=== PATIENT | female | born 1925 | race Asian ===

== ENCOUNTER 2016-10-11 08:49 | Inpatient (IN) | END 2016-10-16 17:50 | DRG 682 | DX: N17.9 Acute kidney failure, unspecified (principal); G93.41 Metabolic encephalopathy; I80.11 Phlebitis and thrombophlebitis of right femoral vein; N39.0 Urinary tract infection, site not specified; E11.65 Type 2 diabetes mellitus with hyperglycemia; I48.91 Unspecified atrial fibrillation; F03.90 Unspecified dementia, unspecified severity, without behavioral disturbance, psychotic disturbance, mood disturbance, and anxiety; E86.0 Dehydration; B95.62 Methicillin resistant Staphylococcus aureus infection as the cause of diseases classified elsewhere; I12.9 Hypertensive chronic kidney disease with stage 1 through stage 4 chronic kidney disease, or unspecified chronic kidney disease; Z86.73 Personal history of transient ischemic attack (TIA), and cerebral infarction without residual deficits; I25.2 Old myocardial infarction; N18.9 Chronic kidney disease, unspecified; M51.36 Other intervertebral disc degeneration, lumbar region; D64.9 Anemia, unspecified; E78.5 Hyperlipidemia, unspecified; B96.20 Unspecified Escherichia coli [E. coli] as the cause of diseases classified elsewhere ==

== ENCOUNTER 2016-11-14 04:09 | Inpatient (IN) | payer MEDICARE, OTHER ==
[~2016-11-14] VITALS: Ht 152.4 cm; Wt 63.0 kg
[2016-11-14] VITALS (8 sets, daily range): BP systolic 146–174; BP diastolic 72–77; PULSE 104–121; RESP 16–20; TEMP 98.9; Ht 152.4 cm; Wt 63.0 kg
[~2016-11-14 04:09] MED LIST: ACET-2047 PO; AMLO5TAB4 PO; ASCO500C7 PO; BISA10SU58 PR; CEPH250S33 PO; CRAN3875 PO; CRAN425C PO; DOCU-144 PO; EPOE10002 IJ; ESCI5TAB PO; FERR325C PO; HYDR-762 PO; IMO2 PO; LANT3I SC; LISI-524 PO; MULT-552 PO; NA P118E PR
[2016-11-14] MEDS ORDERED: ACETAMINOPHEN 650 MG SUPP PR STA (04:26)
[2016-11-14] MEDS ORDERED: IPRATROPIUM (NEB) 0.5 MG/2.5 ML AMP HHN ONE ×2 (04:30→05:30)
[2016-11-14] MEDS ORDERED: LEVALBUTEROL (NEB) 1.25 MG/0.5 ML AMP HHN ONE ×2 (04:30→05:30)
--- NOTE | 2016-11-14 04:32 | ERA ---
ER Documentation Chief Complaint Date/Time DATE: 11/14/16 TIME: 04:32 Chief Complaint sent from [facility] for wheezes and fever 100.2 since 0230, tx'd w/ tylenol. HPI The patient is a 89-year-old female, presenting to the ER because of fever of 102 tonight. She was treated with acetaminophen prior to arrival. History is fairly petite because of language barrier and because of patient condition. 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 Past medical history: Atrial fibrillation, CHF, hypertension, encephalopathy, anemia, chronic kidney disease, dementia Past surgical history: Unable to obtain due to her condition ROS All systems reviewed and are negative except as per history of present illness. Medications Home Meds Active Scripts Epoetin Jean (Procrit) 10,000 Unit/1 Ml Vial, [address] UNIT IJ q monthly for 30 Days, #1 VIAL Prov:HARMONY OLEA MD 10/16/16 Amlodipine Besylate* (Norvasc*) 5 Mg Tablet, 5 MG PO DAILY for 30 Days, #60 TAB Prov:HARMONY OLEA MD 10/16/16 Insulin Glargine* (Lantus*) 100 Unit/Ml Soln, 35 UNIT SC HS for 30 Days, #1 BOTTLE Prov:HARMONY OLEA MD 10/16/16 Cephalexin* (Cephalexin* Susp) 250 Mg/5 Ml Susp.recon, 500 MG PO Q8 for 7 Days, #1 BOTTLE Prov:HARMONY OLEA MD 10/16/16 Loperamide Hcl* (Loperamide Hcl*) 2 Mg Cap, 2 MG PO QID Y for DIARRHEA for 30 Days, CAP Prov:HARMONY OLEA MD 08/09/15 Reported Medications Ascorbic Acid* (Vitamin C*) 500 Mg Capsule.sa, 500 MG PO DAILY, CAP 09/24/15 Cran/Vitc/Mannose/Inulin/Brom (Uti-Stat Liquid) 3,875 Mg/30 Ml Liquid, 3875 MG PO BID 09/24/15 Acetaminophen* (Acetaminophen*) 650 Mg Tablet, 650 MG PO Q4 Y for PAIN AND OR ELEVATED TEMP, #30 TAB 09/24/15 Hydrocodone Bit-Acetaminophen* (Wellington*) 10-325 Mg Tablet, 1 TAB PO Q6 Y for PAIN , TAB 09/24/15 Multivitamins* (Once Daily*) 1 Tab Tablet, 1 TAB PO DAILY, TAB 09/24/15 Na Phos,M-B/Na Phos,Di-Ba* (Fleet* Enema) 118 Ml Enema, 118 ML DC Q48H Y for CONSTIPATION, ENEMA 09/24/15 Ferrous Sulfate (Iron) 325 Mg Capsr, 325 MG PO DAILY 09/24/15 Bisacodyl* (Dulcolax*) 10 Mg/Supp.rect Supp.rect, 10 MG DC Q24H Y for CONSTIPATION, SUPP.RECT 09/24/15 Cranberry Extract (Cranberry) 425 Mg Capsule, 425 MG PO TID, CAP 09/24/15 Docusate Sodium* (Colace*) 100 Mg Capsule, 200 MG PO Q24H Y for CONSTIPATION, # 30 CAP 09/24/15 Lisinopril* (Zestril*) 10 Mg Tablet, 10 MG PO BID, TAB 03/22/15 Escitalopram Oxalate* (Lexapro*) 5 Mg Tablet, 5 MG PO DAILY, TAB 02/18/15 Allergies Allergies: Coded Allergies: No Known Allergy (Unverified , 09/24/15) PMhx/Soc Hx Neurological Disorder: No Hx Respiratory Disorders: No (UNABLE TO OBTAIN PT INFO) Hx Cardiac Disorders: Yes (ATRIAL AFIB, HEART FAILURE) Hx Psychiatric Problems: No Hx Miscellaneous Medical Probl: No Physical Exam Vitals Vital Signs Date Time Temp Pulse Resp B/P Pulse Ox O2 Delivery O2 Flow Rate FiO2 11/14/16 05:23 80 20 98 Nasal Cannula 3.0 11/14/16 05:20 98.6 110 24 145/67 98 4.0 11/14/16 05:12 Nasal Cannula 4 11/14/16 04:35 98 3.0 11/14/16 04:34 89 25 98 Nasal Cannula 3.0 11/14/16 04:17 98.6 86 22 144/87 94 Physical Exam Const: Mild acute distress. Head: Atraumatic. Eyes: Normal Conjunctiva. ENT: Normal External Ears, Nose and Mouth. Neck: Full range of motion. No meningismus. Resp: Mild bilateral expiratory wheezes, tachypnea Cardio: Irregularly irregular Abd: Soft, non distended, normal bowel sounds, non tender. Skin: No petechiae or rashes. Back: No midline or flank tenderness. Ext: No cyanosis, or edema. Neur: Unable to perform due to her condition Psych: Unable to perform due to her condition Result Diagram: 11/14/16 0431 11/14/16 0431 Results 24 hrs Laboratory Tests Test 11/14/16 04:31 11/14/16 05:08 11/14/16 05:14 White Blood Count 8.610^3/ul Red Blood Count 3.0110^6/ul Hemoglobin 9.8g/dl Hematocrit 32.4% Mean Corpuscular Volume 107.6fl Mean Corpuscular Hemoglobin 32.6pg Mean Corpuscular Hemoglobin Concent 30.2g/dl Red Cell Distribution Width 13.3% Platelet Count 19396^3/UL Mean Platelet Volume 9.5fl Neutrophils % 79.2% Lymphocytes % 9.3% Monocytes % 6.0% Eosinophils % 4.7% Basophils % 0.5% Nucleated Red Blood Cells % 0.0/100WBC Neutrophils # 6.810^3/ul Lymphocytes # 0.810^3/ul Monocytes # 0.510^3/ul Eosinophils # 0.410^3/ul Basophils # 0.010^3/ul Nucleated Red Blood Cells # 0.010^3/ul Prothrombin Time 13.9Sec Prothrombin Time Ratio 1.1 INR International Normalized Ratio 1.07 Activated Partial Thromboplast Time 28.3Sec Sodium Level 143mmol/L Potassium Level 4.9mmol/L Chloride Level 114mmol/L Carbon Dioxide Level 22mmol/L Anion Gap 12 Blood Urea Nitrogen 49mg/dl Creatinine 1.79mg/dl Glucose Level 241mg/dl Lactic Acid Level 1.3mmol/L Calcium Level 8.5mg/dl Total Bilirubin 0.0mg/dl Direct Bilirubin 0.00mg/dl Indirect Bilirubin 0.0mg/dl Aspartate Amino Transf (AST/SGOT) 29IU/L Alanine Aminotransferase (ALT/SGPT) 34IU/L Alkaline Phosphatase 122IU/L Troponin I 0.017ng/ml B-Type Natriuretic Peptide 4810PG/ML Total Protein 7.9g/dl Albumin 3.7g/dl Globulin 4.20g/dl Albumin/Globulin Ratio 0.88 Urine Color LT. YELLOW Urine Clarity SLIGHTLY CLOUDY Urine pH 5.5 Urine Specific Fletcher 1.020 Urine Ketones NEGATIVE Urine Nitrite NEGATIVE Urine Bilirubin NEGATIVE Urine Urobilinogen 0.2 E.U./dL Urine Leukocyte Esterase 2+ Urine Microscopic RBC Pending Urine Microscopic WBC Pending Urine Hemoglobin 2+ Urine Glucose 0.1%% Urine Total Protein 1+ Bedside Urine pH (LAB) 5.5 Bedside Urine Protein (LAB) 2+ Bedside Urine Glucose (UA) 0.25% Bedside Urine Ketones (LAB) Negative Bedside Urine Blood 2+ Bedside Urine Nitrite (LAB) Negative Bedside Urine Leukocyte Esterase (L 1+ Current Medications Medications (Trade) Dose Ordered Sig/Gilbert Route PRN Reason Start Time Stop Time Status Last Admin Dose Admin Acetaminophen (Tylenol Supp) 650 mg ONCE STAT DC 11/14/16 04:26 11/14/16 04:28 DC Levalbuterol (Xopenex Neb) 1.25 mg ONCE ONCE N 11/14/16 04:30 11/14/16 04:31 DC 11/14/16 04:33 Ipratropium Viking (Atrovent 0.02% (Neb)) 0.5 mg ONCE ONCE N 11/14/16 04:30 11/14/16 04:31 DC 11/14/16 04:33 Levalbuterol (Xopenex Neb) 1.25 mg ONCE ONCE N 11/14/16 05:30 11/14/16 05:31 DC Ipratropium Viking (Atrovent 0.02% (Neb)) 0.5 mg ONCE ONCE N 11/14/16 05:30 11/14/16 05:31 DC Furosemide 40 mg 40 mg ONCE ONCE IV 11/14/16 05:30 11/14/16 05:31 DC Piperacillin Sod/ Tazobactam Sod 50 ml @ 100 mls/hr ONCE ONCE IVPB 11/14/16 06:00 11/14/16 06:29 Vancomycin HCl (Vancocin) 250 ml @ 125 mls/hr ONCE IVPB 11/14/16 06:00 11/14/16 07:59 Methylprednisolone Sodium Succinate (Solu-Medrol) 125 mg ONCE ONCE IV 11/14/16 06:00 11/14/16 06:01 Furosemide (Lasix) 40 mg ONCE ONCE IV 11/14/16 06:00 11/14/16 06:01 Procedures/[facility] EKG: Read by emergency physician Rate/Rhythm: Atrial fibrillation 109 beats/min, RVR QRS, ST, T-waves: No ST elevation, no T inversion, LAD, low voltage QRS Impression: Abnormal EKG [place] [id number] Radiology Main Line: [phone] DIAGNOSTIC IMAGING REPORT Patient: BLANQUITA LINDER : 1925 Age: 89 Sex: F MR #: [id number] DOS: 11/14/16 0426 Ordering MD: DWAYNE HERNANDEZ MD Location: E/R Room/Bed: PROCEDURE: XR Chest. CLINICAL INDICATION: Sepsis TECHNIQUE: Portable single view of the chest COMPARISON: 10/11/2016 FINDINGS: Again seen is cardiomegaly and aortic calcification. Pulmonary vascular congestion has increased. Increased interstitial markings again seen which may be due to underlying interstitial lung disease or interstitial edema. There is new opacification of the right mid to lower lung zone which is likely in part due to pleural effusion but underlying infiltrate of the right middle and/or lower lobes is suspected. Degenerative change of the spine. There is also increased left retrocardiac opacity with obscuration of the left hemidiaphragm suggesting atelectasis or infiltrate. There could be a small underlying left effusion. IMPRESSION: New right greater than left basilar infiltrates with probable underlying effusions. Cardiomegaly. Lateral view may be helpful. Aortic atherosclerosis. RPTAT: HLBE Physician Shari Date Time Electronically viewed and signed by Anay Blackwell Physician on 11/14/2016 05 :42 LE/ CC: DWAYNE HERNANDEZ MD MEDICAL MAKING DECISION: The patient is a 89-year-old female, presenting with acute respiratory failure, acute CHF, acute UTI. She improved with Xopenex 1.25 mg and Atrovent 0.5 mg 2 for wheezing, however she is still tachypneic and tachycardic, she was therefore treated with Solu-Medrol 125 mg IV and put on BiPAP. She was treated with Zosyn IV and vancomycin IV for acute pneumonia and acute cystitis, Lasix 80 mg IV and Ray catheter for acute CHF Critical Care: Time: 35 minutes excluding all billable procedures. Treatments/Evaluations: Close monitoring and treatment of unstable vital signs, cardiorespiratory, and neurologic status, while maintaining tight balance of fluid, respiratory, and cardiac interventions. Departure Diagnosis: Primary Impression: Acute respiratory failure Additional Impressions: CHF (congestive heart failure) UTI (urinary tract infection) Anemia Condition: Critical Comments I discussed the findings with the patient. I discussed the patient with her physician Dr. Fadi Olea who was made aware of the lab, the treatment, the patient condition. The patient is admitted to ICU at 5:50 am DWAYNE HERNANDEZ MD Nov 14, 2016 04:32
[2016-11-14 04:40] LABS: ADD SCAN DIFF NO
[2016-11-14 04:46] LABS: BASOPHILS % 0.5 % (0.0-2.0); EOSINOPHILS # 0.4 10^3/ul (0.0-0.5); EOSINOPHILS % 4.7 % (0.0-7.0); HEMATOCRIT 32.4 % (37.0-47.0); HEMOGLOBIN 9.8 g/dl (12.0-16.0); LYMPHOCYTES # 0.8 10^3/ul (0.8-2.9); LYMPHOCYTES % 9.3 % (15.0-51.0); MEAN CORPUSCULAR HEMOGLOBIN 32.6 pg (29.0-33.0); MEAN CORPUSCULAR HGB CONC 30.2 g/dl (32.0-37.0); MEAN CORPUSCULAR VOLUME 107.6 fl (82.0-101.0); MEAN PLATELET VOLUME 9.5 fl (7.4-10.4); MONOCYTE # 0.5 10^3/ul (0.3-0.9); NEUTROPHIL # 6.8 10^3/ul (1.6-7.5); NEUTROPHILS % 79.2 % (39.0-77.0); PLATELET COUNT 194 10^3/UL (140-415); RED BLOOD COUNT 3.01 10^6/ul (4.20-5.40); RED CELL DISTRIBUTION WIDTH 13.3 % (11.5-14.5); WHITE BLOOD COUNT 8.6 10^3/ul (4.8-10.8)
[2016-11-14 04:54] LABS: INR 1.07; PROTIME 13.9 Sec (12.2-14.2); PT RATIO 1.1
[2016-11-14 04:55] LABS: PARTIAL THROMBOPLASTIN TIME 28.3 Sec (25.0-35.0)
[2016-11-14 05:09] LABS: ALBUMIN 3.7 g/dl (3.3-4.9); ALBUMIN/GLOBULIN RATIO 0.88; CALCIUM 8.5 mg/dl (8.4-10.2); CREATININE 1.79 mg/dl (0.44-1.00); POTASSIUM 4.9 mmol/L (3.5-5.1); TOTAL PROTEIN 7.9 g/dl (6.1-8.1)
[2016-11-14 05:15] LABS: URINE BLOOD (Dip) POC 2+ (NEGATIVE)
[2016-11-14 05:20] LABS: TROPONIN-I 0.017 ng/ml (0.00-0.12)
[2016-11-14] MEDS ORDERED: FUROSEMIDE 40 MG INJ IV ONE ×2 (05:30→06:00)
[2016-11-14 05:34] LABS: ADD UMIC YES; URINE BILIRUBIN (Dip) NEGATIVE (NEGATIVE); URINE BLOOD (Dip) 2+ (NEGATIVE); URINE COLOR LT. YELLOW (YELLOW); URINE KETONES (Dip) NEGATIVE (NEGATIVE); URINE LEUKOCYTE ESTERASE (Dip) 2+ (NEGATIVE); URINE NITRITE (Dip) NEGATIVE (NEGATIVE); URINE TOTAL PROTEIN (Dip) 1+ (NEGATIVE); URINE UROBILINOGEN (Dip) 0.2 E.U./dL (0.1-1.0)
--- NOTE | 2016-11-14 05:42 | RADRPT ---
PROCEDURE: XR Chest. CLINICAL INDICATION: Sepsis TECHNIQUE: Portable single view of the chest COMPARISON: 10/11/2016 FINDINGS: Again seen is cardiomegaly and aortic calcification. Pulmonary vascular congestion has increased. Increased interstitial markings again seen which may be due to underlying interstitial lung disease or interstitial edema. There is new opacification of the right mid to lower lung zone which is like ly in part due to pleural effusion but underlying infiltrate of the right middle and/or lower lobes is suspected. Degenerative change of the spine. There is also increased left retrocardiac opacity with obscuration of the left hemidiaphragm suggesting atelectasis or infiltrate. There could be a s mall underlying left effusion. IMPRESSION: New right greater than left basilar infiltrates with probable underlying effusions. Cardiomegaly. Lateral view may be helpful. Aortic atherosclerosis. RPTAT: HLBE Physician Shari Date Time Electronically viewed and signed by Anay Blackwell Physician on 11/14/2016 05:42 DOMENICA/
[2016-11-14 05:54] LABS: SQUAMOUS EPITHELIAL CELL,UR OCCASIONAL
[2016-11-14] MEDS ORDERED: PIPER-TAZO 2.25 GM (PMX) 50 ML IVPB ONE (06:00)
[2016-11-14] MEDS ORDERED: METHYLPREDNISOLONE 125 MG INJ IV ONE (06:00)
[2016-11-14] MEDS ORDERED: VANCOMYCIN 1 GM (PMX) 250 ML IVPB SCH (06:00)
[2016-11-14 08:14] LABS: AADO2 Arterial 102.8 mmHg (7.0-24.0); Arterial Base Excess -8.8 mmol/L (-3.0-3); Arterial COHb 0.1 % (0.0-3.0); Arterial Fraction of Oxyhgb 89.9 % (93.0-99.0); Arterial HCO3 17.5 mmol/L (22.0-26.0); Arterial MetHb 0.2 % (0.0-1.5); MODE NASAL CANNULA
[2016-11-14] MEDS ORDERED: DILT120C79 PO (12:20)
[2016-11-14] MEDS ORDERED: MAGN400T27 PO (12:25)
[2016-11-14] MEDS ORDERED: LINA5TAB PO (12:25)
[2016-11-14] MEDS ORDERED: FER325 PO (12:25)
[2016-11-14] MEDS ORDERED: ESCI5TAB PO (12:25)
[2016-11-14] MEDS ORDERED: ZINC220C11 GTB (12:25)
[2016-11-14] MEDS ORDERED: CYAN100080 PO (12:40)
[2016-11-14] MEDS ORDERED: vit B12 IM (12:40)
[2016-11-14] MEDS ORDERED: GABA300C16 PO (12:40)
[2016-11-14] MEDS ORDERED: NA PHOSPHATE/BIPHOS 133 ML ENEMA PR PRN (13:30)
[2016-11-14] MEDS ORDERED: BISACODYL 10 MG SUPP PR PRN (13:30)
[2016-11-14] MEDS ORDERED: GLUCAGON 1 MG INJ IM PRN (14:00)
[2016-11-14] MEDS ORDERED: GLUCOSE GEL 15 GRAM TUBE BUCCAL PRN (14:00)
[2016-11-14] MEDS ORDERED: GLUCOSE GEL 15 GRAM TUBE PO PRN ×2 (14:00)
[2016-11-14] MEDS ORDERED: DEXTROSE 50% 50 ML SYRINGE IV PRN (14:00)
[2016-11-14] MEDS: PIPER-TAZO 2.25 GM (PMX) 50 ML IVPB SCH ×2 (14:27→21:47)
[2016-11-14] MEDS: AMLODIPINE 5 MG TAB PO SCH (15:16)
[2016-11-14] MEDS: ESCITALOPRAM 10 MG TAB PO SCH (15:16)
[2016-11-14] MEDS: FERROUS SULFATE (EC) 325 MG TAB PO SCH (15:17)
[2016-11-14] MEDS: GABAPENTIN 300 MG CAP PO SCH ×2 (15:17→21:42)
[2016-11-14] MEDS: LEVALBUTEROL (NEB) 0.63 MG/3 ML AMP HHN SCH ×2 (16:00→23:14)
[2016-11-14] MEDS ORDERED: LEVOFLOXACIN 500MG/D5W (PMX) 100 ML IVPB SCH (16:00)
[2016-11-14] MEDS ORDERED: PENDING SANTYL ORDER FOR WOUND CARE XX PRN (16:30)
--- NOTE | 2016-11-14 16:41 | HP ---
DATE OF ADMISSION: 11/14/2016 HISTORY OF PRESENT ILLNESS: This 89-year-old [place] patient who is a resident at [facility] was noted to have a fever and shortness of breath last night and was transferred to the emergency room for workup. In the emergency room, the patient was noted to have mild shortness of breath and chest x-ray shows new right greater than left basilar infiltrates, with possible underlying effusions as well as cardiomegaly. There is also aortic atherosclerosis. The patient is admitted for pneumonia and possible CHF exacerbation. PAST MEDICAL HISTORY: 1. Diabetes mellitus, now insulin-dependent. 2. Congestive heart failure with atrial fibrillation. 3. Peripheral vascular disease with multiple thromboses of iliac and lower extremity vessels even on blood thinners. 4. Hypertension. 5. Chronic renal failure. 6. Lower GI bleed 7. Anemia from renal failure and iron deficiency.. 8. Dementia. 9. Depression. 10. Hypercholesterolemia. 11. GERD. 12. Overactive bladder. 13. 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 ALLERGIES: NKDA. CURRENT MEDICATIONS: Include: 1. Amlodipine 5 mg p.o. daily. 2. Diltiazem 120 mg XT p.o. daily. 3. Lisinopril 10 mg p.o. b.i.d. 4. Lexapro 5 mg p.o. daily. 5. Neurontin 300 mg p.o. t.i.d. 6. Hydrocodone q.6h. p.r.n. 7. Epogen or Procrit 10,000 units q. monthly. 8. Insulin glargine or Lantus 35 units subcutaneous at bedtime. 9. Tradjenta 5 mg p.o. daily. 10. Multiple vitamins including ferrous sulfate 325 mg p.o. daily. SOCIAL HISTORY: The patient does not smoke, does not drink alcohol. She currently resides at a half-way facility. She has a son who is her emergency contact and next of kin. PHYSICAL EXAMINATION: GENERAL: The patient is awake, alert. Complains of mild distress from the shortness of breath. VITAL SIGNS: Temperature 98.5, blood pressure 174/74, pulse 110, respiratory rate 20, O2 saturation 97% on 3 liters. HEENT: Pupils equally round, reactive to light. Oropharynx clear. LUNGS: Show bibasilar crackles. CARDIAC: Tachycardic irregular, irregular. ABDOMEN: Active bowel sounds, soft, nondistended, nontender. EXTREMITIES: No clubbing, cyanosis, or edema but very poor peripheral pulses on the dorsalis pedis and posterior tibialis. LABORATORY DATA: WBC 8.6, hemoglobin 9.8, hematocrit 32.4, platelet count 194, 000. Sodium 143, potassium 4.9, chloride 114, carbon dioxide 22, BUN 49, creatinine 1.79, glucose 241. Liver enzymes are within normal limits except for mildly elevated alkaline phosphatase of 122 and elevated globulin of 4.2. The patient's beta natriuretic peptide level is at 4810. Her lactic acid ranges from 1.3 to 2.0. Her PT, PTT are within normal limits. Urinalysis shows pH of 5.5, specific gravity 1.020 with 2+ protein, 2+ glucose, 2+ blood and 2+ leukocyte esterase. Urine culture as well as blood cultures are pending at this time. The patient's blood gas on 3 liters nasal cannula showed a pH of 7.27, pCO2 of 38.9, pO2 of 65, oxygen saturation of 90 earlier this morning, Her chest x-ray as noted above shows bilateral basilar infiltrates, right greater than left. Her EKG shows atrial fibrillation with rapid ventricular response at 109 beats per minute, with left axis deviation and possible old septal infarct. ASSESSMENT AND PLAN: 1. Shortness of breath may be due to pneumonitis versus congestive heart failure. Since patient was reported to have a fever at the residential, although she did not have one here, we will start her on IV antibiotic and consult infectious disease for antibiotic management. In the meantime, we will also need to treat patient's cardiac problems. 2. Atrial fibrillation with possible heart failure. We will start patient on Lasix and consult cardiology . Obtain 2D-echo. Tachycardia partially due to nebulizer treatments. I will use short acting p.o. diltiazem for now to better control rate. We will continue to monitor the patient's kidney panel on Lasix. She used to be on Coumadin before as well as Pradaxa and Eliquis but developed clots on the last two and most recently Coumadin was stopped due to GI bleed. Will use Heparin for now for anticoagulation. 3. Possible urinary tract infection. Await urine culture, but for now Zosyn should treat both the pulmonary as well as urine problems. 4. Diabetes . Continue Lantus and diabetic diet. Add accucheck with insulin sliding scale. 4. Multiple other problems. Continue current medications for diabetes, lumbar spine disk disease, acid reflux, hypertension, depression, neuropathy, and dementia. Dictated By: HARMONY OLEA MD DP/PUJA Conf#: [id number] DID#: [id number] MTDD
[2016-11-14] MEDS: INSULIN ASPART [NOVOLOG] 3 ML PEN SC SCH ×2 (17:29→22:03)
[2016-11-14] MEDS ORDERED: INSULIN GLARGINE [LANtus] 3 ML PEN SC SCH (21:00)
[2016-11-14] MEDS: DILTIAZEM 60 MG TAB PO SCH (21:43)
[2016-11-14] MEDS: LISINOPRIL 10 MG TAB PO SCH (21:43)
[2016-11-15] VITALS (13 sets, daily range): BP systolic 115–147; BP diastolic 53–66; PULSE 50–119; RESP 17–20
[2016-11-15] MEDS: ACCU-CHEK XX SCH (02:16)
[2016-11-15] MEDS: PIPER-TAZO 2.25 GM (PMX) 50 ML IVPB SCH ×3 (06:34→23:31)
[2016-11-15 06:35] LABS: ADD SCAN DIFF NO
[2016-11-15 06:45] LABS: ABNORMAL IP MESSAGE 1; BASOPHILS % 0.4 % (0.0-2.0); EOSINOPHILS # 0.5 10^3/ul (0.0-0.5); EOSINOPHILS % 5.6 % (0.0-7.0); HEMATOCRIT 29.3 % (37.0-47.0); HEMOGLOBIN 8.8 g/dl (12.0-16.0); LYMPHOCYTES # 0.6 10^3/ul (0.8-2.9); MEAN CORPUSCULAR HEMOGLOBIN 32.2 pg (29.0-33.0); MEAN CORPUSCULAR VOLUME 107.3 fl (82.0-101.0); MEAN PLATELET VOLUME 9.9 fl (7.4-10.4); MONOCYTE # 0.6 10^3/ul (0.3-0.9); MONOCYTES % 7.6 % (0.0-11.0); NEUTROPHIL # 6.6 10^3/ul (1.6-7.5); PLATELET COUNT 170 10^3/UL (140-415); RED BLOOD COUNT 2.73 10^6/ul (4.20-5.40); RED CELL DISTRIBUTION WIDTH 13.6 % (11.5-14.5); WHITE BLOOD COUNT 8.4 10^3/ul (4.8-10.8)
[2016-11-15 06:58] LABS: CREATININE 1.88 mg/dl (0.44-1.00); POTASSIUM 4.5 mmol/L (3.5-5.1)
[2016-11-15] MEDS: INSULIN ASPART [NOVOLOG] 3 ML PEN SC SCH ×4 (07:55→23:34)
[2016-11-15] MEDS: LEVALBUTEROL (NEB) 0.63 MG/3 ML AMP HHN SCH ×3 (08:00→23:08)
[2016-11-15] MEDS: DEXTROSE 50% 50 ML SYRINGE IV PRN (08:05)
[2016-11-15] MEDS: FUROSEMIDE 20 MG INJ IV SCH (08:16)
[2016-11-15] MEDS ORDERED: NON-FORMULARY/PATIENT OWN MED (Ferrous Sulfate (Iron) 325 MG) PO SCH (09:00)
[2016-11-15] MEDS ORDERED: APIXABAN 5 MG TABLET PO SCH (09:00)
[2016-11-15] MEDS ORDERED: LINAGLIPTIN 5 MG TABLET PO SCH (09:00)
[2016-11-15] MEDS: ESCITALOPRAM 10 MG TAB PO SCH (09:35)
[2016-11-15] MEDS: AMLODIPINE 5 MG TAB PO SCH (09:36)
[2016-11-15] MEDS: LISINOPRIL 10 MG TAB PO SCH ×2 (09:36→23:33)
[2016-11-15] MEDS: DILTIAZEM 60 MG TAB PO SCH ×2 (09:37→12:52)
[2016-11-15] MEDS: FERROUS SULFATE (EC) 325 MG TAB PO SCH (09:39)
[2016-11-15] MEDS: MULTIVITAMINS THERAPEUTIC TAB PO SCH (09:39)
[2016-11-15] MEDS: ZINC SULFATE 220 MG CAP GTB SCH (09:39)
[2016-11-15] MEDS: GABAPENTIN 300 MG CAP PO SCH ×3 (09:42→23:32)
[2016-11-15] MEDS ORDERED: EPOETIN ALFA (NESRD) 3,000 UNITS/ML VIAL SC ONE (12:30)
[2016-11-15] MEDS: GUAIFENESIN/CODEINE 5ML CUP PO PRN ×2 (18:02→23:43)
--- NOTE | 2016-11-15 18:35 | PN ---
DATE: 11/15/2016 SUBJECTIVE: The patient is awake and alert, sitting up in bed, coughing. Having difficulty chewing her food on 1800cal ADA diet. OBJECTIVE: VITAL SIGNS: Temperature 98.6, blood pressure 147/60, pulse of 68, respiration rate 18, O2 saturation is 92% to 97% on 2 liters nasal cannula. HEENT: Pupils equally round, reactive to light. Oropharynx clear. CHEST: Bibasilar crackles, diffuse rhonchi. CARDIAC: Irregularly irregular. ABDOMEN: Active bowel sounds, soft, nondistended, nontender. EXTREMITIES: Decreased pulses at dorsalis pedis and posterior tibialis. LABORATORY DATA: WBC is 8.4, hemoglobin 8.8, hematocrit 29.3, platelet count is 170,000. Sodium is 143, potassium is 4.5, chloride 114, carbon dioxide 24, BUN 48, creatinine 1.88, glucose 95. Of note, is that just sugar went down to 45 at 8:00 in the morning just prior to her breakfast and again down to 64 just prior to her lunch. Blood cultures are negative after 2 days. Urine culture preliminary growing some gram-negative rods. ASSESSMENT AND PLAN: 1. Pneumonia. The patient is on Zosyn. May consider adding vancomycin for penicillin resistance, but clinically she is doing well, so we will continue this antibiotic for now unless infectious disease has other recommendations. 2. Congestive heart failure and atrial fibrillation. The patient's atrial fibrillation is rate controlled at this time. I will change Cardizem to long acting formula. Her echocardiogram has been ordered and cardiology consult is pending. We will continue gentle diuresis and monitor the patient's kidney function on Lasix. 3. Chronic kidney failure. Continue to monitor on low dose lisinopril and Lasix. Give patient 1 dose of Epogen for anemia due to chronic kidney failure. 4. Diabetes mellitus. Decrease Lantus dosage from 35 units to 30 units a day and continue accuchecks. Blood sugar may be affected by the change of diet to mechanical soft today. Dictated By: HARMONY OLEA MD DP/NTS Conf#: [id number] DID#: [id number] MTDD
--- NOTE | 2016-11-15 20:26 | PN ---
DATE: 11/15/2016 SUBJECTIVE: No events overnight. No fevers. The patient is lying comfortably in bed. She is nonc ommunicative. LABORATORY DATA: WBC 8.4, platelets 170, neutrophils 79, no bands. BUN 48, creatinine 1.88. MICROBIOLOGY: Urine culture growing gram-negative rods. ANTIMICROBIALS: Zosyn. PHYSICAL EXAMINATION: GENERAL: Fragile, elderly woman who is nonverbal, noncommunicative. The patient is in no distress. HEENT: Head atraumatic, normocephalic. Sclerae anicteric. Buccal mucosa dry. NECK: Supple. Trachea midline. CHEST: Rise symmetrical. Breath sounds diminished to bases. HEART: S1, S2. ABDOMEN: Soft. Bowel tones present. EXTREMITIES: Without cyanosis. ASSESSMENT: 1. Acute respiratory failure, improved. 2. Healthcare-associated pneumonia, possibly aspiration type. 3. Congestive heart failure. 4. Gram-negative rods urinary tract infection. 5. Hypertension. 6. Dementia. 7. Diabetes. 8. History of atrial fibrillation. PLAN: The patient remains stable. Pending final cultures. Continue present care, antibiotics, ant i-aspiration measures. Dictated By: [employer] COMPUTER CONSULTANT for JOSE ANTONIO LY MD NI/NTS Conf#: [id number] DID#: [id number] CC: HARMONY OLEA MD;*EndCC*
[2016-11-15] MEDS: INSULIN GLARGINE [LANtus] 3 ML PEN SC SCH (23:48)
[2016-11-15] MEDS: HEPARIN 5,000 UNIT/0.5 ML VIAL SC SCH (23:49)
[2016-11-16] VITALS (13 sets, daily range): BP systolic 104–136; BP diastolic 58–68; PULSE 71–91; RESP 18–25
[2016-11-16] MEDS: ACCU-CHEK XX SCH (02:00)
[2016-11-16] MEDS: PIPER-TAZO 2.25 GM (PMX) 50 ML IVPB SCH ×3 (06:21→21:37)
[2016-11-16 06:46] LABS: ADD SCAN DIFF NO
[2016-11-16 06:49] LABS: BASOPHILS % 0.2 % (0.0-2.0); EOSINOPHILS # 0.8 10^3/ul (0.0-0.5); EOSINOPHILS % 8.3 % (0.0-7.0); HEMATOCRIT 27.9 % (37.0-47.0); HEMOGLOBIN 8.8 g/dl (12.0-16.0); LYMPHOCYTES # 0.7 10^3/ul (0.8-2.9); LYMPHOCYTES % 7.2 % (15.0-51.0); MEAN CORPUSCULAR HEMOGLOBIN 33.7 pg (29.0-33.0); MEAN CORPUSCULAR HGB CONC 31.5 g/dl (32.0-37.0); MEAN CORPUSCULAR VOLUME 106.9 fl (82.0-101.0); MEAN PLATELET VOLUME 9.1 fl (7.4-10.4); MONOCYTE # 0.6 10^3/ul (0.3-0.9); MONOCYTES % 6.2 % (0.0-11.0); NEUTROPHILS % 77.7 % (39.0-77.0); PLATELET COUNT 160 10^3/UL (140-415); RED BLOOD COUNT 2.61 10^6/ul (4.20-5.40); RED CELL DISTRIBUTION WIDTH 13.6 % (11.5-14.5)
[2016-11-16] MEDS: LEVALBUTEROL (NEB) 0.63 MG/3 ML AMP HHN SCH ×2 (07:18→16:32)
[2016-11-16] MEDS: DEXTROSE 50% 50 ML SYRINGE IV PRN (07:26)
[2016-11-16] MEDS: INSULIN ASPART [NOVOLOG] 3 ML PEN SC SCH ×4 (07:55→21:41)
--- NOTE | 2016-11-16 08:21 | RADRPT ---
PROCEDURE: XR Chest. CLINICAL INDICATION: Shortness of breath. TECHNIQUE: Single frontal view. COMPARISON: 11/14/2016. FINDINGS: There is air space disease in the right mid and lower lung zones consistent with pneumonia. There i s left basilar atelectasis or pneumonia. Bilateral interstitial disease consistent with pulmonary ed mariano is unchanged. The heart is enlarged. There is calcification in the aorta consistent with atherosclerosis. There is a moderate right pleural effusion and small left pleural effusion. There is no pneumothorax. IMPRESSION: 1. No change from 11/14/2016. RPTAT: QQ .Luis Vidal MD, MD Date Time Electronically viewed and signed by .Luis Vidal MD, MD on 11/16/2016 08:21 .R/
--- NOTE | 2016-11-16 08:28 | CONS ---
DATE OF ADMISSION: 11/14/2016 DATE OF CONSULTATION: 11/14/2016 TYPE OF CONSULTATION: Infectious Disease. REASON FOR CONSULTATION: Antibiotic management. HISTORY OF PRESENT ILLNESS: Brando Santana is an 89-year-old female who presented to the emergency room with fever to 100.2 and wheezes. Past medical history includes: 1. Coronary artery disease with CHF. 2. Atrial fibrillation. 3. Hypertension. 4. Encephalopathy. 5. Anemia. 6. Chronic kidney disease. 7. Dementia. The patient is on insulin. On admission, her white count was 8.6, H and H of 9.8 and 32.4, platelet count 294,000. BUN and creatinine 49/1.79, glucose of 241,000. PHYSICAL EXAMINATION: VITAL SIGNS: Stable. SKIN: Without generalized rash. HEENT: Within normal limits. NECK: Supple. LYMPH NODES: None palpable. CHEST: Decreased breath sounds at the bases. HEART: Without murmur or gallop. She has an irregularly irregular rhythm. ABDOMEN: Soft, nontender, without organosplenomegaly or masses. EXTREMITIES: Without cyanosis, clubbing, or edema. RECTAL AND GENITAL: Deferred. NEUROLOGIC: No focal neurological abnormalities. DIAGNOSTIC DATA: Chest x-ray showed new right greater than left basilar infiltrates with probable u nderlying effusion, cardiomegaly, aortic atherosclerosis. The EKG showed atrial fibrillation. IMPRESSION AND PLAN: The patient was started on vancomycin and Zosyn. Cultures are pending. Blood cultures have been done. She was also placed on methylprednisolone. Urinalysis and cultures are a lso pending. I will dictate my findings to Dr. Moody. Dictated By: JOSE ANTONIO LY MD, JD/PUJA Conf#: [id number] DID#: [id number]
[2016-11-16] MEDS: LISINOPRIL 10 MG TAB PO SCH ×2 (08:52→21:37)
[2016-11-16] MEDS: DILTIAZEM (CD) 120 MG CAP PO SCH (08:52)
[2016-11-16] MEDS: MULTIVITAMINS THERAPEUTIC TAB PO SCH (08:52)
[2016-11-16] MEDS: AMLODIPINE 5 MG TAB PO SCH (08:52)
[2016-11-16] MEDS: ESCITALOPRAM 10 MG TAB PO SCH (08:52)
[2016-11-16] MEDS: FUROSEMIDE 20 MG INJ IV SCH (08:53)
[2016-11-16] MEDS: FERROUS SULFATE (EC) 325 MG TAB PO SCH (08:53)
[2016-11-16] MEDS: GABAPENTIN 300 MG CAP PO SCH ×3 (08:53→21:37)
[2016-11-16] MEDS: ZINC SULFATE 220 MG CAP GTB SCH (08:53)
[2016-11-16] MEDS: HEPARIN 5,000 UNIT/0.5 ML VIAL SC SCH ×2 (08:57→21:40)
[2016-11-16 09:37] LABS: CALCIUM 8.3 mg/dl (8.4-10.2); CREATININE 2.19 mg/dl (0.44-1.00); MAGNESIUM 2.5 mg/dl (1.7-2.5); POTASSIUM 4.3 mmol/L (3.5-5.1)
--- NOTE | 2016-11-16 14:37 | CONS ---
Date/Time of Note Date/Time of Note DATE: 11/16/16 TIME: 14:35 Assessment/Plan Assessment/Plan Chief Complaint/Hosp Course SUBJECTIVE: No events overnight. No fevers. The patient is lying comfortably in bed. MICROBIOLOGY: Urine culture growing Enterobacter. ANTIMICROBIALS: Zosyn. PHYSICAL EXAMINATION: GENERAL: Fragile, elderly woman who is nonverbal, noncommunicative. The patient is in no distress. HEENT: Head atraumatic, normocephalic. Sclerae anicteric. Buccal mucosa dry. NECK: Supple. Trachea midline. CHEST: Rise symmetrical. Breath sounds diminished to bases. HEART: S1, S2. ABDOMEN: Soft. Bowel tones present. EXTREMITIES: Without cyanosis. ASSESSMENT: 1. Acute respiratory failure, improved. 2. Healthcare-associated pneumonia, possibly aspiration type. 3. Congestive heart failure. 4. Gram-negative rods urinary tract infection. 5. Hypertension. 6. Dementia. 7. Diabetes. 8. History of atrial fibrillation. 9. ARF PLAN: The patient remains stable. Continue present care, antibiotics, anti- aspiration measures. Monitor renal f-n DW staff Problems: Consultation Date/Type/Reason Admit Date/Time Nov 14, 2016 at 08:00 Initial Consult Date Type of Consultation: id Exam/Review of Systems Vital Signs Vitals Vital Signs Date Time Temp Pulse Resp B/P Pulse Ox O2 Delivery O2 Flow Rate FiO2 11/16/16 12:09 91 11/16/16 11:48 98.1 18 125/58 99 11/16/16 07:18 Nasal Cannula 2.0 11/15/16 16:24 28 Intake and Output 11/15/16 11/15/16 11/16/16 15:00 23:00 07:00 Intake Total 350 ml 220 ml Output Total 700 ml 650 ml Balance -350 ml -430 ml Results Result Diagram: 11/16/16 0520 11/16/16 0852 Results 24 hrs Laboratory Tests Test 11/15/16 17:27 11/15/16 22:37 11/16/16 02:53 11/16/16 05:20 Bedside Glucose 108 183 133 White Blood Count 9.0 Red Blood Count 2.61 L Hemoglobin 8.8 L Hematocrit 27.9 L Mean Corpuscular Volume 106.9 H Mean Corpuscular Hemoglobin 33.7 H Mean Corpuscular Hemoglobin Concent 31.5 L Red Cell Distribution Width 13.6 Platelet Count 160 Mean Platelet Volume 9.1 Neutrophils % 77.7 H Lymphocytes % 7.2 L Monocytes % 6.2 Eosinophils % 8.3 H Basophils % 0.2 Nucleated Red Blood Cells % 0.0 Neutrophils # 7.0 Lymphocytes # 0.7 L Monocytes # 0.6 Eosinophils # 0.8 H Basophils # 0.0 Nucleated Red Blood Cells # 0.0 Test 11/16/16 07:21 11/16/16 08:12 11/16/16 08:52 11/16/16 12:07 Bedside Glucose 46 *L 116 73 Sodium Level 146 H Potassium Level 4.3 Chloride Level 116 H Carbon Dioxide Level 26 Anion Gap 8 Blood Urea Nitrogen 46 H Creatinine 2.19 H Glucose Level 91 Calcium Level 8.3 L Magnesium Level 2.5 Medications Medications Current Medications Piperacillin Sod/ Tazobactam Sod (Zosyn 2.25gm/ 50ml (Pmx)) 50 ml @ 100 mls/hr Q8 IVPB Last administered on 11/16/16 14:06; Admin Dose 100 MLS/HR; Start at 14:30 Acetaminophen (Tylenol Tab) 650 mg Q4 PRN PO PAIN AND OR ELEVATED TEMP; Start 11/14/16 at 13:30 Amlodipine Besylate (Norvasc) 5 mg DAILY PO Last administered on 11/16/16 08: 52; Admin Dose 5 MG; Start 11/14/16 at 14:30 Bisacodyl (Dulcolax Supp) 10 mg Q24H PRN [place] CONSTIPATION; Start 11/14/16 at 13: 30 Docusate Sodium (Colace) 200 mg Q24H PRN [place] CONSTIPATION; Start 11/14/16 at 13: 30 Escitalopram Oxalate (Lexapro) 5 mg DAILY PO Last administered on 11/16/16 08: 52; Admin Dose 5 MG; Start 11/14/16 at 14:30 Ferrous Sulfate (Ferrous Sulfate (Ec)) 325 mg DAILY PO Last administered on 08:53; Admin Dose 325 MG; Start 11/14/16 at 14:30 Gabapentin (Neurontin) 300 mg TID PO Last administered on 11/16/16 14:06; Admin Dose 300 MG; Start 11/14/16 at 14:30 Acetaminophen/ Hydrocodone Bitart ([place] (10/325)) 1 tab Q6H PRN PO PAIN; Start 11/14/16 at 13:30 Lisinopril (Zestril) 10 mg BID PO Last administered on 11/16/16 08:52; Admin Dose 10 MG; Start 11/14/16 at 21:00 Multivitamins Therapeutic (Theragran) 1 tab DAILY PO Last administered on 08:52; Admin Dose 1 TAB; Start 11/15/16 at 09:00 Sodium Biphosphate/ Sodium Phosphate (Fleet Enema) 118 ml Q48H PRN [place] CONSTIPATION; Start 11/14/16 at 13:30 Zinc Sulfate (Zinc Sulfate) 220 mg DAILY GTB Last administered on 11/16/16 08: 53; Admin Dose 220 MG; Start 11/15/16 at 09:00 Miscellaneous Information 1 ea NOTE XX ; Start 11/14/16 at 14:00 Glucose (Glutose) 15 gm Q15M PRN PO DECREASED GLUCOSE; Start 11/14/16 at 14:00 Glucose (Glutose) 22.5 gm Q15M PRN PO DECREASED GLUCOSE; Start 11/14/16 at 14: 00 Dextrose (D50w Syringe) 25 ml Q15M PRN IV DECREASED GLUCOSE; Start 11/14/16 at 14:00 Dextrose (D50w Syringe) 50 ml Q15M PRN IV DECREASED GLUCOSE Last administered on 11/16/16 07:26; Admin Dose 50 ML; Start 11/14/16 at 14:00 Glucagon (Glucagen) 1 mg Q15M PRN IM DECREASED GLUCOSE; Start 11/14/16 at 14:00 Glucose (Glutose) 15 gm Q15M PRN BUCCAL DECREASED GLUCOSE; Start 11/14/16 at 14 :00 Furosemide (Lasix) 20 mg DAILY IV Last administered on 11/16/16 08:53; Admin Dose 20 MG; Start 11/15/16 at 09:00 Diagnostic Test (Pha) (Accu-Chek) 1 ea 02 XX Last administered on 11/16/16 02: 00; Admin Dose 1 EA; Start 11/15/16 at 02:00 Miscellaneous Information [facility] This patient woodard... PRN PRN XX WOUND CARE; Start 11/14/16 at 16:30 Guaifenesin/ Codeine Phosphate (Robitussin Ac Liquid Cup) 5 ml Q6 PRN PO COUGH Last administered on 11/15/16 23:43; Admin Dose 5 ML; Start 11/15/16 at 00:00 Insulin Glargine (Lantus) 30 unit HS SC Last administered on 11/15/16 23:48; Admin Dose 30 UNIT; Start 11/15/16 at 21:00 Heparin Sodium (Porcine) (Heparin (5000 Units/0.5 ml)) 5,000 unit BID SC Last administered on 11/16/16 08:57; Admin Dose 5,000 UNIT; Start 11/15/16 at 21:00 Diltiazem HCl (Cardizem Cd) 120 mg DAILY PO Last administered on 11/16/16 08: 52; Admin Dose 120 MG; Start 11/16/16 at 09:00 AMBER FLORES NP Nov 16, 2016 14:37
--- NOTE | 2016-11-16 15:28 | RADRPT ---
Echocardiogram Report Patient Name: BLANQUITA LINDER Gender: Female Date: 1925 Study Date: 15-Nov-2016 Varnish Maker: NOY Location: I Ref. Physician: HARMONY OLEA Quality: Adequate Procedures: Transthoracic echocardiogram with 2D, M-Mode, and Doppler examination. Indications: Congestive Heart Failure. 2D/M Mode Doppler Measurement Value Normal Ranges Measurement Value Normal Ranges AoR Diam MM 3.3 cm AV Peak Abad 1.3 m/sec ACS MM 1.8 cm AV Peak PG 6.3 mmHg LVIDd 2D 3.9 3.5 - 5.6 cm LVOT Peak Abad 0.6 m/sec LVIDs 2D 2.5 2.1 - 4.1 cm LVOT Peak PG 1.5 mmHg LVPWd 2D 1.2 0.6 - 1.1 cm MV E Peak Abad 1.2 m/sec IVSd 2D 1.2 0.6 - 1.1 cm MV A Peak Abad 0.4 m/sec EDV 2D 66.9 cm3 MV E/A 2.9 ESV 2D 15.9 cm3 MV Decel Time 239 msec LA Dimen 2D 4.3 2.3 - 4.0 cm MV Decel [place] 5 MV E/A 2.9 TR Peak Abad 3.5 m/sec TR Peak PG 48.2 mmHg PV Peak Abad 0.9 m/sec PV Peak PG 3.0 mmHg RVSP 63.2 mmHg Findings Left Ventricle: Overall, normal left ventricular systolic function. Not all segments visualized. Normal left ventricular cavity size. Mild concentric left ventricular hypertrophy. Ejection fraction is visually estimated at 0 %. Tissue Doppler/Mitral Doppler indices are consistent with restrictive physiology with markedly elevated left atrial pressure (Stage IIIIV diastolic dysfunction). Right Ventricle: Normal right ventricular size. Normal right ventricular systolic function. Left Atrium: The left atrium is normal in size. Right Atrium: The right atrium is normal in size. Atrial Septum: Not well visualized. Mitral Valve: Normal appearance of the mitral valve. Mild mitral annular calcification. Trace mitral regurgitation. Aortic Valve: No significant aortic stenosis or insufficiency. Normal trileaflet aortic valve structure. Left coronary cusp appears mildly calcified. Tricuspid Valve: Normal appearance of the tricuspid valve. Estimated peak PA systolic pressure 63 mmHg. There is moderate tricuspid regurgitation. Pulmonic Valve: Normal pulmonic valve appearance. There is trace pulmonic regurgitation. Pericardium: Normal pericardium with no significant pericardial effusion. Aorta: Normal aortic root. There is mild aortic root calcification. IVC: Dilated IVC with respiratory collapse consistent with elevated right atrial pressure. Pulmonary Artery: Normal pulmonary artery size. Conclusions 1.Overall, normal left ventricular systolic function. Not all segments visualized. Normal left ventricular cavity size. Mild concentric left ventricular hypertrophy. Ejection fraction is visually estimated at 0 %. Tissue Doppler/Mitral Doppler indices are consistent with restrictive physiology with markedly elevated left atrial pressure (Stage III-IV diastolic dysfunction). 2.Normal appearance of the mitral valve. Mild mitral annular calcification. Trace mitral regurgitation. 3.No significant aortic stenosis or insufficiency. Normal trileaflet aortic valve structure. Left coronary cusp appears mildly calcified. 4.Normal appearance of the tricuspid valve. Estimated peak PA systolic pressure 63 mmHg. There is moderate tricuspid regurgitation. 5.Normal pulmonic valve appearance. There is trace pulmonic regurgitation. 6.Normal pericardium with no significant pericardial effusion. Electronically Signed By: Russ Rae 16-Nov-2016 15:27:35 -0700 Patient Name: BLANQUITA LINDER Study Date: 15-Nov-2016 [id number]
--- NOTE | 2016-11-16 16:29 | CONS ---
Date/Time of Note Date/Time of Note DATE: 11/16/16 TIME: 16:25 Assessment/Plan Assessment/Plan Additional Assessment/Plan Bilateral PNA Diastolic CHF exacerbation wiht a Normal EF AFib OBS CKD -continue gentle diuretics with lasix -rate controlled -given patient at snf, reconsider anticoagulation if no risk of fall or if she hasn't had recurrent GIB -on antibiotics -echo reviewed Consultation Date/Type/Reason Admit Date/Time Nov 14, 2016 at 08:00 Hx of Present Illness The patient with hx of OBS and resides at a SNF who presents to the hosptial with increased SOB, tachypnea dn upon arrival was found to have bilateral pneumonia with CHF exacerbation. In addition, she has rate controelld afib and as such, was initatied on gentle diruesis , antibiotics and will control the rate of her afib. Social History Smoking Status: Never smoker Exam/Review of Systems Vital Signs Vitals Vital Signs Date Time Temp Pulse Resp B/P Pulse Ox O2 Delivery O2 Flow Rate FiO2 11/16/16 15:08 98.3 80 18 125/60 100 11/16/16 07:18 Nasal Cannula 2.0 11/15/16 16:24 28 Intake and Output 11/15/16 11/15/16 11/16/16 15:00 23:00 07:00 Intake Total 350 ml 220 ml Output Total 700 ml 650 ml Balance -350 ml -430 ml Results Result Diagram: 11/16/16 0520 11/16/16 0852 Results 24 hrs Laboratory Tests Test 11/15/16 17:27 11/15/16 22:37 11/16/16 02:53 11/16/16 05:20 Bedside Glucose 108 183 133 White Blood Count 9.0 Red Blood Count 2.61 L Hemoglobin 8.8 L Hematocrit 27.9 L Mean Corpuscular Volume 106.9 H Mean Corpuscular Hemoglobin 33.7 H Mean Corpuscular Hemoglobin Concent 31.5 L Red Cell Distribution Width 13.6 Platelet Count 160 Mean Platelet Volume 9.1 Neutrophils % 77.7 H Lymphocytes % 7.2 L Monocytes % 6.2 Eosinophils % 8.3 H Basophils % 0.2 Nucleated Red Blood Cells % 0.0 Neutrophils # 7.0 Lymphocytes # 0.7 L Monocytes # 0.6 Eosinophils # 0.8 H Basophils # 0.0 Nucleated Red Blood Cells # 0.0 Test 11/16/16 07:21 11/16/16 08:12 11/16/16 08:52 11/16/16 12:07 Bedside Glucose 46 *L 116 73 Sodium Level 146 H Potassium Level 4.3 Chloride Level 116 H Carbon Dioxide Level 26 Anion Gap 8 Blood Urea Nitrogen 46 H Creatinine 2.19 H Glucose Level 91 Calcium Level 8.3 L Magnesium Level 2.5 Medications Medications Current Medications Piperacillin Sod/ Tazobactam Sod (Zosyn 2.25gm/ 50ml (Pmx)) 50 ml @ 100 mls/hr Q8 IVPB Last administered on 11/16/16 14:06; Admin Dose 100 MLS/HR; Start at 14:30 Acetaminophen (Tylenol Tab) 650 mg Q4 PRN PO PAIN AND OR ELEVATED TEMP; Start 11/14/16 at 13:30 Amlodipine Besylate (Norvasc) 5 mg DAILY PO Last administered on 11/16/16 08: 52; Admin Dose 5 MG; Start 11/14/16 at 14:30 Bisacodyl (Dulcolax Supp) 10 mg Q24H PRN [place] CONSTIPATION; Start 11/14/16 at 13: 30 Docusate Sodium (Colace) 200 mg Q24H PRN PO CONSTIPATION; Start 11/14/16 at 13: 30 Escitalopram Oxalate (Lexapro) 5 mg DAILY PO Last administered on 11/16/16 08: 52; Admin Dose 5 MG; Start 11/14/16 at 14:30 Ferrous Sulfate (Ferrous Sulfate (Ec)) 325 mg DAILY PO Last administered on 08:53; Admin Dose 325 MG; Start 11/14/16 at 14:30 Gabapentin (Neurontin) 300 mg TID PO Last administered on 11/16/16 14:06; Admin Dose 300 MG; Start 11/14/16 at 14:30 Acetaminophen/ Hydrocodone Bitart ([place] (10/325)) 1 tab Q6H PRN PO PAIN; Start 11/14/16 at 13:30 Lisinopril (Zestril) 10 mg BID PO Last administered on 11/16/16 08:52; Admin Dose 10 MG; Start 11/14/16 at 21:00 Multivitamins Therapeutic (Theragran) 1 tab DAILY PO Last administered on 08:52; Admin Dose 1 TAB; Start 11/15/16 at 09:00 Sodium Biphosphate/ Sodium Phosphate (Fleet Enema) 118 ml Q48H PRN [place] CONSTIPATION; Start 11/14/16 at 13:30 Zinc Sulfate (Zinc Sulfate) 220 mg DAILY GTB Last administered on 11/16/16 08: 53; Admin Dose 220 MG; Start 11/15/16 at 09:00 Miscellaneous Information 1 ea NOTE XX ; Start 11/14/16 at 14:00 Glucose (Glutose) 15 gm Q15M PRN PO DECREASED GLUCOSE; Start 11/14/16 at 14:00 Glucose (Glutose) 22.5 gm Q15M PRN PO DECREASED GLUCOSE; Start 11/14/16 at 14: 00 Dextrose (D50w Syringe) 25 ml Q15M PRN IV DECREASED GLUCOSE; Start 11/14/16 at 14:00 Dextrose (D50w Syringe) 50 ml Q15M PRN IV DECREASED GLUCOSE Last administered on 11/16/16 07:26; Admin Dose 50 ML; Start 11/14/16 at 14:00 Glucagon (Glucagen) 1 mg Q15M PRN IM DECREASED GLUCOSE; Start 11/14/16 at 14:00 Glucose (Glutose) 15 gm Q15M PRN BUCCAL DECREASED GLUCOSE; Start 11/14/16 at 14 :00 Furosemide (Lasix) 20 mg DAILY IV Last administered on 11/16/16 08:53; Admin Dose 20 MG; Start 11/15/16 at 09:00 Diagnostic Test (Pha) (Accu-Chek) 1 ea 02 XX Last administered on 11/16/16 02: 00; Admin Dose 1 EA; Start 11/15/16 at 02:00 Miscellaneous Information (Pending [facility] Order For Wound Care) This patient woodard... PRN PRN XX WOUND CARE; Start 11/14/16 at 16:30 Guaifenesin/ Codeine Phosphate (Robitussin Ac Liquid Cup) 5 ml Q6 PRN PO COUGH Last administered on 11/15/16 23:43; Admin Dose 5 ML; Start 11/15/16 at 00:00 Insulin Glargine (Lantus) 30 unit HS SC Last administered on 11/15/16 23:48; Admin Dose 30 UNIT; Start 11/15/16 at 21:00 Heparin Sodium (Porcine) (Heparin (5000 Units/0.5 ml)) 5,000 unit BID SC Last administered on 11/16/16 08:57; Admin Dose 5,000 UNIT; Start 11/15/16 at 21:00 Diltiazem HCl (Cardizem Cd) 120 mg DAILY PO Last administered on 11/16/16 08: 52; Admin Dose 120 MG; Start 11/16/16 at 09:00 CHRISTINE FULTON MD Nov 16, 2016 16:29
[2016-11-16] MEDS: LEVALBUTEROL (NEB) 0.31 MG/3 ML AMP HHN PRN (16:31)
[2016-11-16] MEDS: INSULIN GLARGINE [LANtus] 3 ML PEN SC SCH (21:39)
[2016-11-17] VITALS (12 sets, daily range): BP systolic 113–126; BP diastolic 57–63; PULSE 72–93; RESP 18–22
[2016-11-17] MEDS: LEVALBUTEROL (NEB) 0.63 MG/3 ML AMP HHN SCH ×3 (00:19→17:26)
[2016-11-17] MEDS: ACCU-CHEK XX SCH (02:00)
[2016-11-17] MEDS: PIPER-TAZO 2.25 GM (PMX) 50 ML IVPB SCH ×3 (06:17→21:30)
[2016-11-17] MEDS: INSULIN ASPART [NOVOLOG] 3 ML PEN SC SCH ×4 (07:55→21:00)
[2016-11-17] MEDS: DEXTROSE 50% 50 ML SYRINGE IV PRN (08:40)
[2016-11-17] MEDS: ZINC SULFATE 220 MG CAP GTB SCH (09:03)
[2016-11-17] MEDS: FUROSEMIDE 20 MG INJ IV SCH (09:03)
[2016-11-17] MEDS: MULTIVITAMINS THERAPEUTIC TAB PO SCH (09:03)
[2016-11-17] MEDS: FERROUS SULFATE (EC) 325 MG TAB PO SCH ×2 (09:03→21:04)
[2016-11-17] MEDS: DILTIAZEM (CD) 120 MG CAP PO SCH (09:04)
[2016-11-17] MEDS: AMLODIPINE 5 MG TAB PO SCH (09:04)
[2016-11-17] MEDS: GABAPENTIN 300 MG CAP PO SCH ×3 (09:04→21:05)
[2016-11-17] MEDS: LISINOPRIL 10 MG TAB PO SCH ×2 (09:04→21:05)
[2016-11-17] MEDS: ESCITALOPRAM 10 MG TAB PO SCH (09:04)
[2016-11-17] MEDS: HEPARIN 5,000 UNIT/0.5 ML VIAL SC SCH (09:31)
[2016-11-17] MEDS ORDERED: CALCIUM GLUCONATE 10% 2 GM in SOD CHLORIDE 0.9% 100 ML IVPB ONE (13:30)
--- NOTE | 2016-11-17 13:30 | PN ---
Date/Time of Note Date/Time of Note DATE: 11/17/16 TIME: 13:26 Assessment/Plan VTE Prophylaxis VTE Prophylaxis Intervention: LMWH Lines/Catheters IV Catheter Type (from Nrsg): Saline Lock Central line still needed: No Urinary Cath still in place: Yes Reason Cath still needed: terminal illness/intractable pain Assessment/Plan Assessment/Plan 1. acute pneumonia 2. a fib/ chf/ htn/ edema/ pad 3. uti 4. dm/ anemia 5/ low calc ---per cards ---per pulm ---per ID ---cont gentle diuretic ---cont atbx ---cont all supportive cares ---keep up with supps Subjective 24 Hr Interval Summary Free Text/Dictation lying in bed, c/o sob but better than yesterday Exam/Review of Systems Vital Signs Vitals Vital Signs Date Time Temp Pulse Resp B/P Pulse Ox O2 Delivery O2 Flow Rate FiO2 11/17/16 12:12 89 11/17/16 11:30 98.2 19 123/58 93 11/17/16 08:00 Nasal Cannula 2.0 11/15/16 16:24 28 Intake and Output 11/16/16 11/16/16 11/17/16 15:00 23:00 07:00 Intake Total 400 ml 450 ml Output Total 700 ml 800 ml Balance -300 ml -350 ml Exam forgetful, depressed irreg irreg dec bs bibasilar slight cool ft, +1 pit edema Results Result Diagram: 11/16/16 0520 11/16/16 0852 Results 24 hrs Laboratory Tests Test 11/16/16 17:32 11/16/16 20:49 11/17/16 01:14 11/17/16 07:48 Bedside Glucose 100 183 106 48 *L Test 11/17/16 09:02 11/17/16 09:14 11/17/16 12:05 Bedside Glucose 201 198 171 Medications Medications Current Medications Piperacillin Sod/ Tazobactam Sod (Zosyn 2.25gm/ 50ml (Pmx)) 50 ml @ 100 mls/hr Q8 IVPB Last administered on 11/17/16t 06:17; Admin Dose 100 MLS/HR; Start at 14:30 Acetaminophen (Tylenol Tab) 650 mg Q4 PRN PO PAIN AND OR ELEVATED TEMP; Start 11/14/16 at 13:30 Amlodipine Besylate (Norvasc) 5 mg DAILY PO Last administered on 11/17/16 09: 04; Admin Dose 5 MG; Start 11/14/16 at 14:30 Bisacodyl (Dulcolax Supp) 10 mg Q24H PRN [place] CONSTIPATION; Start 11/14/16 at 13: 30 Docusate Sodium (Colace) 200 mg Q24H PRN PO CONSTIPATION; Start 11/14/16 at 13: 30 Escitalopram Oxalate (Lexapro) 5 mg DAILY PO Last administered on 11/17/16 09: 04; Admin Dose 5 MG; Start 11/14/16 at 14:30 Ferrous Sulfate (Ferrous Sulfate (Ec)) 325 mg DAILY PO Last administered on 09:03; Admin Dose 325 MG; Start 11/14/16 at 14:30 Gabapentin (Neurontin) 300 mg TID PO Last administered on 11/17/16 09:04; Admin Dose 300 MG; Start 11/14/16 at 14:30 Acetaminophen/ Hydrocodone Bitart ([place] (10/325)) 1 tab Q6H PRN PO PAIN; Start 11/14/16 at 13:30 Lisinopril (Zestril) 10 mg BID PO Last administered on 11/17/16 09:04; Admin Dose 10 MG; Start 11/14/16 at 21:00 Multivitamins Therapeutic (Theragran) 1 tab DAILY PO Last administered on 09:03; Admin Dose 1 TAB; Start 11/15/16 at 09:00 Sodium Biphosphate/ Sodium Phosphate (Fleet Enema) 118 ml Q48H PRN [place] CONSTIPATION; Start 11/14/16 at 13:30 Zinc Sulfate (Zinc Sulfate) 220 mg DAILY GTB Last administered on 11/17/16 09: 03; Admin Dose 220 MG; Start 11/15/16 at 09:00 Miscellaneous Information 1 ea NOTE XX ; Start 11/14/16 at 14:00 Glucose (Glutose) 15 gm Q15M PRN PO DECREASED GLUCOSE; Start 11/14/16 at 14:00 Glucose (Glutose) 22.5 gm Q15M PRN PO DECREASED GLUCOSE; Start 11/14/16 at 14: 00 Dextrose (D50w Syringe) 25 ml Q15M PRN IV DECREASED GLUCOSE; Start 11/14/16 at 14:00 Dextrose (D50w Syringe) 50 ml Q15M PRN IV DECREASED GLUCOSE Last administered on 11/17/16 08:40; Admin Dose 50 ML; Start 11/14/16 at 14:00 Glucagon (Glucagen) 1 mg Q15M PRN IM DECREASED GLUCOSE; Start 11/14/16 at 14:00 Glucose (Glutose) 15 gm Q15M PRN BUCCAL DECREASED GLUCOSE Last administered on 11/17/16 07:55; Admin Dose 15 GM; Start 11/14/16 at 14:00 Furosemide (Lasix) 20 mg DAILY IV Last administered on 11/17/16 09:03; Admin Dose 20 MG; Start 11/15/16 at 09:00 Diagnostic Test (Pha) (Accu-Chek) 1 ea 02 XX Last administered on 11/16/16 02: 00; Admin Dose 1 EA; Start 11/15/16 at 02:00 Miscellaneous Information (Pending [facility] Order For Wound Care) This patient woodard... PRN PRN XX WOUND CARE; Start 11/14/16 at 16:30 Guaifenesin/ Codeine Phosphate (Robitussin Ac Liquid Cup) 5 ml Q6 PRN PO COUGH Last administered on 11/15/16 23:43; Admin Dose 5 ML; Start 11/15/16 at 00:00 Insulin Glargine (Lantus) 30 unit HS SC Last administered on 11/16/16 21:39; Admin Dose 30 UNIT; Start 11/15/16 at 21:00 Heparin Sodium (Porcine) (Heparin (5000 Units/0.5 ml)) 5,000 unit BID SC Last administered on 11/17/16 09:31; Admin Dose 5,000 UNIT; Start 11/15/16 at 21:00 Diltiazem HCl (Cardizem Cd) 120 mg DAILY PO Last administered on 11/17/16 09: 04; Admin Dose 120 MG; Start 11/16/16 at 09:00 AJAY HAWKINS MD Nov 17, 2016 13:30
--- NOTE | 2016-11-17 13:42 | PN ---
Date/Time of Note Date/Time of Note DATE: 11/16/16 TIME: 14:38 Assessment/Plan VTE Prophylaxis VTE Prophylaxis Intervention: heparin Lines/Catheters IV Catheter Type (from Nrsg): Saline Lock Central line still needed: No Urinary Cath still in place: Yes Reason Cath still needed: terminal illness/intractable pain Assessment/Plan Assessment/Plan 1/ pneumonia 2/ uti 3/ a fib/ chf/ htn/ edema/ pad 4/ mono 5/ dm/ anemia 6/ depression/ dementia ---per cards ---per pulm ---per ID ---cont atbx ---cont all supportive cares ---replace supps Subjective 24 Hr Interval Summary Free Text/Dictation c/o chest pain/ sob, not happy Exam/Review of Systems Vital Signs Vitals Vital Signs Date Time Temp Pulse Resp B/P Pulse Ox O2 Delivery O2 Flow Rate FiO2 11/17/16 12:12 89 11/17/16 11:30 98.2 19 123/58 93 11/17/16 08:00 Nasal Cannula 2.0 11/15/16 16:24 28 Intake and Output 11/16/16 11/16/16 11/17/16 15:00 23:00 07:00 Intake Total 400 ml 450 ml Output Total 700 ml 800 ml Balance -300 ml -350 ml Exam awake, crying, using access musc to breathe irreg irreg+ dec bs bibasilar+ +1 pit edema, cool to touch Results Result Diagram: 11/16/16 0520 11/16/16 0852 Results 24 hrs Laboratory Tests Test 11/16/16 17:32 11/16/16 20:49 11/17/16 01:14 11/17/16 07:48 Bedside Glucose 100 183 106 48 *L Test 11/17/16 09:02 11/17/16 09:14 11/17/16 12:05 Bedside Glucose 201 198 171 Medications Medications Current Medications Piperacillin Sod/ Tazobactam Sod (Zosyn 2.25gm/ 50ml (Pmx)) 50 ml @ 100 mls/hr Q8 IVPB Last administered on 11/17/16t 06:17; Admin Dose 100 MLS/HR; Start at 14:30 Acetaminophen (Tylenol Tab) 650 mg Q4 PRN PO PAIN AND OR ELEVATED TEMP; Start 11/14/16 at 13:30 Amlodipine Besylate (Norvasc) 5 mg DAILY PO Last administered on 11/17/16 09: 04; Admin Dose 5 MG; Start 11/14/16 at 14:30 Bisacodyl (Dulcolax Supp) 10 mg Q24H PRN [place] CONSTIPATION; Start 11/14/16 at 13: 30 Docusate Sodium (Colace) 200 mg Q24H PRN PO CONSTIPATION; Start 11/14/16 at 13: 30 Escitalopram Oxalate (Lexapro) 5 mg DAILY PO Last administered on 11/17/16 09: 04; Admin Dose 5 MG; Start 11/14/16 at 14:30 Ferrous Sulfate (Ferrous Sulfate (Ec)) 325 mg DAILY PO Last administered on 09:03; Admin Dose 325 MG; Start 11/14/16 at 14:30 Gabapentin (Neurontin) 300 mg TID PO Last administered on 11/17/16 09:04; Admin Dose 300 MG; Start 11/14/16 at 14:30 Acetaminophen/ Hydrocodone Bitart ([place] (10/325)) 1 tab Q6H PRN PO PAIN; Start 11/14/16 at 13:30 Lisinopril (Zestril) 10 mg BID PO Last administered on 11/17/16 09:04; Admin Dose 10 MG; Start 11/14/16 at 21:00 Multivitamins Therapeutic (Theragran) 1 tab DAILY PO Last administered on 09:03; Admin Dose 1 TAB; Start 11/15/16 at 09:00 Sodium Biphosphate/ Sodium Phosphate (Fleet Enema) 118 ml Q48H PRN [place] CONSTIPATION; Start 11/14/16 at 13:30 Zinc Sulfate (Zinc Sulfate) 220 mg DAILY GTB Last administered on 11/17/16 09: 03; Admin Dose 220 MG; Start 11/15/16 at 09:00 Miscellaneous Information 1 ea NOTE XX ; Start 11/14/16 at 14:00 Glucose (Glutose) 15 gm Q15M PRN PO DECREASED GLUCOSE; Start 11/14/16 at 14:00 Glucose (Glutose) 22.5 gm Q15M PRN PO DECREASED GLUCOSE; Start 11/14/16 at 14: 00 Dextrose (D50w Syringe) 25 ml Q15M PRN IV DECREASED GLUCOSE; Start 11/14/16 at 14:00 Dextrose (D50w Syringe) 50 ml Q15M PRN IV DECREASED GLUCOSE Last administered on 11/17/16 08:40; Admin Dose 50 ML; Start 11/14/16 at 14:00 Glucagon (Glucagen) 1 mg Q15M PRN IM DECREASED GLUCOSE; Start 11/14/16 at 14:00 Glucose (Glutose) 15 gm Q15M PRN BUCCAL DECREASED GLUCOSE Last administered on 11/17/16 07:55; Admin Dose 15 GM; Start 11/14/16 at 14:00 Furosemide (Lasix) 20 mg DAILY IV Last administered on 11/17/16 09:03; Admin Dose 20 MG; Start 11/15/16 at 09:00 Diagnostic Test (Pha) (Accu-Chek) 1 ea 02 XX Last administered on 11/16/16 02: 00; Admin Dose 1 EA; Start 11/15/16 at 02:00 Miscellaneous Information (Pending [facility] Order For Wound Care) This patient woodard... PRN PRN XX WOUND CARE; Start 11/14/16 at 16:30 Guaifenesin/ Codeine Phosphate (Robitussin Ac Liquid Cup) 5 ml Q6 PRN PO COUGH Last administered on 11/15/16 23:43; Admin Dose 5 ML; Start 11/15/16 at 00:00 Insulin Glargine (Lantus) 30 unit HS SC Last administered on 11/16/16 21:39; Admin Dose 30 UNIT; Start 11/15/16 at 21:00 Heparin Sodium (Porcine) (Heparin (5000 Units/0.5 ml)) 5,000 unit BID SC Last administered on 11/17/16 09:31; Admin Dose 5,000 UNIT; Start 11/15/16 at 21:00 Diltiazem HCl (Cardizem Cd) 120 mg DAILY PO Last administered on 11/17/16 09: 04; Admin Dose 120 MG; Start 11/16/16 at 09:00 AJAY HAWKINS MD Nov 17, 2016 13:42
[2016-11-17] MEDS ORDERED: WARFARIN 5 MG TAB PO ONE (17:00)
[2016-11-17] MEDS ORDERED: RIVAROXABAN 20 MG TABLET PO SCH (17:55)
--- NOTE | 2016-11-17 18:12 | PN ---
DATE: 11/17/2016 SUBJECTIVE: The patient is awake, noncommunicative, lying comfortably in bed. No fevers. MICROBIOLOGY: Nares swab came back positive for MRSA. INDWELLINGS: Ray catheter. ANTIMICROBIALS: The patient is on Zosyn. PHYSICAL EXAMINATION: GENERAL: This is a fragile, elderly woman who is awake, noncommunicative, and in no distress. HEENT: Head atraumatic, normocephalic. Sclerae anicteric. Buccal mucosa dry. NECK: Supple, trachea midline. CHEST: Rise symmetrical. Breath sounds diminished to bases. HEART: S1, S2. ABDOMEN: Soft, bowel sounds present. EXTREMITIES: Without cyanosis. ASSESSMENT: 1. Acute hypoxemic respiratory failure. 2. Bilateral pneumonia and pleural effusions. 3. Urinary tract infection. 4. Methicillin-resistant Staphylococcus aureus nares colonization. 5. Dysphagia. 6. Diabetes. PLAN: The patient remains stable. We are going to start Bactroban to nares. Continue Zosyn. Cont inue anti-aspiration measures. Dictated By: AMBER FLORES LEGAL PARAPROFESSIONAL for JOSE ANTONIO CABRAL/PUJA Conf#: [id number] DID#: [id number]
[2016-11-17] MEDS: LEVALBUTEROL (NEB) 0.31 MG/3 ML AMP HHN PRN (20:24)
[2016-11-17] MEDS: MUPIROCIN 2% 22 GM OINT TOP SCH (21:04)
[2016-11-17] MEDS: INSULIN GLARGINE [LANtus] 3 ML PEN SC SCH (21:08)
--- NOTE | 2016-11-17 23:01 | PN ---
Date/Time of Note Date/Time of Note DATE: 11/17/16 TIME: 23:00 Assessment/Plan VTE Prophylaxis VTE Prophylaxis Intervention: SCD's Lines/Catheters IV Catheter Type (from Nrs): Saline Lock Urinary Cath still in place: Yes Reason Cath still needed: urinary retention Assessment/Plan Chief Complaint/Hosp Course The patient with hx of OBS and resides at a SNF who presents to the hosptial with increased SOB, tachypnea dn upon arrival was found to have bilateral pneumonia with CHF exacerbation. In addition, she has rate controelld afib and as such, was initatied on gentle diruesis , antibiotics and will control the rate of her afib. Problems: Assessment/Plan Bilateral PNA Diastolic CHF exacerbation wiht a Normal EF AFib OBS CKD -continue gentle diuretics with lasix -rate controlled -given patient at snf, reconsider anticoagulation if no risk of fall or if she hasn't had recurrent GIB -on antibiotics -echo reviewed Subjective 24 Hr Interval Summary Free Text/Dictation the patient is stable Exam/Review of Systems Vital Signs Vitals Vital Signs Date Time Temp Pulse Resp B/P Pulse Ox O2 Delivery O2 Flow Rate FiO2 11/17/16 20:27 93 11/17/16 20:26 95 2.0 11/17/16 20:24 28 Nasal Cannula 11/17/16 20:00 98.4 113/57 11/15/16 16:24 28 Intake and Output 11/16/16 11/16/16 11/17/16 15:00 23:00 07:00 Intake Total 400 ml 450 ml Output Total 700 ml 800 ml Balance -300 ml -350 ml Results Result Diagram: 11/16/16 0520 11/16/16 0852 Results 24 hrs Laboratory Tests Test 11/17/16 01:14 11/17/16 07:48 11/17/16 09:02 11/17/16 09:14 Bedside Glucose 106 48 *L 201 198 Test 11/17/16 12:05 11/17/16 17:21 11/17/16 21:03 Bedside Glucose 171 117 180 Medications Medications Current Medications Piperacillin Sod/ Tazobactam Sod (Zosyn 2.25gm/ 50ml (Pmx)) 50 ml @ 100 mls/hr Q8 IVPB Last administered on 11/17/16t 21:30; Admin Dose 100 MLS/HR; Start at 14:30 Acetaminophen (Tylenol Tab) 650 mg Q4 PRN PO PAIN AND OR ELEVATED TEMP; Start 11/14/16 at 13:30 Amlodipine Besylate (Norvasc) 5 mg DAILY PO Last administered on 11/17/16 09: 04; Admin Dose 5 MG; Start 11/14/16 at 14:30 Bisacodyl (Dulcolax Supp) 10 mg Q24H PRN [place] CONSTIPATION; Start 11/14/16 at 13: 30 Docusate Sodium (Colace) 200 mg Q24H PRN PO CONSTIPATION; Start 11/14/16 at 13: 30 Escitalopram Oxalate (Lexapro) 5 mg DAILY PO Last administered on 11/17/16 09: 04; Admin Dose 5 MG; Start 11/14/16 at 14:30 Gabapentin (Neurontin) 300 mg TID PO Last administered on 11/17/16 21:05; Admin Dose 300 MG; Start 11/14/16 at 14:30 Acetaminophen/ Hydrocodone Bitart ([place] (10/325)) 1 tab Q6H PRN PO PAIN; Start 11/14/16 at 13:30 Lisinopril (Zestril) 10 mg BID PO Last administered on 11/17/16 21:05; Admin Dose 10 MG; Start 11/14/16 at 21:00 Multivitamins Therapeutic (Theragran) 1 tab DAILY PO Last administered on 09:03; Admin Dose 1 TAB; Start 11/15/16 at 09:00 Sodium Biphosphate/ Sodium Phosphate (Fleet Enema) 118 ml Q48H PRN [place] CONSTIPATION; Start 11/14/16 at 13:30 Zinc Sulfate (Zinc Sulfate) 220 mg DAILY GTB Last administered on 11/17/16 09: 03; Admin Dose 220 MG; Start 11/15/16 at 09:00 Miscellaneous Information 1 ea NOTE XX ; Start 11/14/16 at 14:00 Glucose (Glutose) 15 gm Q15M PRN PO DECREASED GLUCOSE; Start 11/14/16 at 14:00 Glucose (Glutose) 22.5 gm Q15M PRN PO DECREASED GLUCOSE; Start 11/14/16 at 14: 00 Dextrose (D50w Syringe) 25 ml Q15M PRN IV DECREASED GLUCOSE; Start 11/14/16 at 14:00 Dextrose (D50w Syringe) 50 ml Q15M PRN IV DECREASED GLUCOSE Last administered on 11/17/16 08:40; Admin Dose 50 ML; Start 11/14/16 at 14:00 Glucagon (Glucagen) 1 mg Q15M PRN IM DECREASED GLUCOSE; Start 11/14/16 at 14:00 Glucose (Glutose) 15 gm Q15M PRN BUCCAL DECREASED GLUCOSE Last administered on 11/17/16 07:55; Admin Dose 15 GM; Start 11/14/16 at 14:00 Furosemide (Lasix) 20 mg DAILY IV Last administered on 11/17/16 09:03; Admin Dose 20 MG; Start 11/15/16 at 09:00 Diagnostic Test (Pha) (Accu-Chek) 1 ea 02 XX Last administered on 11/16/16 02: 00; Admin Dose 1 EA; Start 11/15/16 at 02:00 Miscellaneous Information (Pending [facility] Order For Wound Care) This patient woodard... PRN PRN XX WOUND CARE; Start 11/14/16 at 16:30 Guaifenesin/ Codeine Phosphate (Robitussin Ac Liquid Cup) 5 ml Q6 PRN PO COUGH Last administered on 11/15/16 23:43; Admin Dose 5 ML; Start 11/15/16 at 00:00 Insulin Glargine (Lantus) 30 unit HS SC Last administered on 11/17/16 21:08; Admin Dose 30 UNIT; Start 11/15/16 at 21:00 Diltiazem HCl (Cardizem Cd) 120 mg DAILY PO Last administered on 11/17/16 09: 04; Admin Dose 120 MG; Start 11/16/16 at 09:00 Ferrous Sulfate (Ferrous Sulfate (Ec)) 325 mg TID PO Last administered on 21:04; Admin Dose 325 MG; Start 11/17/16 at 21:00 Mupirocin (Bactroban) 1 applic BID TOP Last administered on 11/17/16 21:04; Admin Dose 1 APPLIC; Start 11/17/16 at 21:00 CHRISTINE FULTON MD Nov 17, 2016 23:01
[2016-11-18] VITALS (12 sets, daily range): BP systolic 92–151; BP diastolic 44–74; PULSE 65–84; RESP 17–25
[2016-11-18] MEDS: LEVALBUTEROL (NEB) 0.63 MG/3 ML AMP HHN SCH ×4 (00:08→23:15)
[2016-11-18] MEDS: GUAIFENESIN/CODEINE 5ML CUP PO PRN ×3 (00:28→23:35)
[2016-11-18] MEDS: ACCU-CHEK XX SCH (02:00)
[2016-11-18] MEDS: PIPER-TAZO 2.25 GM (PMX) 50 ML IVPB SCH ×2 (05:27→13:42)
[2016-11-18] MEDS: INSULIN ASPART [NOVOLOG] 3 ML PEN SC SCH ×4 (07:55→21:00)
[2016-11-18 08:09] LABS: ADD SCAN DIFF NO
[2016-11-18 08:16] LABS: BASOPHILS % 0.1 % (0.0-2.0); EOSINOPHILS # 0.7 10^3/ul (0.0-0.5); EOSINOPHILS % 10.1 % (0.0-7.0); HEMATOCRIT 28.4 % (37.0-47.0); HEMOGLOBIN 8.8 g/dl (12.0-16.0); LYMPHOCYTES # 0.7 10^3/ul (0.8-2.9); LYMPHOCYTES % 10.1 % (15.0-51.0); MEAN CORPUSCULAR HEMOGLOBIN 32.8 pg (29.0-33.0); MEAN PLATELET VOLUME 9.5 fl (7.4-10.4); MONOCYTE # 0.6 10^3/ul (0.3-0.9); MONOCYTES % 7.9 % (0.0-11.0); NEUTROPHIL # 5.1 10^3/ul (1.6-7.5); NEUTROPHILS % 71.5 % (39.0-77.0); PLATELET COUNT 177 10^3/UL (140-415); RED BLOOD COUNT 2.68 10^6/ul (4.20-5.40); RED CELL DISTRIBUTION WIDTH 13.4 % (11.5-14.5); WHITE BLOOD COUNT 7.1 10^3/ul (4.8-10.8)
[2016-11-18 08:36] LABS: INR 1.17; PT RATIO 1.2
[2016-11-18 08:38] LABS: POTASSIUM 3.8 mmol/L (3.5-5.1)
[2016-11-18 08:40] LABS: CREATININE 2.3 mg/dl (0.44-1.00)
[2016-11-18 08:41] LABS: CALCIUM 8.6 mg/dl (8.4-10.2)
[2016-11-18] MEDS: ZINC SULFATE 220 MG CAP GTB SCH (09:11)
[2016-11-18] MEDS: FUROSEMIDE 20 MG INJ IV SCH (09:11)
[2016-11-18] MEDS: LISINOPRIL 10 MG TAB PO SCH (09:11)
[2016-11-18] MEDS: GABAPENTIN 300 MG CAP PO SCH ×3 (09:11→21:46)
[2016-11-18] MEDS: FERROUS SULFATE (EC) 325 MG TAB PO SCH ×3 (09:12→21:46)
[2016-11-18] MEDS: AMLODIPINE 5 MG TAB PO SCH (09:12)
[2016-11-18] MEDS: MULTIVITAMINS THERAPEUTIC TAB PO SCH (09:12)
[2016-11-18] MEDS: ESCITALOPRAM 10 MG TAB PO SCH (09:12)
[2016-11-18] MEDS: DILTIAZEM (CD) 120 MG CAP PO SCH (09:12)
[2016-11-18] MEDS: MUPIROCIN 2% 22 GM OINT TOP SCH ×2 (09:12→21:46)
[2016-11-18 13:07] LABS: AADO2 Arterial 109.3 mmHg (7.0-24.0); Allen Test ACCEPTAB; Arterial Base Excess -2.7 mmol/L (-3.0-3); Arterial COHb 0.3 % (0.0-3.0); Arterial HCO3 23.2 mmol/L (22.0-26.0); Arterial MetHb 0.4 % (0.0-1.5); Arterial Total Hemglobin 10.1 g/dl (12.0-18.0); MODE NASAL CANNULA
[2016-11-18] MEDS ORDERED: FUROSEMIDE 20 MG INJ IV ONE (14:00)
--- NOTE | 2016-11-18 15:58 | CONS ---
Date/Time of Note Date/Time of Note DATE: 11/18/16 TIME: 15:53 Assessment/Plan Assessment/Plan Additional Assessment/Plan Pneumonia Acute decompensated diastolic congestive heart failure Paroxysmal atrial fibrillation Peripheral arterial disease -Creatinine is slowly rising, which change IV diuretics to p.o. and follow renal function closely, check chest x-ray, blood pressure trend overall stable. Consultation Date/Type/Reason Admit Date/Time Nov 14, 2016 at 08:00 Initial Consult Date Type of Consultation: cv 24 HR Interval Summary Free Text/Dictation Patient seen and examined Exam/Review of Systems Vital Signs Vitals Vital Signs Date Time Temp Pulse Resp B/P Pulse Ox O2 Delivery O2 Flow Rate FiO2 11/18/16 15:30 98.3 65 18 151/74 94 11/18/16 08:45 Nasal Cannula 3.0 11/18/16 00:10 21 Intake and Output 11/17/16 11/17/16 11/18/16 15:00 23:00 07:00 Intake Total 930 ml 400 ml Output Total 650 ml 1100 ml Balance 280 ml -700 ml Exam Sleeping but arousable, no apparent distress Head: normocephalic Respiratory: other (Coarse breath sounds bilaterally, no wheezing) Cardiovascular: irregular rhythm, other (S1-S2 heard) Gastrointestinal: bowel sounds, non-tender, other (No guarding), soft Extremities: edema Results Result Diagram: 11/18/16 0725 11/18/16 0725 Results 24 hrs Laboratory Tests Test 11/17/16 17:21 11/17/16 21:03 11/18/16 01:42 11/18/16 07:25 Bedside Glucose 117 180 291 H White Blood Count 7.1 # Red Blood Count 2.68 L Hemoglobin 8.8 L Hematocrit 28.4 L Mean Corpuscular Volume 106.0 H Mean Corpuscular Hemoglobin 32.8 Mean Corpuscular Hemoglobin Concent 31.0 L Red Cell Distribution Width 13.4 Platelet Count 177 Mean Platelet Volume 9.5 Neutrophils % 71.5 Lymphocytes % 10.1 L Monocytes % 7.9 Eosinophils % 10.1 H Basophils % 0.1 Nucleated Red Blood Cells % 0.0 Neutrophils # 5.1 Lymphocytes # 0.7 L Monocytes # 0.6 Eosinophils # 0.7 H Basophils # 0.0 Nucleated Red Blood Cells # 0.0 Prothrombin Time 15.0 H Prothrombin Time Ratio 1.2 INR International Normalized Ratio 1.17 Sodium Level 143 Potassium Level 3.8 Chloride Level 108 Carbon Dioxide Level 24 Anion Gap 15 # Blood Urea Nitrogen 46 H Creatinine 2.30 H Glucose Level 90 Calcium Level 8.6 Test 11/18/16 07:55 11/18/16 09:16 11/18/16 09:40 11/18/16 12:01 Bedside Glucose 84 66 L 130 70 Test 11/18/16 12:17 Blood Gas Specimen Source Blood arterial Arterial Blood Date Drawn 11/18/2016 12:50:42 PM Arterial Blood pH (Temp corrected) 7.332 L Arterial Blood pCO2 (Temp correct) 44.8 Arterial Blood pO2 (Temp corrected) 52.0 *L Arterial Blood HCO3 23.2 Arterial Blood Base Excess -2.7 Arterial Blood Oxygen Saturation 84.6 L Josh Test ACCEPTAB Arterial Blood Gas Puncture Site Right Radial Arterial Blood Carboxyhemoglobin 0.3 Arterial Blood Methemoglobin 0.4 Blood Gas A-a O2 Differential 109.3 H Oxyhemoglobin Percent 84.0 L Total Hemoglobin 10.1 L Blood Gas Temperature 37.0 Blood Gas Modality NASAL CANNULA FiO2 30.0 Blood Gas Critical Value Read Back H LASHON RN Blood Gas Notified Whom JLD Blood Gas Notified Time 11/18/2016 1:06:20 PM Medications Medications Current Medications Piperacillin Sod/ Tazobactam Sod (Zosyn 2.25gm/ 50ml (Pmx)) 50 ml @ 100 mls/hr Q8 IVPB Last administered on 11/18/16 13:42; Admin Dose 100 MLS/HR; Start at 14:30 Acetaminophen (Tylenol Tab) 650 mg Q4 PRN PO PAIN AND OR ELEVATED TEMP; Start 11/14/16 at 13:30 Amlodipine Besylate (Norvasc) 5 mg DAILY PO Last administered on 11/18/16 09: 12; Admin Dose 5 MG; Start 11/14/16 at 14:30 Bisacodyl (Dulcolax Supp) 10 mg Q24H PRN [place] CONSTIPATION; Start 11/14/16 at 13: 30 Docusate Sodium (Colace) 200 mg Q24H PRN PO CONSTIPATION; Start 11/14/16 at 13: 30 Escitalopram Oxalate (Lexapro) 5 mg DAILY PO Last administered on 11/18/16 09: 12; Admin Dose 5 MG; Start 11/14/16 at 14:30 Gabapentin (Neurontin) 300 mg TID PO Last administered on 11/18/16 09:11; Admin Dose 300 MG; Start 11/14/16 at 14:30 Acetaminophen/ Hydrocodone Bitart ([place] (10/325)) 1 tab Q6H PRN PO PAIN; Start 11/14/16 at 13:30 Lisinopril (Zestril) 10 mg BID PO Last administered on 11/18/16 09:11; Admin Dose 10 MG; Start 11/14/16 at 21:00 Multivitamins Therapeutic (Theragran) 1 tab DAILY PO Last administered on 09:12; Admin Dose 1 TAB; Start 11/15/16 at 09:00 Sodium Biphosphate/ Sodium Phosphate (Fleet Enema) 118 ml Q48H PRN [place] CONSTIPATION; Start 11/14/16 at 13:30 Zinc Sulfate (Zinc Sulfate) 220 mg DAILY GTB Last administered on 11/18/16 09: 11; Admin Dose 220 MG; Start 11/15/16 at 09:00 Miscellaneous Information 1 ea NOTE XX ; Start 11/14/16 at 14:00 Glucose (Glutose) 15 gm Q15M PRN PO DECREASED GLUCOSE; Start 11/14/16 at 14:00 Glucose (Glutose) 22.5 gm Q15M PRN PO DECREASED GLUCOSE; Start 11/14/16 at 14: 00 Dextrose (D50w Syringe) 25 ml Q15M PRN IV DECREASED GLUCOSE Last administered on 11/18/16 09:18; Admin Dose 25 ML; Start 11/14/16 at 14:00 Dextrose (D50w Syringe) 50 ml Q15M PRN IV DECREASED GLUCOSE Last administered on 11/17/16 08:40; Admin Dose 50 ML; Start 11/14/16 at 14:00 Glucagon (Glucagen) 1 mg Q15M PRN IM DECREASED GLUCOSE; Start 11/14/16 at 14:00 Glucose (Glutose) 15 gm Q15M PRN BUCCAL DECREASED GLUCOSE Last administered on 11/17/16 07:55; Admin Dose 15 GM; Start 11/14/16 at 14:00 Furosemide (Lasix) 20 mg DAILY IV Last administered on 11/18/16 09:11; Admin Dose 20 MG; Start 11/15/16 at 09:00 Diagnostic Test (Pha) (Accu-Chek) 1 ea 02 XX Last administered on 11/16/16 02: 00; Admin Dose 1 EA; Start 11/15/16 at 02:00 Miscellaneous Information (Pending Santyl Order For Wound Care) This patient woodard... PRN PRN XX WOUND CARE; Start 11/14/16 at 16:30 Guaifenesin/ Codeine Phosphate (Robitussin Ac Liquid Cup) 5 ml Q6 PRN PO COUGH Last administered on 11/18/16 13:51; Admin Dose 5 ML; Start 11/15/16 at 00:00 Insulin Glargine (Lantus) 30 unit HS SC Last administered on 11/17/16 21:08; Admin Dose 30 UNIT; Start 11/15/16 at 21:00; Status Future Hold Diltiazem HCl (Cardizem Cd) 120 mg DAILY PO Last administered on 11/18/16 09: 12; Admin Dose 120 MG; Start 11/16/16 at 09:00 Ferrous Sulfate (Ferrous Sulfate (Ec)) 325 mg TID PO Last administered on 09:12; Admin Dose 325 MG; Start 11/17/16 at 21:00 Mupirocin (Bactroban) 1 applic BID TOP Last administered on 11/18/16 09:12; Admin Dose 1 APPLIC; Start 11/17/16 at 21:00 Hieu Wolf DO Nov 18, 2016 15:58
[2016-11-18] MEDS ORDERED: WARFARIN 5 MG TAB PO ONE (17:00)
--- NOTE | 2016-11-18 17:07 | PN ---
Date/Time of Note Date/Time of Note DATE: 11/18/16 TIME: 17:01 Assessment/Plan VTE Prophylaxis VTE Prophylaxis Intervention: other (coum) Lines/Catheters IV Catheter Type (from Nrsg): Saline Lock Central line still needed: No Urinary Cath still in place: Yes Reason Cath still needed: terminal illness/intractable pain Assessment/Plan Assessment/Plan 1. pneumonia/ effusion/ dyspnea/ hypoxia 2. a fib/ chf/ flutuant bp 3. dm-- more low bp 4. mono worse 5. depression ---per cards ---pulm ref ---renal ref ---cont iv atbx ---face shield for inc o2 ---coum 5mg tonight ---PT Subjective 24 Hr Interval Summary Free Text/Dictation congested, sob Exam/Review of Systems Vital Signs Vitals Vital Signs Date Time Temp Pulse Resp B/P Pulse Ox O2 Delivery O2 Flow Rate FiO2 11/18/16 16:11 77 11/18/16 15:50 26 99 Nasal Cannula 4.0 11/18/16 15:30 98.3 151/74 11/18/16 00:10 21 Intake and Output 11/17/16 11/17/16 11/18/16 15:00 23:00 07:00 Intake Total 930 ml 400 ml Output Total 650 ml 1100 ml Balance 280 ml -700 ml Exam awakable but more sleepy diffuse bronch wheez+ irreg irreg+ more in bed+ low ext dis colored campuzano/ cool+ Results Result Diagram: 11/18/16 0725 11/18/16 0725 Results 24 hrs Laboratory Tests Test 11/17/16 17:21 11/17/16 21:03 11/18/16 01:42 11/18/16 07:25 Bedside Glucose 117 180 291 H White Blood Count 7.1 # Red Blood Count 2.68 L Hemoglobin 8.8 L Hematocrit 28.4 L Mean Corpuscular Volume 106.0 H Mean Corpuscular Hemoglobin 32.8 Mean Corpuscular Hemoglobin Concent 31.0 L Red Cell Distribution Width 13.4 Platelet Count 177 Mean Platelet Volume 9.5 Neutrophils % 71.5 Lymphocytes % 10.1 L Monocytes % 7.9 Eosinophils % 10.1 H Basophils % 0.1 Nucleated Red Blood Cells % 0.0 Neutrophils # 5.1 Lymphocytes # 0.7 L Monocytes # 0.6 Eosinophils # 0.7 H Basophils # 0.0 Nucleated Red Blood Cells # 0.0 Prothrombin Time 15.0 H Prothrombin Time Ratio 1.2 INR International Normalized Ratio 1.17 Sodium Level 143 Potassium Level 3.8 Chloride Level 108 Carbon Dioxide Level 24 Anion Gap 15 # Blood Urea Nitrogen 46 H Creatinine 2.30 H Glucose Level 90 Calcium Level 8.6 Test 11/18/16 07:55 11/18/16 09:16 11/18/16 09:40 11/18/16 12:01 Bedside Glucose 84 66 L 130 70 Test 11/18/16 12:17 Blood Gas Specimen Source Blood arterial Arterial Blood Date Drawn 11/18/2016 12:50:42 PM Arterial Blood pH (Temp corrected) 7.332 L Arterial Blood pCO2 (Temp correct) 44.8 Arterial Blood pO2 (Temp corrected) 52.0 *L Arterial Blood HCO3 23.2 Arterial Blood Base Excess -2.7 Arterial Blood Oxygen Saturation 84.6 L Josh Test ACCEPTAB Arterial Blood Gas Puncture Site Right Radial Arterial Blood Carboxyhemoglobin 0.3 Arterial Blood Methemoglobin 0.4 Blood Gas A-a O2 Differential 109.3 H Oxyhemoglobin Percent 84.0 L Total Hemoglobin 10.1 L Blood Gas Temperature 37.0 Blood Gas Modality NASAL CANNULA FiO2 30.0 Blood Gas Critical Value Read Back H LASHON BARNARD Blood Gas Notified Whom CIRA Blood Gas Notified Time 11/18/2016 1:06:20 PM Medications Medications Current Medications Piperacillin Sod/ Tazobactam Sod (Zosyn 2.25gm/ 50ml (Pmx)) 50 ml @ 100 mls/hr Q8 IVPB Last administered on 11/18/16 13:42; Admin Dose 100 MLS/HR; Start at 14:30 Acetaminophen (Tylenol Tab) 650 mg Q4 PRN PO PAIN AND OR ELEVATED TEMP; Start 11/14/16 at 13:30 Amlodipine Besylate (Norvasc) 5 mg DAILY PO Last administered on 11/18/16 09: 12; Admin Dose 5 MG; Start 11/14/16 at 14:30 Bisacodyl (Dulcolax Supp) 10 mg Q24H PRN [place] CONSTIPATION; Start 11/14/16 at 13: 30 Docusate Sodium (Colace) 200 mg Q24H PRN PO CONSTIPATION; Start 11/14/16 at 13: 30 Escitalopram Oxalate (Lexapro) 5 mg DAILY PO Last administered on 11/18/16 09: 12; Admin Dose 5 MG; Start 11/14/16 at 14:30 Gabapentin (Neurontin) 300 mg TID PO Last administered on 11/18/16 09:11; Admin Dose 300 MG; Start 11/14/16 at 14:30 Acetaminophen/ Hydrocodone Bitart ([place] (10/325)) 1 tab Q6H PRN PO PAIN; Start 11/14/16 at 13:30 Lisinopril (Zestril) 10 mg BID PO Last administered on 11/18/16 09:11; Admin Dose 10 MG; Start 11/14/16 at 21:00 Multivitamins Therapeutic (Theragran) 1 tab DAILY PO Last administered on 09:12; Admin Dose 1 TAB; Start 11/15/16 at 09:00 Sodium Biphosphate/ Sodium Phosphate (Fleet Enema) 118 ml Q48H PRN [place] CONSTIPATION; Start 11/14/16 at 13:30 Zinc Sulfate (Zinc Sulfate) 220 mg DAILY GTB Last administered on 11/18/16 09: 11; Admin Dose 220 MG; Start 11/15/16 at 09:00 Miscellaneous Information 1 ea NOTE XX ; Start 11/14/16 at 14:00 Glucose (Glutose) 15 gm Q15M PRN PO DECREASED GLUCOSE; Start 11/14/16 at 14:00 Glucose (Glutose) 22.5 gm Q15M PRN PO DECREASED GLUCOSE; Start 11/14/16 at 14: 00 Dextrose (D50w Syringe) 25 ml Q15M PRN IV DECREASED GLUCOSE Last administered on 11/18/16 09:18; Admin Dose 25 ML; Start 11/14/16 at 14:00 Dextrose (D50w Syringe) 50 ml Q15M PRN IV DECREASED GLUCOSE Last administered on 11/17/16 08:40; Admin Dose 50 ML; Start 11/14/16 at 14:00 Glucagon (Glucagen) 1 mg Q15M PRN IM DECREASED GLUCOSE; Start 11/14/16 at 14:00 Glucose (Glutose) 15 gm Q15M PRN BUCCAL DECREASED GLUCOSE Last administered on 11/17/16 07:55; Admin Dose 15 GM; Start 11/14/16 at 14:00 Diagnostic Test (Pha) (Accu-Chek) 1 ea 02 XX Last administered on 11/16/16 02: 00; Admin Dose 1 EA; Start 11/15/16 at 02:00 Miscellaneous Information (Pending Santyl Order For Wound Care) This patient woodard... PRN PRN XX WOUND CARE; Start 11/14/16 at 16:30 Guaifenesin/ Codeine Phosphate (Robitussin Ac Liquid Cup) 5 ml Q6 PRN PO COUGH Last administered on 11/18/16 13:51; Admin Dose 5 ML; Start 11/15/16 at 00:00 Insulin Glargine (Lantus) 30 unit HS SC Last administered on 11/17/16 21:08; Admin Dose 30 UNIT; Start 11/15/16 at 21:00; Status Future Hold Diltiazem HCl (Cardizem Cd) 120 mg DAILY PO Last administered on 11/18/16 09: 12; Admin Dose 120 MG; Start 11/16/16 at 09:00 Ferrous Sulfate (Ferrous Sulfate (Ec)) 325 mg TID PO Last administered on 09:12; Admin Dose 325 MG; Start 11/17/16 at 21:00 Mupirocin (Bactroban) 1 applic BID TOP Last administered on 11/18/16 09:12; Admin Dose 1 APPLIC; Start 11/17/16 at 21:00 AJAY HAWKINS MD Nov 18, 2016 17:07
--- NOTE | 2016-11-18 17:13 | CONS ---
Date/Time of Note Date/Time of Note DATE: 11/18/16 TIME: 17:12 Assessment/Plan Assessment/Plan Chief Complaint/Hosp Course SUBJECTIVE: No events overnight. No fevers. The patient is awake, responsive , no fevers, family at bedside. MICROBIOLOGY: Urine culture growing Enterobacter. ANTIMICROBIALS: Zosyn. PHYSICAL EXAMINATION: GENERAL: Fragile, elderly woman who is nonverbal, noncommunicative. The patient is in no distress. HEENT: Head atraumatic, normocephalic. Sclerae anicteric. Buccal mucosa dry. NECK: Supple. Trachea midline. CHEST: Rise symmetrical. Breath sounds with expiratory wheezes. HEART: S1, S2. ABDOMEN: Soft. Bowel tones present. EXTREMITIES: Without cyanosis. ASSESSMENT: 1. Acute respiratory failure, improved. 2. Healthcare-associated pneumonia 3. Congestive heart failure exacerbation. 4. Gram-negative rods urinary tract infection. 5. Hypertension. 6. Dementia. 7. Diabetes. 8. History of atrial fibrillation. 9. ARF PLAN: The patient remains unchanged, change abx to Rocephin, continue anti- aspiration measures, diuresis. Monitor renal f-n DW staff Problems: Consultation Date/Type/Reason Admit Date/Time Nov 14, 2016 at 08:00 Type of Consultation: ID Exam/Review of Systems Vital Signs Vitals Vital Signs Date Time Temp Pulse Resp B/P Pulse Ox O2 Delivery O2 Flow Rate FiO2 11/18/16 16:11 77 11/18/16 15:50 26 99 Nasal Cannula 4.0 11/18/16 15:30 98.3 151/74 11/18/16 00:10 21 Intake and Output 11/17/16 11/17/16 11/18/16 15:00 23:00 07:00 Intake Total 930 ml 400 ml Output Total 650 ml 1100 ml Balance 280 ml -700 ml Results Result Diagram: 11/18/16 0725 11/18/16 0725 Results 24 hrs Laboratory Tests Test 11/17/16 17:21 11/17/16 21:03 11/18/16 01:42 11/18/16 07:25 Bedside Glucose 117 180 291 H White Blood Count 7.1 # Red Blood Count 2.68 L Hemoglobin 8.8 L Hematocrit 28.4 L Mean Corpuscular Volume 106.0 H Mean Corpuscular Hemoglobin 32.8 Mean Corpuscular Hemoglobin Concent 31.0 L Red Cell Distribution Width 13.4 Platelet Count 177 Mean Platelet Volume 9.5 Neutrophils % 71.5 Lymphocytes % 10.1 L Monocytes % 7.9 Eosinophils % 10.1 H Basophils % 0.1 Nucleated Red Blood Cells % 0.0 Neutrophils # 5.1 Lymphocytes # 0.7 L Monocytes # 0.6 Eosinophils # 0.7 H Basophils # 0.0 Nucleated Red Blood Cells # 0.0 Prothrombin Time 15.0 H Prothrombin Time Ratio 1.2 INR International Normalized Ratio 1.17 Sodium Level 143 Potassium Level 3.8 Chloride Level 108 Carbon Dioxide Level 24 Anion Gap 15 # Blood Urea Nitrogen 46 H Creatinine 2.30 H Glucose Level 90 Calcium Level 8.6 Test 11/18/16 07:55 11/18/16 09:16 11/18/16 09:40 11/18/16 12:01 Bedside Glucose 84 66 L 130 70 Test 11/18/16 12:17 Blood Gas Specimen Source Blood arterial Arterial Blood Date Drawn 11/18/2016 12:50:42 PM Arterial Blood pH (Temp corrected) 7.332 L Arterial Blood pCO2 (Temp correct) 44.8 Arterial Blood pO2 (Temp corrected) 52.0 *L Arterial Blood HCO3 23.2 Arterial Blood Base Excess -2.7 Arterial Blood Oxygen Saturation 84.6 L Josh Test ACCEPTAB Arterial Blood Gas Puncture Site Right Radial Arterial Blood Carboxyhemoglobin 0.3 Arterial Blood Methemoglobin 0.4 Blood Gas A-a O2 Differential 109.3 H Oxyhemoglobin Percent 84.0 L Total Hemoglobin 10.1 L Blood Gas Temperature 37.0 Blood Gas Modality NASAL CANNULA FiO2 30.0 Blood Gas Critical Value Read Back H LASHON BARNARD Blood Gas Notified Whom BILLYD Blood Gas Notified Time 11/18/2016 1:06:20 PM Medications Medications Current Medications Piperacillin Sod/ Tazobactam Sod (Zosyn 2.25gm/ 50ml (Pmx)) 50 ml @ 100 mls/hr Q8 IVPB Last administered on 11/18/16 13:42; Admin Dose 100 MLS/HR; Start at 14:30 Acetaminophen (Tylenol Tab) 650 mg Q4 PRN PO PAIN AND OR ELEVATED TEMP; Start 11/14/16 at 13:30 Amlodipine Besylate (Norvasc) 5 mg DAILY PO Last administered on 11/18/16 09: 12; Admin Dose 5 MG; Start 11/14/16 at 14:30 Bisacodyl (Dulcolax Supp) 10 mg Q24H PRN [place] CONSTIPATION; Start 11/14/16 at 13: 30 Docusate Sodium (Colace) 200 mg Q24H PRN PO CONSTIPATION; Start 11/14/16 at 13: 30 Escitalopram Oxalate (Lexapro) 5 mg DAILY PO Last administered on 11/18/16 09: 12; Admin Dose 5 MG; Start 11/14/16 at 14:30 Gabapentin (Neurontin) 300 mg TID PO Last administered on 11/18/16 09:11; Admin Dose 300 MG; Start 11/14/16 at 14:30 Acetaminophen/ Hydrocodone Bitart ([place] (10/325)) 1 tab Q6H PRN PO PAIN; Start 11/14/16 at 13:30 Lisinopril (Zestril) 10 mg BID PO Last administered on 11/18/16 09:11; Admin Dose 10 MG; Start 11/14/16 at 21:00 Multivitamins Therapeutic (Theragran) 1 tab DAILY PO Last administered on 09:12; Admin Dose 1 TAB; Start 11/15/16 at 09:00 Sodium Biphosphate/ Sodium Phosphate (Fleet Enema) 118 ml Q48H PRN [place] CONSTIPATION; Start 11/14/16 at 13:30 Zinc Sulfate (Zinc Sulfate) 220 mg DAILY GTB Last administered on 11/18/16 09: 11; Admin Dose 220 MG; Start 11/15/16 at 09:00 Miscellaneous Information 1 ea NOTE XX ; Start 11/14/16 at 14:00 Dextrose (D50w Syringe) 25 ml Q15M PRN IV DECREASED GLUCOSE Last administered on 11/18/16 09:18; Admin Dose 25 ML; Start 11/14/16 at 14:00 Glucagon (Glucagen) 1 mg Q15M PRN IM DECREASED GLUCOSE; Start 11/14/16 at 14:00 Glucose (Glutose) 15 gm Q15M PRN BUCCAL DECREASED GLUCOSE Last administered on 11/17/16 07:55; Admin Dose 15 GM; Start 11/14/16 at 14:00 Diagnostic Test (Pha) (Accu-Chek) 1 ea 02 XX Last administered on 11/16/16 02: 00; Admin Dose 1 EA; Start 11/15/16 at 02:00 Miscellaneous Information (Pending [facility] Order For Wound Care) This patient woodard... PRN PRN XX WOUND CARE; Start 11/14/16 at 16:30 Guaifenesin/ Codeine Phosphate (Robitussin Ac Liquid Cup) 5 ml Q6 PRN PO COUGH Last administered on 11/18/16 13:51; Admin Dose 5 ML; Start 11/15/16 at 00:00 Insulin Glargine (Lantus) 30 unit HS SC Last administered on 11/17/16 21:08; Admin Dose 30 UNIT; Start 11/15/16 at 21:00; Status Future Hold Diltiazem HCl (Cardizem Cd) 120 mg DAILY PO Last administered on 11/18/16 09: 12; Admin Dose 120 MG; Start 11/16/16 at 09:00 Ferrous Sulfate (Ferrous Sulfate (Ec)) 325 mg TID PO Last administered on 09:12; Admin Dose 325 MG; Start 11/17/16 at 21:00 Mupirocin (Bactroban) 1 applic BID TOP Last administered on 11/18/16 09:12; Admin Dose 1 APPLIC; Start 11/17/16 at 21:00 AMBER FLORES NP Nov 18, 2016 17:13
[2016-11-18] MEDS: CEFTRIAXONE 1 GM/50 ML (PMX) 50 ML IVPB SCH (17:24)
--- NOTE | 2016-11-18 20:04 | CONS ---
DATE OF ADMISSION: 11/14/2016 DATE OF CONSULTATION: TYPE OF CONSULTATION: Renal. Thank you, Dr. Blandon, for asking me to participate in medical management of this patient. REASON FOR CONSULTATION: Renal failure. HISTORY OF PRESENT ILLNESS: This 89-year-old female who is demented, hard of hearing and speaks [place] only is unable to give much of a history. The nurse was able to give me some history that was t aken from the patient's family. The patient is awake and alert and does follow simple commands. Th e patient was apparently admitted with shortness of breath and transferred from [facility]. She does have a history of chronic kidney disease. The patient has been on lisinopril which I discontinued. CURRENT MEDICATIONS: Include the followin. Furosemide 20 mg twice a day. 2. Ceftriaxone every 24 hours. 3. Iron supplements. 4. 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 5. Diltiazem 120 mg a day. 6. Multivitamin. 7. Zinc sulfate. 8. Xopenex. 9. Guaifenesin. 10. Codeine. 11. Lisinopril 10 mg twice a day. 12. Amlodipine. 13. Lexapro. 14. Gabapentin. 15. Tylenol. 16. Docusate sodium 200 mg a day. PAST MEDICAL HISTORY: Remarkable for chronic kidney disease, dementia, peripheral artery disease, hypertension, diabetes mellitus, anemia of chronic disease, depression. She also has a urinary trac t infection growing Enterobacter. PHYSICAL EXAMINATION: GENERAL: At this time reveals a well-developed female in no apparent distress. VITAL SIGNS: Temperature 98.3, pulse is 76, respirations 26, blood pressure 151/74, O2 saturation 9 9% on 4 liter nasal cannula. HEENT: Head normocephalic. Eyes: Extraocular muscles intact. Nose and mouth: Normal. NECK: Supple. No neck vein distention. LUNGS: Decreased breath sounds at the right base. She does have some expiratory wheezes bilaterall y. HEART: Regular rhythm. No murmurs, gallops or rubs. ABDOMEN: Soft. EXTREMITIES: She does have bilateral peripheral edema and stasis changes of both lower extremities. LABORATORY DATA: Done today: Sodium 143, potassium 3.8, chloride 108, CO2 of 24, BUN 46, creatinin e 2.3, glucose 90, calcium 8.6. White blood count 7100, hemoglobin 8.8, hematocrit 28.4. Blood gas : pH 7.332, pCO2 of 44.8, O2 sat 52, O2 saturation 84.6, FIO2 of 30. Chest x-ray shows a large rig ht pleural effusion infiltrate. The left lung is not as congested as the right. IMPRESSION: This patient has renal failure. She had labs done on 09/24/2015 here, and her BUN at t he time was 20 and her serum creatinine was 0.7. The family members told the nurse today that she h as chronic kidney disease; however, I do not see evidence of that. It may well be that the patient' s decrease in right renal function now is in acute renal failure. The patient has been on lisinopri l which can cause a rise in serum creatinine and a decrease in renal function. I discontinued the l isinopril and Fleets enema. The patient is getting Lasix now for congestive heart failure. She dangelo s have a right lung infiltrate and large pleural effusion. I am concerned that she may have had an aspiration pneumonia. Her serum creatinine has been rising since admission. Her serum creatinine o n admission was 1.79 with a BUN of 49, and today her creatinine is up to 2.3. Her urinalysis on adm ission did show evidence of leukocyte esterase positive, 5 to 10 RBCs per high powered field, and +1 protein. This could be an indicator of chronic kidney disease, especially with a history of diabet es mellitus. PLAN: 1. Renal ultrasound. 2. Urine protein creatinine ratio. 3. We will continue current diuretics, discontinue Lisinopril. 4. Check labs in the morning. 5. I will follow the patient along with you medically. Dictated By: JESSIE AMATO MD, ND/PUJA Conf#: [id number] DID#: [id number] CC: AJAY BLANDON MD;*[facility]*
[2016-11-18 20:38] LABS: IRON 59 ug/dl (35-150)
[2016-11-18 20:47] LABS: TOTAL IRON BINDING CAPACITY 237 ug/dl (241-421)
[2016-11-18 21:14] LABS: FERRITIN 94.5 ng/ml (11.1-264.0)
[2016-11-18] MEDS: HYDROCODONE/APAP (10/325) TAB PO PRN (23:35)
[2016-11-19] VITALS (12 sets, daily range): BP systolic 88–126; BP diastolic 50–79; PULSE 65–86; RESP 17–18
[2016-11-19] MEDS: ACCU-CHEK XX SCH (01:30)
[2016-11-19 02:18] LABS: PROTEIN/CREAT RATIO 1.43 RATIO
[2016-11-19] MEDS: HYDROCODONE/APAP (10/325) TAB PO PRN ×2 (06:00→20:21)
[2016-11-19] MEDS: GUAIFENESIN/CODEINE 5ML CUP PO PRN ×2 (06:00→20:21)
[2016-11-19] MEDS: FUROSEMIDE 20 MG TAB PO SCH ×2 (06:02→16:59)
[2016-11-19 08:18] LABS: ADD SCAN DIFF NO
--- NOTE | 2016-11-19 08:23 | RADRPT ---
PROCEDURE: XR Chest. CLINICAL INDICATION: chf,pna TECHNIQUE: Single frontal view of the chest was obtained. COMPARISON: Chest x-ray from 11/16/2016 FINDINGS: There is stable at least moderate cardiomegaly. The aortic arch is calcified. Infiltrate seen previously in the right mid to lower lung zone has decreased in conspicuity. There is a stable retrocardiac opacity due to atelectasis, infiltrate, and / or effusion. There are low lung volumes with prominence of interstitial markings, likely due to a combination of congestive changes and vascular crowding. IMPRESSION: Decreased conspicuity of opacities in the right mid to lower lung zone, possibly due to improving pn eumonia. Stable retrocardiac opacity due to atelectasis, infiltrate, and / or effusion. Stable low lung volumes and at least moderate cardiomegaly with prominence of interstitial markings, likely due to a combination of congestive changes and vascular crowding. Aortic atherosclerosis.. RPTAT: EE Physician Claudette Date Time Electronically viewed and signed by Keshawn Hurtado Physician on 11/19/2016 08:23 /
[2016-11-19 08:24] LABS: BASOPHILS % 0.4 % (0.0-2.0); EOSINOPHILS % 14.1 % (0.0-7.0); HEMATOCRIT 28.8 % (37.0-47.0); HEMOGLOBIN 8.9 g/dl (12.0-16.0); LYMPHOCYTES # 0.7 10^3/ul (0.8-2.9); LYMPHOCYTES % 10.4 % (15.0-51.0); MEAN CORPUSCULAR HGB CONC 30.9 g/dl (32.0-37.0); MEAN CORPUSCULAR VOLUME 106.7 fl (82.0-101.0); MEAN PLATELET VOLUME 9.5 fl (7.4-10.4); MONOCYTE # 0.5 10^3/ul (0.3-0.9); MONOCYTES % 6.8 % (0.0-11.0); NEUTROPHIL # 4.8 10^3/ul (1.6-7.5); PLATELET COUNT 193 10^3/UL (140-415); RED CELL DISTRIBUTION WIDTH 13.3 % (11.5-14.5); WHITE BLOOD COUNT 7.1 10^3/ul (4.8-10.8)
[2016-11-19 08:34] LABS: INR 1.58; PT RATIO 1.5
[2016-11-19 08:37] LABS: POTASSIUM 4.2 mmol/L (3.5-5.1)
[2016-11-19 08:39] LABS: CREATININE 2.46 mg/dl (0.44-1.00)
[2016-11-19 08:40] LABS: CALCIUM 8.2 mg/dl (8.4-10.2); MAGNESIUM 2.1 mg/dl (1.7-2.5)
[2016-11-19] MEDS: LEVALBUTEROL (NEB) 0.63 MG/3 ML AMP HHN SCH ×2 (08:40→16:09)
[2016-11-19] MEDS: DILTIAZEM (CD) 120 MG CAP PO SCH (09:06)
[2016-11-19] MEDS: ZINC SULFATE 220 MG CAP GTB SCH (09:06)
[2016-11-19] MEDS: ESCITALOPRAM 10 MG TAB PO SCH (09:06)
[2016-11-19] MEDS: GABAPENTIN 300 MG CAP PO SCH ×3 (09:06→20:20)
[2016-11-19] MEDS: FERROUS SULFATE (EC) 325 MG TAB PO SCH ×3 (09:06→20:20)
[2016-11-19] MEDS: DOCUSATE SODIUM 100 MG CAP PO PRN (09:06)
[2016-11-19] MEDS: ACETAMINOPHEN 325 MG TAB PO PRN (09:06)
[2016-11-19] MEDS: MULTIVITAMINS THERAPEUTIC TAB PO SCH (09:06)
[2016-11-19] MEDS: AMLODIPINE 5 MG TAB PO SCH (09:07)
[2016-11-19] MEDS: MUPIROCIN 2% 22 GM OINT TOP SCH ×2 (09:07→20:21)
[2016-11-19] MEDS: INSULIN ASPART [NOVOLOG] 3 ML PEN SC SCH ×4 (09:15→20:32)
--- NOTE | 2016-11-19 09:19 | RADRPT ---
PROCEDURE: Retroperitoneal US. CLINICAL INDICATION: renal failure TECHNIQUE: Multiple sonographic images of the retroperitoneum were obtained. The images were revi ewed on a PACS workstation. COMPARISON: No prior studies are available for comparison. FINDINGS: The right kidney measures 9.6 cm. The left kidney measures 10.0 cm. There is thinning of the renal cortex bilaterally to approximately 1 cm. The renal parenchymal echotexture is mildly increased bilaterally. There is no hydronephrosis. There is no focal renal mass or calcification seen. The bladder is empty which limits evaluation. IMPRESSION: Mildly echogenic and atrophic kidneys suggest mild medical renal disease. Correlation with BUN and creatinine levels is recommended. The bladder is empty which limits evaluation. RPTAT: EE Physician Claudette Date Time Electronically viewed and signed by Physician Claudette on 11/19/2016 09:19 /
--- NOTE | 2016-11-19 10:25 | CONS ---
Date/Time of Note Date/Time of Note DATE: 11/19/16 TIME: 10:21 Assessment/Plan Assessment/Plan Chief Complaint/Hosp Course 1. Acute renal failure superimposed on chronic kidney disease. Her renal function is slightly worse today. 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 2. Her expiratory function seems better today. Her chest x-ray does show a large right pleural effusion but less infiltrate on the right. 3. She does have dementia. 4. She is having a good urine output with the Lasix that she is getting. I will recheck her renal function tomorrow. Problems: Consultation Date/Type/Reason Admit Date/Time Nov 14, 2016 at 08:00 Initial Consult Date Type of Consultation: ID [id number] HR Interval Summary Free Text/Dictation She is awake but she is not talking. She has a history of dementia. Constitutional: disoriented Exam/Review of Systems Vital Signs Vitals Vital Signs Date Time Temp Pulse Resp B/P Pulse Ox O2 Delivery O2 Flow Rate FiO2 11/19/16 08:40 77 24 95 Nasal Cannula 4.0 11/19/16 07:20 97.9 97/59 11/18/16 00:10 21 Intake and Output 11/18/16 11/18/16 11/19/16 15:00 23:00 07:00 Intake Total 450 ml 300 ml Output Total 750 ml 500 ml Balance -300 ml -200 ml Exam Constitutional: non-verbal Psych: confusion Respiratory: clear to auscultation, diminished breath sounds Cardiovascular: regular rate and rhythm Gastrointestinal: soft Results Result Diagram: 11/19/16 0740 11/19/16 0740 Results 24 hrs Laboratory Tests Test 11/18/16 12:01 11/18/16 12:17 11/18/16 17:19 11/18/16 21:44 Bedside Glucose 70 182 178 Blood Gas Specimen Source Blood arterial Arterial Blood Date Drawn 11/18/2016 12:50:42 PM Arterial Blood pH (Temp corrected) 7.332 L Arterial Blood pCO2 (Temp correct) 44.8 Arterial Blood pO2 (Temp corrected) 52.0 *L Arterial Blood HCO3 23.2 Arterial Blood Base Excess -2.7 Arterial Blood Oxygen Saturation 84.6 L Josh Test ACCEPTAB Arterial Blood Gas Puncture Site Right Radial Arterial Blood Carboxyhemoglobin 0.3 Arterial Blood Methemoglobin 0.4 Blood Gas A-a O2 Differential 109.3 H Oxyhemoglobin Percent 84.0 L Total Hemoglobin 10.1 L Blood Gas Temperature 37.0 Blood Gas Modality NASAL CANNULA FiO2 30.0 Blood Gas Critical Value Read Back H LASHON BARNARD Blood Gas Notified Whom BILLYD Blood Gas Notified Time 11/18/2016 1:06:20 PM Test 11/19/16 01:49 11/19/16 07:40 11/19/16 09:05 Urine Random Creatinine 116.27 Urine Protein/Creatinine Ratio 1.43 Urine Total Protein 167.0 H White Blood Count 7.1 Red Blood Count 2.70 L Hemoglobin 8.9 L Hematocrit 28.8 L Mean Corpuscular Volume 106.7 H Mean Corpuscular Hemoglobin 33.0 Mean Corpuscular Hemoglobin Concent 30.9 L Red Cell Distribution Width 13.3 Platelet Count 193 Mean Platelet Volume 9.5 Neutrophils % 68.0 Lymphocytes % 10.4 L Monocytes % 6.8 Eosinophils % 14.1 H Basophils % 0.4 Nucleated Red Blood Cells % 0.0 Neutrophils # 4.8 Lymphocytes # 0.7 L Monocytes # 0.5 Eosinophils # 1.0 H Basophils # 0.0 Nucleated Red Blood Cells # 0.0 Prothrombin Time 19.0 #H Prothrombin Time Ratio 1.5 INR International Normalized Ratio 1.58 Sodium Level 142 Potassium Level 4.2 Chloride Level 107 Carbon Dioxide Level 24 Anion Gap 15 Blood Urea Nitrogen 46 H Creatinine 2.46 H Glucose Level 172 Calcium Level 8.2 L Magnesium Level 2.1 Bedside Glucose 168 Medications Medications Current Medications Acetaminophen (Tylenol Tab) 650 mg Q4 PRN PO PAIN AND OR ELEVATED TEMP Last administered on 11/19/16 09:06; Admin Dose 650 MG; Start 11/14/16 at 13:30 Amlodipine Besylate (Norvasc) 5 mg DAILY PO Last administered on 11/19/16 09: 07; Admin Dose 5 MG; Start 11/14/16 at 14:30 Bisacodyl (Dulcolax Supp) 10 mg Q24H PRN [place] CONSTIPATION; Start 11/14/16 at 13: 30 Docusate Sodium (Colace) 200 mg Q24H PRN PO CONSTIPATION Last administered on 09:06; Admin Dose 200 MG; Start 11/14/16 at 13:30 Escitalopram Oxalate (Lexapro) 5 mg DAILY PO Last administered on 11/19/16 09: 06; Admin Dose 5 MG; Start 11/14/16 at 14:30 Gabapentin (Neurontin) 300 mg TID PO Last administered on 11/19/16 09:06; Admin Dose 300 MG; Start 11/14/16 at 14:30 Acetaminophen/ Hydrocodone Bitart ([place] (10/325)) 1 tab Q6H PRN PO PAIN Last administered on 11/19/16 06:00; Admin Dose 1 TAB; Start 11/14/16 at 13:30 Multivitamins Therapeutic (Theragran) 1 tab DAILY PO Last administered on 09:06; Admin Dose 1 TAB; Start 11/15/16 at 09:00 Zinc Sulfate (Zinc Sulfate) 220 mg DAILY GTB Last administered on 11/19/16 09: 06; Admin Dose 220 MG; Start 11/15/16 at 09:00 Miscellaneous Information 1 ea NOTE XX ; Start 11/14/16 at 14:00 Dextrose (D50w Syringe) 25 ml Q15M PRN IV DECREASED GLUCOSE Last administered on 11/18/16 09:18; Admin Dose 25 ML; Start 11/14/16 at 14:00 Glucagon (Glucagen) 1 mg Q15M PRN IM DECREASED GLUCOSE; Start 11/14/16 at 14:00 Glucose (Glutose) 15 gm Q15M PRN BUCCAL DECREASED GLUCOSE Last administered on 11/17/16 07:55; Admin Dose 15 GM; Start 11/14/16 at 14:00 Diagnostic Test (Pha) (Accu-Chek) 1 ea 02 XX Last administered on 11/16/16 02: 00; Admin Dose 1 EA; Start 11/15/16 at 02:00 Miscellaneous Information (Pending Santyl Order For Wound Care) This patient woodard... PRN PRN XX WOUND CARE; Start 11/14/16 at 16:30 Guaifenesin/ Codeine Phosphate (Robitussin Ac Liquid Cup) 5 ml Q6 PRN PO COUGH Last administered on 11/19/16 06:00; Admin Dose 5 ML; Start 11/15/16 at 00:00 Insulin Glargine (Lantus) 30 unit HS SC Last administered on 11/17/16 21:08; Admin Dose 30 UNIT; Start 11/15/16 at 21:00; Status Future Hold Diltiazem HCl (Cardizem Cd) 120 mg DAILY PO Last administered on 11/19/16 09: 06; Admin Dose 120 MG; Start 11/16/16 at 09:00 Ferrous Sulfate (Ferrous Sulfate (Ec)) 325 mg TID PO Last administered on 09:06; Admin Dose 325 MG; Start 11/17/16 at 21:00 Mupirocin 1 applic 1 applic BID TOP Last administered on 11/19/16 09:07; Admin Dose 1 APPLIC; Start 11/17/16 at 21:00 Ceftriaxone Sodium (Rocephin) 50 ml @ 100 mls/hr Q24H IVPB Last administered on 11/18/16 17:24; Admin Dose 100 MLS/HR; Start 11/18/16 at 17:30 Epoetin Jean (Epogen (Esrd)) 10,000 units MoWeFr@17 SC ; Start 11/20/16 at 17:00 JESSIE AMATO MD Nov 19, 2016 10:25
--- NOTE | 2016-11-19 14:27 | PN ---
Date/Time of Note Date/Time of Note DATE: 11/19/16 TIME: 14:22 Assessment/Plan VTE Prophylaxis VTE Prophylaxis Intervention: other (coum) Lines/Catheters IV Catheter Type (from Nrsg): Peripheral IV Central line still needed: No Urinary Cath still in place: Yes Reason Cath still needed: terminal illness/intractable pain Assessment/Plan Assessment/Plan 1/ pneumonia/ effusion/ dyspnea 2/ a fib/ chf/ htn/ pad 3/ arf/ anemia 4/ dm 5/ weak musc/ no ambulation 6/ depression ---per ID, changed atbx ---per pulm ---per cards ---per renal ---OT/PT strengthening exercises ---coum 5mg tonight, to keep pt inr ~2.0 Subjective 24 Hr Interval Summary Free Text/Dictation a little easier to breath Exam/Review of Systems Vital Signs Vitals Vital Signs Date Time Temp Pulse Resp B/P Pulse Ox O2 Delivery O2 Flow Rate FiO2 11/19/16 12:19 66 11/19/16 11:27 98.5 18 126/60 99 11/19/16 08:40 Nasal Cannula 4.0 11/18/16 00:10 21 Intake and Output 11/18/16 11/18/16 11/19/16 15:00 23:00 07:00 Intake Total 450 ml 300 ml Output Total 750 ml 500 ml Balance -300 ml -200 ml Exam more awake still congested voice, dec bs bibasilar irreg irreg no edema Results Result Diagram: 11/19/16 0740 11/19/16 0740 Results 24 hrs Laboratory Tests Test 11/18/16 17:19 11/18/16 21:44 11/19/16 01:49 11/19/16 07:40 Bedside Glucose 182 178 Urine Random Creatinine 116.27 Urine Protein/Creatinine Ratio 1.43 Urine Total Protein 167.0 H White Blood Count 7.1 Red Blood Count 2.70 L Hemoglobin 8.9 L Hematocrit 28.8 L Mean Corpuscular Volume 106.7 H Mean Corpuscular Hemoglobin 33.0 Mean Corpuscular Hemoglobin Concent 30.9 L Red Cell Distribution Width 13.3 Platelet Count 193 Mean Platelet Volume 9.5 Neutrophils % 68.0 Lymphocytes % 10.4 L Monocytes % 6.8 Eosinophils % 14.1 H Basophils % 0.4 Nucleated Red Blood Cells % 0.0 Neutrophils # 4.8 Lymphocytes # 0.7 L Monocytes # 0.5 Eosinophils # 1.0 H Basophils # 0.0 Nucleated Red Blood Cells # 0.0 Prothrombin Time 19.0 #H Prothrombin Time Ratio 1.5 INR International Normalized Ratio 1.58 Sodium Level 142 Potassium Level 4.2 Chloride Level 107 Carbon Dioxide Level 24 Anion Gap 15 Blood Urea Nitrogen 46 H Creatinine 2.46 H Glucose Level 172 Calcium Level 8.2 L Magnesium Level 2.1 Test 11/19/16 09:05 11/19/16 11:48 Bedside Glucose 168 154 Medications Medications Current Medications Acetaminophen (Tylenol Tab) 650 mg Q4 PRN PO PAIN AND OR ELEVATED TEMP Last administered on 11/19/16 09:06; Admin Dose 650 MG; Start 11/14/16 at 13:30 Amlodipine Besylate (Norvasc) 5 mg DAILY PO Last administered on 11/19/16 09: 07; Admin Dose 5 MG; Start 11/14/16 at 14:30 Bisacodyl (Dulcolax Supp) 10 mg Q24H PRN [place] CONSTIPATION; Start 11/14/16 at 13: 30 Docusate Sodium (Colace) 200 mg Q24H PRN PO CONSTIPATION Last administered on 09:06; Admin Dose 200 MG; Start 11/14/16 at 13:30 Escitalopram Oxalate (Lexapro) 5 mg DAILY PO Last administered on 11/19/16 09: 06; Admin Dose 5 MG; Start 11/14/16 at 14:30 Gabapentin (Neurontin) 300 mg TID PO Last administered on 11/19/16 12:39; Admin Dose 300 MG; Start 11/14/16 at 14:30 Acetaminophen/ Hydrocodone Bitart ([place] (10/325)) 1 tab Q6H PRN PO PAIN Last administered on 11/19/16 06:00; Admin Dose 1 TAB; Start 11/14/16 at 13:30 Multivitamins Therapeutic (Theragran) 1 tab DAILY PO Last administered on 09:06; Admin Dose 1 TAB; Start 11/15/16 at 09:00 Zinc Sulfate (Zinc Sulfate) 220 mg DAILY GTB Last administered on 11/19/16 09: 06; Admin Dose 220 MG; Start 11/15/16 at 09:00 Miscellaneous Information 1 ea NOTE XX ; Start 11/14/16 at 14:00 Dextrose (D50w Syringe) 25 ml Q15M PRN IV DECREASED GLUCOSE Last administered on 11/18/16 09:18; Admin Dose 25 ML; Start 11/14/16 at 14:00 Glucagon (Glucagen) 1 mg Q15M PRN IM DECREASED GLUCOSE; Start 11/14/16 at 14:00 Glucose (Glutose) 15 gm Q15M PRN BUCCAL DECREASED GLUCOSE Last administered on 11/17/16 07:55; Admin Dose 15 GM; Start 11/14/16 at 14:00 Diagnostic Test (Pha) (Accu-Chek) 1 ea 02 XX Last administered on 11/16/16 02: 00; Admin Dose 1 EA; Start 11/15/16 at 02:00 Miscellaneous Information (Pending Santyl Order For Wound Care) This patient woodard... PRN PRN XX WOUND CARE; Start 11/14/16 at 16:30 Guaifenesin/ Codeine Phosphate (Robitussin Ac Liquid Cup) 5 ml Q6 PRN PO COUGH Last administered on 11/19/16 06:00; Admin Dose 5 ML; Start 11/15/16 at 00:00 Insulin Glargine (Lantus) 30 unit HS SC Last administered on 11/17/16 21:08; Admin Dose 30 UNIT; Start 11/15/16 at 21:00; Status Future Hold Diltiazem HCl (Cardizem Cd) 120 mg DAILY PO Last administered on 11/19/16 09: 06; Admin Dose 120 MG; Start 11/16/16 at 09:00 Ferrous Sulfate (Ferrous Sulfate (Ec)) 325 mg TID PO Last administered on 12:39; Admin Dose 325 MG; Start 11/17/16 at 21:00 Mupirocin 1 applic 1 applic BID TOP Last administered on 11/19/16 09:07; Admin Dose 1 APPLIC; Start 11/17/16 at 21:00 Ceftriaxone Sodium (Rocephin) 50 ml @ 100 mls/hr Q24H IVPB Last administered on 11/18/16 17:24; Admin Dose 100 MLS/HR; Start 11/18/16 at 17:30 Epoetin Jean [id number] units 10,000 units MoWeFr@17 SC ; Start 11/20/16 at 17:00 Calcium Gluconate/ Sodium Chloride (Ca Gluc/NS) 110 ml @ 110 mls/hr ONCE ONCE IVPB ; Start 11/19/16 at 14:30; Stop 11/19/16 at 15:29 AJAY HAWKINS MD Nov 19, 2016 14:27
[2016-11-19] MEDS ORDERED: CALCIUM GLUCONATE 10% 1 GM in SOD CHLORIDE 0.9% 100 ML IVPB ONE (14:30)
--- NOTE | 2016-11-19 15:36 | CONS ---
Date/Time of Note Date/Time of Note DATE: 11/19/16 TIME: 15:34 Assessment/Plan Assessment/Plan Chief Complaint/Hosp Course SUBJECTIVE: No events overnight. No fevers. The patient is awake, looks comfortable. MICROBIOLOGY: Urine culture growing Enterobacter. ANTIMICROBIALS: Rocephin. PHYSICAL EXAMINATION: GENERAL: Fragile, elderly woman who is nonverbal, noncommunicative. The patient is in no distress. HEENT: Head atraumatic, normocephalic. Sclerae anicteric. Buccal mucosa dry. NECK: Supple. Trachea midline. CHEST: Rise symmetrical. Breath sounds clear, diminished to bases, no wheezing. HEART: S1, S2. ABDOMEN: Soft. Bowel tones present. EXTREMITIES: Without cyanosis. ASSESSMENT: 1. Acute respiratory failure, improved. 2. Healthcare-associated pneumonia 3. Congestive heart failure exacerbation. 4. Gram-negative rods urinary tract infection. 5. Hypertension. 6. Dementia. 7. Diabetes. 8. History of atrial fibrillation. 9. ARF PLAN: Stable, no SOB, no fevers, continue abx, anti-aspiration measures, f/u card rec-s DW staff Problems: Consultation Date/Type/Reason Admit Date/Time Nov 14, 2016 at 08:00 Type of Consultation: ID Exam/Review of Systems Vital Signs Vitals Vital Signs Date Time Temp Pulse Resp B/P Pulse Ox O2 Delivery O2 Flow Rate FiO2 11/19/16 12:19 66 11/19/16 11:27 98.5 18 126/60 99 11/19/16 08:40 Nasal Cannula 4.0 11/18/16 00:10 21 Intake and Output 11/18/16 11/18/16 11/19/16 15:00 23:00 07:00 Intake Total 450 ml 300 ml Output Total 750 ml 500 ml Balance -300 ml -200 ml Results Result Diagram: 11/19/16 0740 11/19/16 0740 Results 24 hrs Laboratory Tests Test 11/18/16 17:19 11/18/16 21:44 11/19/16 01:49 11/19/16 07:40 Bedside Glucose 182 178 Urine Random Creatinine 116.27 Urine Protein/Creatinine Ratio 1.43 Urine Total Protein 167.0 H White Blood Count 7.1 Red Blood Count 2.70 L Hemoglobin 8.9 L Hematocrit 28.8 L Mean Corpuscular Volume 106.7 H Mean Corpuscular Hemoglobin 33.0 Mean Corpuscular Hemoglobin Concent 30.9 L Red Cell Distribution Width 13.3 Platelet Count 193 Mean Platelet Volume 9.5 Neutrophils % 68.0 Lymphocytes % 10.4 L Monocytes % 6.8 Eosinophils % 14.1 H Basophils % 0.4 Nucleated Red Blood Cells % 0.0 Neutrophils # 4.8 Lymphocytes # 0.7 L Monocytes # 0.5 Eosinophils # 1.0 H Basophils # 0.0 Nucleated Red Blood Cells # 0.0 Prothrombin Time 19.0 #H Prothrombin Time Ratio 1.5 INR International Normalized Ratio 1.58 Sodium Level 142 Potassium Level 4.2 Chloride Level 107 Carbon Dioxide Level 24 Anion Gap 15 Blood Urea Nitrogen 46 H Creatinine 2.46 H Glucose Level 172 Calcium Level 8.2 L Magnesium Level 2.1 Test 11/19/16 09:05 11/19/16 11:48 Bedside Glucose 168 154 Medications Medications Current Medications Acetaminophen (Tylenol Tab) 650 mg Q4 PRN PO PAIN AND OR ELEVATED TEMP Last administered on 11/19/16 09:06; Admin Dose 650 MG; Start 11/14/16 at 13:30 Amlodipine Besylate (Norvasc) 5 mg DAILY PO Last administered on 11/19/16 09: 07; Admin Dose 5 MG; Start 11/14/16 at 14:30 Bisacodyl (Dulcolax Supp) 10 mg Q24H PRN [place] CONSTIPATION; Start 11/14/16 at 13: 30 Docusate Sodium (Colace) 200 mg Q24H PRN PO CONSTIPATION Last administered on 09:06; Admin Dose 200 MG; Start 11/14/16 at 13:30 Escitalopram Oxalate (Lexapro) 5 mg DAILY PO Last administered on 11/19/16 09: 06; Admin Dose 5 MG; Start 11/14/16 at 14:30 Gabapentin (Neurontin) 300 mg TID PO Last administered on 11/19/16 12:39; Admin Dose 300 MG; Start 11/14/16 at 14:30 Acetaminophen/ Hydrocodone Bitart ([place] (10/325)) 1 tab Q6H PRN PO PAIN Last administered on 11/19/16 06:00; Admin Dose 1 TAB; Start 11/14/16 at 13:30 Multivitamins Therapeutic (Theragran) 1 tab DAILY PO Last administered on 09:06; Admin Dose 1 TAB; Start 11/15/16 at 09:00 Zinc Sulfate (Zinc Sulfate) 220 mg DAILY GTB Last administered on 11/19/16 09: 06; Admin Dose 220 MG; Start 11/15/16 at 09:00 Miscellaneous Information 1 ea NOTE XX ; Start 11/14/16 at 14:00 Dextrose (D50w Syringe) 25 ml Q15M PRN IV DECREASED GLUCOSE Last administered on 11/18/16 09:18; Admin Dose 25 ML; Start 11/14/16 at 14:00 Glucagon (Glucagen) 1 mg Q15M PRN IM DECREASED GLUCOSE; Start 11/14/16 at 14:00 Glucose (Glutose) 15 gm Q15M PRN BUCCAL DECREASED GLUCOSE Last administered on 11/17/16 07:55; Admin Dose 15 GM; Start 11/14/16 at 14:00 Diagnostic Test (Pha) (Accu-Chek) 1 ea 02 XX Last administered on 11/16/16 02: 00; Admin Dose 1 EA; Start 11/15/16 at 02:00 Miscellaneous Information [facility] This patient woodard... PRN PRN XX WOUND CARE; Start 11/14/16 at 16:30 Guaifenesin/ Codeine Phosphate (Robitussin Ac Liquid Cup) 5 ml Q6 PRN PO COUGH Last administered on 11/19/16 06:00; Admin Dose 5 ML; Start 11/15/16 at 00:00 Insulin Glargine (Lantus) 30 unit HS SC Last administered on 11/17/16 21:08; Admin Dose 30 UNIT; Start 11/15/16 at 21:00; Status Future Hold Diltiazem HCl (Cardizem Cd) 120 mg DAILY PO Last administered on 11/19/16 09: 06; Admin Dose 120 MG; Start 11/16/16 at 09:00 Ferrous Sulfate (Ferrous Sulfate (Ec)) 325 mg TID PO Last administered on 12:39; Admin Dose 325 MG; Start 11/17/16 at 21:00 Mupirocin 1 applic 1 applic BID TOP Last administered on 11/19/16 09:07; Admin Dose 1 APPLIC; Start 11/17/16 at 21:00 Ceftriaxone Sodium (Rocephin) 50 ml @ 100 mls/hr Q24H IVPB Last administered on 11/18/16t 17:24; Admin Dose 100 MLS/HR; Start 11/18/16 at 17:30 Epoetin Jean (Epogen (Esrd)) 10,000 units MoWeFr@17 SC ; Start 11/20/16 at 17:00 Warfarin Sodium (Coumadin) 5 mg ONCE@17 ONCE PO ; Start 11/19/16 at 17:00; Stop 11/19/16 at 17:01 AMBER FLORES NP Nov 19, 2016 15:36
[2016-11-19] MEDS: CEFTRIAXONE 1 GM/50 ML (PMX) 50 ML IVPB SCH (16:59)
--- NOTE | 2016-11-19 16:59 | CONS ---
Date/Time of Note Date/Time of Note DATE: 11/19/16 TIME: 16:55 Assessment/Plan Assessment/Plan Additional Assessment/Plan Pneumonia Acute decompensated diastolic congestive heart failure Paroxysmal atrial fibrillation Peripheral arterial disease Acute kidney injury -Chest x-ray improved, creatinine increasing, being followed by our nephrology colleague. Blood pressure trend improved. Consultation Date/Type/Reason Admit Date/Time Nov 14, 2016 at 08:00 Type of Consultation: cv 24 HR Interval Summary Free Text/Dictation Patient seen and examined. Doing better as per family at bedside Exam/Review of Systems Vital Signs Vitals Vital Signs Date Time Temp Pulse Resp B/P Pulse Ox O2 Delivery O2 Flow Rate FiO2 11/19/16 16:40 67 11/19/16 16:11 4.0 11/19/16 16:10 26 96 Nasal Cannula 11/19/16 15:40 98.5 106/54 11/18/16 00:10 21 Intake and Output 11/18/16 11/18/16 11/19/16 14:59 22:59 06:59 Intake Total 450 ml 300 ml Output Total 750 ml 500 ml Balance -300 ml -200 ml Exam Following commands, no apparent distress Constitutional: alert Head: normocephalic Respiratory: other (Coarse breath sounds bilaterally, no wheezing) Cardiovascular: irregular rhythm, other (S1-S2 heard) Gastrointestinal: bowel sounds, non-tender, soft Extremities: edema (Trace) Results Result Diagram: 11/19/16 0740 11/19/16 0740 Results 24 hrs Laboratory Tests Test 11/18/16 17:19 11/18/16 21:44 11/19/16 01:49 11/19/16 07:40 Bedside Glucose 182 178 Urine Random Creatinine 116.27 Urine Protein/Creatinine Ratio 1.43 Urine Total Protein 167.0 H White Blood Count 7.1 Red Blood Count 2.70 L Hemoglobin 8.9 L Hematocrit 28.8 L Mean Corpuscular Volume 106.7 H Mean Corpuscular Hemoglobin 33.0 Mean Corpuscular Hemoglobin Concent 30.9 L Red Cell Distribution Width 13.3 Platelet Count 193 Mean Platelet Volume 9.5 Neutrophils % 68.0 Lymphocytes % 10.4 L Monocytes % 6.8 Eosinophils % 14.1 H Basophils % 0.4 Nucleated Red Blood Cells % 0.0 Neutrophils # 4.8 Lymphocytes # 0.7 L Monocytes # 0.5 Eosinophils # 1.0 H Basophils # 0.0 Nucleated Red Blood Cells # 0.0 Prothrombin Time 19.0 #H Prothrombin Time Ratio 1.5 INR International Normalized Ratio 1.58 Sodium Level 142 Potassium Level 4.2 Chloride Level 107 Carbon Dioxide Level 24 Anion Gap 15 Blood Urea Nitrogen 46 H Creatinine 2.46 H Glucose Level 172 Calcium Level 8.2 L Magnesium Level 2.1 Test 11/19/16 09:05 11/19/16 11:48 Bedside Glucose 168 154 Medications Medications Current Medications Acetaminophen (Tylenol Tab) 650 mg Q4 PRN PO PAIN AND OR ELEVATED TEMP Last administered on 11/19/16 09:06; Admin Dose 650 MG; Start 11/14/16 at 13:30 Amlodipine Besylate (Norvasc) 5 mg DAILY PO Last administered on 11/19/16 09: 07; Admin Dose 5 MG; Start 11/14/16 at 14:30 Bisacodyl (Dulcolax Supp) 10 mg Q24H PRN [place] CONSTIPATION; Start 11/14/16 at 13: 30 Docusate Sodium (Colace) 200 mg Q24H PRN PO CONSTIPATION Last administered on 09:06; Admin Dose 200 MG; Start 11/14/16 at 13:30 Escitalopram Oxalate (Lexapro) 5 mg DAILY PO Last administered on 11/19/16 09: 06; Admin Dose 5 MG; Start 11/14/16 at 14:30 Gabapentin (Neurontin) 300 mg TID PO Last administered on 11/19/16 12:39; Admin Dose 300 MG; Start 11/14/16 at 14:30 Acetaminophen/ Hydrocodone Bitart ([place] (10/325)) 1 tab Q6H PRN PO PAIN Last administered on 11/19/16 06:00; Admin Dose 1 TAB; Start 11/14/16 at 13:30 Multivitamins Therapeutic (Theragran) 1 tab DAILY PO Last administered on 09:06; Admin Dose 1 TAB; Start 11/15/16 at 09:00 Zinc Sulfate (Zinc Sulfate) 220 mg DAILY GTB Last administered on 11/19/16 09: 06; Admin Dose 220 MG; Start 11/15/16 at 09:00 Miscellaneous Information 1 ea NOTE XX ; Start 11/14/16 at 14:00 Dextrose (D50w Syringe) 25 ml Q15M PRN IV DECREASED GLUCOSE Last administered on 11/18/16 09:18; Admin Dose 25 ML; Start 11/14/16 at 14:00 Glucagon (Glucagen) 1 mg Q15M PRN IM DECREASED GLUCOSE; Start 11/14/16 at 14:00 Glucose (Glutose) 15 gm Q15M PRN BUCCAL DECREASED GLUCOSE Last administered on 11/17/16 07:55; Admin Dose 15 GM; Start 11/14/16 at 14:00 Diagnostic Test (Pha) (Accu-Chek) 1 ea 02 XX Last administered on 11/16/16 02: 00; Admin Dose 1 EA; Start 11/15/16 at 02:00 Miscellaneous Information [facility] This patient woodard... PRN PRN XX WOUND CARE; Start 11/14/16 at 16:30 Guaifenesin/ Codeine Phosphate (Robitussin Ac Liquid Cup) 5 ml Q6 PRN PO COUGH Last administered on 11/19/16 06:00; Admin Dose 5 ML; Start 11/15/16 at 00:00 Insulin Glargine (Lantus) 30 unit HS SC Last administered on 11/17/16 21:08; Admin Dose 30 UNIT; Start 11/15/16 at 21:00; Status Future Hold Diltiazem HCl (Cardizem Cd) 120 mg DAILY PO Last administered on 11/19/16 09: 06; Admin Dose 120 MG; Start 11/16/16 at 09:00 Ferrous Sulfate (Ferrous Sulfate (Ec)) 325 mg TID PO Last administered on 12:39; Admin Dose 325 MG; Start 11/17/16 at 21:00 Mupirocin 1 applic 1 applic BID TOP Last administered on 11/19/16 09:07; Admin Dose 1 APPLIC; Start 11/17/16 at 21:00 Ceftriaxone Sodium (Rocephin) 50 ml @ 100 mls/hr Q24H IVPB Last administered on 11/18/16 17:24; Admin Dose 100 MLS/HR; Start 11/18/16 at 17:30 Epoetin Jean (Epogen (Esrd)) 10,000 units MoWeFr@17 SC ; Start 11/20/16 at 17:00 Warfarin Sodium (Coumadin) 5 mg ONCE@17 ONCE PO ; Start 11/19/16 at 17:00; Stop 11/19/16 at 17:01 Hieu Wolf DO Nov 19, 2016 16:59
[2016-11-19] MEDS ORDERED: WARFARIN 5 MG TAB PO ONE (17:00)
[2016-11-20] VITALS (13 sets, daily range): BP systolic 108–142; BP diastolic 52–63; PULSE 62–80; RESP 18–20
[2016-11-20] MEDS: LEVALBUTEROL (NEB) 0.63 MG/3 ML AMP HHN SCH ×4 (00:15→23:58)
[2016-11-20] MEDS: ACCU-CHEK XX SCH (02:24)
[2016-11-20] MEDS: FUROSEMIDE 20 MG TAB PO SCH ×2 (06:17→17:33)
[2016-11-20 07:02] LABS: ADD SCAN DIFF NO
[2016-11-20 07:07] LABS: BASOPHILS % 0.6 % (0.0-2.0); EOSINOPHILS # 0.9 10^3/ul (0.0-0.5); EOSINOPHILS % 13.3 % (0.0-7.0); HEMOGLOBIN 9.1 g/dl (12.0-16.0); LYMPHOCYTES # 0.7 10^3/ul (0.8-2.9); LYMPHOCYTES % 10.5 % (15.0-51.0); MEAN CORPUSCULAR HEMOGLOBIN 32.9 pg (29.0-33.0); MEAN CORPUSCULAR HGB CONC 31.4 g/dl (32.0-37.0); MEAN CORPUSCULAR VOLUME 104.7 fl (82.0-101.0); MEAN PLATELET VOLUME 9.6 fl (7.4-10.4); MONOCYTE # 0.5 10^3/ul (0.3-0.9); MONOCYTES % 7.7 % (0.0-11.0); NEUTROPHIL # 4.4 10^3/ul (1.6-7.5); NEUTROPHILS % 67.6 % (39.0-77.0); PLATELET COUNT 182 10^3/UL (140-415); RED BLOOD COUNT 2.77 10^6/ul (4.20-5.40); RED CELL DISTRIBUTION WIDTH 13.2 % (11.5-14.5); WHITE BLOOD COUNT 6.5 10^3/ul (4.8-10.8)
[2016-11-20 07:37] LABS: INR 3.11; PROTIME 32.5 Sec (12.2-14.2); PT RATIO 2.5
[2016-11-20 07:46] LABS: ALBUMIN 3.1 g/dl (3.3-4.9)
[2016-11-20 07:47] LABS: POTASSIUM 4.4 mmol/L (3.5-5.1)
[2016-11-20 07:49] LABS: ALBUMIN/GLOBULIN RATIO 0.77; CREATININE 2.5 mg/dl (0.44-1.00); TOTAL PROTEIN 7.1 g/dl (6.1-8.1)
[2016-11-20 07:50] LABS: CALCIUM 8.5 mg/dl (8.4-10.2)
[2016-11-20] MEDS: ESCITALOPRAM 10 MG TAB PO SCH (08:43)
[2016-11-20] MEDS: AMLODIPINE 5 MG TAB PO SCH (08:43)
[2016-11-20] MEDS: ZINC SULFATE 220 MG CAP GTB SCH (08:44)
[2016-11-20] MEDS: GABAPENTIN 300 MG CAP PO SCH ×3 (08:44→20:52)
[2016-11-20] MEDS: DILTIAZEM (CD) 120 MG CAP PO SCH (08:44)
[2016-11-20] MEDS: ACETAMINOPHEN 325 MG TAB PO PRN (08:44)
[2016-11-20] MEDS: MULTIVITAMINS THERAPEUTIC TAB PO SCH (08:44)
[2016-11-20] MEDS: DOCUSATE SODIUM 100 MG CAP PO PRN (08:44)
[2016-11-20] MEDS: FERROUS SULFATE (EC) 325 MG TAB PO SCH ×3 (08:44→20:52)
[2016-11-20] MEDS: MUPIROCIN 2% 22 GM OINT TOP SCH ×2 (08:48→20:53)
[2016-11-20] MEDS: INSULIN ASPART [NOVOLOG] 3 ML PEN SC SCH ×4 (08:55→21:45)
--- NOTE | 2016-11-20 10:58 | CONS ---
Date/Time of Note Date/Time of Note DATE: 11/20/16 TIME: 10:56 Assessment/Plan Assessment/Plan Chief Complaint/Hosp Course 1. Acute renal failure superimposed on chronic kidney disease. Her renal function is about the same today. 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 2. Her expiratory function seems better today. Her chest x-ray does show a large right pleural effusion but less infiltrate on the right. 3. She does have dementia. 4. She is having a good urine output with the Lasix that she is getting. I will recheck her renal function tomorrow. Problems: Consultation Date/Type/Reason Admit Date/Time Nov 14, 2016 at 08:00 Type of Consultation: renal 24 HR Interval Summary Subjective hx not possible: pt non-verbal Exam/Review of Systems Vital Signs Vitals Vital Signs Date Time Temp Pulse Resp B/P Pulse Ox O2 Delivery O2 Flow Rate FiO2 11/20/16 09:14 80 11/20/16 08:23 22 95 Nasal Cannula 4.0 11/20/16 07:54 97.9 119/58 11/18/16 00:10 21 Intake and Output 11/19/16 11/19/16 11/20/16 15:00 23:00 07:00 Intake Total 700 ml 300 ml Output Total 500 ml 400 ml Balance 200 ml -100 ml Exam Constitutional: non-verbal Respiratory: clear to auscultation Cardiovascular: regular rate and rhythm Gastrointestinal: soft Musculoskeletal: nl extremities to inspection Results Result Diagram: 11/20/16 0530 11/20/16 0554 Results 24 hrs Laboratory Tests Test 11/19/16 11:48 11/19/16 17:01 11/19/16 20:19 11/20/16 01:39 Bedside Glucose 154 178 289 H 111 Test 11/20/16 05:30 11/20/16 05:54 11/20/16 06:09 11/20/16 08:46 White Blood Count 6.5 Red Blood Count 2.77 L Hemoglobin 9.1 L Hematocrit 29.0 L Mean Corpuscular Volume 104.7 H Mean Corpuscular Hemoglobin 32.9 Mean Corpuscular Hemoglobin Concent 31.4 L Red Cell Distribution Width 13.2 Platelet Count 182 Mean Platelet Volume 9.6 Neutrophils % 67.6 Lymphocytes % 10.5 L Monocytes % 7.7 Eosinophils % 13.3 H Basophils % 0.6 Nucleated Red Blood Cells % 0.0 Neutrophils # 4.4 Lymphocytes # 0.7 L Monocytes # 0.5 Eosinophils # 0.9 H Basophils # 0.0 Nucleated Red Blood Cells # 0.0 Sodium Level 141 Potassium Level 4.4 Chloride Level 106 Carbon Dioxide Level 23 Anion Gap 16 Blood Urea Nitrogen 49 H Creatinine 2.50 H Glucose Level 138 Calcium Level 8.5 Total Bilirubin 0.0 L Direct Bilirubin 0.00 Indirect Bilirubin 0.0 Aspartate Amino Transf (AST/SGOT) 22 Alanine Aminotransferase (ALT/SGPT) 27 Alkaline Phosphatase 80 Total Protein 7.1 Albumin 3.1 L Globulin 4.00 H Albumin/Globulin Ratio 0.77 Prothrombin Time 32.5 #H Prothrombin Time Ratio 2.5 INR International Normalized Ratio 3.11 Bedside Glucose 186 Medications Medications Current Medications Acetaminophen (Tylenol Tab) 650 mg Q4 PRN PO PAIN AND OR ELEVATED TEMP Last administered on 11/20/16 08:44; Admin Dose 650 MG; Start 11/14/16 at 13:30 Amlodipine Besylate (Norvasc) 5 mg DAILY PO Last administered on 11/20/16 08: 43; Admin Dose 5 MG; Start 11/14/16 at 14:30 Bisacodyl (Dulcolax Supp) 10 mg Q24H PRN [place] CONSTIPATION; Start 11/14/16 at 13: 30 Docusate Sodium (Colace) 200 mg Q24H PRN PO CONSTIPATION Last administered on 08:44; Admin Dose 200 MG; Start 11/14/16 at 13:30 Escitalopram Oxalate (Lexapro) 5 mg DAILY PO Last administered on 11/20/16 08: 43; Admin Dose 5 MG; Start 11/14/16 at 14:30 Gabapentin (Neurontin) 300 mg TID PO Last administered on 11/20/16 08:44; Admin Dose 300 MG; Start 11/14/16 at 14:30 Acetaminophen/ Hydrocodone Bitart ([place] (10/325)) 1 tab Q6H PRN PO PAIN Last administered on 11/19/16 20:21; Admin Dose 1 TAB; Start 11/14/16 at 13:30 Multivitamins Therapeutic (Theragran) 1 tab DAILY PO Last administered on 08:44; Admin Dose 1 TAB; Start 11/15/16 at 09:00 Zinc Sulfate (Zinc Sulfate) 220 mg DAILY GTB Last administered on 11/20/16 08: 44; Admin Dose 220 MG; Start 11/15/16 at 09:00 Miscellaneous Information 1 ea NOTE XX ; Start 11/14/16 at 14:00 Dextrose (D50w Syringe) 25 ml Q15M PRN IV DECREASED GLUCOSE Last administered on 11/18/16 09:18; Admin Dose 25 ML; Start 11/14/16 at 14:00 Glucagon (Glucagen) 1 mg Q15M PRN IM DECREASED GLUCOSE; Start 11/14/16 at 14:00 Glucose (Glutose) 15 gm Q15M PRN BUCCAL DECREASED GLUCOSE Last administered on 11/17/16 07:55; Admin Dose 15 GM; Start 11/14/16 at 14:00 Diagnostic Test (Pha) (Accu-Chek) 1 ea 02 XX Last administered on 11/20/16 02: 24; Admin Dose 1 EA; Start 11/15/16 at 02:00 Miscellaneous Information (Pending [facility] Order For Wound Care) This patient woodard... PRN PRN XX WOUND CARE; Start 11/14/16 at 16:30 Guaifenesin/ Codeine Phosphate (Robitussin Ac Liquid Cup) 5 ml Q6 PRN PO COUGH Last administered on 11/19/16 20:21; Admin Dose 5 ML; Start 11/15/16 at 00:00 Insulin Glargine (Lantus) 30 unit HS SC Last administered on 11/17/16 21:08; Admin Dose 30 UNIT; Start 11/15/16 at 21:00; Status Future Hold Diltiazem HCl (Cardizem Cd) 120 mg DAILY PO Last administered on 11/20/16 08: 44; Admin Dose 120 MG; Start 11/16/16 at 09:00 Ferrous Sulfate (Ferrous Sulfate (Ec)) 325 mg TID PO Last administered on 08:44; Admin Dose 325 MG; Start 11/17/16 at 21:00 Mupirocin 1 applic 1 applic BID TOP Last administered on 11/20/16 08:48; Admin Dose 1 APPLIC; Start 11/17/16 at 21:00 Ceftriaxone Sodium (Rocephin) 50 ml @ 100 mls/hr Q24H IVPB Last administered on 11/19/16t 16:59; Admin Dose 100 MLS/HR; Start 11/18/16 at 17:30 Epoetin Jean (Epogen (Esrd)) 10,000 units MoWeFr@17 SC ; Start 11/20/16 at 17:00 JESSIE AMATO MD Nov 20, 2016 10:58
--- NOTE | 2016-11-20 12:20 | CONS ---
Date/Time of Note Date/Time of Note DATE: 11/20/16 TIME: 12:19 Assessment/Plan Assessment/Plan Additional Assessment/Plan Pneumonia Acute decompensated diastolic congestive heart failure, improved Paroxysmal atrial fibrillation Peripheral arterial disease Acute kidney injury -Heart rate remained stable, creatinine slightly increased compared to yesterday , being followed by nephrology, if continues to worsen, consider holding diuretics. Coumadin as per INR. Consultation Date/Type/Reason Admit Date/Time Nov 14, 2016 at 08:00 Type of Consultation: cv 24 HR Interval Summary Free Text/Dictation Patient seen and examined Exam/Review of Systems Vital Signs Vitals Vital Signs Date Time Temp Pulse Resp B/P Pulse Ox O2 Delivery O2 Flow Rate FiO2 11/20/16 12:16 74 11/20/16 11:54 96.6 18 131/56 98 11/20/16 08:23 Nasal Cannula 4.0 11/18/16 00:10 21 Intake and Output 11/19/16 11/19/16 11/20/16 15:00 23:00 07:00 Intake Total 700 ml 300 ml Output Total 500 ml 400 ml Balance 200 ml -100 ml Exam Sleeping, arousable, no apparent distress Head: normocephalic Respiratory: other (Coarse breath sounds bilaterally, no wheezing) Cardiovascular: irregular rhythm, other (S1-S2 heard) Gastrointestinal: bowel sounds, non-tender, soft Extremities: edema Results Result Diagram: 11/20/16 0530 11/20/16 0554 Results 24 hrs Laboratory Tests Test 11/19/16 17:01 11/19/16 20:19 11/20/16 01:39 11/20/16 05:30 Bedside Glucose 178 289 H 111 White Blood Count 6.5 Red Blood Count 2.77 L Hemoglobin 9.1 L Hematocrit 29.0 L Mean Corpuscular Volume 104.7 H Mean Corpuscular Hemoglobin 32.9 Mean Corpuscular Hemoglobin Concent 31.4 L Red Cell Distribution Width 13.2 Platelet Count 182 Mean Platelet Volume 9.6 Neutrophils % 67.6 Lymphocytes % 10.5 L Monocytes % 7.7 Eosinophils % 13.3 H Basophils % 0.6 Nucleated Red Blood Cells % 0.0 Neutrophils # 4.4 Lymphocytes # 0.7 L Monocytes # 0.5 Eosinophils # 0.9 H Basophils # 0.0 Nucleated Red Blood Cells # 0.0 Test 11/20/16 05:54 4/21/17 06:09 11/20/16 08:46 11/20/16 12:03 Sodium Level 141 Potassium Level 4.4 Chloride Level 106 Carbon Dioxide Level 23 Anion Gap 16 Blood Urea Nitrogen 49 H Creatinine 2.50 H Glucose Level 138 Calcium Level 8.5 Total Bilirubin 0.0 L Direct Bilirubin 0.00 Indirect Bilirubin 0.0 Aspartate Amino Transf (AST/SGOT) 22 Alanine Aminotransferase (ALT/SGPT) 27 Alkaline Phosphatase 80 Total Protein 7.1 Albumin 3.1 L Globulin 4.00 H Albumin/Globulin Ratio 0.77 Prothrombin Time 32.5 #H Prothrombin Time Ratio 2.5 INR International Normalized Ratio 3.11 Bedside Glucose 186 181 Medications Medications Current Medications Acetaminophen (Tylenol Tab) 650 mg Q4 PRN PO PAIN AND OR ELEVATED TEMP Last administered on 11/20/16 08:44; Admin Dose 650 MG; Start 11/14/16 at 13:30 Amlodipine Besylate (Norvasc) 5 mg DAILY PO Last administered on 11/20/16 08: 43; Admin Dose 5 MG; Start 11/14/16 at 14:30 Bisacodyl (Dulcolax Supp) 10 mg Q24H PRN [place] CONSTIPATION; Start 11/14/16 at 13: 30 Docusate Sodium (Colace) 200 mg Q24H PRN PO CONSTIPATION Last administered on 08:44; Admin Dose 200 MG; Start 11/14/16 at 13:30 Escitalopram Oxalate (Lexapro) 5 mg DAILY PO Last administered on 11/20/16 08: 43; Admin Dose 5 MG; Start 11/14/16 at 14:30 Gabapentin (Neurontin) 300 mg TID PO Last administered on 11/20/16 12:00; Admin Dose 300 MG; Start 11/14/16 at 14:30 Acetaminophen/ Hydrocodone Bitart ([place] (10/325)) 1 tab Q6H PRN PO PAIN Last administered on 11/19/16 20:21; Admin Dose 1 TAB; Start 11/14/16 at 13:30 Multivitamins Therapeutic (Theragran) 1 tab DAILY PO Last administered on 08:44; Admin Dose 1 TAB; Start 11/15/16 at 09:00 Zinc Sulfate (Zinc Sulfate) 220 mg DAILY GTB Last administered on 11/20/16 08: 44; Admin Dose 220 MG; Start 11/15/16 at 09:00 Miscellaneous Information 1 ea NOTE XX ; Start 11/14/16 at 14:00 Dextrose (D50w Syringe) 25 ml Q15M PRN IV DECREASED GLUCOSE Last administered on 11/18/16 09:18; Admin Dose 25 ML; Start 11/14/16 at 14:00 Glucagon (Glucagen) 1 mg Q15M PRN IM DECREASED GLUCOSE; Start 11/14/16 at 14:00 Glucose (Glutose) 15 gm Q15M PRN BUCCAL DECREASED GLUCOSE Last administered on 11/17/16 07:55; Admin Dose 15 GM; Start 11/14/16 at 14:00 Diagnostic Test (Pha) (Accu-Chek) 1 ea 02 XX Last administered on 11/20/16 02: 24; Admin Dose 1 EA; Start 11/15/16 at 02:00 Miscellaneous Information [facility] This patient woodard... PRN PRN XX WOUND CARE; Start 11/14/16 at 16:30 Guaifenesin/ Codeine Phosphate (Robitussin Ac Liquid Cup) 5 ml Q6 PRN PO COUGH Last administered on 11/19/16 20:21; Admin Dose 5 ML; Start 11/15/16 at 00:00 Insulin Glargine (Lantus) 30 unit HS SC Last administered on 11/17/16 21:08; Admin Dose 30 UNIT; Start 11/15/16 at 21:00; Status Future Hold Diltiazem HCl (Cardizem Cd) 120 mg DAILY PO Last administered on 11/20/16 08: 44; Admin Dose 120 MG; Start 11/16/16 at 09:00 Ferrous Sulfate (Ferrous Sulfate (Ec)) 325 mg TID PO Last administered on 12:00; Admin Dose 325 MG; Start 11/17/16 at 21:00 Mupirocin 1 applic 1 applic BID TOP Last administered on 11/20/16 08:48; Admin Dose 1 APPLIC; Start 11/17/16 at 21:00 Ceftriaxone Sodium (Rocephin) 50 ml @ 100 mls/hr Q24H IVPB Last administered on 11/19/16 16:59; Admin Dose 100 MLS/HR; Start 11/18/16 at 17:30 Epoetin Jean (Epogen (Esrd)) 10,000 units MoWeFr@17 SC ; Start 11/20/16 at 17:00 Hieu Wolf DO Nov 20, 2016 12:20
--- NOTE | 2016-11-20 16:13 | CONS ---
Date/Time of Note Date/Time of Note DATE: 11/20/16 TIME: 16:12 Assessment/Plan Assessment/Plan Chief Complaint/Hosp Course SUBJECTIVE: No events overnight. The patient is awake, looks comfortable. MICROBIOLOGY: Urine culture growing Enterobacter. ANTIMICROBIALS: Rocephin. PHYSICAL EXAMINATION: GENERAL: Fragile, elderly woman who is nonverbal, noncommunicative. The patient is in no distress. HEENT: Head atraumatic, normocephalic. Sclerae anicteric. Buccal mucosa dry. NECK: Supple. Trachea midline. CHEST: Rise symmetrical. Breath sounds clear, diminished to bases, no wheezing. HEART: S1, S2. ABDOMEN: Soft. Bowel tones present. EXTREMITIES: Without cyanosis. ASSESSMENT: 1. Acute respiratory failure, improved. 2. Healthcare-associated pneumonia 3. Congestive heart failure exacerbation. 4. Gram-negative rods urinary tract infection. 5. Hypertension. 6. Dementia. 7. Diabetes. 8. History of atrial fibrillation. 9. ARF PLAN: Remains stable, continue abx, anti-aspiration measures, f/u card rec-s [facility] staff Problems: Consultation Date/Type/Reason Admit Date/Time Nov 14, 2016 at 08:00 Type of Consultation: ID Exam/Review of Systems Vital Signs Vitals Vital Signs Date Time Temp Pulse Resp B/P Pulse Ox O2 Delivery O2 Flow Rate FiO2 11/20/16 15:42 98.1 74 18 113/53 96 11/20/16 15:06 21 11/20/16 08:23 Nasal Cannula 4.0 Intake and Output 11/19/16 11/19/16 11/20/16 15:00 23:00 07:00 Intake Total 700 ml 300 ml Output Total 500 ml 400 ml Balance 200 ml -100 ml Results Result Diagram: 11/20/16 0530 11/20/16 0554 Results 24 hrs Laboratory Tests Test 11/19/16 17:01 11/19/16 20:19 11/20/16 01:39 11/20/16 05:30 Bedside Glucose 178 289 H 111 White Blood Count 6.5 Red Blood Count 2.77 L Hemoglobin 9.1 L Hematocrit 29.0 L Mean Corpuscular Volume 104.7 H Mean Corpuscular Hemoglobin 32.9 Mean Corpuscular Hemoglobin Concent 31.4 L Red Cell Distribution Width 13.2 Platelet Count 182 Mean Platelet Volume 9.6 Neutrophils % 67.6 Lymphocytes % 10.5 L Monocytes % 7.7 Eosinophils % 13.3 H Basophils % 0.6 Nucleated Red Blood Cells % 0.0 Neutrophils # 4.4 Lymphocytes # 0.7 L Monocytes # 0.5 Eosinophils # 0.9 H Basophils # 0.0 Nucleated Red Blood Cells # 0.0 Test 11/20/16 05:54 11/20/16 06:09 11/20/16 08:46 11/20/16 12:03 Sodium Level 141 Potassium Level 4.4 Chloride Level 106 Carbon Dioxide Level 23 Anion Gap 16 Blood Urea Nitrogen 49 H Creatinine 2.50 H Glucose Level 138 Calcium Level 8.5 Total Bilirubin 0.0 L Direct Bilirubin 0.00 Indirect Bilirubin 0.0 Aspartate Amino Transf (AST/SGOT) 22 Alanine Aminotransferase (ALT/SGPT) 27 Alkaline Phosphatase 80 Total Protein 7.1 Albumin 3.1 L Globulin 4.00 H Albumin/Globulin Ratio 0.77 Prothrombin Time 32.5 #H Prothrombin Time Ratio 2.5 INR International Normalized Ratio 3.11 Bedside Glucose 186 181 Medications Medications Current Medications Acetaminophen (Tylenol Tab) 650 mg Q4 PRN PO PAIN AND OR ELEVATED TEMP Last administered on 11/20/16 08:44; Admin Dose 650 MG; Start 11/14/16 at 13:30 Amlodipine Besylate (Norvasc) 5 mg DAILY PO Last administered on 11/20/16 08: 43; Admin Dose 5 MG; Start 11/14/16 at 14:30 Bisacodyl (Dulcolax Supp) 10 mg Q24H PRN [place] CONSTIPATION; Start 11/14/16 at 13: 30 Docusate Sodium (Colace) 200 mg Q24H PRN PO CONSTIPATION Last administered on 08:44; Admin Dose 200 MG; Start 11/14/16 at 13:30 Escitalopram Oxalate (Lexapro) 5 mg DAILY PO Last administered on 11/20/16 08: 43; Admin Dose 5 MG; Start 11/14/16 at 14:30 Gabapentin (Neurontin) 300 mg TID PO Last administered on 11/20/16 12:00; Admin Dose 300 MG; Start 11/14/16 at 14:30 Acetaminophen/ Hydrocodone Bitart ([place] (10/325)) 1 tab Q6H PRN PO PAIN Last administered on 11/19/16 20:21; Admin Dose 1 TAB; Start 11/14/16 at 13:30 Multivitamins Therapeutic (Theragran) 1 tab DAILY PO Last administered on 08:44; Admin Dose 1 TAB; Start 11/15/16 at 09:00 Zinc Sulfate (Zinc Sulfate) 220 mg DAILY GTB Last administered on 11/20/16 08: 44; Admin Dose 220 MG; Start 11/15/16 at 09:00 Miscellaneous Information 1 ea NOTE XX ; Start 11/14/16 at 14:00 Dextrose (D50w Syringe) 25 ml Q15M PRN IV DECREASED GLUCOSE Last administered on 11/18/16 09:18; Admin Dose 25 ML; Start 11/14/16 at 14:00 Glucagon (Glucagen) 1 mg Q15M PRN IM DECREASED GLUCOSE; Start 11/14/16 at 14:00 Glucose (Glutose) 15 gm Q15M PRN BUCCAL DECREASED GLUCOSE Last administered on 11/17/16 07:55; Admin Dose 15 GM; Start 11/14/16 at 14:00 Diagnostic Test (Pha) (Accu-Chek) 1 ea 02 XX Last administered on 11/20/16 02: 24; Admin Dose 1 EA; Start 11/15/16 at 02:00 Miscellaneous Information (Pending [facility] Order For Wound Care) This patient woodard... PRN PRN XX WOUND CARE; Start 11/14/16 at 16:30 Guaifenesin/ Codeine Phosphate (Robitussin Ac Liquid Cup) 5 ml Q6 PRN PO COUGH Last administered on 11/19/16 20:21; Admin Dose 5 ML; Start 11/15/16 at 00:00 Insulin Glargine (Lantus) 30 unit HS SC Last administered on 11/17/16 21:08; Admin Dose 30 UNIT; Start 11/15/16 at 21:00; Status Future Hold Diltiazem HCl (Cardizem Cd) 120 mg DAILY PO Last administered on 11/20/16 08: 44; Admin Dose 120 MG; Start 11/16/16 at 09:00 Ferrous Sulfate (Ferrous Sulfate (Ec)) 325 mg TID PO Last administered on 12:00; Admin Dose 325 MG; Start 11/17/16 at 21:00 Mupirocin 1 applic 1 applic BID TOP Last administered on 11/20/16 08:48; Admin Dose 1 APPLIC; Start 11/17/16 at 21:00 Ceftriaxone Sodium (Rocephin) 50 ml @ 100 mls/hr Q24H IVPB Last administered on 11/19/16 16:59; Admin Dose 100 MLS/HR; Start 11/18/16 at 17:30 Epoetin Jean (Epogen (Esrd)) 10,000 units MoWeFr@17 SC ; Start 11/20/16 at 17:00 AMBER FLORES NP Nov 20, 2016 16:13
[2016-11-20] MEDS: CEFTRIAXONE 1 GM/50 ML (PMX) 50 ML IVPB SCH (17:33)
[2016-11-20] MEDS: EPOETIN 10000 UNITS/1 ML INJ (ESRD) SC SCH (17:34)
[2016-11-20] MEDS ORDERED: SPECIAL NON-STANDARD MEDICATION IV SCH (21:30)
[2016-11-20] MEDS: hydrOXYzine HCL 10 MG TAB PO PRN (22:36)
[2016-11-21] VITALS (12 sets, daily range): BP systolic 112–158; BP diastolic 55–65; PULSE 60–81; RESP 16–20
[2016-11-21] MEDS: HYDROCODONE/APAP (10/325) TAB PO PRN (00:24)
[2016-11-21] MEDS: LEVOFLOXACIN 250MG/D5W (PMX) 50 ML IVPB SCH (00:24)
[2016-11-21] MEDS: hydrOXYzine HCL 10 MG TAB PO PRN ×2 (03:11→20:37)
[2016-11-21] MEDS: ACCU-CHEK XX SCH (05:05)
[2016-11-21] MEDS: PERMETHRIN 5% 60 GM CR TOP SCH (05:05)
[2016-11-21] MEDS: FUROSEMIDE 20 MG TAB PO SCH ×2 (05:06→18:31)
[2016-11-21 07:35] LABS: ADD SCAN DIFF NO
[2016-11-21 07:39] LABS: BASOPHILS % 0.4 % (0.0-2.0); EOSINOPHILS # 0.9 10^3/ul (0.0-0.5); EOSINOPHILS % 13.1 % (0.0-7.0); HEMATOCRIT 28.8 % (37.0-47.0); HEMOGLOBIN 8.9 g/dl (12.0-16.0); LYMPHOCYTES # 0.8 10^3/ul (0.8-2.9); LYMPHOCYTES % 11.8 % (15.0-51.0); MEAN CORPUSCULAR HEMOGLOBIN 32.5 pg (29.0-33.0); MEAN CORPUSCULAR HGB CONC 30.9 g/dl (32.0-37.0); MEAN CORPUSCULAR VOLUME 105.1 fl (82.0-101.0); MEAN PLATELET VOLUME 9.7 fl (7.4-10.4); MONOCYTE # 0.5 10^3/ul (0.3-0.9); MONOCYTES % 7.6 % (0.0-11.0); NEUTROPHIL # 4.5 10^3/ul (1.6-7.5); NEUTROPHILS % 66.8 % (39.0-77.0); PLATELET COUNT 188 10^3/UL (140-415); RED BLOOD COUNT 2.74 10^6/ul (4.20-5.40); RED CELL DISTRIBUTION WIDTH 13.4 % (11.5-14.5); WHITE BLOOD COUNT 6.7 10^3/ul (4.8-10.8)
[2016-11-21 08:01] LABS: ALBUMIN 3.1 g/dl (3.3-4.9); ALBUMIN/GLOBULIN RATIO 0.81; CALCIUM 8.5 mg/dl (8.4-10.2); CREATININE 2.27 mg/dl (0.44-1.00); POTASSIUM 4.3 mmol/L (3.5-5.1); TOTAL PROTEIN 6.9 g/dl (6.1-8.1)
[2016-11-21] MEDS: LEVALBUTEROL (NEB) 0.63 MG/3 ML AMP HHN SCH ×3 (08:16→23:26)
[2016-11-21] MEDS: MULTIVITAMINS THERAPEUTIC TAB PO SCH (09:06)
[2016-11-21] MEDS: ZINC SULFATE 220 MG CAP GTB SCH (09:06)
[2016-11-21] MEDS: DOCUSATE SODIUM 100 MG CAP PO PRN (09:06)
[2016-11-21] MEDS: GABAPENTIN 300 MG CAP PO SCH ×3 (09:06→20:37)
[2016-11-21] MEDS: predniSONE 10 MG TAB PO SCH ×4 (09:06→20:37)
[2016-11-21] MEDS: ESCITALOPRAM 10 MG TAB PO SCH (09:06)
[2016-11-21] MEDS: FERROUS SULFATE (EC) 325 MG TAB PO SCH ×3 (09:07→20:37)
[2016-11-21] MEDS: DILTIAZEM (CD) 120 MG CAP PO SCH (09:07)
[2016-11-21] MEDS: MUPIROCIN 2% 22 GM OINT TOP SCH ×2 (09:07→21:19)
[2016-11-21] MEDS: AMLODIPINE 5 MG TAB PO SCH (09:07)
[2016-11-21] MEDS: INSULIN ASPART [NOVOLOG] 3 ML PEN SC SCH ×4 (09:20→21:08)
--- NOTE | 2016-11-21 10:33 | PN ---
Date/Time of Note Date/Time of Note DATE: 11/21/16 TIME: 10:32 Assessment/Plan VTE Prophylaxis VTE Prophylaxis Intervention: SCD's Lines/Catheters IV Catheter Type (from Nrs): Peripheral IV Urinary Cath still in place: Yes Reason Cath still needed: urinary retention Assessment/Plan Chief Complaint/Hosp Course The patient with hx of OBS and resides at a SNF who presents to the hosptial with increased SOB, tachypnea dn upon arrival was found to have bilateral pneumonia with CHF exacerbation. In addition, she has rate controelld afib and as such, was initatied on gentle diruesis , antibiotics and will control the rate of her afib. Problems: Assessment/Plan Pneumonia Acute decompensated diastolic congestive heart failure, improved Paroxysmal atrial fibrillation Peripheral arterial disease Acute kidney injury -Heart rate remained stable, -increased creatinine slightly increased compared to admeission, but stable overnight , being followed by nephrology, if continues to worsen, consider holding diuretics. Coumadin as per INR. Subjective 24 Hr Interval Summary Free Text/Dictation The patient with no cahnge Exam/Review of Systems Vital Signs Vitals Vital Signs Date Time Temp Pulse Resp B/P Pulse Ox O2 Delivery O2 Flow Rate FiO2 11/21/16 08:41 64 11/21/16 08:16 14 100 Nasal Cannula 3.0 11/21/16 07:41 96.3 122/56 11/20/16 23:58 21 Intake and Output 11/20/16 11/20/16 11/21/16 15:00 23:00 07:00 Intake Total 900 ml 450 ml Output Total 800 ml 600 ml Balance 100 ml -150 ml Results Result Diagram: 11/21/16 0630 11/21/16 0630 Results 24 hrs Laboratory Tests Test 11/20/16 12:03 11/20/16 17:35 11/20/16 20:51 11/21/16 05:04 Bedside Glucose 181 198 238 H 161 Test 11/21/16 06:30 11/21/16 09:04 White Blood Count 6.7 Red Blood Count 2.74 L Hemoglobin 8.9 L Hematocrit 28.8 L Mean Corpuscular Volume 105.1 H Mean Corpuscular Hemoglobin 32.5 Mean Corpuscular Hemoglobin Concent 30.9 L Red Cell Distribution Width 13.4 Platelet Count 188 Mean Platelet Volume 9.7 Neutrophils % 66.8 Lymphocytes % 11.8 L Monocytes % 7.6 Eosinophils % 13.1 H Basophils % 0.4 Nucleated Red Blood Cells % 0.0 Neutrophils # 4.5 Lymphocytes # 0.8 Monocytes # 0.5 Eosinophils # 0.9 H Basophils # 0.0 Nucleated Red Blood Cells # 0.0 Sodium Level 140 Potassium Level 4.3 Chloride Level 109 Carbon Dioxide Level 24 Anion Gap 11 Blood Urea Nitrogen 48 H Creatinine 2.27 H Glucose Level 162 Calcium Level 8.5 Total Bilirubin 0.0 L Direct Bilirubin 0.00 Indirect Bilirubin 0.0 Aspartate Amino Transf (AST/SGOT) 25 Alanine Aminotransferase (ALT/SGPT) 27 Alkaline Phosphatase 90 Total Protein 6.9 Albumin 3.1 L Globulin 3.80 H Albumin/Globulin Ratio 0.81 Bedside Glucose 157 Medications Medications Current Medications Acetaminophen (Tylenol Tab) 650 mg Q4 PRN PO PAIN AND OR ELEVATED TEMP Last administered on 11/20/16 08:44; Admin Dose 650 MG; Start 11/14/16 at 13:30 Amlodipine Besylate (Norvasc) 5 mg DAILY PO Last administered on 11/21/16 09: 07; Admin Dose 5 MG; Start 11/14/16 at 14:30 Bisacodyl (Dulcolax Supp) 10 mg Q24H PRN [place] CONSTIPATION; Start 11/14/16 at 13: 30 Docusate Sodium (Colace) 200 mg Q24H PRN PO CONSTIPATION Last administered on 09:06; Admin Dose 200 MG; Start 11/14/16 at 13:30 Escitalopram Oxalate (Lexapro) 5 mg DAILY PO Last administered on 11/21/16 09: 06; Admin Dose 5 MG; Start 11/14/16 at 14:30 Gabapentin (Neurontin) 300 mg TID PO Last administered on 11/21/16 09:06; Admin Dose 300 MG; Start 11/14/16 at 14:30 Acetaminophen/ Hydrocodone Bitart ([place] (10325)) 1 tab Q6H PRN PO PAIN Last administered on 11/21/16 00:24; Admin Dose 1 TAB; Start 11/14/16 at 13:30 Multivitamins Therapeutic (Theragran) 1 tab DAILY PO Last administered on 09:06; Admin Dose 1 TAB; Start 11/15/16 at 09:00 Zinc Sulfate (Zinc Sulfate) 220 mg DAILY GTB Last administered on 11/21/16 09: 06; Admin Dose 220 MG; Start 11/15/16 at 09:00 Miscellaneous Information 1 ea NOTE XX ; Start 11/14/16 at 14:00 Dextrose (D50w Syringe) 25 ml Q15M PRN IV DECREASED GLUCOSE Last administered on 11/18/16 09:18; Admin Dose 25 ML; Start 11/14/16 at 14:00 Glucagon (Glucagen) 1 mg Q15M PRN IM DECREASED GLUCOSE; Start 11/14/16 at 14:00 Glucose (Glutose) 15 gm Q15M PRN BUCCAL DECREASED GLUCOSE Last administered on 11/17/16 07:55; Admin Dose 15 GM; Start 11/14/16 at 14:00 Diagnostic Test (Pha) (Accu-Chek) 1 ea 02 XX Last administered on 11/21/16 05: 05; Admin Dose 1 EA; Start 11/15/16 at 02:00 Miscellaneous Information (Pending [facility] Order For Wound Care) This patient woodard... PRN PRN XX WOUND CARE; Start 11/14/16 at 16:30 Guaifenesin/ Codeine Phosphate (Robitussin Ac Liquid Cup) 5 ml Q6 PRN PO COUGH Last administered on 11/19/16 20:21; Admin Dose 5 ML; Start 11/15/16 at 00:00 Insulin Glargine (Lantus) 30 unit HS SC Last administered on 11/17/16 21:08; Admin Dose 30 UNIT; Start 11/15/16 at 21:00; Status Future Hold Diltiazem HCl (Cardizem Cd) 120 mg DAILY PO Last administered on 11/21/16 09: 07; Admin Dose 120 MG; Start 11/16/16 at 09:00 Ferrous Sulfate (Ferrous Sulfate (Ec)) 325 mg TID PO Last administered on 09:07; Admin Dose 325 MG; Start 11/17/16 at 21:00 Mupirocin (Bactroban) 1 applic BID TOP Last administered on 11/21/16 09:07; Admin Dose 1 APPLIC; Start 11/17/16 at 21:00 Epoetin Jean (Epogen (Esrd)) 10,000 units MoWeFr@17 SC Last administered on 17:34; Admin Dose 10,000 UNITS; Start 11/20/16 at 17:00 Hydroxyzine HCl 20 mg 20 mg Q4H PRN PO ITCHING Last administered on 11/21/16 03:11; Admin Dose 20 MG; Start 11/20/16 at 22:00 Levofloxacin/ Dextrose (Levaquin 250 Mg/ D5W 50 ml (Pmx)) 50 ml @ 50 mls/hr Q48H IVPB Last administered on 11/21/16 00:24; Admin Dose 50 MLS/HR; Start at 23:00; Stop 11/30/16 at 22:59 Permethrin (Elimite 5% Cr) 1 applic Sa@04 TOP Last administered on 11/21/16 05 :05; Admin Dose 1 APPLIC; Start 11/21/16 at 04:00; Stop 11/28/16 at 12:00 CHRISTINE FULTON MD Nov 21, 2016 10:33
--- NOTE | 2016-11-21 13:27 | CONS ---
Date/Time of Note Date/Time of Note DATE: 11/21/16 TIME: 13:26 Assessment/Plan Assessment/Plan Chief Complaint/Hosp Course ID PROGRESS NOTE TOTAL ABX DAY # => Levaquin s/p Ceftriaxone 24H INTERVAL SUMMARY * 89 yo F son present -- patient is uncomfortable due to incessant scratching pruritic rash == looks like scabies with superimposed MRSA cellulitis with crusted scabies on RLEXt -- family says rash present long time at [facility] * Chart reviewed PHYSICAL EXAMINATION: GENERAL: VSS, lethargic, responsive by moaning ?aphasic HEENT: (+)Facial droop, drooling oral secretions copious clear NECK: Supple, trach-> midline CHEST: (+)Laryngeal wet cough -- appears she is retaining secretions and unable to cough them up HEART: Pulse RRR ABDOMEN: Soft, benign EXTREMITIES: Warm, crusted scabies thickened skin plaque RLEXT SKIN: Warm, d, (+)Diffuse pruritic rash w/bumpy scab lesions over entire body, some areas excoriated ID ASSESSMENT: 89 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 Acute respiratory failure, improved. 2. Healthcare-associated pneumonia = suspect aspiration syndrome per hx CVA & facial droop * Retained secretions weak laryngeal wet cough 3. Congestive heart failure exacerbation. 4. Gram-negative rods urinary tract infection. * URINE CULTURE Final Organism 1 ENTEROBACTER CLOACAE COLONY COUNT 20,000 - 30,000 CFU/ml Organism 2 ESCHERICHIA COLI COLONY COUNT 10,000 - 20,000 CFU/ml 5. Hypertension. 6. Acute renal failure 7. Diabetes. 8. History of atrial fibrillation. 9. ARF 10. PRURITIC skin rash w/superimposed cellulitis, multiple skin excoriation scratches = Presumptive SCABIES * Crusted scabies lesions on RLEXT 11. 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 12. Hx of Right iliac and femoral thrombophlebitis. (+)MRSA NARES -> Bactroban INVASIVES: * PIV ABX ALLERGIES: KNDA CURRENT ABX: DAY # => Levaquin + Start IV Doxy s/p Ceftriaxone ID RECOMMENDATIONS: 1. FOR CELLULITIS SUPERIMPOSED ON SCABIES RASH * S/P Elimite - repeat dose in 7 days * Ivermectin 12mg po daily, pharmacy may adjust == crusted scabies on RLEXT * Prednisone * Atarax * Doxy IV 3. Continue Levaquin + add Doxycycline for scabies cellulitis = ABX of choice 4. ASPIRATION precautions -- ?Swallow eval? . Problems: Consultation Date/Type/Reason Admit Date/Time Nov 14, 2016 at 08:00 Initial Consult Date Type of Consultation: ID Exam/Review of Systems Vital Signs Vitals Vital Signs Date Time Temp Pulse Resp B/P Pulse Ox O2 Delivery O2 Flow Rate FiO2 11/21/16 12:16 64 11/21/16 12:04 96.0 16 158/65 99 11/21/16 08:16 Nasal Cannula 3.0 11/20/16 23:58 21 Intake and Output 11/20/16 11/20/16 11/21/16 15:00 23:00 07:00 Intake Total 900 ml 450 ml Output Total 800 ml 600 ml Balance 100 ml -150 ml Results Result Diagram: 11/21/16 0630 11/21/16 0630 Results 24 hrs Laboratory Tests Test 11/20/16 17:35 11/20/16 20:51 11/21/16 05:04 11/21/16 06:30 Bedside Glucose 198 238 H 161 White Blood Count 6.7 Red Blood Count 2.74 L Hemoglobin 8.9 L Hematocrit 28.8 L Mean Corpuscular Volume 105.1 H Mean Corpuscular Hemoglobin 32.5 Mean Corpuscular Hemoglobin Concent 30.9 L Red Cell Distribution Width 13.4 Platelet Count 188 Mean Platelet Volume 9.7 Neutrophils % 66.8 Lymphocytes % 11.8 L Monocytes % 7.6 Eosinophils % 13.1 H Basophils % 0.4 Nucleated Red Blood Cells % 0.0 Neutrophils # 4.5 Lymphocytes # 0.8 Monocytes # 0.5 Eosinophils # 0.9 H Basophils # 0.0 Nucleated Red Blood Cells # 0.0 Sodium Level 140 Potassium Level 4.3 Chloride Level 109 Carbon Dioxide Level 24 Anion Gap 11 Blood Urea Nitrogen 48 H Creatinine 2.27 H Glucose Level 162 Calcium Level 8.5 Total Bilirubin 0.0 L Direct Bilirubin 0.00 Indirect Bilirubin 0.0 Aspartate Amino Transf (AST/SGOT) 25 Alanine Aminotransferase (ALT/SGPT) 27 Alkaline Phosphatase 90 Total Protein 6.9 Albumin 3.1 L Globulin 3.80 H Albumin/Globulin Ratio 0.81 Test 11/21/16 09:04 11/21/16 12:21 Bedside Glucose 157 164 Medications Medications Current Medications Acetaminophen (Tylenol Tab) 650 mg Q4 PRN PO PAIN AND OR ELEVATED TEMP Last administered on 11/20/16 08:44; Admin Dose 650 MG; Start 11/14/16 at 13:30 Amlodipine Besylate (Norvasc) 5 mg DAILY PO Last administered on 11/21/16 09: 07; Admin Dose 5 MG; Start 11/14/16 at 14:30 Bisacodyl (Dulcolax Supp) 10 mg Q24H PRN [place] CONSTIPATION; Start 11/14/16 at 13: 30 Docusate Sodium (Colace) 200 mg Q24H PRN PO CONSTIPATION Last administered on 09:06; Admin Dose 200 MG; Start 11/14/16 at 13:30 Escitalopram Oxalate (Lexapro) 5 mg DAILY PO Last administered on 11/21/16 09: 06; Admin Dose 5 MG; Start 11/14/16 at 14:30 Gabapentin (Neurontin) 300 mg TID PO Last administered on 11/21/16 12:16; Admin Dose 300 MG; Start 11/14/16 at 14:30 Acetaminophen/ Hydrocodone Bitart ([place] (10/325)) 1 tab Q6H PRN PO PAIN Last administered on 11/21/16 00:24; Admin Dose 1 TAB; Start 11/14/16 at 13:30 Multivitamins Therapeutic (Theragran) 1 tab DAILY PO Last administered on 09:06; Admin Dose 1 TAB; Start 11/15/16 at 09:00 Zinc Sulfate (Zinc Sulfate) 220 mg DAILY GTB Last administered on 11/21/16 09: 06; Admin Dose 220 MG; Start 11/15/16 at 09:00 Miscellaneous Information 1 ea NOTE XX ; Start 11/14/16 at 14:00 Dextrose (D50w Syringe) 25 ml Q15M PRN IV DECREASED GLUCOSE Last administered on 11/18/16 09:18; Admin Dose 25 ML; Start 11/14/16 at 14:00 Glucagon (Glucagen) 1 mg Q15M PRN IM DECREASED GLUCOSE; Start 11/14/16 at 14:00 Glucose (Glutose) 15 gm Q15M PRN BUCCAL DECREASED GLUCOSE Last administered on 11/17/16 07:55; Admin Dose 15 GM; Start 11/14/16 at 14:00 Diagnostic Test (Pha) (Accu-Chek) 1 ea 02 XX Last administered on 11/21/16 05: 05; Admin Dose 1 EA; Start 11/15/16 at 02:00 [facility] This patient woodard... PRN PRN XX WOUND CARE; Start 11/14/16 at 16:30 Guaifenesin/ Codeine Phosphate (Robitussin Ac Liquid Cup) 5 ml Q6 PRN PO COUGH Last administered on 11/19/16 20:21; Admin Dose 5 ML; Start 11/15/16 at 00:00 Insulin Glargine (Lantus) 30 unit HS SC Last administered on 11/17/16 21:08; Admin Dose 30 UNIT; Start 11/15/16 at 21:00; Status Future Hold Diltiazem HCl (Cardizem Cd) 120 mg DAILY PO Last administered on 11/21/16 09: 07; Admin Dose 120 MG; Start 11/16/16 at 09:00 Ferrous Sulfate (Ferrous Sulfate (Ec)) 325 mg TID PO Last administered on 12:16; Admin Dose 325 MG; Start 11/17/16 at 21:00 Mupirocin (Bactroban) 1 applic BID TOP Last administered on 11/21/16 09:07; Admin Dose 1 APPLIC; Start 11/17/16 at 21:00 Epoetin Jean (Epogen (Esrd)) 10,000 units MoWeFr@17 SC Last administered on 17:34; Admin Dose 10,000 UNITS; Start 11/20/16 at 17:00 Hydroxyzine HCl 20 mg 20 mg Q4H PRN PO ITCHING Last administered on 11/21/16 03:11; Admin Dose 20 MG; Start 11/20/16 at 22:00 Levofloxacin/ Dextrose (Levaquin 250 Mg/ D5W 50 ml (Pmx)) 50 ml @ 50 mls/hr Q48H IVPB Last administered on 11/21/16 00:24; Admin Dose 50 MLS/HR; Start at 23:00; Stop 11/30/16 at 22:59 Permethrin (Elimite 5% Cr) 1 applic Sa@04 TOP Last administered on 11/21/16t 05 :05; Admin Dose 1 APPLIC; Start 11/21/16 at 04:00; Stop 11/28/16 at 12:00 SAMANTHA CARPENTER NP Nov 21, 2016 13:27
--- NOTE | 2016-11-21 14:29 | CONS ---
Date/Time of Note Date/Time of Note DATE: 11/21/16 TIME: 14:26 Assessment/Plan Assessment/Plan Chief Complaint/Hosp Course 1. Acute renal failure superimposed on chronic kidney disease, SCr is a little lower today. 2. Fluid overload. Continue Bumex 3. Dementia. Problems: Consultation Date/Type/Reason Admit Date/Time Nov 14, 2016 at 08:00 Initial Consult Date Type of Consultation: Nephrology 24 HR Interval Summary Free Text/Dictation The patient is awake, lethargic, not answering questions Exam/Review of Systems Vital Signs Vitals Vital Signs Date Time Temp Pulse Resp B/P Pulse Ox O2 Delivery O2 Flow Rate FiO2 11/21/16 12:16 64 11/21/16 12:04 96.0 16 158/65 99 11/21/16 08:16 Nasal Cannula 3.0 11/20/16 23:58 21 Intake and Output 11/20/16 11/20/16 11/21/16 15:00 23:00 07:00 Intake Total 900 ml 450 ml Output Total 800 ml 600 ml Balance 100 ml -150 ml Exam Head: atraumatic, normocephalic Neck: supple, No jvd Respiratory: congested cough Cardiovascular: regular rate and rhythm Gastrointestinal: non-tender, soft Extremities: edema Results Result Diagram: 11/21/16 0630 11/21/16 0630 Results 24 hrs Laboratory Tests Test 11/20/16 17:35 11/20/16 20:51 11/21/16 05:04 11/21/16 06:30 Bedside Glucose 198 238 H 161 White Blood Count 6.7 Red Blood Count 2.74 L Hemoglobin 8.9 L Hematocrit 28.8 L Mean Corpuscular Volume 105.1 H Mean Corpuscular Hemoglobin 32.5 Mean Corpuscular Hemoglobin Concent 30.9 L Red Cell Distribution Width 13.4 Platelet Count 188 Mean Platelet Volume 9.7 Neutrophils % 66.8 Lymphocytes % 11.8 L Monocytes % 7.6 Eosinophils % 13.1 H Basophils % 0.4 Nucleated Red Blood Cells % 0.0 Neutrophils # 4.5 Lymphocytes # 0.8 Monocytes # 0.5 Eosinophils # 0.9 H Basophils # 0.0 Nucleated Red Blood Cells # 0.0 Sodium Level 140 Potassium Level 4.3 Chloride Level 109 Carbon Dioxide Level 24 Anion Gap 11 Blood Urea Nitrogen 48 H Creatinine 2.27 H Glucose Level 162 Calcium Level 8.5 Total Bilirubin 0.0 L Direct Bilirubin 0.00 Indirect Bilirubin 0.0 Aspartate Amino Transf (AST/SGOT) 25 Alanine Aminotransferase (ALT/SGPT) 27 Alkaline Phosphatase 90 Total Protein 6.9 Albumin 3.1 L Globulin 3.80 H Albumin/Globulin Ratio 0.81 Test 11/21/16 09:04 11/21/16 12:21 Bedside Glucose 157 164 Medications Medications Current Medications Acetaminophen (Tylenol Tab) 650 mg Q4 PRN PO PAIN AND OR ELEVATED TEMP Last administered on 11/20/16 08:44; Admin Dose 650 MG; Start 11/14/16 at 13:30 Amlodipine Besylate (Norvasc) 5 mg DAILY PO Last administered on 11/21/16 09: 07; Admin Dose 5 MG; Start 11/14/16 at 14:30 Bisacodyl (Dulcolax Supp) 10 mg Q24H PRN [place] CONSTIPATION; Start 11/14/16 at 13: 30 Docusate Sodium (Colace) 200 mg Q24H PRN PO CONSTIPATION Last administered on 09:06; Admin Dose 200 MG; Start 11/14/16 at 13:30 Escitalopram Oxalate (Lexapro) 5 mg DAILY PO Last administered on 11/21/16 09: 06; Admin Dose 5 MG; Start 11/14/16 at 14:30 Gabapentin (Neurontin) 300 mg TID PO Last administered on 11/21/16 12:16; Admin Dose 300 MG; Start 11/14/16 at 14:30 Acetaminophen/ Hydrocodone Bitart ([place] (10/325)) 1 tab Q6H PRN PO PAIN Last administered on 11/21/16 00:24; Admin Dose 1 TAB; Start 11/14/16 at 13:30 Multivitamins Therapeutic (Theragran) 1 tab DAILY PO Last administered on 09:06; Admin Dose 1 TAB; Start 11/15/16 at 09:00 Zinc Sulfate (Zinc Sulfate) 220 mg DAILY GTB Last administered on 11/21/16 09: 06; Admin Dose 220 MG; Start 11/15/16 at 09:00 Miscellaneous Information 1 ea NOTE XX ; Start 11/14/16 at 14:00 Dextrose (D50w Syringe) 25 ml Q15M PRN IV DECREASED GLUCOSE Last administered on 11/18/16 09:18; Admin Dose 25 ML; Start 11/14/16 at 14:00 Glucagon (Glucagen) 1 mg Q15M PRN IM DECREASED GLUCOSE; Start 11/14/16 at 14:00 Glucose (Glutose) 15 gm Q15M PRN BUCCAL DECREASED GLUCOSE Last administered on 11/17/16 07:55; Admin Dose 15 GM; Start 11/14/16 at 14:00 Diagnostic Test (Pha) (Accu-Chek) 1 ea 02 XX Last administered on 11/21/16 05: 05; Admin Dose 1 EA; Start 11/15/16 at 02:00 Miscellaneous Information [facility] This patient woodard... PRN PRN XX WOUND CARE; Start 11/14/16 at 16:30 Guaifenesin/ Codeine Phosphate (Robitussin Ac Liquid Cup) 5 ml Q6 PRN PO COUGH Last administered on 11/19/16 20:21; Admin Dose 5 ML; Start 11/15/16 at 00:00 Insulin Glargine (Lantus) 30 unit HS SC Last administered on 11/17/16 21:08; Admin Dose 30 UNIT; Start 11/15/16 at 21:00; Status Future Hold Diltiazem HCl (Cardizem Cd) 120 mg DAILY PO Last administered on 11/21/16 09: 07; Admin Dose 120 MG; Start 11/16/16 at 09:00 Ferrous Sulfate (Ferrous Sulfate (Ec)) 325 mg TID PO Last administered on 12:16; Admin Dose 325 MG; Start 11/17/16 at 21:00 Mupirocin (Bactroban) 1 applic BID TOP Last administered on 11/21/16 09:07; Admin Dose 1 APPLIC; Start 11/17/16 at 21:00 Epoetin Jean (Epogen (Esrd)) 10,000 units MoWeFr@17 SC Last administered on 17:34; Admin Dose 10,000 UNITS; Start 11/20/16 at 17:00 Hydroxyzine HCl 20 mg 20 mg Q4H PRN PO ITCHING Last administered on 11/21/16 03:11; Admin Dose 20 MG; Start 4/21/17 at 22:00 Levofloxacin/ Dextrose (Levaquin 250 Mg/ D5W 50 ml (Pmx)) 50 ml @ 50 mls/hr Q48H IVPB Last administered on 11/21/16 00:24; Admin Dose 50 MLS/HR; Start at 23:00; Stop 11/30/16 at 22:59 Permethrin (Elimite 5% Cr) 1 applic Sa@04 TOP Last administered on 11/21/16 05 :05; Admin Dose 1 APPLIC; Start 11/21/16 at 04:00; Stop 11/28/16 at 12:00 PENNY OLIVA MD Nov 21, 2016 14:29
[2016-11-21] MEDS ORDERED: IVERMECTIN 3 MG TAB PO SCH (16:30)
[2016-11-21] MEDS: DOXYCYCLINE 100 MG in SOD CHLORIDE 0.9% 250 ML IVPB SCH (20:39)
[2016-11-22] VITALS (12 sets, daily range): BP systolic 113–145; BP diastolic 53–89; PULSE 71–110; RESP 15–20
[2016-11-22] MEDS: ACCU-CHEK XX SCH (02:20)
[2016-11-22] MEDS: LEVALBUTEROL (NEB) 0.31 MG/3 ML AMP HHN PRN (02:34)
[2016-11-22] MEDS: FUROSEMIDE 20 MG TAB PO SCH ×2 (05:31→17:52)
[2016-11-22] MEDS: hydrOXYzine HCL 10 MG TAB PO PRN ×2 (05:31→21:56)
[2016-11-22] MEDS: GUAIFENESIN/CODEINE 5ML CUP PO PRN (05:47)
[2016-11-22 06:40] LABS: ADD SCAN DIFF NO
[2016-11-22 06:49] LABS: ALBUMIN 3.7 g/dl (3.3-4.9); ALBUMIN/GLOBULIN RATIO 0.86; CALCIUM 9.2 mg/dl (8.4-10.2); CREATININE 2.01 mg/dl (0.44-1.00); POTASSIUM 4.6 mmol/L (3.5-5.1)
[2016-11-22 06:51] LABS: ABNORMAL IP MESSAGE 1; HEMATOCRIT 32.4 % (37.0-47.0); MEAN CORPUSCULAR HEMOGLOBIN 32.7 pg (29.0-33.0); MEAN CORPUSCULAR HGB CONC 30.9 g/dl (32.0-37.0); MEAN CORPUSCULAR VOLUME 105.9 fl (82.0-101.0); MEAN PLATELET VOLUME 9.8 fl (7.4-10.4); PLATELET COUNT 226 10^3/UL (140-415); RED BLOOD COUNT 3.06 10^6/ul (4.20-5.40); RED CELL DISTRIBUTION WIDTH 13.4 % (11.5-14.5); WHITE BLOOD COUNT 10.7 10^3/ul (4.8-10.8)
--- NOTE | 2016-11-22 07:06 | PN ---
DATE: 11/21/2016 GENERAL: The patient awake, but cannot communicate because of language difficulty. HEART: Irregular irregularity. CHEST: Clear to A and P. ABDOMEN: Liver, kidneys, spleen are not palpable. Bowel sounds are normal. There are no intraabdo raghu masses or bruits. EXTREMITIES: Legs no evidence of edema. VITAL SIGNS: The patient is afebrile, respiratory rate is 20, blood pressure is 129/58, pulse is 64 , pulse oximetry 96. Intake and output 1350/1400. LABORATORY DATA: White blood cells 6700, hemoglobin 8.9, hematocrit 28.8%, platelet count normal. INR is 3.11. Blood glucose is 199. Urine total protein 167. Blood culture no growth after 1 day. Chest x-ray decreased conspicuity opacities in the right mid to lower lung zone, possibly due to im proving pneumonia, stable retrocardiac opacity due to atelectasis, infiltrate or effusion, stable lo w lung volumes and at least moderate cardiomegaly. Renal ultrasound reveals mildly echogenic and at rophic kidneys suggest mild medical renal disease. Dictated By: JAYY OLIVO/PUJA Conf#: [id number] DID#: [id number]
[2016-11-22] MEDS: INSULIN ASPART [NOVOLOG] 3 ML PEN SC SCH ×4 (08:07→22:10)
[2016-11-22] MEDS: INSULIN GLARGINE [LANtus] 3 ML PEN SC SCH (08:23)
[2016-11-22] MEDS: LEVALBUTEROL (NEB) 0.63 MG/3 ML AMP HHN SCH ×2 (08:29→15:32)
[2016-11-22] MEDS: GABAPENTIN 300 MG CAP PO SCH ×4 (09:44→21:56)
[2016-11-22] MEDS: DOXYCYCLINE 100 MG in SOD CHLORIDE 0.9% 250 ML IVPB SCH ×2 (09:44→21:56)
[2016-11-22] MEDS: ESCITALOPRAM 10 MG TAB PO SCH (09:44)
[2016-11-22] MEDS: predniSONE 10 MG TAB PO SCH ×6 (09:45→23:00)
[2016-11-22] MEDS: DILTIAZEM (CD) 120 MG CAP PO SCH (09:45)
[2016-11-22] MEDS: ZINC SULFATE 220 MG CAP GTB SCH (09:45)
[2016-11-22] MEDS: AMLODIPINE 5 MG TAB PO SCH (09:45)
[2016-11-22] MEDS: FERROUS SULFATE (EC) 325 MG TAB PO SCH ×4 (09:46→21:56)
[2016-11-22] MEDS: MULTIVITAMINS THERAPEUTIC TAB PO SCH (09:46)
[2016-11-22] MEDS: MUPIROCIN 2% 22 GM OINT TOP SCH ×2 (09:47→22:54)
[2016-11-22 09:49] LABS: BASOPHIL # 0.1 10^3/ul (0.0-0.1); LYMPHOCYTES # 0.1 10^3/ul (0.8-2.9); NEUTROPHIL # 10.5 10^3/ul (1.6-7.5)
[2016-11-22 09:51] LABS: PLATELET ESTIMATE PLT APPEAR ADEQUATE
[2016-11-22] MEDS: HYDROCODONE/APAP (10/325) TAB PO PRN (12:07)
--- NOTE | 2016-11-22 14:56 | CONS ---
Date/Time of Note Date/Time of Note DATE: 11/22/16 TIME: 14:55 Assessment/Plan Assessment/Plan Chief Complaint/Hosp Course 1. Acute renal failure superimposed on chronic kidney disease, SCr improved. Good UOP 2. Fluid overload. Continue Bumex 3. Dementia. Problems: Consultation Date/Type/Reason Admit Date/Time Nov 14, 2016 at 08:00 Type of Consultation: Nephrology Exam/Review of Systems Vital Signs Vitals Vital Signs Date Time Temp Pulse Resp B/P Pulse Ox O2 Delivery O2 Flow Rate FiO2 11/22/16 12:15 98 11/22/16 11:34 98.1 19 128/89 94 11/22/16 08:31 3.0 11/22/16 08:29 Nasal Cannula 11/20/16 23:58 21 Intake and Output 11/21/16 11/21/16 11/22/16 15:00 23:00 07:00 Intake Total 500 ml 600 ml Output Total 850 ml 500 ml Balance -350 ml 100 ml Exam Head: normocephalic Neck: No jvd Respiratory: clear to auscultation Cardiovascular: regular rate and rhythm Extremities: pitting pedal edema Results Result Diagram: 11/22/16 0550 11/22/16 0550 Results 24 hrs Laboratory Tests Test 11/21/16 17:50 11/21/16 20:36 11/22/16 02:13 11/22/16 05:50 Bedside Glucose 187 199 262 H White Blood Count 10.7 # Red Blood Count 3.06 L Hemoglobin 10.0 L Hematocrit 32.4 L Mean Corpuscular Volume 105.9 H Mean Corpuscular Hemoglobin 32.7 Mean Corpuscular Hemoglobin Concent 30.9 L Red Cell Distribution Width 13.4 Platelet Count 226 # Mean Platelet Volume 9.8 Lymphocytes % 1.0 L Basophils % 1.0 Neutrophils # 10.5 H Lymphocytes # 0.1 L Basophils # 0.1 Platelet Estimate PLT APPEAR ADEQUATE Sodium Level 143 Potassium Level 4.6 Chloride Level 110 Carbon Dioxide Level 18 L Anion Gap 20 #H Blood Urea Nitrogen 45 H Creatinine 2.01 H Glucose Level 261 H Calcium Level 9.2 Total Bilirubin 0.0 L Direct Bilirubin 0.00 Indirect Bilirubin 0.0 Aspartate Amino Transf (AST/SGOT) 24 Alanine Aminotransferase (ALT/SGPT) 22 Alkaline Phosphatase 113 Total Protein 8.0 # Albumin 3.7 Globulin 4.30 H Albumin/Globulin Ratio 0.86 Test 11/22/16 08:03 11/22/16 11:37 Bedside Glucose 262 H 286 H Medications Medications Current Medications Acetaminophen (Tylenol Tab) 650 mg Q4 PRN PO PAIN AND OR ELEVATED TEMP Last administered on 11/20/16 08:44; Admin Dose 650 MG; Start 11/14/16 at 13:30 Amlodipine Besylate (Norvasc) 5 mg DAILY PO Last administered on 11/22/16 09: 45; Admin Dose 5 MG; Start 11/14/16 at 14:30 Bisacodyl (Dulcolax Supp) 10 mg Q24H PRN [place] CONSTIPATION; Start 11/14/16 at 13: 30 Docusate Sodium (Colace) 200 mg Q24H PRN PO CONSTIPATION Last administered on 09:06; Admin Dose 200 MG; Start 11/14/16 at 13:30 Escitalopram Oxalate (Lexapro) 5 mg DAILY PO Last administered on 11/22/16 09: 44; Admin Dose 5 MG; Start 11/14/16 at 14:30 Gabapentin (Neurontin) 300 mg TID PO Last administered on 11/22/16 12:07; Admin Dose 300 MG; Start 11/14/16 at 14:30 Acetaminophen/ Hydrocodone Bitart ([place] (10/325)) 1 tab Q6H PRN PO PAIN Last administered on 11/22/16 12:07; Admin Dose 1 TAB; Start 11/14/16 at 13:30 Multivitamins Therapeutic (Theragran) 1 tab DAILY PO Last administered on 09:46; Admin Dose 1 TAB; Start 11/15/16 at 09:00 Zinc Sulfate (Zinc Sulfate) 220 mg DAILY GTB Last administered on 11/22/16 09: 45; Admin Dose 220 MG; Start 11/15/16 at 09:00 Miscellaneous Information 1 ea NOTE XX ; Start 11/14/16 at 14:00 Dextrose (D50w Syringe) 25 ml Q15M PRN IV DECREASED GLUCOSE Last administered on 11/18/16 09:18; Admin Dose 25 ML; Start 11/14/16 at 14:00 Glucagon (Glucagen) 1 mg Q15M PRN IM DECREASED GLUCOSE; Start 11/14/16 at 14:00 Glucose (Glutose) 15 gm Q15M PRN BUCCAL DECREASED GLUCOSE Last administered on 11/17/16 07:55; Admin Dose 15 GM; Start 11/14/16 at 14:00 Diagnostic Test (Pha) (Accu-Chek) 1 ea 02 XX Last administered on 11/22/16 02: 20; Admin Dose 1 EA; Start 11/15/16 at 02:00 Miscellaneous Information (Pending [facility] Order For Wound Care) This patient woodard... PRN PRN XX WOUND CARE; Start 11/14/16 at 16:30 Guaifenesin/ Codeine Phosphate (Robitussin Ac Liquid Cup) 5 ml Q6 PRN PO COUGH Last administered on 11/22/16 05:47; Admin Dose 5 ML; Start 11/15/16 at 00:00 Insulin Glargine (Lantus) 30 unit HS SC Last administered on 11/17/16 21:08; Admin Dose 30 UNIT; Start 11/15/16 at 21:00; Status Future Hold Diltiazem HCl (Cardizem Cd) 120 mg DAILY PO Last administered on 11/22/16 09: 45; Admin Dose 120 MG; Start 11/16/16 at 09:00 Ferrous Sulfate (Ferrous Sulfate (Ec)) 325 mg TID PO Last administered on 12:07; Admin Dose 325 MG; Start 11/17/16 at 21:00 Mupirocin (Bactroban) 1 applic BID TOP Last administered on 11/22/16 09:47; Admin Dose 1 APPLIC; Start 11/17/16 at 21:00 Epoetin Jean (Epogen (Esrd)) 10,000 units MoWeFr@17 SC Last administered on 17:34; Admin Dose 10,000 UNITS; Start 11/20/16 at 17:00 Hydroxyzine HCl 20 mg 20 mg Q4H PRN PO ITCHING Last administered on 11/22/16 05:31; Admin Dose 20 MG; Start 11/20/16 at 22:00 Levofloxacin/ Dextrose (Levaquin 250 Mg/ D5W 50 ml (Pmx)) 50 ml @ 50 mls/hr Q48H IVPB Last administered on 11/21/16 00:24; Admin Dose 50 MLS/HR; Start at 23:00; Stop 11/30/16 at 22:59 Permethrin 1 applic 1 applic Sa@04 TOP Last administered on 11/21/16 05:05; Admin Dose 1 APPLIC; Start 11/21/16 at 04:00; Stop 11/28/16 at 12:00 Doxycycline Hyclate/Sodium Chloride (Vibramycin/NS) 250 ml @ 250 mls/hr Q12 IVPB Last administered on 11/22/16 09:44; Admin Dose 250 MLS/HR; Start at 21:00 Insulin Glargine (Lantus) 12 unit DAILY@08 SC Last administered on 11/22/16 08 :23; Admin Dose 12 UNIT; Start 11/22/16 at 08:00 PENNY OLIVA MD Nov 22, 2016 14:56
--- NOTE | 2016-11-22 15:24 | CONS ---
Date/Time of Note Date/Time of Note DATE: 11/22/16 TIME: 15:22 Assessment/Plan Assessment/Plan Additional Assessment/Plan Pneumonia Acute decompensated diastolic congestive heart failure, improved Paroxysmal atrial fibrillation Peripheral arterial disease Acute kidney injury -Heart rate remained stable, renal function improving, being followed by our nephrology colleagues. Currently on gentle p.o. diuretics. Coumadin as per INR. Consultation Date/Type/Reason Admit Date/Time Nov 14, 2016 at 08:00 Type of Consultation: cv 24 HR Interval Summary Free Text/Dictation Patient seen and examined Exam/Review of Systems Vital Signs Vitals Vital Signs Date Time Temp Pulse Resp B/P Pulse Ox O2 Delivery O2 Flow Rate FiO2 11/22/16 15:12 98.0 79 19 142/66 98 11/22/16 08:31 3.0 11/22/16 08:29 Nasal Cannula 11/20/16 23:58 21 Intake and Output 11/21/16 11/21/16 11/22/16 15:00 23:00 07:00 Intake Total 500 ml 600 ml Output Total 850 ml 500 ml Balance -350 ml 100 ml Exam Awake, no apparent distress Head: normocephalic Respiratory: other (Coarse breath sounds bilaterally, no wheezing) Cardiovascular: other (S1-S2 heard), regular rate and rhythm Gastrointestinal: bowel sounds, non-tender, soft Extremities: edema (Trace) Results Result Diagram: 11/22/16 0550 11/22/16 0550 Results 24 hrs Laboratory Tests Test 11/21/16 17:50 11/21/16 20:36 11/22/16 02:13 11/22/16 05:50 Bedside Glucose 187 199 262 H White Blood Count 10.7 # Red Blood Count 3.06 L Hemoglobin 10.0 L Hematocrit 32.4 L Mean Corpuscular Volume 105.9 H Mean Corpuscular Hemoglobin 32.7 Mean Corpuscular Hemoglobin Concent 30.9 L Red Cell Distribution Width 13.4 Platelet Count 226 # Mean Platelet Volume 9.8 Lymphocytes % 1.0 L Basophils % 1.0 Neutrophils # 10.5 H Lymphocytes # 0.1 L Basophils # 0.1 Platelet Estimate PLT APPEAR ADEQUATE Sodium Level 143 Potassium Level 4.6 Chloride Level 110 Carbon Dioxide Level 18 L Anion Gap 20 #H Blood Urea Nitrogen 45 H Creatinine 2.01 H Glucose Level 261 H Calcium Level 9.2 Total Bilirubin 0.0 L Direct Bilirubin 0.00 Indirect Bilirubin 0.0 Aspartate Amino Transf (AST/SGOT) 24 Alanine Aminotransferase (ALT/SGPT) 22 Alkaline Phosphatase 113 Total Protein 8.0 # Albumin 3.7 Globulin 4.30 H Albumin/Globulin Ratio 0.86 Test 11/22/16 08:03 11/22/16 11:37 Bedside Glucose 262 H 286 H Medications Medications Current Medications Acetaminophen (Tylenol Tab) 650 mg Q4 PRN PO PAIN AND OR ELEVATED TEMP Last administered on 11/20/16 08:44; Admin Dose 650 MG; Start 11/14/16 at 13:30 Amlodipine Besylate (Norvasc) 5 mg DAILY PO Last administered on 11/22/16 09: 45; Admin Dose 5 MG; Start 11/14/16 at 14:30 Bisacodyl (Dulcolax Supp) 10 mg Q24H PRN [place] CONSTIPATION; Start 11/14/16 at 13: 30 Docusate Sodium (Colace) 200 mg Q24H PRN PO CONSTIPATION Last administered on 09:06; Admin Dose 200 MG; Start 11/14/16 at 13:30 Escitalopram Oxalate (Lexapro) 5 mg DAILY PO Last administered on 11/22/16 09: 44; Admin Dose 5 MG; Start 11/14/16 at 14:30 Gabapentin (Neurontin) 300 mg TID PO Last administered on 11/22/16 12:07; Admin Dose 300 MG; Start 11/14/16 at 14:30 Acetaminophen/ Hydrocodone Bitart ([place] (10/325)) 1 tab Q6H PRN PO PAIN Last administered on 11/22/16 12:07; Admin Dose 1 TAB; Start 11/14/16 at 13:30 Multivitamins Therapeutic (Theragran) 1 tab DAILY PO Last administered on 09:46; Admin Dose 1 TAB; Start 11/15/16 at 09:00 Zinc Sulfate (Zinc Sulfate) 220 mg DAILY GTB Last administered on 11/22/16 09: 45; Admin Dose 220 MG; Start 11/15/16 at 09:00 Miscellaneous Information 1 ea NOTE XX ; Start 11/14/16 at 14:00 Dextrose (D50w Syringe) 25 ml Q15M PRN IV DECREASED GLUCOSE Last administered on 11/18/16 09:18; Admin Dose 25 ML; Start 11/14/16 at 14:00 Glucagon (Glucagen) 1 mg Q15M PRN IM DECREASED GLUCOSE; Start 11/14/16 at 14:00 Glucose (Glutose) 15 gm Q15M PRN BUCCAL DECREASED GLUCOSE Last administered on 11/17/16 07:55; Admin Dose 15 GM; Start 11/14/16 at 14:00 Diagnostic Test (Pha) (Accu-Chek) 1 ea 02 XX Last administered on 11/22/16 02: 20; Admin Dose 1 EA; Start 11/15/16 at 02:00 Miscellaneous Information (Pending [facility] Order For Wound Care) This patient woodard... PRN PRN XX WOUND CARE; Start 11/14/16 at 16:30 Guaifenesin/ Codeine Phosphate (Robitussin Ac Liquid Cup) 5 ml Q6 PRN PO COUGH Last administered on 11/22/16 05:47; Admin Dose 5 ML; Start 11/15/16 at 00:00 Insulin Glargine (Lantus) 30 unit HS SC Last administered on 11/17/16 21:08; Admin Dose 30 UNIT; Start 11/15/16 at 21:00; Status Future Hold Diltiazem HCl (Cardizem Cd) 120 mg DAILY PO Last administered on 11/22/16 09: 45; Admin Dose 120 MG; Start 11/16/16 at 09:00 Ferrous Sulfate (Ferrous Sulfate (Ec)) 325 mg TID PO Last administered on 12:07; Admin Dose 325 MG; Start 11/17/16 at 21:00 Mupirocin (Bactroban) 1 applic BID TOP Last administered on 11/22/16 09:47; Admin Dose 1 APPLIC; Start 11/17/16 at 21:00 Epoetin Jean (Epogen (Esrd)) 10,000 units MoWeFr@17 SC Last administered on 17:34; Admin Dose 10,000 UNITS; Start 11/20/16 at 17:00 Hydroxyzine HCl 20 mg 20 mg Q4H PRN PO ITCHING Last administered on 11/22/16 05:31; Admin Dose 20 MG; Start 11/20/16 at 22:00 Levofloxacin/ Dextrose (Levaquin 250 Mg/ D5W 50 ml (Pmx)) 50 ml @ 50 mls/hr Q48H IVPB Last administered on 11/21/16 00:24; Admin Dose 50 MLS/HR; Start at 23:00; Stop 11/30/16 at 22:59 Permethrin 1 applic 1 applic Sa@04 TOP Last administered on 11/21/16 05:05; Admin Dose 1 APPLIC; Start 11/21/16 at 04:00; Stop 11/28/16 at 12:00 Doxycycline Hyclate/Sodium Chloride (Vibramycin/NS) 250 ml @ 250 mls/hr Q12 IVPB Last administered on 11/22/16 09:44; Admin Dose 250 MLS/HR; Start at 21:00 Insulin Glargine (Lantus) 12 unit DAILY@08 SC Last administered on 11/22/16 08 :23; Admin Dose 12 UNIT; Start 11/22/16 at 08:00 Hieu Wolf DO Nov 22, 2016 15:24
--- NOTE | 2016-11-22 19:23 | PN ---
Date/Time of Note Date/Time of Note DATE: 11/20/16 TIME: 14:17 Assessment/Plan VTE Prophylaxis VTE Prophylaxis Intervention: other (pt inr too high, coum on hold) Lines/Catheters IV Catheter Type (from Nrsg): Saline Lock Central line still needed: No Urinary Cath still in place: Yes Reason Cath still needed: terminal illness/intractable pain Assessment/Plan Assessment/Plan 1. pneumonia 2. a fib/ chf/ htn/ pad 3. arf 4. dm 5. depression/ dementia ---per ID ---per pulm, aggressive chest RT ---per cards ---per renal ---hold coum, keep pt inr 2.0 Subjective 24 Hr Interval Summary Free Text/Dictation no complaints, breathing a little bit better AJAY HAWKINS MD Nov 22, 2016 19:23
--- NOTE | 2016-11-22 20:18 | CONS ---
Date/Time of Note Date/Time of Note DATE: 11/22/16 TIME: 20:12 Assessment/Plan Assessment/Plan Chief Complaint/Hosp Course ID PROGRESS NOTE TOTAL ABX DAY # => Levaquin + Doxycycline s/p Elimite, s/p Ivermectin s/p Ceftriaxone 24H INTERVAL SUMMARY * 89 yo F sleeping -- no new events, no fevers * s/p Rx for scabies with superimposed MRSA cellulitis with crusted scabies on RLEXt -- family says rash present long time at SNF * Respiratory cx (-) 24H PHYSICAL EXAMINATION: GENERAL: VSS, lethargic, responsive by moaning ?aphasic HEENT: (+)Facial droop, drooling oral secretions copious clear NECK: Supple, trach-> midline CHEST: (+)Laryngeal wet cough -- appears she is retaining secretions and unable to cough them up HEART: Pulse RRR ABDOMEN: Soft, benign EXTREMITIES: Warm, crusted scabies thickened skin plaque RLEXT SKIN: Warm, d, (+)Diffuse pruritic rash w/bumpy scab lesions over entire body, some areas excoriated ID ASSESSMENT: 89 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 Acute respiratory failure, improved. 2. Healthcare-associated pneumonia = suspect aspiration syndrome per hx CVA & facial droop * Retained secretions weak laryngeal wet cough 3. Congestive heart failure exacerbation. 4. Gram-negative rods urinary tract infection. * URINE CULTURE Final Organism 1 ENTEROBACTER CLOACAE COLONY COUNT 20,000 - 30,000 CFU/ml Organism 2 ESCHERICHIA COLI COLONY COUNT 10,000 - 20,000 CFU/ml 5. Hypertension. 6. Acute renal failure 7. Diabetes. 8. History of atrial fibrillation. 9. ARF 10. PRURITIC skin rash w/superimposed cellulitis, multiple skin excoriation scratches = Presumptive SCABIES * Crusted scabies lesions on RLEXT 11. 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 12. Hx of Right iliac and femoral thrombophlebitis. (+)MRSA NARES -> Bactroban INVASIVES: * PIV ABX ALLERGIES: KNDA CURRENT ABX: DAY # => # => Levaquin + Doxycycline s/p Elimite, s/p Ivermectin s/p Ceftriaxone ID RECOMMENDATIONS: 1. FOR CELLULITIS SUPERIMPOSED ON SCABIES RASH * S/P Elimite - repeat dose in 7 days * s/p Ivermectin x1 11/21 -> crusted scabies on RLEXT * Prednisone * Atarax * Doxy IV 2. Continue Levaquin + Doxycycline IV for scabies cellulitis = ABX of choice 3. ASPIRATION precautions -- ?Swallow eval? 4. F/u on sputum cx pending 5. Anticipate DC back to SNF on current ABX . Problems: Consultation Date/Type/Reason Admit Date/Time Nov 14, 2016 at 08:00 Type of Consultation: ID Exam/Review of Systems Vital Signs Vitals Vital Signs Date Time Temp Pulse Resp B/P Pulse Ox O2 Delivery O2 Flow Rate FiO2 11/22/16 18:53 97.6 79 20 145/66 97 11/22/16 18:51 3.0 11/22/16 15:42 Nasal Cannula 11/20/16 23:58 21 Intake and Output 11/21/16 11/21/16 11/22/16 15:00 23:00 07:00 Intake Total 500 ml 600 ml Output Total 850 ml 500 ml Balance -350 ml 100 ml Results Result Diagram: 11/22/16 0550 11/22/16 0550 Results 24 hrs Laboratory Tests Test 11/21/16 20:36 11/22/16 02:13 11/22/16 05:50 11/22/16 08:03 Bedside Glucose 199 262 H 262 H White Blood Count 10.7 # Red Blood Count 3.06 L Hemoglobin 10.0 L Hematocrit 32.4 L Mean Corpuscular Volume 105.9 H Mean Corpuscular Hemoglobin 32.7 Mean Corpuscular Hemoglobin Concent 30.9 L Red Cell Distribution Width 13.4 Platelet Count 226 # Mean Platelet Volume 9.8 Lymphocytes % 1.0 L Basophils % 1.0 Neutrophils # 10.5 H Lymphocytes # 0.1 L Basophils # 0.1 Platelet Estimate PLT APPEAR ADEQUATE Sodium Level 143 Potassium Level 4.6 Chloride Level 110 Carbon Dioxide Level 18 L Anion Gap 20 #H Blood Urea Nitrogen 45 H Creatinine 2.01 H Glucose Level 261 H Calcium Level 9.2 Total Bilirubin 0.0 L Direct Bilirubin 0.00 Indirect Bilirubin 0.0 Aspartate Amino Transf (AST/SGOT) 24 Alanine Aminotransferase (ALT/SGPT) 22 Alkaline Phosphatase 113 Total Protein 8.0 # Albumin 3.7 Globulin 4.30 H Albumin/Globulin Ratio 0.86 Test 11/22/16 11:37 11/22/16 17:26 Bedside Glucose 286 H 271 H Medications Medications Current Medications Acetaminophen (Tylenol Tab) 650 mg Q4 PRN PO PAIN AND OR ELEVATED TEMP Last administered on 11/20/16 08:44; Admin Dose 650 MG; Start 11/14/16 at 13:30 Amlodipine Besylate (Norvasc) 5 mg DAILY PO Last administered on 11/22/16 09: 45; Admin Dose 5 MG; Start 11/14/16 at 14:30 Bisacodyl (Dulcolax Supp) 10 mg Q24H PRN [place] CONSTIPATION; Start 11/14/16 at 13: 30 Docusate Sodium (Colace) 200 mg Q24H PRN PO CONSTIPATION Last administered on 09:06; Admin Dose 200 MG; Start 11/14/16 at 13:30 Escitalopram Oxalate (Lexapro) 5 mg DAILY PO Last administered on 11/22/16 09: 44; Admin Dose 5 MG; Start 11/14/16 at 14:30 Gabapentin (Neurontin) 300 mg TID PO Last administered on 11/22/16 12:07; Admin Dose 300 MG; Start 11/14/16 at 14:30 Acetaminophen/ Hydrocodone Bitart ([place] (10/325)) 1 tab Q6H PRN PO PAIN Last administered on 11/22/16 12:07; Admin Dose 1 TAB; Start 11/14/16 at 13:30 Multivitamins Therapeutic (Theragran) 1 tab DAILY PO Last administered on 09:46; Admin Dose 1 TAB; Start 11/15/16 at 09:00 Zinc Sulfate (Zinc Sulfate) 220 mg DAILY GTB Last administered on 11/22/16 09: 45; Admin Dose 220 MG; Start 11/15/16 at 09:00 Miscellaneous Information 1 ea NOTE XX ; Start 11/14/16 at 14:00 Dextrose (D50w Syringe) 25 ml Q15M PRN IV DECREASED GLUCOSE Last administered on 11/18/16 09:18; Admin Dose 25 ML; Start 11/14/16 at 14:00 Glucagon (Glucagen) 1 mg Q15M PRN IM DECREASED GLUCOSE; Start 11/14/16 at 14:00 Glucose (Glutose) 15 gm Q15M PRN BUCCAL DECREASED GLUCOSE Last administered on 11/17/16 07:55; Admin Dose 15 GM; Start 11/14/16 at 14:00 Diagnostic Test (Pha) (Accu-Chek) 1 ea 02 XX Last administered on 11/22/16 02: 20; Admin Dose 1 EA; Start 11/15/16 at 02:00 Miscellaneous [facility] This patient woodard... PRN PRN XX WOUND CARE; Start 11/14/16 at 16:30 Guaifenesin/ Codeine Phosphate (Robitussin Ac Liquid Cup) 5 ml Q6 PRN PO COUGH Last administered on 11/22/16 05:47; Admin Dose 5 ML; Start 11/15/16 at 00:00 Insulin Glargine (Lantus) 30 unit HS SC Last administered on 11/17/16 21:08; Admin Dose 30 UNIT; Start 11/15/16 at 21:00; Status Future Hold Diltiazem HCl (Cardizem Cd) 120 mg DAILY PO Last administered on 11/22/16 09: 45; Admin Dose 120 MG; Start 11/16/16 at 09:00 Ferrous Sulfate (Ferrous Sulfate (Ec)) 325 mg TID PO Last administered on 12:07; Admin Dose 325 MG; Start 11/17/16 at 21:00 Mupirocin (Bactroban) 1 applic BID TOP Last administered on 11/22/16 09:47; Admin Dose 1 APPLIC; Start 11/17/16 at 21:00 Epoetin Jean (Epogen (Esrd)) 10,000 units MoWeFr@17 SC Last administered on 17:34; Admin Dose 10,000 UNITS; Start 11/20/16 at 17:00 Hydroxyzine HCl 20 mg 20 mg Q4H PRN PO ITCHING Last administered on 11/22/16 05:31; Admin Dose 20 MG; Start 11/20/16 at 22:00 Levofloxacin/ Dextrose (Levaquin 250 Mg/ D5W 50 ml (Pmx)) 50 ml @ 50 mls/hr Q48H IVPB Last administered on 11/21/16 00:24; Admin Dose 50 MLS/HR; Start at 23:00; Stop 11/30/16 at 22:59 Permethrin 1 applic 1 applic Sa@04 TOP Last administered on 11/21/16 05:05; Admin Dose 1 APPLIC; Start 11/21/16 at 04:00; Stop 11/28/16 at 12:00 Doxycycline Hyclate/Sodium Chloride (Vibramycin/NS) 250 ml @ 250 mls/hr Q12 IVPB Last administered on 11/22/16 09:44; Admin Dose 250 MLS/HR; Start at 21:00 Insulin Glargine (Lantus) 12 unit DAILY@08 SC Last administered on 11/22/16 08 :23; Admin Dose 12 UNIT; Start 11/22/16 at 08:00 SAMANTHA CARPENTER NP Nov 22, 2016 20:18
--- NOTE | 2016-11-22 23:53 | PN ---
DATE: 11/22/2016 SUBJECTIVE: The patient is sleeping. The patient also does not communicate because of language dif ficulty. OBJECTIVE: HEART: Atrial fibrillation with an irregular irregularity. CHEST: Clear to A and P. ABDOMEN: Liver, kidneys, spleen are not palpable. Bowel sounds are normal. EXTREMITIES: No ankle edema. No pretibial edema. ASSESSMENT AND PLAN: The patient being treated for pneumonia and also congestive heart failure. Sh e has: 1. Acute respiratory failure. 2. Pneumonia. 3. Congestive heart failure. 4. Urinary tract infection. 5. Hypertension. 6. Acute renal failure. 7. Diabetes mellitus. 8. Atrial fibrillation. 9. Pruritic ____ rash, probably due to scabies. She has been treated with permethrin. 10. She also had degenerative disk disease of the lumbar spine. 11. History of right iliac and femoral thrombophlebitis. LABORATORY DATA: White blood cell count is 10,700; hemoglobin is 10, hematocrit is 32.4%, platelet count is normal. Blood sugar 271. Electrolytes: Sodium 143, potassium 4.6, chloride 110, carbon d ioxide 18, BUN 45, creatinine 2.01, glucose 261, calcium 9.2. Albumin 3.7, globulin 4.3, total prot ein 8. Respiratory culture preliminary: No growth after 1 day. Dictated By: JAYY JIMENEZ MD WR/NTS Conf#: [id number] DID#: [id number] CC: HARMONY OLEA MD;*[facility]*
[2016-11-23] VITALS (12 sets, daily range): BP systolic 102–148; BP diastolic 48–74; PULSE 70–101; RESP 15–71
[2016-11-23] MEDS: LEVALBUTEROL (NEB) 0.63 MG/3 ML AMP HHN SCH ×4 (00:36→23:36)
[2016-11-23] MEDS: hydrOXYzine HCL 10 MG TAB PO PRN ×2 (01:47→14:00)
[2016-11-23] MEDS: LEVOFLOXACIN 250MG/D5W (PMX) 50 ML IVPB SCH (01:47)
[2016-11-23] MEDS: GUAIFENESIN/CODEINE 5ML CUP PO PRN (01:48)
[2016-11-23] MEDS: ACCU-CHEK XX SCH (02:00)
[2016-11-23] MEDS: FUROSEMIDE 20 MG TAB PO SCH ×2 (05:57→17:33)
[2016-11-23 06:53] LABS: ADD SCAN DIFF NO
[2016-11-23 07:10] LABS: ABNORMAL IP MESSAGE 1; HEMATOCRIT 30.1 % (37.0-47.0); HEMOGLOBIN 9.6 g/dl (12.0-16.0); MEAN CORPUSCULAR HEMOGLOBIN 32.9 pg (29.0-33.0); MEAN CORPUSCULAR HGB CONC 31.9 g/dl (32.0-37.0); MEAN CORPUSCULAR VOLUME 103.1 fl (82.0-101.0); MEAN PLATELET VOLUME 9.8 fl (7.4-10.4); PLATELET COUNT 213 10^3/UL (140-415); RED BLOOD COUNT 2.92 10^6/ul (4.20-5.40); RED CELL DISTRIBUTION WIDTH 13.4 % (11.5-14.5); WHITE BLOOD COUNT 8.9 10^3/ul (4.8-10.8)
[2016-11-23 07:11] LABS: INR 4.93; PROTIME 46.8 Sec (12.2-14.2); PT RATIO 3.7
[2016-11-23 07:15] LABS: ALBUMIN 3.5 g/dl (3.3-4.9)
[2016-11-23 07:16] LABS: POTASSIUM 4.3 mmol/L (3.5-5.1)
[2016-11-23 07:18] LABS: ALBUMIN/GLOBULIN RATIO 0.79; CREATININE 2.27 mg/dl (0.44-1.00); TOTAL PROTEIN 7.9 g/dl (6.1-8.1)
[2016-11-23 07:19] LABS: CALCIUM 9.1 mg/dl (8.4-10.2); MAGNESIUM 2.3 mg/dl (1.7-2.5)
[2016-11-23] MEDS: DOXYCYCLINE 100 MG in SOD CHLORIDE 0.9% 250 ML IVPB SCH ×3 (09:00→21:11)
--- NOTE | 2016-11-23 09:28 | RADRPT ---
PROCEDURE: XR Chest. CLINICAL INDICATION: 89 yo F w/Aspiration syndrome TECHNIQUE: Single frontal view of the chest was obtained. COMPARISON: Chest x-ray from 11/19/2016 FINDINGS: There is stable at least moderate cardiomegaly. The aortic arch is calcified. There is a mildly increased layering right pleural effusion. There is a stable retrocardiac opacity due to atelectasis, infiltrate, and / or effusion. There are low lung volumes with prominence of interstitial markings, likely due to a combination of congestive changes and vascular crowding. IMPRESSION: Mildly increased layering right pleural effusion. Stable retrocardiac opacity due to atelectasis, infiltrate, and / or effusion. Stable low lung volumes and at least moderate cardiomegaly with prominence of interstitial markings, likely due to a combination of congestive changes and vascular crowding. Aortic atherosclerosis. RPTAT: EE Physician Claudette Date Time Electronically viewed and signed by Keshawn Hurtado Physician on 11/23/2016 09:28 /
[2016-11-23] MEDS: ZINC SULFATE 220 MG CAP GTB SCH (10:09)
[2016-11-23] MEDS: GABAPENTIN 300 MG CAP PO SCH ×3 (10:09→21:12)
[2016-11-23] MEDS: MULTIVITAMINS THERAPEUTIC TAB PO SCH (10:09)
[2016-11-23] MEDS: ESCITALOPRAM 10 MG TAB PO SCH (10:10)
[2016-11-23] MEDS: DILTIAZEM (CD) 120 MG CAP PO SCH (10:10)
[2016-11-23] MEDS: AMLODIPINE 5 MG TAB PO SCH (10:10)
[2016-11-23] MEDS: MUPIROCIN 2% 22 GM OINT TOP SCH ×2 (10:11→21:12)
[2016-11-23] MEDS: FERROUS SULFATE (EC) 325 MG TAB PO SCH ×3 (10:11→21:12)
[2016-11-23] MEDS: INSULIN ASPART [NOVOLOG] 3 ML PEN SC SCH ×4 (10:23→21:35)
[2016-11-23] MEDS: INSULIN GLARGINE [LANtus] 3 ML PEN SC SCH (10:26)
[2016-11-23 13:43] LABS: LYMPHOCYTES # 0.9 10^3/ul (0.8-2.9); MONOCYTE # 0.2 10^3/ul (0.3-0.9); NEUTROPHIL # 7.8 10^3/ul (1.6-7.5)
--- NOTE | 2016-11-23 16:10 | CONS ---
Date/Time of Note Date/Time of Note DATE: 11/23/16 TIME: 16:09 Assessment/Plan Assessment/Plan Additional Assessment/Plan Pneumonia Acute decompensated diastolic congestive heart failure, improved Paroxysmal atrial fibrillation Peripheral arterial disease Acute kidney injury -Heart rate trend remained stable. Renal function still labile, being followed by our nephrology colleagues, diuretics as per nephrology.. Patient's INR level supratherapeutic, Coumadin on hold. Consultation Date/Type/Reason Admit Date/Time Nov 14, 2016 at 08:00 Type of Consultation: cv 24 HR Interval Summary Free Text/Dictation Shortness of breath is better, denies chest pain or palpitations, family at bedside Exam/Review of Systems Vital Signs Vitals Vital Signs Date Time Temp Pulse Resp B/P Pulse Ox O2 Delivery O2 Flow Rate FiO2 11/23/16 15:17 98.0 83 20 141/67 98 11/23/16 08:20 Nasal Cannula 3.0 11/20/16 23:58 21 Intake and Output 11/22/16 11/22/16 11/23/16 15:00 23:00 07:00 Intake Total 400 ml 150 ml Output Total 400 ml 500 ml Balance 0 ml -350 ml Exam No apparent distress, daughter at bedside Constitutional: alert, oriented Head: normocephalic Respiratory: other (Coarse breath sounds bilaterally, no wheezing) Cardiovascular: irregular rhythm, other (S1-S2 heard) Gastrointestinal: bowel sounds, non-tender, soft Extremities: edema (Trace) Results Result Diagram: 11/23/16 0555 11/23/16 0555 Results 24 hrs Laboratory Tests Test 11/22/16 17:26 11/22/16 21:54 11/23/16 05:29 11/23/16 05:55 Bedside Glucose 271 H 188 257 H White Blood Count 8.9 Red Blood Count 2.92 L Hemoglobin 9.6 L Hematocrit 30.1 L Mean Corpuscular Volume 103.1 H Mean Corpuscular Hemoglobin 32.9 Mean Corpuscular Hemoglobin Concent 31.9 L Red Cell Distribution Width 13.4 Platelet Count 213 Mean Platelet Volume 9.8 Neutrophils % 88.0 H Lymphocytes % 10.0 L Monocytes % 2.0 Neutrophils # 7.8 H Lymphocytes # 0.9 Monocytes # 0.2 L Prothrombin Time 46.8 #H Prothrombin Time Ratio 3.7 INR International Normalized Ratio 4.93 Sodium Level 144 Potassium Level 4.3 Chloride Level 107 Carbon Dioxide Level 22 Anion Gap 19 H Blood Urea Nitrogen 54 H Creatinine 2.27 H Glucose Level 250 H Calcium Level 9.1 Magnesium Level 2.3 Total Bilirubin 0.0 L Direct Bilirubin 0.00 Indirect Bilirubin 0.0 Aspartate Amino Transf (AST/SGOT) 22 Alanine Aminotransferase (ALT/SGPT) 28 Alkaline Phosphatase 90 Total Protein 7.9 Albumin 3.5 Globulin 4.40 H Albumin/Globulin Ratio 0.79 Test 11/23/16 08:19 11/23/16 09:59 Bedside Glucose 260 H 271 H Medications Medications Current Medications Acetaminophen (Tylenol Tab) 650 mg Q4 PRN PO PAIN AND OR ELEVATED TEMP Last administered on 11/20/16 08:44; Admin Dose 650 MG; Start 11/14/16 at 13:30 Amlodipine Besylate (Norvasc) 5 mg DAILY PO Last administered on 11/23/16 10: 10; Admin Dose 5 MG; Start 11/14/16 at 14:30 Bisacodyl (Dulcolax Supp) 10 mg Q24H PRN [place] CONSTIPATION; Start 11/14/16 at 13: 30 Docusate Sodium (Colace) 200 mg Q24H PRN PO CONSTIPATION Last administered on 09:06; Admin Dose 200 MG; Start 11/14/16 at 13:30 Escitalopram Oxalate (Lexapro) 5 mg DAILY PO Last administered on 11/23/16 10: 10; Admin Dose 5 MG; Start 11/14/16 at 14:30 Gabapentin (Neurontin) 300 mg TID PO Last administered on 11/23/16 13:18; Admin Dose 300 MG; Start 11/14/16 at 14:30 Acetaminophen/ Hydrocodone Bitart ([place] (10/325)) 1 tab Q6H PRN PO PAIN Last administered on 11/22/16 12:07; Admin Dose 1 TAB; Start 11/14/16 at 13:30 Multivitamins Therapeutic (Theragran) 1 tab DAILY PO Last administered on 10:09; Admin Dose 1 TAB; Start 11/15/16 at 09:00 Zinc Sulfate (Zinc Sulfate) 220 mg DAILY GTB Last administered on 11/23/16 10: 09; Admin Dose 220 MG; Start 11/15/16 at 09:00 Miscellaneous Information 1 ea NOTE XX ; Start 11/14/16 at 14:00 Dextrose (D50w Syringe) 25 ml Q15M PRN IV DECREASED GLUCOSE Last administered on 11/18/16 09:18; Admin Dose 25 ML; Start 11/14/16 at 14:00 Glucagon (Glucagen) 1 mg Q15M PRN IM DECREASED GLUCOSE; Start 11/14/16 at 14:00 Glucose (Glutose) 15 gm Q15M PRN BUCCAL DECREASED GLUCOSE Last administered on 11/17/16 07:55; Admin Dose 15 GM; Start 11/14/16 at 14:00 Diagnostic Test (Pha) (Accu-Chek) 1 ea 02 XX Last administered on 11/23/16 02: 00; Admin Dose 1 EA; Start 11/15/16 at 02:00 Miscellaneous Information [facility] This patient woodard... PRN PRN XX WOUND CARE; Start 11/14/16 at 16:30 Guaifenesin/ Codeine Phosphate (Robitussin Ac Liquid Cup) 5 ml Q6 PRN PO COUGH Last administered on 11/23/16 01:48; Admin Dose 5 ML; Start 11/15/16 at 00:00 Diltiazem HCl (Cardizem Cd) 120 mg DAILY PO Last administered on 11/23/16 10: 10; Admin Dose 120 MG; Start 11/16/16 at 09:00 Ferrous Sulfate (Ferrous Sulfate (Ec)) 325 mg TID PO Last administered on 13:17; Admin Dose 325 MG; Start 11/17/16 at 21:00 Mupirocin (Bactroban) 1 applic BID TOP Last administered on 11/23/16 10:11; Admin Dose 1 APPLIC; Start 11/17/16 at 21:00 Epoetin Jean (Epogen (Esrd)) 10,000 units MoWeFr@17 SC Last administered on 17:34; Admin Dose 10,000 UNITS; Start 11/20/16 at 17:00 Hydroxyzine HCl 20 mg 20 mg Q4H PRN PO ITCHING Last administered on 11/23/16 14:00; Admin Dose 20 MG; Start 11/20/16 at 22:00 Levofloxacin/ Dextrose (Levaquin 250 Mg/ D5W 50 ml (Pmx)) 50 ml @ 50 mls/hr Q48H IVPB Last administered on 11/23/16 01:47; Admin Dose 50 MLS/HR; Start at 23:00; Stop 11/30/16 at 22:59 Permethrin 1 applic 1 applic Sa@04 TOP Last administered on 11/21/16 05:05; Admin Dose 1 APPLIC; Start 11/21/16 at 04:00; Stop 11/28/16 at 12:00 Doxycycline Hyclate/Sodium Chloride (Vibramycin/NS) 250 ml @ 250 mls/hr Q12 IVPB Last administered on 11/22/16 21:56; Admin Dose 250 MLS/HR; Start at 21:00 Insulin Glargine (Lantus) 20 unit DAILY@08 SC ; Start 11/24/16 at 08:00; Status Hieu Ty DO Nov 23, 2016 16:10
--- NOTE | 2016-11-23 16:15 | PN ---
Date/Time of Note Date/Time of Note DATE: 11/23/16 TIME: 16:10 Assessment/Plan VTE Prophylaxis VTE Prophylaxis Intervention: other (held coum for pt inr too high) Lines/Catheters IV Catheter Type (from Nrsg): [place]ine Lock Central line still needed: No Urinary Cath still in place: Yes Reason Cath still needed: terminal illness/intractable pain Assessment/Plan Assessment/Plan 1. pneumonia/ dyspnea 2. a fib/ chf/ htn/ pad/ needs anticoagulation 3. mono/ anemia 4. dm 5. depression/ dementia 6. debility w/ musc weak ---per ID, cont atbxs ---per pulm ---per cards ---per renal ---inc lantus to 20u ---hold coum ---vit k 10mg po today Subjective 24 Hr Interval Summary Free Text/Dictation less sob tired no pain Exam/Review of Systems Vital Signs Vitals Vital Signs Date Time Temp Pulse Resp B/P Pulse Ox O2 Delivery O2 Flow Rate FiO2 11/23/16 15:17 98.0 83 20 141/67 98 11/23/16 08:20 Nasal Cannula 3.0 11/20/16 23:58 21 Intake and Output 11/22/16 11/22/16 11/23/16 14:59 22:59 06:59 Intake Total 400 ml 150 ml Output Total 400 ml 500 ml Balance 0 ml -350 ml Exam awake less congested, less access musc used to breathe, coarse wheez bronch+ irreg irreg+ no edema Results Result Diagram: 11/23/16 0555 11/23/16 0555 Results 24 hrs Laboratory Tests Test 11/22/16 17:26 11/22/16 21:54 11/23/16 05:29 11/23/16 05:55 Bedside Glucose 271 H 188 257 H White Blood Count 8.9 Red Blood Count 2.92 L Hemoglobin 9.6 L Hematocrit 30.1 L Mean Corpuscular Volume 103.1 H Mean Corpuscular Hemoglobin 32.9 Mean Corpuscular Hemoglobin Concent 31.9 L Red Cell Distribution Width 13.4 Platelet Count 213 Mean Platelet Volume 9.8 Neutrophils % 88.0 H Lymphocytes % 10.0 L Monocytes % 2.0 Neutrophils # 7.8 H Lymphocytes # 0.9 Monocytes # 0.2 L Prothrombin Time 46.8 #H Prothrombin Time Ratio 3.7 INR International Normalized Ratio 4.93 Sodium Level 144 Potassium Level 4.3 Chloride Level 107 Carbon Dioxide Level 22 Anion Gap 19 H Blood Urea Nitrogen 54 H Creatinine 2.27 H Glucose Level 250 H Calcium Level 9.1 Magnesium Level 2.3 Total Bilirubin 0.0 L Direct Bilirubin 0.00 Indirect Bilirubin 0.0 Aspartate Amino Transf (AST/SGOT) 22 Alanine Aminotransferase (ALT/SGPT) 28 Alkaline Phosphatase 90 Total Protein 7.9 Albumin 3.5 Globulin 4.40 H Albumin/Globulin Ratio 0.79 Test 11/23/16 08:19 11/23/16 09:59 Bedside Glucose 260 H 271 H Medications Medications Current Medications Acetaminophen (Tylenol Tab) 650 mg Q4 PRN PO PAIN AND OR ELEVATED TEMP Last administered on 11/20/16 08:44; Admin Dose 650 MG; Start 11/14/16 at 13:30 Amlodipine Besylate (Norvasc) 5 mg DAILY PO Last administered on 11/23/16 10: 10; Admin Dose 5 MG; Start 11/14/16 at 14:30 Bisacodyl (Dulcolax Supp) 10 mg Q24H PRN [place] CONSTIPATION; Start 11/14/16 at 13: 30 Docusate Sodium (Colace) 200 mg Q24H PRN PO CONSTIPATION Last administered on 09:06; Admin Dose 200 MG; Start 11/14/16 at 13:30 Escitalopram Oxalate (Lexapro) 5 mg DAILY PO Last administered on 11/23/16 10: 10; Admin Dose 5 MG; Start 11/14/16 at 14:30 Gabapentin (Neurontin) 300 mg TID PO Last administered on 11/23/16 13:18; Admin Dose 300 MG; Start 11/14/16 at 14:30 Acetaminophen/ Hydrocodone Bitart ([place] (10/325)) 1 tab Q6H PRN PO PAIN Last administered on 11/22/16 12:07; Admin Dose 1 TAB; Start 11/14/16 at 13:30 Multivitamins Therapeutic (Theragran) 1 tab DAILY PO Last administered on 10:09; Admin Dose 1 TAB; Start 11/15/16 at 09:00 Zinc Sulfate (Zinc Sulfate) 220 mg DAILY GTB Last administered on 11/23/16 10: 09; Admin Dose 220 MG; Start 11/15/16 at 09:00 Miscellaneous Information 1 ea NOTE XX ; Start 11/14/16 at 14:00 Dextrose (D50w Syringe) 25 ml Q15M PRN IV DECREASED GLUCOSE Last administered on 11/18/16 09:18; Admin Dose 25 ML; Start 11/14/16 at 14:00 Glucagon (Glucagen) 1 mg Q15M PRN IM DECREASED GLUCOSE; Start 11/14/16 at 14:00 Glucose (Glutose) 15 gm Q15M PRN BUCCAL DECREASED GLUCOSE Last administered on 11/17/16 07:55; Admin Dose 15 GM; Start 11/14/16 at 14:00 Diagnostic Test (Pha) (Accu-Chek) 1 ea 02 XX Last administered on 11/23/16 02: 00; Admin Dose 1 EA; Start 11/15/16 at 02:00 Miscellaneous Information (Pending [facility] Order For Wound Care) This patient woodard... PRN PRN XX WOUND CARE; Start 11/14/16 at 16:30 Guaifenesin/ Codeine Phosphate (Robitussin Ac Liquid Cup) 5 ml Q6 PRN PO COUGH Last administered on 11/23/16 01:48; Admin Dose 5 ML; Start 11/15/16 at 00:00 Diltiazem HCl (Cardizem Cd) 120 mg DAILY PO Last administered on 11/23/16 10: 10; Admin Dose 120 MG; Start 11/16/16 at 09:00 Ferrous Sulfate (Ferrous Sulfate (Ec)) 325 mg TID PO Last administered on 13:17; Admin Dose 325 MG; Start 11/17/16 at 21:00 Mupirocin (Bactroban) 1 applic BID TOP Last administered on 11/23/16 10:11; Admin Dose 1 APPLIC; Start 11/17/16 at 21:00 Epoetin Jean (Epogen (Esrd)) 10,000 units MoWeFr@17 SC Last administered on 17:34; Admin Dose 10,000 UNITS; Start 11/20/16 at 17:00 Hydroxyzine HCl 20 mg 20 mg Q4H PRN PO ITCHING Last administered on 11/23/16 14:00; Admin Dose 20 MG; Start 4/21/17 at 22:00 Levofloxacin/ Dextrose (Levaquin 250 Mg/ D5W 50 ml (Pmx)) 50 ml @ 50 mls/hr Q48H IVPB Last administered on 11/23/16 01:47; Admin Dose 50 MLS/HR; Start at 23:00; Stop 11/30/16 at 22:59 Permethrin 1 applic 1 applic Sa@04 TOP Last administered on 11/21/16 05:05; Admin Dose 1 APPLIC; Start 11/21/16 at 04:00; Stop 11/28/16 at 12:00 Doxycycline Hyclate/Sodium Chloride (Vibramycin/NS) 250 ml @ 250 mls/hr Q12 IVPB Last administered on 11/22/16 21:56; Admin Dose 250 MLS/HR; Start at 21:00 Insulin Glargine (Lantus) 20 unit DAILY@08 SC ; Start 11/24/16 at 08:00; Status UNAJAY MONTGOMERY MD Nov 23, 2016 16:15
--- NOTE | 2016-11-23 16:59 | CONS ---
Date/Time of Note Date/Time of Note DATE: 11/23/16 TIME: 16:48 Assessment/Plan Assessment/Plan Chief Complaint/Hosp Course ID PROGRESS NOTE TOTAL ABX DAY # 10 => Levaquin + Doxycycline s/p Elimite, s/p Ivermectin s/p Ceftriaxone 24H INTERVAL SUMMARY * Awake, alert, communicative -- much improvement, she is responsive, remains on O2 via NC * No fevers, WBC normal * s/p Rx for scabies with superimposed MRSA cellulitis with crusted scabies on RLEXt -- family says rash present long time at [facility] * Respiratory cx (+)Yeast * 11/23/16 CXR IMPRESSION: * Mildly increased layering right pleural effusion. * Stable retrocardiac opacity due to atelectasis, infiltrate, and / or effusion. * Stable low lung volumes and at least moderate cardiomegaly with prominence of interstitial markings, likely due to a combination of congestive changes and vascular crowding. * Aortic atherosclerosis. * 11/23/16 0555 11/23/16 0555 PHYSICAL EXAMINATION: GENERAL: VSS, NAD, awake, alert, responsive HEENT: Unremarkable NECK: Supple, trach-> midline CHEST: Crackles HEART: Pulse RRR ABDOMEN: Soft, benign EXTREMITIES: Warm, crusted scabies thickened skin plaque RLEXT SKIN: Warm, (+)Diffuse pruritic rash w/bumpy scab lesions over entire body, some areas excoriated ID ASSESSMENT: 89 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 Acute respiratory failure, improved. 2. 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 Congestive heart failure exacerbation. 4. Gram-negative rods urinary tract infection. * URINE CULTURE Final Organism 1 ENTEROBACTER CLOACAE COLONY COUNT 20,000 - 30,000 CFU/ml Organism 2 ESCHERICHIA COLI COLONY COUNT 10,000 - 20,000 CFU/ml 5. Hypertension. 6. Acute renal failure 7. Diabetes. 8. Paroxysmal atrial fibrillation=Warfarin on hold 9. ARF 10. PRURITIC skin rash w/superimposed cellulitis, multiple skin excoriation scratches = Presumptive SCABIES * Crusted scabies lesions on RLEXT 11. 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 12. Hx of Right iliac and femoral thrombophlebitis. (+)MRSA NARES -> Bactroban INVASIVES: * PIV ABX ALLERGIES: KNDA CURRENT ABX: DAY # 10 => # => Levaquin + Doxycycline s/p Elimite, s/p Ivermectin s/p Ceftriaxone ID RECOMMENDATIONS: 1. Much improved -- much more awake, alert 2. Continue Doxycycline IV for scabies cellulitis = ABX of choice * s/p Elimite 11/20 s/p Ivermectin 11/21 -> Repeat in 7-days 3. ASPIRATION precautions -- DC Levaquin if no evidence ongoing aspiration 4. Oral care with Nystatin swish suction 5. Anticipate DC back to SNF on current ABX . Problems: Consultation Date/Type/Reason Admit Date/Time Nov 14, 2016 at 08:00 Type of Consultation: cv Exam/Review of Systems Vital Signs Vitals Vital Signs Date Time Temp Pulse Resp B/P Pulse Ox O2 Delivery O2 Flow Rate FiO2 11/23/16 16:32 84 16 98 Nasal Cannula 2.0 11/23/16 15:17 98.0 141/67 11/20/16 23:58 21 Intake and Output 11/22/16 11/22/16 11/23/16 15:00 23:00 07:00 Intake Total 400 ml 150 ml Output Total 400 ml 500 ml Balance 0 ml -350 ml Results Result Diagram: 11/23/16 0555 11/23/16 0555 Results 24 hrs Laboratory Tests Test 11/22/16 17:26 11/22/16 21:54 11/23/16 05:29 11/23/16 05:55 Bedside Glucose 271 H 188 257 H White Blood Count 8.9 Red Blood Count 2.92 L Hemoglobin 9.6 L Hematocrit 30.1 L Mean Corpuscular Volume 103.1 H Mean Corpuscular Hemoglobin 32.9 Mean Corpuscular Hemoglobin Concent 31.9 L Red Cell Distribution Width 13.4 Platelet Count 213 Mean Platelet Volume 9.8 Neutrophils % 88.0 H Lymphocytes % 10.0 L Monocytes % 2.0 Neutrophils # 7.8 H Lymphocytes # 0.9 Monocytes # 0.2 L Prothrombin Time 46.8 #H Prothrombin Time Ratio 3.7 INR International Normalized Ratio 4.93 Sodium Level 144 Potassium Level 4.3 Chloride Level 107 Carbon Dioxide Level 22 Anion Gap 19 H Blood Urea Nitrogen 54 H Creatinine 2.27 H Glucose Level 250 H Calcium Level 9.1 Magnesium Level 2.3 Total Bilirubin 0.0 L Direct Bilirubin 0.00 Indirect Bilirubin 0.0 Aspartate Amino Transf (AST/SGOT) 22 Alanine Aminotransferase (ALT/SGPT) 28 Alkaline Phosphatase 90 Total Protein 7.9 Albumin 3.5 Globulin 4.40 H Albumin/Globulin Ratio 0.79 Test 11/23/16 08:19 11/23/16 09:59 Bedside Glucose 260 H 271 H Medications Medications Current Medications Acetaminophen (Tylenol Tab) 650 mg Q4 PRN PO PAIN AND OR ELEVATED TEMP Last administered on 11/20/16 08:44; Admin Dose 650 MG; Start 11/14/16 at 13:30 Amlodipine Besylate (Norvasc) 5 mg DAILY PO Last administered on 11/23/16 10: 10; Admin Dose 5 MG; Start 11/14/16 at 14:30 Bisacodyl (Dulcolax Supp) 10 mg Q24H PRN [place] CONSTIPATION; Start 11/14/16 at 13: 30 Docusate Sodium (Colace) 200 mg Q24H PRN PO CONSTIPATION Last administered on 09:06; Admin Dose 200 MG; Start 11/14/16 at 13:30 Escitalopram Oxalate (Lexapro) 5 mg DAILY PO Last administered on 11/23/16 10: 10; Admin Dose 5 MG; Start 11/14/16 at 14:30 Gabapentin (Neurontin) 300 mg TID PO Last administered on 11/23/16 13:18; Admin Dose 300 MG; Start 11/14/16 at 14:30 Acetaminophen/ Hydrocodone Bitart ([place] (10/325)) 1 tab Q6H PRN PO PAIN Last administered on 11/22/16 12:07; Admin Dose 1 TAB; Start 11/14/16 at 13:30 Multivitamins Therapeutic (Theragran) 1 tab DAILY PO Last administered on 10:09; Admin Dose 1 TAB; Start 11/15/16 at 09:00 Zinc Sulfate (Zinc Sulfate) 220 mg DAILY GTB Last administered on 11/23/16 10: 09; Admin Dose 220 MG; Start 11/15/16 at 09:00 Miscellaneous Information 1 ea NOTE XX ; Start 11/14/16 at 14:00 Dextrose (D50w Syringe) 25 ml Q15M PRN IV DECREASED GLUCOSE Last administered on 11/18/16 09:18; Admin Dose 25 ML; Start 11/14/16 at 14:00 Glucagon (Glucagen) 1 mg Q15M PRN IM DECREASED GLUCOSE; Start 11/14/16 at 14:00 Glucose (Glutose) 15 gm Q15M PRN BUCCAL DECREASED GLUCOSE Last administered on 11/17/16 07:55; Admin Dose 15 GM; Start 11/14/16 at 14:00 Diagnostic Test (Pha) (Accu-Chek) 1 ea 02 XX Last administered on 11/23/16 02: 00; Admin Dose 1 EA; Start 11/15/16 at 02:00 Miscellaneous Information (Pending Santyl Order For Wound Care) This patient woodard... PRN PRN XX WOUND CARE; Start 11/14/16 at 16:30 Guaifenesin/ Codeine Phosphate (Robitussin Ac Liquid Cup) 5 ml Q6 PRN PO COUGH Last administered on 11/23/16 01:48; Admin Dose 5 ML; Start 11/15/16 at 00:00 Diltiazem HCl (Cardizem Cd) 120 mg DAILY PO Last administered on 11/23/16 10: 10; Admin Dose 120 MG; Start 11/16/16 at 09:00 Ferrous Sulfate (Ferrous Sulfate (Ec)) 325 mg TID PO Last administered on 13:17; Admin Dose 325 MG; Start 11/17/16 at 21:00 Mupirocin (Bactroban) 1 applic BID TOP Last administered on 11/23/16 10:11; Admin Dose 1 APPLIC; Start 11/17/16 at 21:00 Epoetin Jean 43577 units 10,000 units MoWeFr@17 SC Last administered on 17:34; Admin Dose 10,000 UNITS; Start 11/20/16 at 17:00 Levofloxacin/ Dextrose (Levaquin 250 Mg/ D5W 50 ml (Pmx)) 50 ml @ 50 mls/hr Q48H IVPB Last administered on 11/23/16 01:47; Admin Dose 50 MLS/HR; Start at 23:00; Stop 11/30/16 at 22:59 Permethrin 1 applic 1 applic Sa@04 TOP Last administered on 11/21/16 05:05; Admin Dose 1 APPLIC; Start 11/21/16 at 04:00; Stop 11/28/16 at 12:00 Doxycycline Hyclate/Sodium Chloride (Vibramycin/NS) 250 ml @ 250 mls/hr Q12 IVPB Last administered on 11/22/16t 21:56; Admin Dose 250 MLS/HR; Start at 21:00 Insulin Glargine (Lantus) 20 unit DAILY@08 SC ; Start 11/24/16 at 08:00 Phytonadione (Vitamin K Soln) 10 mg ONCE ONCE PO ; Start 11/23/16 at 17:00; Stop 11/23/16 at 17:01 SAMANTHA CARPENTER NP Nov 23, 2016 16:59
[2016-11-23] MEDS ORDERED: PHYTONADIONE (1 MG/ML PO SYG) PO ONE (17:00)
[2016-11-23] MEDS: EPOETIN 10000 UNITS/1 ML INJ (ESRD) SC SCH (17:31)
[2016-11-24] VITALS (12 sets, daily range): BP systolic 106–145; BP diastolic 58–65; PULSE 60–72; RESP 18–20
[2016-11-24] MEDS: ACCU-CHEK XX SCH (02:00)
[2016-11-24] MEDS: FUROSEMIDE 20 MG TAB PO SCH ×2 (06:12→17:28)
[2016-11-24 08:18] LABS: ADD SCAN DIFF NO
[2016-11-24] MEDS: INSULIN ASPART [NOVOLOG] 3 ML PEN SC SCH ×4 (08:18→21:51)
[2016-11-24 08:32] LABS: BASOPHIL # 0.1 10^3/ul (0.0-0.1); BASOPHILS % 0.7 % (0.0-2.0); EOSINOPHILS # 0.7 10^3/ul (0.0-0.5); EOSINOPHILS % 9.3 % (0.0-7.0); HEMATOCRIT 28.4 % (37.0-47.0); LYMPHOCYTES # 1.1 10^3/ul (0.8-2.9); LYMPHOCYTES % 15.5 % (15.0-51.0); MEAN CORPUSCULAR HGB CONC 31.7 g/dl (32.0-37.0); MEAN PLATELET VOLUME 9.7 fl (7.4-10.4); MONOCYTE # 0.7 10^3/ul (0.3-0.9); MONOCYTES % 10.4 % (0.0-11.0); NEUTROPHIL # 4.5 10^3/ul (1.6-7.5); NEUTROPHILS % 63.7 % (39.0-77.0); NUCLEATED RED BLOOD CELLS% 0.3 /100WBC (0.0-0.0); PLATELET COUNT 218 10^3/UL (140-415); RED BLOOD COUNT 2.73 10^6/ul (4.20-5.40); RED CELL DISTRIBUTION WIDTH 13.8 % (11.5-14.5); WHITE BLOOD COUNT 7.1 10^3/ul (4.8-10.8)
[2016-11-24 08:40] LABS: INR 1.88; PROTIME 21.8 Sec (12.2-14.2); PT RATIO 1.7
[2016-11-24 08:45] LABS: POTASSIUM 3.5 mmol/L (3.5-5.1)
[2016-11-24 08:48] LABS: CREATININE 1.93 mg/dl (0.44-1.00)
[2016-11-24 08:49] LABS: CALCIUM 8.9 mg/dl (8.4-10.2); MAGNESIUM 2.1 mg/dl (1.7-2.5)
[2016-11-24] MEDS: LEVALBUTEROL (NEB) 0.63 MG/3 ML AMP HHN SCH ×2 (08:58→16:53)
[2016-11-24] MEDS: MULTIVITAMINS THERAPEUTIC TAB PO SCH (09:08)
[2016-11-24] MEDS: FERROUS SULFATE (EC) 325 MG TAB PO SCH ×3 (09:08→21:01)
[2016-11-24] MEDS: ZINC SULFATE 220 MG CAP GTB SCH (09:08)
[2016-11-24] MEDS: GABAPENTIN 300 MG CAP PO SCH ×3 (09:09→21:01)
[2016-11-24] MEDS: ESCITALOPRAM 10 MG TAB PO SCH (09:09)
[2016-11-24] MEDS: DILTIAZEM (CD) 120 MG CAP PO SCH (09:10)
[2016-11-24] MEDS: AMLODIPINE 5 MG TAB PO SCH (09:10)
[2016-11-24] MEDS: MUPIROCIN 2% 22 GM OINT TOP SCH ×2 (09:10→21:37)
[2016-11-24] MEDS: INSULIN GLARGINE [LANtus] 3 ML PEN SC SCH (09:31)
[2016-11-24] MEDS: DOXYCYCLINE 100 MG in SOD CHLORIDE 0.9% 250 ML IVPB SCH ×3 (10:33→21:36)
--- NOTE | 2016-11-24 13:44 | CONS ---
Date/Time of Note Date/Time of Note DATE: 11/24/16 TIME: 13:36 Assessment/Plan Assessment/Plan Chief Complaint/Hosp Course 1. Acute renal failure superimposed on chronic kidney disease. Her renal function is improved today. 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 2. Her expiratory function seems better today. Her chest x-ray does show a large right pleural effusion but less infiltrate on the right. 3. She does have dementia. 4. She is having a good urine output with the Lasix that she is getting. Her I & O 's are even . continue same medications . 5. ALOC , she continues to be lethargic and nonverbal . Problems: Consultation Date/Type/Reason Admit Date/Time Nov 14, 2016 at 08:00 Type of Consultation: cv 24 HR Interval Summary Free Text/Dictation Patient is lethargic , she does open eyes to verbal stimuli . Subjective hx not possible: pt non-verbal Exam/Review of Systems Vital Signs Vitals Vital Signs Date Time Temp Pulse Resp B/P Pulse Ox O2 Delivery O2 Flow Rate FiO2 11/24/16 12:45 61 11/24/16 11:45 97.4 20 144/65 97 11/24/16 08:58 Nasal Cannula 2.0 11/20/16 23:58 21 Intake and Output 11/23/16 11/23/16 11/24/16 15:00 23:00 07:00 Intake Total 960 ml 100 ml Output Total 500 ml 650 ml Balance 460 ml -550 ml Exam she has some flank edema . Constitutional: frail, non-verbal Respiratory: clear to auscultation Cardiovascular: irregular rhythm Gastrointestinal: soft Extremities: other Results Result Diagram: 11/24/16 0728 11/24/16 0728 Results 24 hrs Laboratory Tests Test 11/23/16 16:55 11/23/16 21:23 11/24/16 01:40 11/24/16 07:28 Bedside Glucose 263 H 260 H 246 H White Blood Count 7.1 # Red Blood Count 2.73 L Hemoglobin 9.0 L Hematocrit 28.4 L Mean Corpuscular Volume 104.0 H Mean Corpuscular Hemoglobin 33.0 Mean Corpuscular Hemoglobin Concent 31.7 L Red Cell Distribution Width 13.8 Platelet Count 218 Mean Platelet Volume 9.7 Neutrophils % 63.7 Lymphocytes % 15.5 Monocytes % 10.4 Eosinophils % 9.3 H Basophils % 0.7 Nucleated Red Blood Cells % 0.3 H Neutrophils # 4.5 Lymphocytes # 1.1 Monocytes # 0.7 Eosinophils # 0.7 H Basophils # 0.1 Nucleated Red Blood Cells # 0.0 Prothrombin Time 21.8 #H Prothrombin Time Ratio 1.7 INR International Normalized Ratio 1.88 Sodium Level 145 H Potassium Level 3.5 Chloride Level 109 Carbon Dioxide Level 23 Anion Gap 17 H Blood Urea Nitrogen 51 H Creatinine 1.93 H Glucose Level 169 Calcium Level 8.9 Magnesium Level 2.1 Test 11/24/16 08:06 11/24/16 09:12 11/24/16 11:54 Bedside Glucose 196 219 211 Medications Medications Current Medications Acetaminophen (Tylenol Tab) 650 mg Q4 PRN PO PAIN AND OR ELEVATED TEMP Last administered on 11/20/16 08:44; Admin Dose 650 MG; Start 11/14/16 at 13:30 Amlodipine Besylate (Norvasc) 5 mg DAILY PO Last administered on 11/24/16 09: 10; Admin Dose 5 MG; Start 11/14/16 at 14:30 Bisacodyl (Dulcolax Supp) 10 mg Q24H PRN [place] CONSTIPATION; Start 11/14/16 at 13: 30 Docusate Sodium (Colace) 200 mg Q24H PRN PO CONSTIPATION Last administered on 09:06; Admin Dose 200 MG; Start 11/14/16 at 13:30 Escitalopram Oxalate (Lexapro) 5 mg DAILY PO Last administered on 11/24/16 09: 09; Admin Dose 5 MG; Start 11/14/16 at 14:30 Gabapentin (Neurontin) 300 mg TID PO Last administered on 11/24/16 12:51; Admin Dose 300 MG; Start 11/14/16 at 14:30 Acetaminophen/ Hydrocodone Bitart ([place] (10/325)) 1 tab Q6H PRN PO PAIN Last administered on 11/22/16 12:07; Admin Dose 1 TAB; Start 11/14/16 at 13:30 Multivitamins Therapeutic (Theragran) 1 tab DAILY PO Last administered on 09:08; Admin Dose 1 TAB; Start 11/15/16 at 09:00 Zinc Sulfate (Zinc Sulfate) 220 mg DAILY GTB Last administered on 11/24/16 09: 08; Admin Dose 220 MG; Start 11/15/16 at 09:00 Miscellaneous Information 1 ea NOTE XX ; Start 11/14/16 at 14:00 Dextrose (D50w Syringe) 25 ml Q15M PRN IV DECREASED GLUCOSE Last administered on 11/18/16 09:18; Admin Dose 25 ML; Start 11/14/16 at 14:00 Glucagon (Glucagen) 1 mg Q15M PRN IM DECREASED GLUCOSE; Start 11/14/16 at 14:00 Glucose (Glutose) 15 gm Q15M PRN BUCCAL DECREASED GLUCOSE Last administered on 11/17/16 07:55; Admin Dose 15 GM; Start 11/14/16 at 14:00 Diagnostic Test (Pha) (Accu-Chek) 1 ea 02 XX Last administered on 11/23/16 02: 00; Admin Dose 1 EA; Start 11/15/16 at 02:00 [facility]iscellaneous [facility] This patient woodard... PRN PRN XX WOUND CARE; Start 11/14/16 at 16:30 Guaifenesin/ Codeine Phosphate (Robitussin Ac Liquid Cup) 5 ml Q6 PRN PO COUGH Last administered on 11/23/16 01:48; Admin Dose 5 ML; Start 11/15/16 at 00:00 Diltiazem HCl (Cardizem Cd) 120 mg DAILY PO Last administered on 11/24/16 09: 10; Admin Dose 120 MG; Start 11/16/16 at 09:00 Ferrous Sulfate (Ferrous Sulfate (Ec)) 325 mg TID PO Last administered on 12:51; Admin Dose 325 MG; Start 11/17/16 at 21:00 Mupirocin (Bactroban) 1 applic BID TOP Last administered on 11/24/16 09:10; Admin Dose 1 APPLIC; Start 11/17/16 at 21:00 Epoetin Jean 82478 units 10,000 units MoWeFr@17 SC Last administered on 17:31; Admin Dose 10,000 UNITS; Start 11/20/16 at 17:00 Levofloxacin/ Dextrose (Levaquin 250 Mg/ D5W 50 ml (Pmx)) 50 ml @ 50 mls/hr Q48H IVPB Last administered on 11/23/16 01:47; Admin Dose 50 MLS/HR; Start at 23:00; Stop 11/30/16 at 22:59 Permethrin 1 applic 1 applic Sa@04 TOP Last administered on 11/21/16 05:05; Admin Dose 1 APPLIC; Start 11/21/16 at 04:00; Stop 11/28/16 at 12:00 Doxycycline Hyclate/Sodium Chloride (Vibramycin/NS) 250 ml @ 250 mls/hr Q12 IVPB Last administered on 11/24/16 10:33; Admin Dose 250 MLS/HR; Start at 21:00 Insulin Glargine (Lantus) 20 unit DAILY@08 SC Last administered on 11/24/16 09 :31; Admin Dose 20 UNIT; Start 11/24/16 at 08:00 JESSIE AMATO MD Nov 24, 2016 13:44
--- NOTE | 2016-11-24 14:13 | CONS ---
Date/Time of Note Date/Time of Note DATE: 11/24/16 TIME: 14:12 Assessment/Plan Assessment/Plan Additional Assessment/Plan Pneumonia Acute decompensated diastolic congestive heart failure, improved Paroxysmal atrial fibrillation Peripheral arterial disease Acute kidney injury -Heart rate trend remained stable. Renal function improved, being followed by our nephrology colleagues, diuretics as per nephrology. No new CV orders at the current time Consultation Date/Type/Reason Admit Date/Time Nov 14, 2016 at 08:00 Type of Consultation: cv 24 HR Interval Summary Free Text/Dictation Patient seen and examined Exam/Review of Systems Vital Signs Vitals Vital Signs Date Time Temp Pulse Resp B/P Pulse Ox O2 Delivery O2 Flow Rate FiO2 11/24/16 12:45 61 11/24/16 11:45 97.4 20 144/65 97 11/24/16 08:58 Nasal Cannula 2.0 11/20/16 23:58 21 Intake and Output 11/23/16 11/23/16 11/24/16 15:00 23:00 07:00 Intake Total 960 ml 100 ml Output Total 500 ml 650 ml Balance 460 ml -550 ml Exam Sleeping but arousable, no apparent distress Head: normocephalic Respiratory: other (Coarse breath sounds bilaterally, no wheezing) Cardiovascular: irregular rhythm, other (S1-S2 heard) Gastrointestinal: bowel sounds, non-tender, soft Extremities: edema Results Result Diagram: 11/24/1628 11/24/16 0728 Results 24 hrs Laboratory Tests Test 11/23/16 16:55 11/23/16 21:23 11/24/16 01:40 11/24/16 07:28 Bedside Glucose 263 H 260 H 246 H White Blood Count 7.1 # Red Blood Count 2.73 L Hemoglobin 9.0 L Hematocrit 28.4 L Mean Corpuscular Volume 104.0 H Mean Corpuscular Hemoglobin 33.0 Mean Corpuscular Hemoglobin Concent 31.7 L Red Cell Distribution Width 13.8 Platelet Count 218 Mean Platelet Volume 9.7 Neutrophils % 63.7 Lymphocytes % 15.5 Monocytes % 10.4 Eosinophils % 9.3 H Basophils % 0.7 Nucleated Red Blood Cells % 0.3 H Neutrophils # 4.5 Lymphocytes # 1.1 Monocytes # 0.7 Eosinophils # 0.7 H Basophils # 0.1 Nucleated Red Blood Cells # 0.0 Prothrombin Time 21.8 #H Prothrombin Time Ratio 1.7 INR International Normalized Ratio 1.88 Sodium Level 145 H Potassium Level 3.5 Chloride Level 109 Carbon Dioxide Level 23 Anion Gap 17 H Blood Urea Nitrogen 51 H Creatinine 1.93 H Glucose Level 169 Calcium Level 8.9 Magnesium Level 2.1 Test 11/24/16 08:06 11/24/16 09:12 11/24/16 11:54 Bedside Glucose 196 219 211 Medications Medications Current Medications Acetaminophen (Tylenol Tab) 650 mg Q4 PRN PO PAIN AND OR ELEVATED TEMP Last administered on 11/20/16 08:44; Admin Dose 650 MG; Start 11/14/16 at 13:30 Amlodipine Besylate (Norvasc) 5 mg DAILY PO Last administered on 11/24/16 09: 10; Admin Dose 5 MG; Start 11/14/16 at 14:30 Bisacodyl (Dulcolax Supp) 10 mg Q24H PRN [place] CONSTIPATION; Start 11/14/16 at 13: 30 Docusate Sodium (Colace) 200 mg Q24H PRN PO CONSTIPATION Last administered on 09:06; Admin Dose 200 MG; Start 11/14/16 at 13:30 Escitalopram Oxalate (Lexapro) 5 mg DAILY PO Last administered on 11/24/16 09: 09; Admin Dose 5 MG; Start 11/14/16 at 14:30 Gabapentin (Neurontin) 300 mg TID PO Last administered on 11/24/16 12:51; Admin Dose 300 MG; Start 11/14/16 at 14:30 Acetaminophen/ Hydrocodone Bitart ([place] (10/325)) 1 tab Q6H PRN PO PAIN Last administered on 11/22/16 12:07; Admin Dose 1 TAB; Start 11/14/16 at 13:30 Multivitamins Therapeutic (Theragran) 1 tab DAILY PO Last administered on 09:08; Admin Dose 1 TAB; Start 11/15/16 at 09:00 Zinc Sulfate (Zinc Sulfate) 220 mg DAILY GTB Last administered on 11/24/16 09: 08; Admin Dose 220 MG; Start 11/15/16 at 09:00 Miscellaneous Information 1 ea NOTE XX ; Start 11/14/16 at 14:00 Dextrose (D50w Syringe) 25 ml Q15M PRN IV DECREASED GLUCOSE Last administered on 11/18/16 09:18; Admin Dose 25 ML; Start 11/14/16 at 14:00 Glucagon (Glucagen) 1 mg Q15M PRN IM DECREASED GLUCOSE; Start 11/14/16 at 14:00 Glucose (Glutose) 15 gm Q15M PRN BUCCAL DECREASED GLUCOSE Last administered on 11/17/16 07:55; Admin Dose 15 GM; Start 11/14/16 at 14:00 Diagnostic Test (Pha) (Accu-Chek) 1 ea 02 XX Last administered on 11/23/16 02: 00; Admin Dose 1 EA; Start 11/15/16 at 02:00 [facility] This patient woodard... PRN PRN XX WOUND CARE; Start 11/14/16 at 16:30 Guaifenesin/ Codeine Phosphate (Robitussin Ac Liquid Cup) 5 ml Q6 PRN PO COUGH Last administered on 11/23/16 01:48; Admin Dose 5 ML; Start 11/15/16 at 00:00 Diltiazem HCl (Cardizem Cd) 120 mg DAILY PO Last administered on 11/24/16 09: 10; Admin Dose 120 MG; Start 11/16/16 at 09:00 Ferrous Sulfate (Ferrous Sulfate (Ec)) 325 mg TID PO Last administered on 12:51; Admin Dose 325 MG; Start 11/17/16 at 21:00 Mupirocin (Bactroban) 1 applic BID TOP Last administered on 11/24/16 09:10; Admin Dose 1 APPLIC; Start 11/17/16 at 21:00 Epoetin Jean [id number] units 10,000 units MoWeFr@17 SC Last administered on 17:31; Admin Dose 10,000 UNITS; Start 11/20/16 at 17:00 Levofloxacin/ Dextrose (Levaquin 250 Mg/ D5W 50 ml (Pmx)) 50 ml @ 50 mls/hr Q48H IVPB Last administered on 11/23/16 01:47; Admin Dose 50 MLS/HR; Start at 23:00; Stop 11/30/16 at 22:59 Permethrin 1 applic 1 applic Sa@04 TOP Last administered on 11/21/16 05:05; Admin Dose 1 APPLIC; Start 11/21/16 at 04:00; Stop 11/28/16 at 12:00 Doxycycline Hyclate/Sodium Chloride (Vibramycin/NS) 250 ml @ 250 mls/hr Q12 IVPB Last administered on 11/24/16 10:33; Admin Dose 250 MLS/HR; Start at 21:00 Insulin Glargine (Lantus) 20 unit DAILY@08 SC Last administered on 11/24/16 09 :31; Admin Dose 20 UNIT; Start 11/24/16 at 08:00 Hieu Wlof DO Nov 24, 2016 14:13
[2016-11-24] MEDS ORDERED: FUROSEMIDE 20 MG INJ IV ONE (14:30)
[2016-11-24] MEDS ORDERED: POTASSIUM CHLORIDE (SR) 20 MEQ TAB PO STA (14:30)
--- NOTE | 2016-11-24 14:47 | PN ---
Date/Time of Note Date/Time of Note DATE: 11/24/16 TIME: 14:33 Assessment/Plan VTE Prophylaxis VTE Prophylaxis Intervention: other (coum) Lines/Catheters IV Catheter Type (from Nrsg): Saline Lock Central line still needed: No Urinary Cath still in place: Yes Reason Cath still needed: terminal illness/intractable pain Assessment/Plan Assessment/Plan 1. pneumonia/ copd---very slow recovery 2. chf/ a fib/ htn 3. mono/ anemia 4. dm 5. depression/ dementia---remain less awake/ active ---cont atbxs ---per cards ---per renal ---restart coum 2/5mg qd Subjective 24 Hr Interval Summary Free Text/Dictation tired no pain breathing easier Exam/Review of Systems Vital Signs Vitals Vital Signs Date Time Temp Pulse Resp B/P Pulse Ox O2 Delivery O2 Flow Rate FiO2 11/24/16 12:45 61 11/24/16 11:45 97.4 20 144/65 97 11/24/16 08:58 Nasal Cannula 2.0 11/20/16 23:58 21 Intake and Output 11/23/16 11/23/16 11/24/16 15:00 23:00 07:00 Intake Total 960 ml 100 ml Output Total 500 ml 650 ml Balance 460 ml -550 ml Exam appropriate responce to questions less activities irreg irreg cont dec bs more rt+ no edema Results Result Diagram: 11/24/1628 11/24/16727 Results 24 hrs Laboratory Tests Test 11/23/16 16:55 11/23/16 21:23 11/24/16 01:40 11/24/16 07:28 Bedside Glucose 263 H 260 H 246 H White Blood Count 7.1 # Red Blood Count 2.73 L Hemoglobin 9.0 L Hematocrit 28.4 L Mean Corpuscular Volume 104.0 H Mean Corpuscular Hemoglobin 33.0 Mean Corpuscular Hemoglobin Concent 31.7 L Red Cell Distribution Width 13.8 Platelet Count 218 Mean Platelet Volume 9.7 Neutrophils % 63.7 Lymphocytes % 15.5 Monocytes % 10.4 Eosinophils % 9.3 H Basophils % 0.7 Nucleated Red Blood Cells % 0.3 H Neutrophils # 4.5 Lymphocytes # 1.1 Monocytes # 0.7 Eosinophils # 0.7 H Basophils # 0.1 Nucleated Red Blood Cells # 0.0 Prothrombin Time 21.8 #H Prothrombin Time Ratio 1.7 INR International Normalized Ratio 1.88 Sodium Level 145 H Potassium Level 3.5 Chloride Level 109 Carbon Dioxide Level 23 Anion Gap 17 H Blood Urea Nitrogen 51 H Creatinine 1.93 H Glucose Level 169 Calcium Level 8.9 Magnesium Level 2.1 Test 11/24/16 08:06 11/24/16 09:12 11/24/16 11:54 Bedside Glucose 196 219 211 Medications Medications Current Medications Acetaminophen (Tylenol Tab) 650 mg Q4 PRN PO PAIN AND OR ELEVATED TEMP Last administered on 11/20/16 08:44; Admin Dose 650 MG; Start 11/14/16 at 13:30 Amlodipine Besylate (Norvasc) 5 mg DAILY PO Last administered on 11/24/16 09: 10; Admin Dose 5 MG; Start 11/14/16 at 14:30 Bisacodyl (Dulcolax Supp) 10 mg Q24H PRN [place] CONSTIPATION; Start 11/14/16 at 13: 30 Docusate Sodium (Colace) 200 mg Q24H PRN PO CONSTIPATION Last administered on 09:06; Admin Dose 200 MG; Start 11/14/16 at 13:30 Escitalopram Oxalate (Lexapro) 5 mg DAILY PO Last administered on 11/24/16 09: 09; Admin Dose 5 MG; Start 11/14/16 at 14:30 Gabapentin (Neurontin) 300 mg TID PO Last administered on 11/24/16 12:51; Admin Dose 300 MG; Start 11/14/16 at 14:30 Acetaminophen/ Hydrocodone Bitart ([place] (10/325)) 1 tab Q6H PRN PO PAIN Last administered on 11/22/16 12:07; Admin Dose 1 TAB; Start 11/14/16 at 13:30 Multivitamins Therapeutic (Theragran) 1 tab DAILY PO Last administered on 09:08; Admin Dose 1 TAB; Start 11/15/16 at 09:00 Zinc Sulfate (Zinc Sulfate) 220 mg DAILY GTB Last administered on 11/24/16 09: 08; Admin Dose 220 MG; Start 11/15/16 at 09:00 Miscellaneous Information 1 ea NOTE XX ; Start 11/14/16 at 14:00 Dextrose (D50w Syringe) 25 ml Q15M PRN IV DECREASED GLUCOSE Last administered on 11/18/16 09:18; Admin Dose 25 ML; Start 11/14/16 at 14:00 Glucagon (Glucagen) 1 mg Q15M PRN IM DECREASED GLUCOSE; Start 11/14/16 at 14:00 Glucose (Glutose) 15 gm Q15M PRN BUCCAL DECREASED GLUCOSE Last administered on 11/17/16 07:55; Admin Dose 15 GM; Start 11/14/16 at 14:00 Diagnostic Test (Pha) (Accu-Chek) 1 ea 02 XX Last administered on 11/23/16 02: 00; Admin Dose 1 EA; Start 11/15/16 at 02:00 [facility] This patient woodard... PRN PRN XX WOUND CARE; Start 11/14/16 at 16:30 Guaifenesin/ Codeine Phosphate (Robitussin Ac Liquid Cup) 5 ml Q6 PRN PO COUGH Last administered on 11/23/16 01:48; Admin Dose 5 ML; Start 11/15/16 at 00:00 Diltiazem HCl (Cardizem Cd) 120 mg DAILY PO Last administered on 11/24/16 09: 10; Admin Dose 120 MG; Start 11/16/16 at 09:00 Ferrous Sulfate (Ferrous Sulfate (Ec)) 325 mg TID PO Last administered on 12:51; Admin Dose 325 MG; Start 11/17/16 at 21:00 Mupirocin (Bactroban) 1 applic BID TOP Last administered on 11/24/16 09:10; Admin Dose 1 APPLIC; Start 11/17/16 at 21:00 Epoetin Jean 06026 units 10,000 units MoWeFr@17 SC Last administered on 17:31; Admin Dose 10,000 UNITS; Start 11/20/16 at 17:00 Levofloxacin/ Dextrose (Levaquin 250 Mg/ D5W 50 ml (Pmx)) 50 ml @ 50 mls/hr Q48H IVPB Last administered on 11/23/16 01:47; Admin Dose 50 MLS/HR; Start at 23:00; Stop 11/30/16 at 22:59 Permethrin 1 applic 1 applic Sa@04 TOP Last administered on 11/21/16 05:05; Admin Dose 1 APPLIC; Start 11/21/16 at 04:00; Stop 11/28/16 at 12:00 Doxycycline Hyclate/Sodium Chloride (Vibramycin/NS) 250 ml @ 250 mls/hr Q12 IVPB Last administered on 11/24/16 10:33; Admin Dose 250 MLS/HR; Start at 21:00 Insulin Glargine (Lantus) 20 unit DAILY@08 SC Last administered on 11/24/16 09 :31; Admin Dose 20 UNIT; Start 11/24/16 at 08:00 Warfarin Sodium (Coumadin) 2.5 mg DAILY@17 PO ; Start 11/24/16 at 17:00; Status UNV Furosemide (Lasix) 20 mg ONCE ONCE IV ; Start 11/24/16 at 14:30; Stop 11/24/16 at 14:31; Status UNV AJAY HAWKINS MD Nov 24, 2016 14:46
[2016-11-24] MEDS ORDERED: WARFARIN 2.5 MG TAB PO SCH (17:00)
--- NOTE | 2016-11-24 18:10 | CONS ---
Date/Time of Note Date/Time of Note DATE: 11/24/16 TIME: 18:05 Assessment/Plan Assessment/Plan Chief Complaint/Hosp Course ID PROGRESS NOTE TOTAL ABX DAY # 11 => Levaquin + Doxycycline #4 s/p Elimite, s/p Ivermectin s/p Ceftriaxone 24H INTERVAL SUMMARY * Resting comfortably == no cough, much less chest congestion * Yesterday was more awake, alert, communicative -- she was feeling better with improvement * No fevers, WBC normal, neuts normalized * Respiratory cx (+)Yeast * 11/23/16 CXR IMPRESSION: * Mildly increased layering right pleural effusion. * Stable retrocardiac opacity due to atelectasis, infiltrate, and / or effusion. * Stable low lung volumes and at least moderate cardiomegaly with prominence of interstitial markings, likely due to a combination of congestive changes and vascular crowding. * Aortic atherosclerosis. * 11/23/16 0555 11/23/16 0555 PHYSICAL EXAMINATION: GENERAL: VSS, NAD, awake, alert, responsive HEENT: Unremarkable NECK: Supple, trach-> midline CHEST: Crackles HEART: Pulse RRR ABDOMEN: Soft, benign EXTREMITIES: Warm, crusted scabies thickened skin plaque RLEXT SKIN: Warm, (+)Diffuse pruritic rash w/bumpy scab lesions over entire body, some areas excoriated ID ASSESSMENT: 89 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 Acute respiratory failure => much improved, stable on low flow O2 via NC 2. 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 Congestive heart failure exacerbation. 4. Gram-negative rods urinary tract infection. * URINE CULTURE Final Organism 1 ENTEROBACTER CLOACAE COLONY COUNT 20,000 - 30,000 CFU/ml Organism 2 ESCHERICHIA COLI COLONY COUNT 10,000 - 20,000 CFU/ml 5. Hypertension. 6. Acute renal failure 7. Diabetes. 8. Paroxysmal atrial fibrillation=Warfarin on hold 9. ARF 10. PRURITIC skin rash w/superimposed cellulitis, multiple skin excoriation scratches = Presumptive SCABIES * Crusted scabies lesions on RLEXT 11. 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 12. Hx of Right iliac and femoral thrombophlebitis. (+)MRSA NARES -> Bactroban INVASIVES: * PIV ABX ALLERGIES: KNDA CURRENT ABX: DAY # 11 => Levaquin + Doxycycline #4 s/p Elimite, s/p Ivermectin s/p Ceftriaxone ID RECOMMENDATIONS: 1. Much improved -- much more awake, alert yesterday 2. Continue Doxycycline IV for scabies cellulitis = ABX of choice * s/p Elimite 11/20 s/p Ivermectin 11/21 -> Repeat 11/28 3. ASPIRATION precautions -- Continue Levaquin until 11/30/16 4. Oral care with Nystatin swish suction 5. Anticipate DC back to SNF on current ABX Doxy + Levaquin until last day . . Problems: Consultation Date/Type/Reason Admit Date/Time Nov 14, 2016 at 08:00 Type of Consultation: cv Exam/Review of Systems Vital Signs Vitals Vital Signs Date Time Temp Pulse Resp B/P Pulse Ox O2 Delivery O2 Flow Rate FiO2 11/24/16 16:53 2.0 11/24/16 16:53 75 16 96 Nasal Cannula 11/24/16 15:32 97.3 137/61 11/20/16 23:58 21 Intake and Output 11/23/16 11/23/16 11/24/16 15:00 23:00 07:00 Intake Total 960 ml 100 ml Output Total 500 ml 650 ml Balance 460 ml -550 ml Results Result Diagram: 11/24/16 0728 11/24/16 0728 Results 24 hrs Laboratory Tests Test 11/23/16 21:23 11/24/16 01:40 11/24/16 07:28 11/24/16 08:06 Bedside Glucose 260 H 246 H 196 White Blood Count 7.1 # Red Blood Count 2.73 L Hemoglobin 9.0 L Hematocrit 28.4 L Mean Corpuscular Volume 104.0 H Mean Corpuscular Hemoglobin 33.0 Mean Corpuscular Hemoglobin Concent 31.7 L Red Cell Distribution Width 13.8 Platelet Count 218 Mean Platelet Volume 9.7 Neutrophils % 63.7 Lymphocytes % 15.5 Monocytes % 10.4 Eosinophils % 9.3 H Basophils % 0.7 Nucleated Red Blood Cells % 0.3 H Neutrophils # 4.5 Lymphocytes # 1.1 Monocytes # 0.7 Eosinophils # 0.7 H Basophils # 0.1 Nucleated Red Blood Cells # 0.0 Prothrombin Time 21.8 #H Prothrombin Time Ratio 1.7 INR International Normalized Ratio 1.88 Sodium Level 145 H Potassium Level 3.5 Chloride Level 109 Carbon Dioxide Level 23 Anion Gap 17 H Blood Urea Nitrogen 51 H Creatinine 1.93 H Glucose Level 169 Calcium Level 8.9 Magnesium Level 2.1 Test 11/24/16 09:12 11/24/16 11:54 11/24/16 17:26 Bedside Glucose 219 211 186 Medications Medications Current Medications Acetaminophen (Tylenol Tab) 650 mg Q4 PRN PO PAIN AND OR ELEVATED TEMP Last administered on 11/20/16 08:44; Admin Dose 650 MG; Start 11/14/16 at 13:30 Amlodipine Besylate (Norvasc) 5 mg DAILY PO Last administered on 11/24/16 09: 10; Admin Dose 5 MG; Start 11/14/16 at 14:30 Bisacodyl (Dulcolax Supp) 10 mg Q24H PRN [place] CONSTIPATION; Start 11/14/16 at 13: 30 Docusate Sodium (Colace) 200 mg Q24H PRN PO CONSTIPATION Last administered on 09:06; Admin Dose 200 MG; Start 11/14/16 at 13:30 Escitalopram Oxalate (Lexapro) 5 mg DAILY PO Last administered on 11/24/16 09: 09; Admin Dose 5 MG; Start 11/14/16 at 14:30 Gabapentin (Neurontin) 300 mg TID PO Last administered on 11/24/16 12:51; Admin Dose 300 MG; Start 11/14/16 at 14:30 Acetaminophen/ Hydrocodone Bitart ([place] (10/325)) 1 tab Q6H PRN PO PAIN Last administered on 11/22/16 12:07; Admin Dose 1 TAB; Start 11/14/16 at 13:30 Multivitamins Therapeutic (Theragran) 1 tab DAILY PO Last administered on 09:08; Admin Dose 1 TAB; Start 11/15/16 at 09:00 Zinc Sulfate (Zinc Sulfate) 220 mg DAILY GTB Last administered on 11/24/16 09: 08; Admin Dose 220 MG; Start 11/15/16 at 09:00 Miscellaneous Information 1 ea NOTE XX ; Start 11/14/16 at 14:00 Dextrose (D50w Syringe) 25 ml Q15M PRN IV DECREASED GLUCOSE Last administered on 11/18/16 09:18; Admin Dose 25 ML; Start 11/14/16 at 14:00 Glucagon (Glucagen) 1 mg Q15M PRN IM DECREASED GLUCOSE; Start 11/14/16 at 14:00 Glucose (Glutose) 15 gm Q15M PRN BUCCAL DECREASED GLUCOSE Last administered on 11/17/16 07:55; Admin Dose 15 GM; Start 11/14/16 at 14:00 Diagnostic Test (Pha) (Accu-Chek) 1 ea 02 XX Last administered on 11/23/16 02: 00; Admin Dose 1 EA; Start 11/15/16 at 02:00 Miscellaneous Information (Pending Santyl Order For Wound Care) This patient woodard... PRN PRN XX WOUND CARE; Start 11/14/16 at 16:30 Guaifenesin/ Codeine Phosphate (Robitussin Ac Liquid Cup) 5 ml Q6 PRN PO COUGH Last administered on 11/23/16 01:48; Admin Dose 5 ML; Start 11/15/16 at 00:00 Diltiazem HCl (Cardizem Cd) 120 mg DAILY PO Last administered on 11/24/16 09: 10; Admin Dose 120 MG; Start 11/16/16 at 09:00 Ferrous Sulfate (Ferrous Sulfate (Ec)) 325 mg TID PO Last administered on 12:51; Admin Dose 325 MG; Start 11/17/16 at 21:00 Mupirocin (Bactroban) 1 applic BID TOP Last administered on 11/24/16 09:10; Admin Dose 1 APPLIC; Start 11/17/16 at 21:00 Epoetin Jean 81315 units 10,000 units MoWeFr@17 SC Last administered on 17:31; Admin Dose 10,000 UNITS; Start 11/20/16 at 17:00 Levofloxacin/ Dextrose (Levaquin 250 Mg/ D5W 50 ml (Pmx)) 50 ml @ 50 mls/hr Q48H IVPB Last administered on 11/23/16 01:47; Admin Dose 50 MLS/HR; Start at 23:00; Stop 11/30/16 at 22:59 Permethrin 1 applic 1 applic Sa@04 TOP Last administered on 11/21/16 05:05; Admin Dose 1 APPLIC; Start 11/21/16 at 04:00; Stop 11/28/16 at 12:00 Doxycycline Hyclate/Sodium Chloride (Vibramycin/NS) 250 ml @ 250 mls/hr Q12 IVPB Last administered on 11/24/16 10:33; Admin Dose 250 MLS/HR; Start at 21:00 Insulin Glargine (Lantus) 20 unit DAILY@08 SC Last administered on 11/24/16 09 :31; Admin Dose 20 UNIT; Start 11/24/16 at 08:00 Warfarin Sodium (Coumadin) 2.5 mg DAILY@17 PO Last administered on 11/24/16 17 :28; Admin Dose 2.5 MG; Start 11/24/16 at 17:00 SAMANTHA CARPENTER NP Nov 24, 2016 18:10
[2016-11-24] MEDS: LEVOFLOXACIN 250MG/D5W (PMX) 50 ML IVPB SCH (23:52)
[2016-11-25] VITALS (12 sets, daily range): BP systolic 128–145; BP diastolic 60–72; PULSE 63–98; RESP 18–20
[2016-11-25] MEDS: LEVALBUTEROL (NEB) 0.63 MG/3 ML AMP HHN SCH ×3 (00:03→17:27)
[2016-11-25] MEDS: ACCU-CHEK XX SCH (02:50)
[2016-11-25] MEDS: FUROSEMIDE 20 MG TAB PO SCH ×2 (05:31→17:22)
[2016-11-25 07:47] LABS: ADD SCAN DIFF NO
[2016-11-25 07:53] LABS: BASOPHIL # 0.1 10^3/ul (0.0-0.1); BASOPHILS % 0.7 % (0.0-2.0); EOSINOPHILS % 13.2 % (0.0-7.0); HEMOGLOBIN 9.1 g/dl (12.0-16.0); LYMPHOCYTES % 13.6 % (15.0-51.0); MEAN CORPUSCULAR HEMOGLOBIN 33.1 pg (29.0-33.0); MEAN CORPUSCULAR HGB CONC 31.4 g/dl (32.0-37.0); MEAN CORPUSCULAR VOLUME 105.5 fl (82.0-101.0); MEAN PLATELET VOLUME 9.6 fl (7.4-10.4); MONOCYTE # 0.7 10^3/ul (0.3-0.9); MONOCYTES % 9.1 % (0.0-11.0); NEUTROPHIL # 4.7 10^3/ul (1.6-7.5); NEUTROPHILS % 62.7 % (39.0-77.0); NUCLEATED RED BLOOD CELLS% 0.3 /100WBC (0.0-0.0); PLATELET COUNT 224 10^3/UL (140-415); RED BLOOD COUNT 2.75 10^6/ul (4.20-5.40); RED CELL DISTRIBUTION WIDTH 13.9 % (11.5-14.5); WHITE BLOOD COUNT 7.5 10^3/ul (4.8-10.8)
[2016-11-25] MEDS: INSULIN ASPART [NOVOLOG] 3 ML PEN SC SCH ×4 (07:55→21:15)
[2016-11-25 08:08] LABS: INR 1.42; PROTIME 17.4 Sec (12.2-14.2); PT RATIO 1.4
[2016-11-25 08:13] LABS: POTASSIUM 3.7 mmol/L (3.5-5.1)
[2016-11-25 08:15] LABS: CREATININE 1.77 mg/dl (0.44-1.00)
[2016-11-25 08:16] LABS: CALCIUM 8.7 mg/dl (8.4-10.2)
[2016-11-25] MEDS: DOXYCYCLINE 100 MG in SOD CHLORIDE 0.9% 250 ML IVPB SCH ×2 (09:00→21:02)
[2016-11-25] MEDS: ZINC SULFATE 220 MG CAP GTB SCH (09:38)
[2016-11-25] MEDS: AMLODIPINE 5 MG TAB PO SCH (09:39)
[2016-11-25] MEDS: GABAPENTIN 300 MG CAP PO SCH ×3 (09:39→21:01)
[2016-11-25] MEDS: DILTIAZEM (CD) 120 MG CAP PO SCH (09:39)
[2016-11-25] MEDS: MULTIVITAMINS THERAPEUTIC TAB PO SCH (09:39)
[2016-11-25] MEDS: FERROUS SULFATE (EC) 325 MG TAB PO SCH ×3 (09:39→21:01)
[2016-11-25] MEDS: ESCITALOPRAM 10 MG TAB PO SCH (09:40)
[2016-11-25] MEDS: MUPIROCIN 2% 22 GM OINT TOP SCH ×2 (09:40→21:03)
[2016-11-25] MEDS: INSULIN GLARGINE [LANtus] 3 ML PEN SC SCH (09:46)
--- NOTE | 2016-11-25 14:15 | PN ---
Date/Time of Note Date/Time of Note DATE: 11/25/16 TIME: 14:10 Assessment/Plan VTE Prophylaxis VTE Prophylaxis Intervention: other (coum) Lines/Catheters IV Catheter Type (from Nrsg): Saline Lock Central line still needed: No Urinary Cath still in place: Yes Reason Cath still needed: terminal illness/intractable pain Assessment/Plan Assessment/Plan 1/ pneumonia/ effusion/ wet coughs 2/ a fib/ chf/ htn/ pad 3/ dm/ anemia 4/ arf 5/ dementia/ depression/ inc debility 6/ scabies ---per ID, cont all atbx & cream ---per cards ---per renal, epogen, diuretics ---cont all supportive cares ---disposition snf change for better standard of care Subjective 24 Hr Interval Summary Free Text/Dictation more awake, more participation w/ PT Exam/Review of Systems Vital Signs Vitals Vital Signs Date Time Temp Pulse Resp B/P Pulse Ox O2 Delivery O2 Flow Rate FiO2 11/25/16 12:13 72 11/25/16 11:22 98.6 18 141/60 94 11/25/16 10:04 Nasal Cannula 2.0 28 Intake and Output 11/24/16 11/24/16 11/25/16 15:00 23:00 07:00 Intake Total 450 ml Output Total 1000 ml Balance -550 ml Exam wet coughs, more comfortable breathing irreg irreg dec bs more rt+ no edema pt inr 1.42 Results Result Diagram: 11/25/16 0634 11/25/16 0634 Results 24 hrs Laboratory Tests Test 11/24/16 17:26 11/24/16 21:18 11/25/16 03:03 11/25/16 06:34 Bedside Glucose 186 257 H 180 White Blood Count 7.5 Red Blood Count 2.75 L Hemoglobin 9.1 L Hematocrit 29.0 L Mean Corpuscular Volume 105.5 H Mean Corpuscular Hemoglobin 33.1 H Mean Corpuscular Hemoglobin Concent 31.4 L Red Cell Distribution Width 13.9 Platelet Count 224 Mean Platelet Volume 9.6 Neutrophils % 62.7 Lymphocytes % 13.6 L Monocytes % 9.1 Eosinophils % 13.2 H Basophils % 0.7 Nucleated Red Blood Cells % 0.3 H Neutrophils # 4.7 Lymphocytes # 1.0 Monocytes # 0.7 Eosinophils # 1.0 H Basophils # 0.1 Nucleated Red Blood Cells # 0.0 Prothrombin Time 17.4 #H Prothrombin Time Ratio 1.4 INR International Normalized Ratio 1.42 Sodium Level 143 Potassium Level 3.7 Chloride Level 108 Carbon Dioxide Level 24 Anion Gap 15 Blood Urea Nitrogen 48 H Creatinine 1.77 H Glucose Level 134 Calcium Level 8.7 Test 11/25/16 08:07 11/25/16 11:29 Bedside Glucose 138 213 Medications Medications Current Medications Acetaminophen (Tylenol Tab) 650 mg Q4 PRN PO PAIN AND OR ELEVATED TEMP Last administered on 11/20/16 08:44; Admin Dose 650 MG; Start 11/14/16 at 13:30 Amlodipine Besylate (Norvasc) 5 mg DAILY PO Last administered on 11/25/16 09: 39; Admin Dose 5 MG; Start 11/14/16 at 14:30 Bisacodyl (Dulcolax Supp) 10 mg Q24H PRN [place] CONSTIPATION; Start 11/14/16 at 13: 30 Docusate Sodium (Colace) 200 mg Q24H PRN PO CONSTIPATION Last administered on 09:06; Admin Dose 200 MG; Start 11/14/16 at 13:30 Escitalopram Oxalate (Lexapro) 5 mg DAILY PO Last administered on 11/25/16 09: 40; Admin Dose 5 MG; Start 11/14/16 at 14:30 Gabapentin (Neurontin) 300 mg TID PO Last administered on 11/25/16 13:12; Admin Dose 300 MG; Start 11/14/16 at 14:30 Acetaminophen/ Hydrocodone Bitart ([place] (10/325)) 1 tab Q6H PRN PO PAIN Last administered on 11/22/16 12:07; Admin Dose 1 TAB; Start 11/14/16 at 13:30 Multivitamins Therapeutic (Theragran) 1 tab DAILY PO Last administered on 09:39; Admin Dose 1 TAB; Start 11/15/16 at 09:00 Zinc Sulfate (Zinc Sulfate) 220 mg DAILY GTB Last administered on 11/25/16 09: 38; Admin Dose 220 MG; Start 11/15/16 at 09:00 Miscellaneous Information 1 ea NOTE XX ; Start 11/14/16 at 14:00 Dextrose (D50w Syringe) 25 ml Q15M PRN IV DECREASED GLUCOSE Last administered on 11/18/16 09:18; Admin Dose 25 ML; Start 11/14/16 at 14:00 Glucagon (Glucagen) 1 mg Q15M PRN IM DECREASED GLUCOSE; Start 11/14/16 at 14:00 Glucose (Glutose) 15 gm Q15M PRN BUCCAL DECREASED GLUCOSE Last administered on 11/17/16 07:55; Admin Dose 15 GM; Start 11/14/16 at 14:00 Diagnostic Test (Pha) (Accu-Chek) 1 ea 02 XX Last administered on 11/23/16 02: 00; Admin Dose 1 EA; Start 11/15/16 at 02:00 Miscellaneous Information (Pending Santyl Order For Wound Care) This patient woodard... PRN PRN XX WOUND CARE; Start 11/14/16 at 16:30 Guaifenesin/ Codeine Phosphate (Robitussin Ac Liquid Cup) 5 ml Q6 PRN PO COUGH Last administered on 11/23/16 01:48; Admin Dose 5 ML; Start 11/15/16 at 00:00 Diltiazem HCl (Cardizem Cd) 120 mg DAILY PO Last administered on 11/25/16 09: 39; Admin Dose 120 MG; Start 11/16/16 at 09:00 Ferrous Sulfate (Ferrous Sulfate (Ec)) 325 mg TID PO Last administered on 13:12; Admin Dose 325 MG; Start 11/17/16 at 21:00 Mupirocin (Bactroban) 1 applic BID TOP Last administered on 11/25/16 09:40; Admin Dose 1 APPLIC; Start 11/17/16 at 21:00 Epoetin Jean 41651 units 10,000 units MoWeFr@17 SC Last administered on 17:31; Admin Dose 10,000 UNITS; Start 11/20/16 at 17:00 Levofloxacin/ Dextrose (Levaquin 250 Mg/ D5W 50 ml (Pmx)) 50 ml @ 50 mls/hr Q48H IVPB Last administered on 11/24/16 23:52; Admin Dose 50 MLS/HR; Start at 23:00; Stop 11/30/16 at 22:59 Permethrin 1 applic 1 applic Sa@04 TOP Last administered on 11/21/16 05:05; Admin Dose 1 APPLIC; Start 11/21/16 at 04:00; Stop 11/28/16 at 12:00 Doxycycline Hyclate/Sodium Chloride (Vibramycin/NS) 250 ml @ 250 mls/hr Q12 IVPB Last administered on 11/25/16 09:00; Admin Dose 250 MLS/HR; Start at 21:00 Insulin Glargine (Lantus) 20 unit DAILY@08 SC Last administered on 11/25/16 09 :46; Admin Dose 20 UNIT; Start 11/24/16 at 08:00 Warfarin Sodium (Coumadin) 2.5 mg DAILY@17 PO Last administered on 11/24/16 17 :28; Admin Dose 2.5 MG; Start 11/24/16 at 17:00 AJAY HAWKINS MD Nov 25, 2016 14:15
[2016-11-25] MEDS ORDERED: WARFARIN 2 MG TAB PO ONE (17:00)
[2016-11-25] MEDS: GUAIFENESIN LA 600 MG TABSR PO SCH ×2 (17:22→21:01)
--- NOTE | 2016-11-25 17:27 | CONS ---
Date/Time of Note Date/Time of Note DATE: 11/25/16 TIME: 17:25 Assessment/Plan Assessment/Plan Chief Complaint/Hosp Course ID PROGRESS NOTE TOTAL ABX DAY # 12 => Levaquin + Doxycycline #5 s/p Elimite, s/p Ivermectin s/p Ceftriaxone 24H INTERVAL SUMMARY * Continues to improve -- has episodes of being more alert/awake -- spends much time resting/asleep on supplemental O2 * Chest cough and congestion is much improved on double abx * No fevers, WBC normal, neuts normalized , renal fx improved PHYSICAL EXAMINATION: GENERAL: VSS, NAD,lethargic, awakens HEENT: Unremarkable NECK: Supple, trach-> midline CHEST: Crackles HEART: Pulse RRR ABDOMEN: Soft, benign EXTREMITIES: Warm, crusted scabies thickened skin plaque RLEXT SKIN: Warm, (+)Diffuse pruritic rash w/bumpy scab lesions over entire body, some areas excoriated ID ASSESSMENT: 89 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 Acute respiratory failure => much improved, stable on low flow O2 via NC 2. 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 Congestive heart failure exacerbation. 4. Gram-negative rods urinary tract infection. * URINE CULTURE Final Organism 1 ENTEROBACTER CLOACAE COLONY COUNT 20,000 - 30,000 CFU/ml Organism 2 ESCHERICHIA COLI COLONY COUNT 10,000 - 20,000 CFU/ml 5. Hypertension. 6. Acute renal failure 7. Diabetes. 8. Paroxysmal atrial fibrillation=Warfarin on hold 9. ARF 10. PRURITIC skin rash w/superimposed cellulitis, multiple skin excoriation scratches = Presumptive SCABIES * Crusted scabies lesions on RLEXT 11. 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 12. Hx of Right iliac and femoral thrombophlebitis. (+)MRSA NARES -> Bactroban INVASIVES: * PIV ABX ALLERGIES: KNDA CURRENT ABX: DAY # 12 => Levaquin + Doxycycline #5 s/p Elimite, s/p Ivermectin s/p Ceftriaxone ID RECOMMENDATIONS: 1. Much improved -- much more awake, alert yesterday --> MAY DC TO SNF ON ABX BELOW 2. Continue Doxycycline IV for scabies cellulitis = ABX of choice * s/p Elimite 11/20 s/p Ivermectin 11/21 -> Repeat 11/28 3. ASPIRATION precautions -- Continue Levaquin until 11/30/16 4. Oral care with Nystatin swish suction 5. Anticipate DC back to SNF on current ABX Doxy + Levaquin until last day . . Problems: Consultation Date/Type/Reason Admit Date/Time Nov 14, 2016 at 08:00 Type of Consultation: cv Exam/Review of Systems Vital Signs Vitals Vital Signs Date Time Temp Pulse Resp B/P Pulse Ox O2 Delivery O2 Flow Rate FiO2 11/25/16 17:19 2.0 11/25/16 16:16 75 11/25/16 15:29 97.7 20 134/62 95 11/25/16 10:04 Nasal Cannula 28 Intake and Output 11/24/16 11/24/16 11/25/16 15:00 23:00 07:00 Intake Total 450 ml Output Total 1000 ml Balance -550 ml Results Result Diagram: 11/25/16 0634 11/25/16 0634 Results 24 hrs Laboratory Tests Test 11/24/16 17:26 11/24/16 21:18 11/25/16 03:03 11/25/16 06:34 Bedside Glucose 186 257 H 180 White Blood Count 7.5 Red Blood Count 2.75 L Hemoglobin 9.1 L Hematocrit 29.0 L Mean Corpuscular Volume 105.5 H Mean Corpuscular Hemoglobin 33.1 H Mean Corpuscular Hemoglobin Concent 31.4 L Red Cell Distribution Width 13.9 Platelet Count 224 Mean Platelet Volume 9.6 Neutrophils % 62.7 Lymphocytes % 13.6 L Monocytes % 9.1 Eosinophils % 13.2 H Basophils % 0.7 Nucleated Red Blood Cells % 0.3 H Neutrophils # 4.7 Lymphocytes # 1.0 Monocytes # 0.7 Eosinophils # 1.0 H Basophils # 0.1 Nucleated Red Blood Cells # 0.0 Prothrombin Time 17.4 #H Prothrombin Time Ratio 1.4 INR International Normalized Ratio 1.42 Sodium Level 143 Potassium Level 3.7 Chloride Level 108 Carbon Dioxide Level 24 Anion Gap 15 Blood Urea Nitrogen 48 H Creatinine 1.77 H Glucose Level 134 Calcium Level 8.7 Test 11/25/16 08:07 11/25/16 11:29 Bedside Glucose 138 213 Medications Medications Current Medications Acetaminophen (Tylenol Tab) 650 mg Q4 PRN PO PAIN AND OR ELEVATED TEMP Last administered on 11/20/16 08:44; Admin Dose 650 MG; Start 11/14/16 at 13:30 Amlodipine Besylate (Norvasc) 5 mg DAILY PO Last administered on 11/25/16 09: 39; Admin Dose 5 MG; Start 11/14/16 at 14:30 Bisacodyl (Dulcolax Supp) 10 mg Q24H PRN [place] CONSTIPATION; Start 11/14/16 at 13: 30 Docusate Sodium (Colace) 200 mg Q24H PRN PO CONSTIPATION Last administered on 09:06; Admin Dose 200 MG; Start 11/14/16 at 13:30 Escitalopram Oxalate (Lexapro) 5 mg DAILY PO Last administered on 11/25/16 09: 40; Admin Dose 5 MG; Start 11/14/16 at 14:30 Gabapentin (Neurontin) 300 mg TID PO Last administered on 11/25/16 13:12; Admin Dose 300 MG; Start 11/14/16 at 14:30 Acetaminophen/ Hydrocodone Bitart ([place] (10/325)) 1 tab Q6H PRN PO PAIN Last administered on 11/22/16 12:07; Admin Dose 1 TAB; Start 11/14/16 at 13:30 Multivitamins Therapeutic (Theragran) 1 tab DAILY PO Last administered on 09:39; Admin Dose 1 TAB; Start 11/15/16 at 09:00 Zinc Sulfate (Zinc Sulfate) 220 mg DAILY GTB Last administered on 11/25/16 09: 38; Admin Dose 220 MG; Start 11/15/16 at 09:00 Miscellaneous Information 1 ea NOTE XX ; Start 11/14/16 at 14:00 Dextrose (D50w Syringe) 25 ml Q15M PRN IV DECREASED GLUCOSE Last administered on 11/18/16 09:18; Admin Dose 25 ML; Start 11/14/16 at 14:00 Glucagon (Glucagen) 1 mg Q15M PRN IM DECREASED GLUCOSE; Start 11/14/16 at 14:00 Glucose (Glutose) 15 gm Q15M PRN BUCCAL DECREASED GLUCOSE Last administered on 11/17/16 07:55; Admin Dose 15 GM; Start 11/14/16 at 14:00 Diagnostic Test (Pha) (Accu-Chek) 1 ea 02 XX Last administered on 11/23/16 02: 00; Admin Dose 1 EA; Start 11/15/16 at 02:00 Miscellaneous Information (Pending Santyl Order For Wound Care) This patient woodard... PRN PRN XX WOUND CARE; Start 11/14/16 at 16:30 Guaifenesin/ Codeine Phosphate (Robitussin Ac Liquid Cup) 5 ml Q6 PRN PO COUGH Last administered on 11/23/16 01:48; Admin Dose 5 ML; Start 11/15/16 at 00:00 Diltiazem HCl (Cardizem Cd) 120 mg DAILY PO Last administered on 11/25/16 09: 39; Admin Dose 120 MG; Start 11/16/16 at 09:00 Ferrous Sulfate (Ferrous Sulfate (Ec)) 325 mg TID PO Last administered on 13:12; Admin Dose 325 MG; Start 11/17/16 at 21:00 Mupirocin (Bactroban) 1 applic BID TOP Last administered on 11/25/16 09:40; Admin Dose 1 APPLIC; Start 11/17/16 at 21:00 Epoetin Jean 65545 units 10,000 units MoWeFr@17 SC Last administered on 17:31; Admin Dose 10,000 UNITS; Start 11/20/16 at 17:00 Levofloxacin/ Dextrose (Levaquin 250 Mg/ D5W 50 ml (Pmx)) 50 ml @ 50 mls/hr Q48H IVPB Last administered on 11/24/16 23:52; Admin Dose 50 MLS/HR; Start at 23:00; Stop 11/30/16 at 22:59 Permethrin 1 applic 1 applic Sa@04 TOP Last administered on 11/21/16 05:05; Admin Dose 1 APPLIC; Start 11/21/16 at 04:00; Stop 11/28/16 at 12:00 Doxycycline Hyclate/Sodium Chloride (Vibramycin/NS) 250 ml @ 250 mls/hr Q12 IVPB Last administered on 11/25/16 09:00; Admin Dose 250 MLS/HR; Start at 21:00 Insulin Glargine (Lantus) 20 unit DAILY@08 SC Last administered on 11/25/16 09 :46; Admin Dose 20 UNIT; Start 11/24/16 at 08:00 Guaifenesin (Mucinex) 600 mg BID PO Last administered on 11/25/16 17:22; Admin Dose 600 MG; Start 11/25/16 at 15:00 SAMANTHA CARPENTER NP Nov 25, 2016 17:27
[2016-11-25] MEDS: EPOETIN 10000 UNITS/1 ML INJ (ESRD) SC SCH (17:33)
--- NOTE | 2016-11-25 18:21 | CONS ---
Date/Time of Note Date/Time of Note DATE: 11/25/16 TIME: 18:20 Assessment/Plan Assessment/Plan Additional Assessment/Plan Pneumonia Acute decompensated diastolic congestive heart failure, improved Paroxysmal atrial fibrillation Peripheral arterial disease Acute kidney injury -Heart rate trend remained stable. Renal function improved, being followed by our nephrology colleagues, diuretics as per nephrology. Blood pressure well controlled. No new CV orders at the current time. Consultation Date/Type/Reason Admit Date/Time Nov 14, 2016 at 08:00 Type of Consultation: cv 24 HR Interval Summary Free Text/Dictation Patient seen and examined Exam/Review of Systems Vital Signs Vitals Vital Signs Date Time Temp Pulse Resp B/P Pulse Ox O2 Delivery O2 Flow Rate FiO2 11/25/16 17:28 73 30 93 2.0 28 11/25/16 15:29 97.7 134/62 11/25/16 10:04 Nasal Cannula Intake and Output 11/24/16 11/24/16 11/25/16 15:00 23:00 07:00 Intake Total 450 ml Output Total 1000 ml Balance -550 ml Exam No apparent distress Constitutional: alert Head: normocephalic Neck: supple Respiratory: other (Coarse breath sounds bilaterally, no wheezing) Cardiovascular: irregular rhythm, other (S1-S2 heard) Gastrointestinal: bowel sounds, non-tender, soft Extremities: edema Results Result Diagram: 11/25/16 0634 11/25/16 0634 Results 24 hrs Laboratory Tests Test 11/24/16 21:18 11/25/16 03:03 11/25/16 06:34 11/25/16 08:07 Bedside Glucose 257 H 180 138 White Blood Count 7.5 Red Blood Count 2.75 L Hemoglobin 9.1 L Hematocrit 29.0 L Mean Corpuscular Volume 105.5 H Mean Corpuscular Hemoglobin 33.1 H Mean Corpuscular Hemoglobin Concent 31.4 L Red Cell Distribution Width 13.9 Platelet Count 224 Mean Platelet Volume 9.6 Neutrophils % 62.7 Lymphocytes % 13.6 L Monocytes % 9.1 Eosinophils % 13.2 H Basophils % 0.7 Nucleated Red Blood Cells % 0.3 H Neutrophils # 4.7 Lymphocytes # 1.0 Monocytes # 0.7 Eosinophils # 1.0 H Basophils # 0.1 Nucleated Red Blood Cells # 0.0 Prothrombin Time 17.4 #H Prothrombin Time Ratio 1.4 INR International Normalized Ratio 1.42 Sodium Level 143 Potassium Level 3.7 Chloride Level 108 Carbon Dioxide Level 24 Anion Gap 15 Blood Urea Nitrogen 48 H Creatinine 1.77 H Glucose Level 134 Calcium Level 8.7 Test 11/25/16 11:29 11/25/16 17:24 Bedside Glucose 213 254 H Medications Medications Current Medications Acetaminophen (Tylenol Tab) 650 mg Q4 PRN PO PAIN AND OR ELEVATED TEMP Last administered on 11/20/16 08:44; Admin Dose 650 MG; Start 11/14/16 at 13:30 Amlodipine Besylate (Norvasc) 5 mg DAILY PO Last administered on 11/25/16 09: 39; Admin Dose 5 MG; Start 11/14/16 at 14:30 Bisacodyl (Dulcolax Supp) 10 mg Q24H PRN [place] CONSTIPATION; Start 11/14/16 at 13: 30 Docusate Sodium (Colace) 200 mg Q24H PRN PO CONSTIPATION Last administered on 09:06; Admin Dose 200 MG; Start 11/14/16 at 13:30 Escitalopram Oxalate (Lexapro) 5 mg DAILY PO Last administered on 11/25/16 09: 40; Admin Dose 5 MG; Start 11/14/16 at 14:30 Gabapentin (Neurontin) 300 mg TID PO Last administered on 11/25/16 13:12; Admin Dose 300 MG; Start 11/14/16 at 14:30 Acetaminophen/ Hydrocodone Bitart ([place] (10/325)) 1 tab Q6H PRN PO PAIN Last administered on 11/22/16 12:07; Admin Dose 1 TAB; Start 11/14/16 at 13:30 Multivitamins Therapeutic (Theragran) 1 tab DAILY PO Last administered on 09:39; Admin Dose 1 TAB; Start 11/15/16 at 09:00 Zinc Sulfate (Zinc Sulfate) 220 mg DAILY GTB Last administered on 11/25/16 09: 38; Admin Dose 220 MG; Start 11/15/16 at 09:00 Miscellaneous Information 1 ea NOTE XX ; Start 11/14/16 at 14:00 Dextrose (D50w Syringe) 25 ml Q15M PRN IV DECREASED GLUCOSE Last administered on 11/18/16 09:18; Admin Dose 25 ML; Start 11/14/16 at 14:00 Glucagon (Glucagen) 1 mg Q15M PRN IM DECREASED GLUCOSE; Start 11/14/16 at 14:00 Glucose (Glutose) 15 gm Q15M PRN BUCCAL DECREASED GLUCOSE Last administered on 11/17/16 07:55; Admin Dose 15 GM; Start 11/14/16 at 14:00 Diagnostic Test (Pha) (Accu-Chek) 1 ea 02 XX Last administered on 11/23/16 02: 00; Admin Dose 1 EA; Start 11/15/16 at 02:00 Miscellaneous Information (Pending Santyl Order For Wound Care) This patient woodard... PRN PRN XX WOUND CARE; Start 11/14/16 at 16:30 Guaifenesin/ Codeine Phosphate (Robitussin Ac Liquid Cup) 5 ml Q6 PRN PO COUGH Last administered on 11/23/16 01:48; Admin Dose 5 ML; Start 11/15/16 at 00:00 Diltiazem HCl (Cardizem Cd) 120 mg DAILY PO Last administered on 11/25/16 09: 39; Admin Dose 120 MG; Start 11/16/16 at 09:00 Ferrous Sulfate (Ferrous Sulfate (Ec)) 325 mg TID PO Last administered on 13:12; Admin Dose 325 MG; Start 11/17/16 at 21:00 Mupirocin (Bactroban) 1 applic BID TOP Last administered on 11/25/16 09:40; Admin Dose 1 APPLIC; Start 11/17/16 at 21:00 Epoetin Jean 58521 units 10,000 units MoWeFr@17 SC Last administered on 17:33; Admin Dose 10,000 UNITS; Start 11/20/16 at 17:00 Levofloxacin/ Dextrose (Levaquin 250 Mg/ D5W 50 ml (Pmx)) 50 ml @ 50 mls/hr Q48H IVPB Last administered on 11/24/16 23:52; Admin Dose 50 MLS/HR; Start at 23:00; Stop 11/30/16 at 22:59 Permethrin 1 applic 1 applic Sa@04 TOP Last administered on 11/21/16 05:05; Admin Dose 1 APPLIC; Start 11/21/16 at 04:00; Stop 11/28/16 at 12:00 Doxycycline Hyclate/Sodium Chloride (Vibramycin/NS) 250 ml @ 250 mls/hr Q12 IVPB Last administered on 11/25/16 09:00; Admin Dose 250 MLS/HR; Start at 21:00 Insulin Glargine (Lantus) 20 unit DAILY@08 SC Last administered on 11/25/16 09 :46; Admin Dose 20 UNIT; Start 11/24/16 at 08:00 Guaifenesin (Mucinex) 600 mg BID PO Last administered on 11/25/16 17:22; Admin Dose 600 MG; Start 11/25/16 at 15:00 Hieu Wolf DO Nov 25, 2016 18:20
--- NOTE | 2016-11-25 19:15 | CONS ---
Date/Time of Note Date/Time of Note DATE: 11/25/16 TIME: 19:08 Assessment/Plan Assessment/Plan Chief Complaint/Hosp Course 1. Acute renal failure superimposed on chronic kidney disease. Her renal function is improved today. 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 good urine output on furosemide. 2. CHF 3. dementia. 4. ALOC , she continues to be lethargic and nonverbal . Renal function continues to improve . I will sign off at this point and see on request . Problems: Consultation Date/Type/Reason Admit Date/Time Nov 14, 2016 at 08:00 Type of Consultation: renal 24 HR Interval Summary Subjective hx not possible: pt non-verbal Exam/Review of Systems Vital Signs Vitals Vital Signs Date Time Temp Pulse Resp B/P Pulse Ox O2 Delivery O2 Flow Rate FiO2 11/25/16 17:28 73 30 93 2.0 28 11/25/16 15:29 97.7 134/62 11/25/16 10:04 Nasal Cannula Intake and Output 11/24/16 11/24/16 11/25/16 15:00 23:00 07:00 Intake Total 450 ml Output Total 1000 ml Balance -550 ml Exam she is lethargic but does rouse to verbal stimuli .Her son is in her room . Respiratory: clear to auscultation, diminished breath sounds Cardiovascular: irregular rhythm Gastrointestinal: soft Extremities: edema Results Result Diagram: 11/25/16 0634 11/25/16 0634 Results 24 hrs Laboratory Tests Test 11/24/16 21:18 11/25/16 03:03 11/25/16 06:34 11/25/16 08:07 Bedside Glucose 257 H 180 138 White Blood Count 7.5 Red Blood Count 2.75 L Hemoglobin 9.1 L Hematocrit 29.0 L Mean Corpuscular Volume 105.5 H Mean Corpuscular Hemoglobin 33.1 H Mean Corpuscular Hemoglobin Concent 31.4 L Red Cell Distribution Width 13.9 Platelet Count 224 Mean Platelet Volume 9.6 Neutrophils % 62.7 Lymphocytes % 13.6 L Monocytes % 9.1 Eosinophils % 13.2 H Basophils % 0.7 Nucleated Red Blood Cells % 0.3 H Neutrophils # 4.7 Lymphocytes # 1.0 Monocytes # 0.7 Eosinophils # 1.0 H Basophils # 0.1 Nucleated Red Blood Cells # 0.0 Prothrombin Time 17.4 #H Prothrombin Time Ratio 1.4 INR International Normalized Ratio 1.42 Sodium Level 143 Potassium Level 3.7 Chloride Level 108 Carbon Dioxide Level 24 Anion Gap 15 Blood Urea Nitrogen 48 H Creatinine 1.77 H Glucose Level 134 Calcium Level 8.7 Test 11/25/16 11:29 11/25/16 17:24 Bedside Glucose 213 254 H Medications Medications Current Medications Acetaminophen (Tylenol Tab) 650 mg Q4 PRN PO PAIN AND OR ELEVATED TEMP Last administered on 11/20/16 08:44; Admin Dose 650 MG; Start 11/14/16 at 13:30 Amlodipine Besylate (Norvasc) 5 mg DAILY PO Last administered on 11/25/16 09: 39; Admin Dose 5 MG; Start 11/14/16 at 14:30 Bisacodyl (Dulcolax Supp) 10 mg Q24H PRN [place] CONSTIPATION; Start 11/14/16 at 13: 30 Docusate Sodium (Colace) 200 mg Q24H PRN PO CONSTIPATION Last administered on 09:06; Admin Dose 200 MG; Start 11/14/16 at 13:30 Escitalopram Oxalate (Lexapro) 5 mg DAILY PO Last administered on 11/25/16 09: 40; Admin Dose 5 MG; Start 11/14/16 at 14:30 Gabapentin (Neurontin) 300 mg TID PO Last administered on 11/25/16 13:12; Admin Dose 300 MG; Start 11/14/16 at 14:30 Acetaminophen/ Hydrocodone Bitart ([place] (10/325)) 1 tab Q6H PRN PO PAIN Last administered on 11/22/16 12:07; Admin Dose 1 TAB; Start 11/14/16 at 13:30 Multivitamins Therapeutic (Theragran) 1 tab DAILY PO Last administered on 09:39; Admin Dose 1 TAB; Start 11/15/16 at 09:00 Zinc Sulfate (Zinc Sulfate) 220 mg DAILY GTB Last administered on 11/25/16 09: 38; Admin Dose 220 MG; Start 11/15/16 at 09:00 Miscellaneous Information 1 ea NOTE XX ; Start 11/14/16 at 14:00 Dextrose (D50w Syringe) 25 ml Q15M PRN IV DECREASED GLUCOSE Last administered on 11/18/16 09:18; Admin Dose 25 ML; Start 11/14/16 at 14:00 Glucagon (Glucagen) 1 mg Q15M PRN IM DECREASED GLUCOSE; Start 11/14/16 at 14:00 Glucose (Glutose) 15 gm Q15M PRN BUCCAL DECREASED GLUCOSE Last administered on 11/17/16 07:55; Admin Dose 15 GM; Start 11/14/16 at 14:00 Diagnostic Test (Pha) (Accu-Chek) 1 ea 02 XX Last administered on 11/23/16 02: 00; Admin Dose 1 EA; Start 11/15/16 at 02:00 Miscellaneous Information (Pending Santyl Order For Wound Care) This patient woodard... PRN PRN XX WOUND CARE; Start 11/14/16 at 16:30 Guaifenesin/ Codeine Phosphate (Robitussin Ac Liquid Cup) 5 ml Q6 PRN PO COUGH Last administered on 11/23/16 01:48; Admin Dose 5 ML; Start 11/15/16 at 00:00 Diltiazem HCl (Cardizem Cd) 120 mg DAILY PO Last administered on 11/25/16 09: 39; Admin Dose 120 MG; Start 11/16/16 at 09:00 Ferrous Sulfate (Ferrous Sulfate (Ec)) 325 mg TID PO Last administered on 13:12; Admin Dose 325 MG; Start 11/17/16 at 21:00 Mupirocin (Bactroban) 1 applic BID TOP Last administered on 11/25/16 09:40; Admin Dose 1 APPLIC; Start 11/17/16 at 21:00 Epoetin Jean 56902 units 10,000 units MoWeFr@17 SC Last administered on 17:33; Admin Dose 10,000 UNITS; Start 11/20/16 at 17:00 Levofloxacin/ Dextrose (Levaquin 250 Mg/ D5W 50 ml (Pmx)) 50 ml @ 50 mls/hr Q48H IVPB Last administered on 11/24/16 23:52; Admin Dose 50 MLS/HR; Start at 23:00; Stop 11/30/16 at 22:59 Permethrin 1 applic 1 applic Sa@04 TOP Last administered on 11/21/16 05:05; Admin Dose 1 APPLIC; Start 11/21/16 at 04:00; Stop 11/28/16 at 12:00 Doxycycline Hyclate/Sodium Chloride (Vibramycin/NS) 250 ml @ 250 mls/hr Q12 IVPB Last administered on 11/25/16 09:00; Admin Dose 250 MLS/HR; Start at 21:00 Insulin Glargine (Lantus) 20 unit DAILY@08 SC Last administered on 11/25/16 09 :46; Admin Dose 20 UNIT; Start 11/24/16 at 08:00 Guaifenesin (Mucinex) 600 mg BID PO Last administered on 11/25/16 17:22; Admin Dose 600 MG; Start 11/25/16 at 15:00 JESSIE AMATO MD Nov 25, 2016 19:15
[2016-11-26] VITALS (13 sets, daily range): BP systolic 137–160; BP diastolic 56–78; PULSE 64–83; RESP 18–20
[2016-11-26] MEDS: LEVALBUTEROL (NEB) 0.63 MG/3 ML AMP HHN SCH ×3 (00:46→17:40)
[2016-11-26] MEDS: ACCU-CHEK XX SCH (02:48)
[2016-11-26] MEDS: FUROSEMIDE 20 MG TAB PO SCH ×2 (05:04→18:11)
[2016-11-26] MEDS: INSULIN GLARGINE [LANtus] 3 ML PEN SC SCH (07:54)
[2016-11-26] MEDS: INSULIN ASPART [NOVOLOG] 3 ML PEN SC SCH ×4 (07:54→21:09)
[2016-11-26 08:05] LABS: CALCIUM 8.5 mg/dl (8.4-10.2); CREATININE 1.49 mg/dl (0.44-1.00); POTASSIUM 3.8 mmol/L (3.5-5.1)
[2016-11-26 08:10] LABS: INR 1.56; PROTIME 18.8 Sec (12.2-14.2); PT RATIO 1.5
[2016-11-26] MEDS: DOXYCYCLINE 100 MG in SOD CHLORIDE 0.9% 250 ML IVPB SCH ×2 (09:52→21:18)
[2016-11-26] MEDS: GUAIFENESIN LA 600 MG TABSR PO SCH ×2 (09:53→20:57)
[2016-11-26] MEDS: AMLODIPINE 5 MG TAB PO SCH (09:53)
[2016-11-26] MEDS: MULTIVITAMINS THERAPEUTIC TAB PO SCH (09:54)
[2016-11-26] MEDS: DILTIAZEM (CD) 120 MG CAP PO SCH (09:54)
[2016-11-26] MEDS: ZINC SULFATE 220 MG CAP GTB SCH (09:54)
[2016-11-26] MEDS: ESCITALOPRAM 10 MG TAB PO SCH (09:54)
[2016-11-26] MEDS: FERROUS SULFATE (EC) 325 MG TAB PO SCH ×3 (09:54→20:58)
[2016-11-26] MEDS: GABAPENTIN 300 MG CAP PO SCH ×3 (09:54→20:57)
[2016-11-26] MEDS: MUPIROCIN 2% 22 GM OINT TOP SCH ×2 (09:55→21:04)
--- NOTE | 2016-11-26 13:53 | CONS ---
Date/Time of Note Date/Time of Note DATE: 11/26/16 TIME: 13:40 Assessment/Plan Assessment/Plan Chief Complaint/Hosp Course ID PROGRESS NOTE TOTAL ABX DAY # 13 => Levaquin + Doxycycline #6 s/p Elimite, s/p Ivermectin s/p Ceftriaxone 24H INTERVAL SUMMARY * Resting in bed on supplemental O2 via NC, without dyspnea, much less chest congestion, awakens and smiles, no coughing today * She has episodes of energy, sits up to eat, alert awake and responsive for short periods of time, was smiling and talking to me on TU * Much improved over the past week -- Son was in last night and advised she was still coughing and congested-- slowly improving with addition of Doxy IV for double coverage ASP PNA and Scabies rash cellulitis * No fevers, WBC normal, neuts normalized , renal fx improved PHYSICAL EXAMINATION: GENERAL: VSS, NAD,lethargic, awakens HEENT: Unremarkable NECK: Supple, trach-> midline CHEST: Crackles HEART: Pulse RRR ABDOMEN: Soft, benign EXTREMITIES: Warm, crusted scabies thickened skin plaque RLEXT SKIN: Warm, (+)Diffuse pruritic rash w/bumpy scab lesions over entire body, some areas excoriated ID ASSESSMENT: 89 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 Acute respiratory failure => much improved, stable on low flow O2 via NC 2. 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 Congestive heart failure exacerbation. 4. Gram-negative rods urinary tract infection. * URINE CULTURE Final Organism 1 ENTEROBACTER CLOACAE COLONY COUNT 20,000 - 30,000 CFU/ml Organism 2 ESCHERICHIA COLI COLONY COUNT 10,000 - 20,000 CFU/ml 5. Hypertension. 6. Acute renal failure == much improved 7. Diabetes. 8. Paroxysmal atrial fibrillation=Warfarin on hold 9. ARF 10. PRURITIC skin rash w/superimposed cellulitis, multiple skin excoriation scratches = Presumptive SCABIES * Crusted scabies lesions on RLEXT 11. 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 12. Hx of Right iliac and femoral thrombophlebitis. (+)MRSA NARES -> Bactroban INVASIVES: * PIV ABX ALLERGIES: KNDA CURRENT ABX: DAY # 12 => Levaquin + Doxycycline #5 s/p Elimite, s/p Ivermectin s/p Ceftriaxone ID RECOMMENDATIONS: 1. Overall improving on current ABX --> MAY DC TO SNF ON ABX BELOW 2. Continue Doxycycline IV or PO for scabies cellulitis = ABX of choice * s/p Elimite 11/20 s/p Ivermectin 11/21 -> Repeat 11/28 3. ASPIRATION precautions -- Continue Levaquin until 11/30/16 4. Oral care with Nystatin swish suction 5. Anticipate DC back to SNF on current ABX Doxy + Levaquin until last day . . Problems: Consultation Date/Type/Reason Admit Date/Time Nov 14, 2016 at 08:00 Type of Consultation: ID Exam/Review of Systems Vital Signs Vitals Vital Signs Date Time Temp Pulse Resp B/P Pulse Ox O2 Delivery O2 Flow Rate FiO2 11/26/16 12:15 64 11/26/16 11:48 98.0 18 137/56 11/26/16 08:44 100 3.0 11/26/16 08:44 Nasal Cannula 11/25/16 17:28 28 Intake and Output 11/25/16 11/25/16 11/26/16 15:00 23:00 07:00 Intake Total 500 ml 240 ml Output Total 1100 ml Balance 500 ml -860 ml Results Result Diagram: 11/25/16 0634 11/26/16 0719 Results 24 hrs Laboratory Tests Test 11/25/16 17:24 11/25/16 21:11 11/26/16 02:37 11/26/16 07:19 Bedside Glucose 254 H 238 H 195 Prothrombin Time 18.8 H Prothrombin Time Ratio 1.5 INR International Normalized Ratio 1.56 Sodium Level 138 Potassium Level 3.8 Chloride Level 109 Carbon Dioxide Level 22 Anion Gap 11 Blood Urea Nitrogen 42 H Creatinine 1.49 H Glucose Level 214 Calcium Level 8.5 Test 11/26/16 07:45 11/26/16 12:03 Bedside Glucose 235 H 186 Medications Medications Current Medications Acetaminophen (Tylenol Tab) 650 mg Q4 PRN PO PAIN AND OR ELEVATED TEMP Last administered on 11/20/16t 08:44; Admin Dose 650 MG; Start 11/14/16 at 13:30 Amlodipine Besylate (Norvasc) 5 mg DAILY PO Last administered on 11/26/16 09: 53; Admin Dose 5 MG; Start 11/14/16 at 14:30 Bisacodyl (Dulcolax Supp) 10 mg Q24H PRN [place] CONSTIPATION; Start 11/14/16 at 13: 30 Docusate Sodium (Colace) 200 mg Q24H PRN PO CONSTIPATION Last administered on 09:06; Admin Dose 200 MG; Start 11/14/16 at 13:30 Escitalopram Oxalate (Lexapro) 5 mg DAILY PO Last administered on 11/26/16 09: 54; Admin Dose 5 MG; Start 11/14/16 at 14:30 Gabapentin (Neurontin) 300 mg TID PO Last administered on 11/26/16 13:05; Admin Dose 300 MG; Start 11/14/16 at 14:30 Acetaminophen/ Hydrocodone Bitart ([place] (10/325)) 1 tab Q6H PRN PO PAIN Last administered on 11/22/16 12:07; Admin Dose 1 TAB; Start 11/14/16 at 13:30 Multivitamins Therapeutic (Theragran) 1 tab DAILY PO Last administered on 09:54; Admin Dose 1 TAB; Start 11/15/16 at 09:00 Zinc Sulfate (Zinc Sulfate) 220 mg DAILY GTB Last administered on 11/26/16 09: 54; Admin Dose 220 MG; Start 11/15/16 at 09:00 Miscellaneous Information 1 ea NOTE XX ; Start 11/14/16 at 14:00 Dextrose (D50w Syringe) 25 ml Q15M PRN IV DECREASED GLUCOSE Last administered on 11/18/16 09:18; Admin Dose 25 ML; Start 11/14/16 at 14:00 Glucagon (Glucagen) 1 mg Q15M PRN IM DECREASED GLUCOSE; Start 11/14/16 at 14:00 Glucose (Glutose) 15 gm Q15M PRN BUCCAL DECREASED GLUCOSE Last administered on 11/17/16 07:55; Admin Dose 15 GM; Start 11/14/16 at 14:00 Diagnostic Test (Pha) (Accu-Chek) 1 ea 02 XX Last administered on 11/26/16 02: 48; Admin Dose 1 EA; Start 11/15/16 at 02:00 Miscellaneous Information (Pending Santyl Order For Wound Care) This patient woodard... PRN PRN XX WOUND CARE; Start 11/14/16 at 16:30 Guaifenesin/ Codeine Phosphate (Robitussin Ac Liquid Cup) 5 ml Q6 PRN PO COUGH Last administered on 11/23/16 01:48; Admin Dose 5 ML; Start 11/15/16 at 00:00 Diltiazem HCl (Cardizem Cd) 120 mg DAILY PO Last administered on 11/26/16 09: 54; Admin Dose 120 MG; Start 11/16/16 at 09:00 Ferrous Sulfate (Ferrous Sulfate (Ec)) 325 mg TID PO Last administered on 13:05; Admin Dose 325 MG; Start 11/17/16 at 21:00 Mupirocin (Bactroban) 1 applic BID TOP Last administered on 11/26/16 09:55; Admin Dose 1 APPLIC; Start 11/17/16 at 21:00 Epoetin Jean 28191 units 10,000 units MoWeFr@17 SC Last administered on 17:33; Admin Dose 10,000 UNITS; Start 11/20/16 at 17:00 Levofloxacin/ Dextrose (Levaquin 250 Mg/ D5W 50 ml (Pmx)) 50 ml @ 50 mls/hr Q48H IVPB Last administered on 11/24/16 23:52; Admin Dose 50 MLS/HR; Start at 23:00; Stop 11/30/16 at 22:59 Permethrin 1 applic 1 applic Sa@04 TOP Last administered on 11/21/16 05:05; Admin Dose 1 APPLIC; Start 11/21/16 at 04:00; Stop 11/28/16 at 12:00 Doxycycline Hyclate/Sodium Chloride (Vibramycin/NS) 250 ml @ 250 mls/hr Q12 IVPB Last administered on 11/26/16 09:52; Admin Dose 250 MLS/HR; Start at 21:00 Insulin Glargine (Lantus) 20 unit DAILY@08 SC Last administered on 11/26/16 07 :54; Admin Dose 20 UNIT; Start 11/24/16 at 08:00 Guaifenesin (Mucinex) 600 mg BID PO Last administered on 11/26/16t 09:53; Admin Dose 600 MG; Start 11/25/16 at 15:00 SAMANTHA CARPENTER NP Nov 26, 2016 13:50
--- NOTE | 2016-11-26 14:39 | PN ---
Date/Time of Note Date/Time of Note DATE: 11/26/16 TIME: 14:30 Assessment/Plan VTE Prophylaxis VTE Prophylaxis Intervention: other (coum) Lines/Catheters IV Catheter Type (from Nrs): Saline Lock Central line still needed: No Urinary Cath still in place: Yes Reason Cath still needed: terminal illness/intractable pain Assessment/Plan Assessment/Plan 1. pneumonia/ effusion/ wet weak coughs--very slow improvement 2. chf/ a fib/ htn--status quo 3. arf/ anemia--improving 4. dm--status quo 5. musc weak/ more resting time--worsening 6. depression/ dementia--fluctuant, worsening ---per ID, finish off atbxs ---per cards ---very tight i/o fluid care ---progressively guarded prognosis, spoken with family, after this hospitalization--[facility]'ll [facility] to [facility] where she will br taken care of further medical care, will be in hospice care, no further transfer to hospital thereafter. ---coum 3mg tonite Subjective 24 Hr Interval Summary Free Text/Dictation less itchy, more comfortable to breathe, but still weak & hard time coughing up phlegms Exam/Review of Systems Vital Signs Vitals Vital Signs Date Time Temp Pulse Resp B/P Pulse Ox O2 Delivery O2 Flow Rate FiO2 11/26/16 12:15 64 11/26/16 11:48 98.0 18 137/56 11/26/16 08:44 100 3.0 11/26/16 08:44 Nasal Cannula 11/25/16 17:28 28 Intake and Output 11/25/16 11/25/16 11/26/16 14:59 22:59 06:59 Intake Total 500 ml 240 ml Output Total 1100 ml Balance 500 ml -860 ml Exam awakable less words irreg irreg+ wet weak coughs, dec bs more rt+ no edema Results Result Diagram: 11/25/16 0634 11/26/16 0719 Results 24 hrs Laboratory Tests Test 11/25/16 17:24 11/25/16 21:11 11/26/16 02:37 11/26/16 07:19 Bedside Glucose 254 H 238 H 195 Prothrombin Time 18.8 H Prothrombin Time Ratio 1.5 INR International Normalized Ratio 1.56 Sodium Level 138 Potassium Level 3.8 Chloride Level 109 Carbon Dioxide Level 22 Anion Gap 11 Blood Urea Nitrogen 42 H Creatinine 1.49 H Glucose Level 214 Calcium Level 8.5 Test 11/26/16 07:45 11/26/16 12:03 Bedside Glucose 235 H 186 Medications Medications Current Medications Acetaminophen (Tylenol Tab) 650 mg Q4 PRN PO PAIN AND OR ELEVATED TEMP Last administered on 11/20/16 08:44; Admin Dose 650 MG; Start 11/14/16 at 13:30 Amlodipine Besylate (Norvasc) 5 mg DAILY PO Last administered on 11/26/16 09: 53; Admin Dose 5 MG; Start 11/14/16 at 14:30 Bisacodyl (Dulcolax Supp) 10 mg Q24H PRN [place] CONSTIPATION; Start 11/14/16 at 13: 30 Docusate Sodium (Colace) 200 mg Q24H PRN PO CONSTIPATION Last administered on 09:06; Admin Dose 200 MG; Start 11/14/16 at 13:30 Escitalopram Oxalate (Lexapro) 5 mg DAILY PO Last administered on 11/26/16 09: 54; Admin Dose 5 MG; Start 11/14/16 at 14:30 Gabapentin (Neurontin) 300 mg TID PO Last administered on 11/26/16 13:05; Admin Dose 300 MG; Start 11/14/16 at 14:30 Acetaminophen/ Hydrocodone Bitart ([place] (10/325)) 1 tab Q6H PRN PO PAIN Last administered on 11/22/16 12:07; Admin Dose 1 TAB; Start 11/14/16 at 13:30 Multivitamins Therapeutic (Theragran) 1 tab DAILY PO Last administered on 09:54; Admin Dose 1 TAB; Start 11/15/16 at 09:00 Zinc Sulfate (Zinc Sulfate) 220 mg DAILY GTB Last administered on 11/26/16 09: 54; Admin Dose 220 MG; Start 11/15/16 at 09:00 Miscellaneous Information 1 ea NOTE XX ; Start 11/14/16 at 14:00 Dextrose (D50w Syringe) 25 ml Q15M PRN IV DECREASED GLUCOSE Last administered on 11/18/16 09:18; Admin Dose 25 ML; Start 11/14/16 at 14:00 Glucagon (Glucagen) 1 mg Q15M PRN IM DECREASED GLUCOSE; Start 11/14/16 at 14:00 Glucose (Glutose) 15 gm Q15M PRN BUCCAL DECREASED GLUCOSE Last administered on 11/17/16 07:55; Admin Dose 15 GM; Start 11/14/16 at 14:00 Diagnostic Test (Pha) (Accu-Chek) 1 ea 02 XX Last administered on 11/26/16 02: 48; Admin Dose 1 EA; Start 11/15/16 at 02:00 Miscellaneous Information (Pending Santyl Order For Wound Care) This patient woodard... PRN PRN XX WOUND CARE; Start 11/14/16 at 16:30 Guaifenesin/ Codeine Phosphate (Robitussin Ac Liquid Cup) 5 ml Q6 PRN PO COUGH Last administered on 11/23/16 01:48; Admin Dose 5 ML; Start 11/15/16 at 00:00 Diltiazem HCl (Cardizem Cd) 120 mg DAILY PO Last administered on 11/26/16 09: 54; Admin Dose 120 MG; Start 11/16/16 at 09:00 Ferrous Sulfate (Ferrous Sulfate (Ec)) 325 mg TID PO Last administered on 13:05; Admin Dose 325 MG; Start 11/17/16 at 21:00 Mupirocin (Bactroban) 1 applic BID TOP Last administered on 11/26/16 09:55; Admin Dose 1 APPLIC; Start 11/17/16 at 21:00 Epoetin Jean 21507 units 10,000 units MoWeFr@17 SC Last administered on 17:33; Admin Dose 10,000 UNITS; Start 11/20/16 at 17:00 Levofloxacin/ Dextrose (Levaquin 250 Mg/ D5W 50 ml (Pmx)) 50 ml @ 50 mls/hr Q48H IVPB Last administered on 11/24/16 23:52; Admin Dose 50 MLS/HR; Start at 23:00; Stop 11/30/16 at 22:59 Permethrin 1 applic 1 applic Sa@04 TOP Last administered on 11/21/16 05:05; Admin Dose 1 APPLIC; Start 11/21/16 at 04:00; Stop 11/28/16 at 12:00 Doxycycline Hyclate/Sodium Chloride (Vibramycin/NS) 250 ml @ 250 mls/hr Q12 IVPB Last administered on 11/26/16 09:52; Admin Dose 250 MLS/HR; Start at 21:00 Insulin Glargine (Lantus) 20 unit DAILY@08 SC Last administered on 11/26/16 07 :54; Admin Dose 20 UNIT; Start 11/24/16 at 08:00 Guaifenesin (Mucinex) 600 mg BID PO Last administered on 11/26/16 09:53; Admin Dose 600 MG; Start 11/25/16 at 15:00 AJAY HAWKINS MD Nov 26, 2016 14:39
[2016-11-26] MEDS ORDERED: CYANOCOBALAMIN 1000 MCG INJ SC SCH (15:30)
[2016-11-26] MEDS ORDERED: WARFARIN 3 MG TAB PO ONE (17:00)
[2016-11-26] MEDS: HYDROCODONE/APAP (10/325) TAB PO PRN (23:24)
[2016-11-26] MEDS: LEVOFLOXACIN 250MG/D5W (PMX) 50 ML IVPB SCH (23:25)
[2016-11-27] VITALS (11 sets, daily range): BP systolic 127–172; BP diastolic 54–78; PULSE 51–78; RESP 18–20
[2016-11-27] MEDS: LEVALBUTEROL (NEB) 0.63 MG/3 ML AMP HHN SCH ×3 (00:38→23:05)
[2016-11-27] MEDS: ACCU-CHEK XX SCH (02:27)
[2016-11-27] MEDS: FUROSEMIDE 20 MG TAB PO SCH ×2 (05:03→18:20)
[2016-11-27 07:40] LABS: INR 2.04; PROTIME 23.2 Sec (12.2-14.2); PT RATIO 1.8
[2016-11-27 07:49] LABS: CALCIUM 8.6 mg/dl (8.4-10.2); CREATININE 1.68 mg/dl (0.44-1.00); POTASSIUM 3.3 mmol/L (3.5-5.1)
[2016-11-27] MEDS: INSULIN ASPART [NOVOLOG] 3 ML PEN SC SCH ×4 (07:55→21:24)
[2016-11-27] MEDS ORDERED: hydrOXYzine HCL 25 MG TAB PO PRN (08:30)
[2016-11-27] MEDS: INSULIN GLARGINE [LANtus] 3 ML PEN SC SCH (08:32)
[2016-11-27] MEDS: DOXYCYCLINE 100 MG in SOD CHLORIDE 0.9% 250 ML IVPB SCH ×2 (09:00→21:54)
[2016-11-27 09:14] LABS: HEMOGLOBIN 9.8 g/dl (12.0-16.0)
[2016-11-27] MEDS: ZINC SULFATE 220 MG CAP GTB SCH (09:20)
[2016-11-27] MEDS: ESCITALOPRAM 10 MG TAB PO SCH (09:20)
[2016-11-27] MEDS: GABAPENTIN 300 MG CAP PO SCH ×3 (09:20→21:08)
[2016-11-27] MEDS: DILTIAZEM (CD) 120 MG CAP PO SCH (09:21)
[2016-11-27] MEDS: AMLODIPINE 5 MG TAB PO SCH (09:21)
[2016-11-27] MEDS: MULTIVITAMINS THERAPEUTIC TAB PO SCH (09:21)
[2016-11-27] MEDS: FERROUS SULFATE (EC) 325 MG TAB PO SCH ×3 (09:21→21:08)
[2016-11-27] MEDS: GUAIFENESIN LA 600 MG TABSR PO SCH ×2 (09:21→21:09)
[2016-11-27] MEDS: MUPIROCIN 2% 22 GM OINT TOP SCH ×2 (09:22→21:49)
--- NOTE | 2016-11-27 11:44 | CONS ---
Date/Time of Note Date/Time of Note DATE: 11/27/16 TIME: 11:41 Assessment/Plan Assessment/Plan Additional Assessment/Plan Pneumonia Acute decompensated diastolic congestive heart failure, improved Paroxysmal atrial fibrillation Peripheral arterial disease Acute kidney injury, improved -Heart rate trend remained stable. Diuretics as per nephrology. Will supplement potassium. Blood pressure well controlled. Consultation Date/Type/Reason Admit Date/Time Nov 14, 2016 at 08:00 Type of Consultation: cv 24 HR Interval Summary Free Text/Dictation Patient seen and examined Exam/Review of Systems Vital Signs Vitals Vital Signs Date Time Temp Pulse Resp B/P Pulse Ox O2 Delivery O2 Flow Rate FiO2 11/27/16 11:23 98.1 98 18 137/65 94 11/27/16 08:09 2.0 11/27/16 08:08 Nasal Cannula 11/25/16 17:28 28 Intake and Output 11/26/16 11/26/16 11/27/16 15:00 23:00 07:00 Intake Total 950 ml 450 ml Output Total 1500 ml 1200 ml Balance -550 ml -750 ml Exam Follow some commands, no apparent distress Constitutional: alert Head: normocephalic Respiratory: other (Coarse breath sounds bilaterally, no wheezing) Cardiovascular: irregular rhythm, other (S1-S2 heard) Gastrointestinal: bowel sounds, non-tender, soft Extremities: edema (Trace) Results Result Diagram: 11/27/16 0645 11/27/16 0645 Results 24 hrs Laboratory Tests Test 11/26/16 12:03 11/26/16 18:01 11/26/16 21:02 11/27/16 02:20 Bedside Glucose 186 246 H 288 H 150 Test 11/27/16 06:45 11/27/16 08:26 Hemoglobin 9.8 L Hematocrit 31.0 L Prothrombin Time 23.2 #H Prothrombin Time Ratio 1.8 INR International Normalized Ratio 2.04 Sodium Level 140 Potassium Level 3.3 L Chloride Level 107 Carbon Dioxide Level 25 Anion Gap 11 Blood Urea Nitrogen 38 H Creatinine 1.68 H Glucose Level 109 # Calcium Level 8.6 Bedside Glucose 114 Medications Medications Current Medications Acetaminophen (Tylenol Tab) 650 mg Q4 PRN PO PAIN AND OR ELEVATED TEMP Last administered on 11/20/16t 08:44; Admin Dose 650 MG; Start 11/14/16 at 13:30 Amlodipine Besylate (Norvasc) 5 mg DAILY PO Last administered on 11/27/16 09: 21; Admin Dose 5 MG; Start 11/14/16 at 14:30 Bisacodyl (Dulcolax Supp) 10 mg Q24H PRN [place] CONSTIPATION; Start 11/14/16 at 13: 30 Docusate Sodium (Colace) 200 mg Q24H PRN PO CONSTIPATION Last administered on 09:06; Admin Dose 200 MG; Start 11/14/16 at 13:30 Escitalopram Oxalate (Lexapro) 5 mg DAILY PO Last administered on 11/27/16 09: 20; Admin Dose 5 MG; Start 11/14/16 at 14:30 Gabapentin (Neurontin) 300 mg TID PO Last administered on 11/27/16 09:20; Admin Dose 300 MG; Start 11/14/16 at 14:30 Acetaminophen/ Hydrocodone Bitart ([place] (10/325)) 1 tab Q6H PRN PO PAIN Last administered on 11/26/16 23:24; Admin Dose 1 TAB; Start 11/14/16 at 13:30 Multivitamins Therapeutic (Theragran) 1 tab DAILY PO Last administered on 09:21; Admin Dose 1 TAB; Start 11/15/16 at 09:00 Zinc Sulfate (Zinc Sulfate) 220 mg DAILY GTB Last administered on 11/27/16 09: 20; Admin Dose 220 MG; Start 11/15/16 at 09:00 Miscellaneous Information 1 ea NOTE XX ; Start 11/14/16 at 14:00 Dextrose (D50w Syringe) 25 ml Q15M PRN IV DECREASED GLUCOSE Last administered on 11/18/16 09:18; Admin Dose 25 ML; Start 11/14/16 at 14:00 Glucagon (Glucagen) 1 mg Q15M PRN IM DECREASED GLUCOSE; Start 11/14/16 at 14:00 Glucose (Glutose) 15 gm Q15M PRN BUCCAL DECREASED GLUCOSE Last administered on 11/17/16 07:55; Admin Dose 15 GM; Start 11/14/16 at 14:00 Diagnostic Test (Pha) (Accu-Chek) 1 ea 02 XX Last administered on 11/27/16 02: 27; Admin Dose 1 EA; Start 11/15/16 at 02:00 Miscellaneous Information (Pending Santyl Order For Wound Care) This patient woodard... PRN PRN XX WOUND CARE; Start 11/14/16 at 16:30 Guaifenesin/ Codeine Phosphate (Robitussin Ac Liquid Cup) 5 ml Q6 PRN PO COUGH Last administered on 11/23/16 01:48; Admin Dose 5 ML; Start 11/15/16 at 00:00 Diltiazem HCl (Cardizem Cd) 120 mg DAILY PO Last administered on 11/27/16 09: 21; Admin Dose 120 MG; Start 11/16/16 at 09:00 Ferrous Sulfate (Ferrous Sulfate (Ec)) 325 mg TID PO Last administered on 09:21; Admin Dose 325 MG; Start 11/17/16 at 21:00 Mupirocin (Bactroban) 1 applic BID TOP Last administered on 11/27/16 09:22; Admin Dose 1 APPLIC; Start 11/17/16 at 21:00 Epoetin Jean 38931 units 10,000 units MoWeFr@17 SC Last administered on 17:33; Admin Dose 10,000 UNITS; Start 11/20/16 at 17:00 Levofloxacin/ Dextrose (Levaquin 250 Mg/ D5W 50 ml (Pmx)) 50 ml @ 50 mls/hr Q48H IVPB Last administered on 11/26/16 23:25; Admin Dose 50 MLS/HR; Start at 23:00; Stop 11/30/16 at 22:59 Permethrin 1 applic 1 applic Sa@04 TOP Last administered on 11/21/16 05:05; Admin Dose 1 APPLIC; Start 11/21/16 at 04:00; Stop 11/28/16 at 12:00 Doxycycline Hyclate/Sodium Chloride (Vibramycin/NS) 250 ml @ 250 mls/hr Q12 IVPB Last administered on 11/27/16 09:00; Admin Dose 250 MLS/HR; Start at 21:00 Insulin Glargine (Lantus) 20 unit DAILY@08 SC Last administered on 11/27/16 08 :32; Admin Dose 20 UNIT; Start 11/24/16 at 08:00 Guaifenesin (Mucinex) 600 mg BID PO Last administered on 11/27/16 09:21; Admin Dose 600 MG; Start 11/25/16 at 15:00 Hydroxyzine HCl (Atarax) 25 mg Q6H PRN PO ITCHING Last administered on 09:21; Admin Dose 25 MG; Start 11/27/16 at 08:30 Hieu Wolf DO Nov 27, 2016 11:44
[2016-11-27] MEDS ORDERED: POTASSIUM CHLORIDE 20 MEQ POWDER FOR ORAL SOLN PO ONE (12:00)
--- NOTE | 2016-11-27 15:00 | PN ---
Date/Time of Note Date/Time of Note DATE: 11/27/16 TIME: 14:50 Assessment/Plan VTE Prophylaxis VTE Prophylaxis Intervention: other (coum) Lines/Catheters IV Catheter Type (from Nrsg): Saline Lock Central line still needed: No Urinary Cath still in place: Yes Reason Cath still needed: terminal illness/intractable pain Assessment/Plan Assessment/Plan 1. pneumonia/ effusion/ weak congested coughs--better 2. chf/ a fib/ htn 3. arf/ anemia--responding to diuretic better, improving 4. musc weak/ overall debility--worsening 5. depression/ dementia--poor px for overall health ---finish off is atbxs by mon 11/30 ---per cards, k supp today, coum 2.5mg tonight ---per renal ---PT to eval & promote oob & sit on chair ---Hospice prog to be introduced, from here on for comfort measures only, & to find a new disposition location ---planning to d/c from hosp by 11/30 mon as atbxs will be done, anticoagulation will be stable, & oxygenation adequate to cause no more dyspnea-anxiety Subjective 24 Hr Interval Summary Free Text/Dictation less sob, still weak--cannot cough up well yet Exam/Review of Systems Vital Signs Vitals Vital Signs Date Time Temp Pulse Resp B/P Pulse Ox O2 Delivery O2 Flow Rate FiO2 11/27/16 13:21 74 11/27/16 11:23 98.1 18 137/65 94 11/27/16 08:09 2.0 11/27/16 08:08 Nasal Cannula 11/25/16 17:28 28 Intake and Output 11/26/16 11/26/16 11/27/16 15:00 23:00 07:00 Intake Total 950 ml 450 ml Output Total 1500 ml 1200 ml Balance -550 ml -750 ml Exam more awake, ate better still w/ weak coughs+ dec bs in rt+ irreg irreg+ no edema diffuse excoriated skin lesions+ Results Result Diagram: 11/27/16 0645 11/27/16 0645 Results 24 hrs Laboratory Tests Test 11/26/16 18:01 11/26/16 21:02 11/27/16 02:20 11/27/16 06:45 Bedside Glucose 246 H 288 H 150 Hemoglobin 9.8 L Hematocrit 31.0 L Prothrombin Time 23.2 #H Prothrombin Time Ratio 1.8 INR International Normalized Ratio 2.04 Sodium Level 140 Potassium Level 3.3 L Chloride Level 107 Carbon Dioxide Level 25 Anion Gap 11 Blood Urea Nitrogen 38 H Creatinine 1.68 H Glucose Level 109 # Calcium Level 8.6 Test 11/27/16 08:26 11/27/16 11:29 Bedside Glucose 114 222 H Medications Medications Current Medications Acetaminophen (Tylenol Tab) 650 mg Q4 PRN PO PAIN AND OR ELEVATED TEMP Last administered on 11/20/16 08:44; Admin Dose 650 MG; Start 11/14/16 at 13:30 Amlodipine Besylate (Norvasc) 5 mg DAILY PO Last administered on 11/27/16 09: 21; Admin Dose 5 MG; Start 11/14/16 at 14:30 Bisacodyl (Dulcolax Supp) 10 mg Q24H PRN [place] CONSTIPATION; Start 11/14/16 at 13: 30 Docusate Sodium (Colace) 200 mg Q24H PRN PO CONSTIPATION Last administered on 09:06; Admin Dose 200 MG; Start 11/14/16 at 13:30 Escitalopram Oxalate (Lexapro) 5 mg DAILY PO Last administered on 11/27/16 09: 20; Admin Dose 5 MG; Start 11/14/16 at 14:30 Gabapentin (Neurontin) 300 mg TID PO Last administered on 11/27/16 12:58; Admin Dose 300 MG; Start 11/14/16 at 14:30 Acetaminophen/ Hydrocodone Bitart ([place] (10/325)) 1 tab Q6H PRN PO PAIN Last administered on 11/26/16 23:24; Admin Dose 1 TAB; Start 11/14/16 at 13:30 Multivitamins Therapeutic (Theragran) 1 tab DAILY PO Last administered on 09:21; Admin Dose 1 TAB; Start 11/15/16 at 09:00 Zinc Sulfate (Zinc Sulfate) 220 mg DAILY GTB Last administered on 11/27/16 09: 20; Admin Dose 220 MG; Start 11/15/16 at 09:00 Miscellaneous Information 1 ea NOTE XX ; Start 11/14/16 at 14:00 Dextrose (D50w Syringe) 25 ml Q15M PRN IV DECREASED GLUCOSE Last administered on 11/18/16 09:18; Admin Dose 25 ML; Start 11/14/16 at 14:00 Glucagon (Glucagen) 1 mg Q15M PRN IM DECREASED GLUCOSE; Start 11/14/16 at 14:00 Glucose (Glutose) 15 gm Q15M PRN BUCCAL DECREASED GLUCOSE Last administered on 11/17/16 07:55; Admin Dose 15 GM; Start 11/14/16 at 14:00 Diagnostic Test (Pha) (Accu-Chek) 1 ea 02 XX Last administered on 11/27/16 02: 27; Admin Dose 1 EA; Start 11/15/16 at 02:00 Miscellaneous Information (Pending Santyl Order For Wound Care) This patient woodard... PRN PRN XX WOUND CARE; Start 11/14/16 at 16:30 Guaifenesin/ Codeine Phosphate (Robitussin Ac Liquid Cup) 5 ml Q6 PRN PO COUGH Last administered on 11/23/16 01:48; Admin Dose 5 ML; Start 11/15/16 at 00:00 Diltiazem HCl (Cardizem Cd) 120 mg DAILY PO Last administered on 11/27/16 09: 21; Admin Dose 120 MG; Start 11/16/16 at 09:00 Ferrous Sulfate (Ferrous Sulfate (Ec)) 325 mg TID PO Last administered on 12:58; Admin Dose 325 MG; Start 11/17/16 at 21:00 Mupirocin (Bactroban) 1 applic BID TOP Last administered on 11/27/16 09:22; Admin Dose 1 APPLIC; Start 11/17/16 at 21:00 Epoetin Jean 27626 units 10,000 units MoWeFr@17 SC Last administered on 17:33; Admin Dose 10,000 UNITS; Start 11/20/16 at 17:00 Levofloxacin/ Dextrose (Levaquin 250 Mg/ D5W 50 ml (Pmx)) 50 ml @ 50 mls/hr Q48H IVPB Last administered on 11/26/16 23:25; Admin Dose 50 MLS/HR; Start at 23:00; Stop 11/30/16 at 22:59 Permethrin 1 applic 1 applic Sa@04 TOP Last administered on 11/21/16 05:05; Admin Dose 1 APPLIC; Start 11/21/16 at 04:00; Stop 11/28/16 at 12:00 Doxycycline Hyclate/Sodium Chloride (Vibramycin/NS) 250 ml @ 250 mls/hr Q12 IVPB Last administered on 11/27/16 09:00; Admin Dose 250 MLS/HR; Start at 21:00 Insulin Glargine (Lantus) 20 unit DAILY@08 SC Last administered on 11/27/16 08 :32; Admin Dose 20 UNIT; Start 11/24/16 at 08:00 Guaifenesin (Mucinex) 600 mg BID PO Last administered on 11/27/16 09:21; Admin Dose 600 MG; Start 11/25/16 at 15:00 Hydroxyzine HCl (Atarax) 25 mg Q6H PRN PO ITCHING Last administered on 09:21; Admin Dose 25 MG; Start 11/27/16 at 08:30 AJAY HAWKINS MD Nov 27, 2016 15:00
[2016-11-27] MEDS ORDERED: WARFARIN 2.5 MG TAB PO SCH (17:00)
--- NOTE | 2016-11-27 18:18 | CONS ---
Date/Time of Note Date/Time of Note DATE: 11/27/16 TIME: 18:07 Assessment/Plan Assessment/Plan Chief Complaint/Hosp Course ID PROGRESS NOTE TOTAL ABX DAY # 14=> Doxycycline #7 + Diflucan Levaquin -> DC today s/p Elimite, s/p Ivermectin s/p Ceftriaxone 24H INTERVAL SUMMARY * More alert today, family present, she is communicating feeling better, still weak, family tells me rash is better * (+)YEAST growing in sputum -- suspect from oral sample rather than bronchus * She has received 14 days Levaquin -- Will DC Levaquin and give her Diflucan PHYSICAL EXAMINATION: GENERAL: VSS, NAD,lethargic, awakens HEENT: Unremarkable NECK: Supple, trach-> midline CHEST: Crackles HEART: Pulse RRR ABDOMEN: Soft, benign EXTREMITIES: Warm, crusted scabies thickened skin plaque RLEXT SKIN: Warm, (+)Diffuse pruritic rash w/bumpy scab lesions over entire body, some areas excoriated ID ASSESSMENT: 89 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 Acute respiratory failure => much improved, stable on low flow O2 via NC 2. 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 Congestive heart failure exacerbation. 4. Gram-negative rods urinary tract infection. * URINE CULTURE Final Organism 1 ENTEROBACTER CLOACAE COLONY COUNT 20,000 - 30,000 CFU/ml Organism 2 ESCHERICHIA COLI COLONY COUNT 10,000 - 20,000 CFU/ml 5. Hypertension. 6. Acute renal failure == much improved 7. Diabetes. 8. Paroxysmal atrial fibrillation=Warfarin on hold 9. ARF 10. PRURITIC skin rash w/superimposed cellulitis, multiple skin excoriation scratches = Presumptive SCABIES * Crusted scabies lesions on RLEXT 11. 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 12. Hx of Right iliac and femoral thrombophlebitis. (+)MRSA NARES -> Bactroban INVASIVES: * PIV ABX ALLERGIES: KNDA CURRENT ABX: Doxycycline #7 + Oral Nystatin + Cancidas x 3 days s/p Levaquin x14 days s/p Elimite, s/p Ivermectin s/p Ceftriaxone ID RECOMMENDATIONS: 1. Overall improving on current ABX --> Cancidas x 3 days 11/27; 11/28; 11/29 for persistent oral candidiasis on nystatin oral 2. Continue Doxycycline IV or PO for scabies cellulitis = ABX of choice until * s/p Elimite 11/20 s/p Ivermectin 11/21 -> Repeat 11/28 3. ASPIRATION precautions -- DC Levaquin today has received 14 days 4. Oral care with Nystatin swish suction 5. Diflucan short course . . Problems: Consultation Date/Type/Reason Admit Date/Time Nov 14, 2016 at 08:00 Type of Consultation: cv Exam/Review of Systems Vital Signs Vitals Vital Signs Date Time Temp Pulse Resp B/P Pulse Ox O2 Delivery O2 Flow Rate FiO2 11/27/16 16:18 75 11/27/16 15:36 98.6 18 135/59 96 11/27/16 08:09 2.0 11/27/16 08:08 Nasal Cannula 11/25/16 17:28 28 Intake and Output 11/26/16 11/26/16 11/27/16 15:00 23:00 07:00 Intake Total 950 ml 450 ml Output Total 1500 ml 1200 ml Balance -550 ml -750 ml Results Result Diagram: 11/27/16 0645 11/27/16 0645 Results 24 hrs Laboratory Tests Test 11/26/16 21:02 11/27/16 02:20 11/27/16 06:45 11/27/16 08:26 Bedside Glucose 288 H 150 114 Hemoglobin 9.8 L Hematocrit 31.0 L Prothrombin Time 23.2 #H Prothrombin Time Ratio 1.8 INR International Normalized Ratio 2.04 Sodium Level 140 Potassium Level 3.3 L Chloride Level 107 Carbon Dioxide Level 25 Anion Gap 11 Blood Urea Nitrogen 38 H Creatinine 1.68 H Glucose Level 109 # Calcium Level 8.6 Test 11/27/16 11:29 Bedside Glucose 222 H Medications Medications Current Medications Acetaminophen (Tylenol Tab) 650 mg Q4 PRN PO PAIN AND OR ELEVATED TEMP Last administered on 11/20/16 08:44; Admin Dose 650 MG; Start 11/14/16 at 13:30 Amlodipine Besylate (Norvasc) 5 mg DAILY PO Last administered on 11/27/16 09: 21; Admin Dose 5 MG; Start 11/14/16 at 14:30 Bisacodyl (Dulcolax Supp) 10 mg Q24H PRN [place] CONSTIPATION; Start 11/14/16 at 13: 30 Docusate Sodium (Colace) 200 mg Q24H PRN PO CONSTIPATION Last administered on 09:06; Admin Dose 200 MG; Start 11/14/16 at 13:30 Escitalopram Oxalate (Lexapro) 5 mg DAILY PO Last administered on 11/27/16 09: 20; Admin Dose 5 MG; Start 11/14/16 at 14:30 Gabapentin (Neurontin) 300 mg TID PO Last administered on 11/27/16 12:58; Admin Dose 300 MG; Start 11/14/16 at 14:30 Acetaminophen/ Hydrocodone Bitart ([place] (10/325)) 1 tab Q6H PRN PO PAIN Last administered on 11/26/16 23:24; Admin Dose 1 TAB; Start 11/14/16 at 13:30 Multivitamins Therapeutic (Theragran) 1 tab DAILY PO Last administered on 09:21; Admin Dose 1 TAB; Start 11/15/16 at 09:00 Zinc Sulfate (Zinc Sulfate) 220 mg DAILY GTB Last administered on 11/27/16 09: 20; Admin Dose 220 MG; Start 11/15/16 at 09:00 Miscellaneous Information 1 ea NOTE XX ; Start 11/14/16 at 14:00 Dextrose (D50w Syringe) 25 ml Q15M PRN IV DECREASED GLUCOSE Last administered on 11/18/16 09:18; Admin Dose 25 ML; Start 11/14/16 at 14:00 Glucagon (Glucagen) 1 mg Q15M PRN IM DECREASED GLUCOSE; Start 11/14/16 at 14:00 Glucose (Glutose) 15 gm Q15M PRN BUCCAL DECREASED GLUCOSE Last administered on 11/17/16 07:55; Admin Dose 15 GM; Start 11/14/16 at 14:00 Diagnostic Test (Pha) (Accu-Chek) 1 ea 02 XX Last administered on 11/27/16 02: 27; Admin Dose 1 EA; Start 11/15/16 at 02:00 Miscellaneous Information (Pending [facility] Order For Wound Care) This patient woodard... PRN PRN XX WOUND CARE; Start 11/14/16 at 16:30 Diltiazem HCl (Cardizem Cd) 120 mg DAILY PO Last administered on 11/27/16 09: 21; Admin Dose 120 MG; Start 11/16/16 at 09:00 Ferrous Sulfate (Ferrous Sulfate (Ec)) 325 mg TID PO Last administered on 12:58; Admin Dose 325 MG; Start 11/17/16 at 21:00 Mupirocin (Bactroban) 1 applic BID TOP Last administered on 11/27/16 09:22; Admin Dose 1 APPLIC; Start 11/17/16 at 21:00 Epoetin Jean [id number] units 10,000 units MoWeFr@17 SC Last administered on 17:33; Admin Dose 10,000 UNITS; Start 11/20/16 at 17:00 Levofloxacin/ Dextrose (Levaquin 250 Mg/ D5W 50 ml (Pmx)) 50 ml @ 50 mls/hr Q48H IVPB Last administered on 11/26/16 23:25; Admin Dose 50 MLS/HR; Start at 23:00; Stop 11/30/16 at 22:59 Permethrin 1 applic 1 applic Sa@04 TOP Last administered on 11/21/16 05:05; Admin Dose 1 APPLIC; Start 11/21/16 at 04:00; Stop 11/28/16 at 12:00 Doxycycline Hyclate/Sodium Chloride (Vibramycin/NS) 250 ml @ 250 mls/hr Q12 IVPB Last administered on 11/27/16 09:00; Admin Dose 250 MLS/HR; Start at 21:00; Stop 11/30/16 at 20:59 Insulin Glargine (Lantus) 20 unit DAILY@08 SC Last administered on 11/27/16 08 :32; Admin Dose 20 UNIT; Start 11/24/16 at 08:00 Guaifenesin (Mucinex) 600 mg BID PO Last administered on 11/27/16 09:21; Admin Dose 600 MG; Start 11/25/16 at 15:00 Warfarin Sodium (Coumadin) 2.5 mg DAILY@17 PO ; Start 11/27/16 at 17:00 Potassium Chloride (Klor-Con 10) 10 meq DAILY PO ; Start 11/28/16 at 09:00 SAMANTHA CARPENTER NP Nov 27, 2016 18:17
[2016-11-27] MEDS: EPOETIN 10000 UNITS/1 ML INJ (ESRD) SC SCH (18:22)
[2016-11-27] MEDS ORDERED: CASPOFUNGIN 70 MG in SOD CHLORIDE 0.9% 250 ML IVPB ONE (18:30)
[2016-11-28] VITALS (12 sets, daily range): BP systolic 120–160; BP diastolic 58–69; PULSE 65–98; RESP 18–21
[2016-11-28] MEDS: ACCU-CHEK XX SCH (02:00)
[2016-11-28] MEDS: PERMETHRIN 5% 60 GM CR TOP SCH (05:00)
[2016-11-28] MEDS: FUROSEMIDE 20 MG TAB PO SCH ×2 (05:55→17:16)
[2016-11-28 07:12] LABS: ADD SCAN DIFF NO
[2016-11-28 07:21] LABS: BASOPHILS % 0.5 % (0.0-2.0); EOSINOPHILS % 11.9 % (0.0-7.0); HEMATOCRIT 30.5 % (37.0-47.0); HEMOGLOBIN 9.9 g/dl (12.0-16.0); LYMPHOCYTES # 0.9 10^3/ul (0.8-2.9); LYMPHOCYTES % 10.5 % (15.0-51.0); MEAN CORPUSCULAR HEMOGLOBIN 33.6 pg (29.0-33.0); MEAN CORPUSCULAR HGB CONC 32.5 g/dl (32.0-37.0); MEAN CORPUSCULAR VOLUME 103.4 fl (82.0-101.0); MEAN PLATELET VOLUME 9.5 fl (7.4-10.4); MONOCYTE # 0.7 10^3/ul (0.3-0.9); NEUTROPHIL # 5.8 10^3/ul (1.6-7.5); NEUTROPHILS % 68.5 % (39.0-77.0); PLATELET COUNT 228 10^3/UL (140-415); RED BLOOD COUNT 2.95 10^6/ul (4.20-5.40); RED CELL DISTRIBUTION WIDTH 14.6 % (11.5-14.5); WHITE BLOOD COUNT 8.4 10^3/ul (4.8-10.8)
[2016-11-28 07:30] LABS: INR 2.57; PROTIME 27.9 Sec (12.2-14.2); PT RATIO 2.2
[2016-11-28] MEDS: INSULIN ASPART [NOVOLOG] 3 ML PEN SC SCH ×4 (07:34→21:29)
[2016-11-28] MEDS: INSULIN GLARGINE [LANtus] 3 ML PEN SC SCH (07:35)
[2016-11-28 07:52] LABS: ALBUMIN 3.3 g/dl (3.3-4.9); CALCIUM 8.7 mg/dl (8.4-10.2); CREATININE 1.53 mg/dl (0.44-1.00); MAGNESIUM 1.7 mg/dl (1.7-2.5); POTASSIUM 3.7 mmol/L (3.5-5.1)
[2016-11-28] MEDS: LEVALBUTEROL (NEB) 0.63 MG/3 ML AMP HHN SCH ×2 (07:58→16:22)
[2016-11-28] MEDS: DOXYCYCLINE 100 MG in SOD CHLORIDE 0.9% 250 ML IVPB SCH ×2 (09:21→21:12)
[2016-11-28] MEDS: ZINC SULFATE 220 MG CAP GTB SCH (09:24)
[2016-11-28] MEDS: ESCITALOPRAM 10 MG TAB PO SCH (09:25)
[2016-11-28] MEDS: POTASSIUM CHLORIDE (SR) 10 MEQ TAB PO SCH (09:25)
[2016-11-28] MEDS: FERROUS SULFATE (EC) 325 MG TAB PO SCH ×3 (09:25→21:12)
[2016-11-28] MEDS: MULTIVITAMINS THERAPEUTIC TAB PO SCH (09:25)
[2016-11-28] MEDS: DILTIAZEM (CD) 120 MG CAP PO SCH (09:25)
[2016-11-28] MEDS: MUPIROCIN 2% 22 GM OINT TOP SCH ×2 (09:25→21:21)
[2016-11-28] MEDS: GABAPENTIN 300 MG CAP PO SCH ×3 (09:25→21:12)
[2016-11-28] MEDS: GUAIFENESIN LA 600 MG TABSR PO SCH ×2 (09:25→21:12)
[2016-11-28] MEDS: AMLODIPINE 5 MG TAB PO SCH (09:25)
--- NOTE | 2016-11-28 12:21 | PN ---
DATE: 11/28/2016 SUBJECTIVE: The patient is resting comfortably on 2 liters of oxygen, in no acute distress. PHYSICAL EXAMINATION: VITAL SIGNS: Blood pressure 160/69, temperature 98.6, respirations at 24 to 19, pulse oximetry is 9 6% on 2 liters, pulse was 73. HEENT: Normocephalic, atraumatic. EYES: Pupils equal, round, react to light. CHEST: No rales, no rhonchi. CARDIOVASCULAR: Regular rate and rhythm. EXTREMITIES: Lower extremities have no pitting edema. LABORATORY DATA: BUN 35, creatinine 1.5. INR went up from a 2.0 to 2.57. Hemoglobin went up to 9. 9. CEA 1.6. ASSESSMENT AND PLAN: 1. Pneumonia: The patient appears to be doing better. Continue antibiotics. ID is currently foll owing her. 2. Atrial fibrillation: The patient's warfarin is to be held today and she is currently taking 2.5 mg every day. Her INR went up from a 2. 0 to a 2.5. We will reevaluated in the morning. 3. Muscle weakness, overall debility: Worsening. 3. Depression and dementia. 4. Hypertension: Blood pressure is fluctuating anywhere between 120s and 170s. We will continue t o watch and give p.r.n. medication. Dictated By: PENNY YEPEZ/PUJA Conf#: [id number] DID#: [id number]
--- NOTE | 2016-11-28 17:13 | CONS ---
Date/Time of Note Date/Time of Note DATE: 11/28/16 TIME: 17:00 Assessment/Plan Assessment/Plan Chief Complaint/Hosp Course ID PROGRESS NOTE TOTAL ABX DAY # 15=> Doxycycline #7 + Diflucan s/p Levaquin x 14 days -> DC 11/27 s/p Elimite, s/p Ivermectin s/p Ceftriaxone 24H INTERVAL SUMMARY * Over the past 72Hours she has remained much more alert and interactive with staff and family present, she is communicating feeling better, still weak. * I re-examed the scabies rash w/superimposed cellulitis worse on the RLEXT with crusted scabies -- the erythema is much improved. * The patient has much less scratching, the chest scabies and BUEXT scabies rash has improved markedly. * (+)YEAST growing in sputum -- suspect from oral sample rather than bronchus * She has received 14 days Levaquin -- Will DC Levaquin and give her Diflucan PHYSICAL EXAMINATION: GENERAL: VSS, NAD,lethargic, awakens HEENT: Unremarkable NECK: Supple, trach-> midline CHEST: Crackles HEART: Pulse RRR ABDOMEN: Soft, benign EXTREMITIES: Warm, crusted scabies thickened skin plaque RLEXT SKIN: Warm, (+)Diffuse pruritic rash w/bumpy scab lesions over entire body, some areas excoriated ID ASSESSMENT: 89 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 Acute respiratory failure => much improved, stable on low flow O2 via NC 2. 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 Congestive heart failure exacerbation. 4. Gram-negative rods urinary tract infection. * URINE CULTURE Final Organism 1 ENTEROBACTER CLOACAE COLONY COUNT 20,000 - 30,000 CFU/ml Organism 2 ESCHERICHIA COLI COLONY COUNT 10,000 - 20,000 CFU/ml 5. Hypertension. 6. Acute renal failure == much improved 7. Diabetes. 8. Paroxysmal atrial fibrillation=Warfarin on hold 9. ARF 10. PRURITIC skin rash w/superimposed cellulitis, multiple skin excoriation scratches = Presumptive SCABIES * Crusted scabies lesions on RLEXT 11. 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 12. Hx of Right iliac and femoral thrombophlebitis. (+)MRSA NARES -> Bactroban INVASIVES: * PIV ABX ALLERGIES: KNDA CURRENT ABX: Doxycycline #7 + Oral Nystatin + Cancidas x 3 days s/p Levaquin x14 days s/p Elimite, s/p Ivermectin s/p Ceftriaxone ID RECOMMENDATIONS: 1. Overall improving on current ABX --> Cancidas x 3 days 11/27; 11/28; 11/29 for persistent oral candidiasis on nystatin oral 2. Continue Doxycycline IV or PO for scabies cellulitis = ABX of choice until * s/p Elimite 11/20 s/p Ivermectin 11/21 -> Repeat 11/28 3. DC ABX WEDNESDAY AND DC BACK TO SNF * Over the past 72Hours she has remained much more alert and interactive with staff and family present, she is communicating feeling better, still weak. * I re-examed the scabies rash w/superimposed cellulitis worse on the RLEXT with crusted scabies -- the erythema is much improved. * The patient has much less scratching, the chest scabies and BUEXT scabies rash has improved markedly. * Son was present and I encouraged him to examine the crusted scabies rash improvement on chest, arms, legs -- showed him the crusted scabies. Educated son that this came from the correction -- Mom will be sent back TREATED for crusted scabies; nevertheless it may re-occur. If son/family notice increased scratching and/red scabby rash lesions with or without crusting -- let the SNF staff know and request Mom to be re-treated for SCABIES. Son expressed understanding. * I gave son update--Mom completed 14 days Levaquin + 10 days Doxy which will treat PNA -- longer course due to concern silent aspiration in setting of acute encephalopathy due to illness. She has received adequate treatment for PNA; nevertheless, Mom remains at risk recurrent ASP PNA, encouraged continue ASP precautions with feeding. . . Problems: Consultation Date/Type/Reason Admit Date/Time Nov 14, 2016 at 08:00 Type of Consultation: ID Exam/Review of Systems Vital Signs Vitals Vital Signs Date Time Temp Pulse Resp B/P Pulse Ox O2 Delivery O2 Flow Rate FiO2 4/29/17 16:24 2.0 11/28/16 16:24 74 22 96 Nasal Cannula 11/28/16 15:30 98.1 144/65 11/25/16 17:28 28 Intake and Output 11/27/16 11/27/16 11/28/16 15:00 23:00 07:00 Intake Total 750 ml 300 ml Output Total 750 ml 1300 ml Balance 0 ml -1000 ml Results Result Diagram: 11/28/16 0636 11/28/16 0636 Results 24 hrs Laboratory Tests Test 11/27/16 18:15 11/27/16 21:14 11/28/16 02:16 11/28/16 06:36 Bedside Glucose 272 H 261 H 165 White Blood Count 8.4 Red Blood Count 2.95 L Hemoglobin 9.9 L Hematocrit 30.5 L Mean Corpuscular Volume 103.4 H Mean Corpuscular Hemoglobin 33.6 H Mean Corpuscular Hemoglobin Concent 32.5 Red Cell Distribution Width 14.6 H Platelet Count 228 Mean Platelet Volume 9.5 Neutrophils % 68.5 Lymphocytes % 10.5 L Monocytes % 8.0 Eosinophils % 11.9 H Basophils % 0.5 Nucleated Red Blood Cells % 0.0 Neutrophils # 5.8 Lymphocytes # 0.9 Monocytes # 0.7 Eosinophils # 1.0 H Basophils # 0.0 Nucleated Red Blood Cells # 0.0 Prothrombin Time 27.9 #H Prothrombin Time Ratio 2.2 INR International Normalized Ratio 2.57 Sodium Level 140 Potassium Level 3.7 Chloride Level 110 Carbon Dioxide Level 24 Anion Gap 10 Blood Urea Nitrogen 35 H Creatinine 1.53 H Glucose Level 158 Calcium Level 8.7 Magnesium Level 1.7 Albumin 3.3 Test 11/28/16 07:31 11/28/16 11:22 Bedside Glucose 158 218 Medications Medications Current Medications Acetaminophen (Tylenol Tab) 650 mg Q4 PRN PO PAIN AND OR ELEVATED TEMP Last administered on 11/20/16 08:44; Admin Dose 650 MG; Start 11/14/16 at 13:30 Amlodipine Besylate (Norvasc) 5 mg DAILY PO Last administered on 11/28/16 09: 25; Admin Dose 5 MG; Start 11/14/16 at 14:30 Bisacodyl (Dulcolax Supp) 10 mg Q24H PRN [place] CONSTIPATION; Start 11/14/16 at 13: 30 Docusate Sodium (Colace) 200 mg Q24H PRN PO CONSTIPATION Last administered on 09:06; Admin Dose 200 MG; Start 11/14/16 at 13:30 Escitalopram Oxalate (Lexapro) 5 mg DAILY PO Last administered on 11/28/16 09: 25; Admin Dose 5 MG; Start 11/14/16 at 14:30 Gabapentin (Neurontin) 300 mg TID PO Last administered on 11/28/16 12:43; Admin Dose 300 MG; Start 11/14/16 at 14:30 Acetaminophen/ Hydrocodone Bitart ([place] ()) 1 tab Q6H PRN PO PAIN Last administered on 11/26/16 23:24; Admin Dose 1 TAB; Start 11/14/16 at 13:30 Multivitamins Therapeutic (Theragran) 1 tab DAILY PO Last administered on 09:25; Admin Dose 1 TAB; Start 11/15/16 at 09:00 Zinc Sulfate (Zinc Sulfate) 220 mg DAILY GTB Last administered on 11/28/16 09: 24; Admin Dose 220 MG; Start 11/15/16 at 09:00 Miscellaneous Information 1 ea NOTE XX ; Start 11/14/16 at 14:00 Dextrose (D50w Syringe) 25 ml Q15M PRN IV DECREASED GLUCOSE Last administered on 11/18/16 09:18; Admin Dose 25 ML; Start 11/14/16 at 14:00 Glucagon (Glucagen) 1 mg Q15M PRN IM DECREASED GLUCOSE; Start 11/14/16 at 14:00 Glucose (Glutose) 15 gm Q15M PRN BUCCAL DECREASED GLUCOSE Last administered on 11/17/16 07:55; Admin Dose 15 GM; Start 11/14/16 at 14:00 Diagnostic Test (Pha) (Accu-Chek) 1 ea 02 XX Last administered on 11/28/16 02: 00; Admin Dose 1 EA; Start 11/15/16 at 02:00 [facility] This patient woodard... PRN PRN XX WOUND CARE; Start 11/14/16 at 16:30 Diltiazem HCl (Cardizem Cd) 120 mg DAILY PO Last administered on 11/28/16 09: 25; Admin Dose 120 MG; Start 11/16/16 at 09:00 Ferrous Sulfate (Ferrous Sulfate (Ec)) 325 mg TID PO Last administered on 12:43; Admin Dose 325 MG; Start 11/17/16 at 21:00 Mupirocin (Bactroban) 1 applic BID TOP Last administered on 11/28/16 09:25; Admin Dose 1 APPLIC; Start 11/17/16 at 21:00 Epoetin Jean [id number] units 10,000 units MoWeFr@17 SC Last administered on 18:22; Admin Dose 10,000 UNITS; Start 11/20/16 at 17:00 Doxycycline Hyclate/Sodium Chloride (Vibramycin/NS) 250 ml @ 250 mls/hr Q12 IVPB Last administered on 11/28/16 09:21; Admin Dose 250 MLS/HR; Start at 21:00; Stop 11/30/16 at 20:59 Insulin Glargine (Lantus) 20 unit DAILY@08 SC Last administered on 11/28/16 07 :35; Admin Dose 20 UNIT; Start 11/24/16 at 08:00 Guaifenesin (Mucinex) 600 mg BID PO Last administered on 11/28/16 09:25; Admin Dose 600 MG; Start 11/25/16 at 15:00 Warfarin Sodium (Coumadin) 2.5 mg DAILY@17 PO Last administered on 11/27/16 18 :20; Admin Dose 2.5 MG; Start 11/27/16 at 17:00; Status Future Hold Potassium Chloride (Klor-Con 10) 10 meq DAILY PO Last administered on 09:25; Admin Dose 10 MEQ; Start 11/28/16 at 09:00 Ivermectin 12 mg 12 mg ONCE ONCE PO ; Start 11/28/16 at 21:00; Stop 11/28/16 at 21:01 Caspofungin/ Sodium Chloride (Cancidas/NS) 250 ml @ 250 mls/hr Q24H IVPB ; Start 11/28/16 at 18:30; Stop 11/29/16 at 23:00 SAMANTHA CARPENTER NP Nov 28, 2016 17:13
[2016-11-28] MEDS: CASPOFUNGIN 50 MG in SOD CHLORIDE 0.9% 250 ML IVPB SCH (17:16)
[2016-11-28] MEDS ORDERED: IVERMECTIN 3 MG TAB PO ONE (21:00)
[2016-11-29] VITALS (12 sets, daily range): BP systolic 118–153; BP diastolic 58–84; PULSE 71–99; RESP 18–20
[2016-11-29] MEDS: LEVALBUTEROL (NEB) 0.63 MG/3 ML AMP HHN SCH ×3 (00:32→16:19)
[2016-11-29] MEDS: ACCU-CHEK XX SCH (02:00)
[2016-11-29] MEDS: FUROSEMIDE 20 MG TAB PO SCH ×2 (06:21→17:54)
[2016-11-29] MEDS: INSULIN ASPART [NOVOLOG] 3 ML PEN SC SCH ×4 (07:55→22:00)
[2016-11-29] MEDS: FERROUS SULFATE (EC) 325 MG TAB PO SCH ×3 (09:14→22:17)
[2016-11-29] MEDS: GUAIFENESIN LA 600 MG TABSR PO SCH ×2 (09:15→22:00)
[2016-11-29] MEDS: ESCITALOPRAM 10 MG TAB PO SCH (09:15)
[2016-11-29] MEDS: GABAPENTIN 300 MG CAP PO SCH ×3 (09:15→22:17)
[2016-11-29] MEDS: DILTIAZEM (CD) 120 MG CAP PO SCH (09:15)
[2016-11-29] MEDS: AMLODIPINE 5 MG TAB PO SCH (09:15)
[2016-11-29] MEDS: MULTIVITAMINS THERAPEUTIC TAB PO SCH (09:15)
[2016-11-29] MEDS: POTASSIUM CHLORIDE (SR) 10 MEQ TAB PO SCH (09:17)
[2016-11-29] MEDS: DOXYCYCLINE 100 MG in SOD CHLORIDE 0.9% 250 ML IVPB SCH (09:17)
[2016-11-29] MEDS: ZINC SULFATE 220 MG CAP GTB SCH (09:17)
[2016-11-29] MEDS: MUPIROCIN 2% 22 GM OINT TOP SCH ×2 (09:17→21:00)
[2016-11-29] MEDS: INSULIN GLARGINE [LANtus] 3 ML PEN SC SCH (09:34)
[2016-11-29 10:27] LABS: INR 2.41; PROTIME 26.5 Sec (12.2-14.2); PT RATIO 2.1
--- NOTE | 2016-11-29 13:30 | PN ---
DATE: SUBJECTIVE: The patient is resting comfortably, in no acute distress, is able to respond to the ans wer appropriately. PHYSICAL EXAMINATION: VITAL SIGNS: Blood pressure 132/60, temperature is 98.1, pulse is 99, pulse ox is at 95% at 2 liter s. GENERAL: Still weak. Has mild cough, more awake and alert. CARDIOVASCULAR: Irregular. LOWER EXTREMITIES: No pitting edema. LABORATORY DATA: Demonstrates INR of 2.4, hemoglobin 9.9. WBC is 8.4. ASSESSMENT AND PLAN: 1. Pneumonia, effusion and cough, continues to improve. 2. Congestive heart failure, atrial fibrillation. The patient's Coumadin was held for 1 day due to the increase of the INR from 2.0 to 2.5, today is now 2.4. Will restart the Coumadin at a lower do se at 1 mg, recheck the PT/INR in the morning. 3. Muscle weakness, overall debilitating but still worse. 4. Depression. 5. Infectious disease is currently following the patient for the skin lesions and pneumonia. Dictated By: PENNY YEPEZ/PUJA Conf#: [id number] DID#: [id number]
[2016-11-29] MEDS ORDERED: WARFARIN 1 MG TAB PO ONE (17:00)
[2016-11-29] MEDS: CASPOFUNGIN 50 MG in SOD CHLORIDE 0.9% 250 ML IVPB SCH (18:52)
--- NOTE | 2016-11-29 18:56 | CONS ---
Date/Time of Note Date/Time of Note DATE: 11/29/16 TIME: 18:49 Assessment/Plan Assessment/Plan Chief Complaint/Hosp Course ID PROGRESS NOTE TOTAL ABX DAY => Doxycycline #8 +Oral Nystatin + Cancidas x 4 days s/p Levaquin x 14 days -> DC 11/27 s/p Elimite, s/p Ivermectin 11/28 s/p Ceftriaxone 24H INTERVAL SUMMARY * Resting comfortable, VSS, no fevers, awakens, doing well, smiles, no cough, chest congestion clearing PHYSICAL EXAMINATION: GENERAL: VSS, NAD,lethargic, awakens HEENT: Unremarkable NECK: Supple, trach-> midline CHEST: Crackles HEART: Pulse RRR ABDOMEN: Soft, benign EXTREMITIES: Warm, crusted scabies thickened skin plaque RLEXT SKIN: Warm, (+)Diffuse pruritic rash w/bumpy scab lesions over entire body, some areas excoriated ID ASSESSMENT: 89 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 Acute respiratory failure => much improved, stable on low flow O2 via NC 2. 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 Congestive heart failure exacerbation. 4. Gram-negative rods urinary tract infection. * URINE CULTURE Final Organism 1 ENTEROBACTER CLOACAE COLONY COUNT 20,000 - 30,000 CFU/ml Organism 2 ESCHERICHIA COLI COLONY COUNT 10,000 - 20,000 CFU/ml 5. Hypertension. 6. Acute renal failure == much improved 7. Diabetes. 8. Paroxysmal atrial fibrillation=Warfarin on hold 9. ARF 10. PRURITIC skin rash w/superimposed cellulitis, multiple skin excoriation scratches = Presumptive SCABIES * Crusted scabies lesions on RLEXT 11. 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 12. Hx of Right iliac and femoral thrombophlebitis. (+)MRSA NARES -> Bactroban INVASIVES: * PIV ABX ALLERGIES: KNDA CURRENT ABX: Doxycycline #8 + Oral Nystatin + Cancidas x 4 days s/p Levaquin x14 days s/p Elimite, s/p Ivermectin s/p Ceftriaxone ID RECOMMENDATIONS: 1. DC Cancidas after today's dose, DC Doxy after 5/1 am dose * DC Back to SNF when cleared by primary OFF ABX * Patient has received adequate treatment for concern ASP Pneumonia and the finding of SNF acquired crusted scabies infestation w/superimposed cellulitis. . . Problems: Consultation Date/Type/Reason Admit Date/Time Nov 14, 2016 at 08:00 Type of Consultation: ID Exam/Review of Systems Vital Signs Vitals Vital Signs Date Time Temp Pulse Resp B/P Pulse Ox O2 Delivery O2 Flow Rate FiO2 11/29/16 16:22 68 20 96 Nasal Cannula 2.0 11/29/16 14:58 97.8 135/84 11/25/16 17:28 28 Intake and Output 11/28/16 11/28/16 11/29/16 15:00 23:00 07:00 Intake Total 750 ml 300 ml 100 ml Output Total 650 ml 500 ml Balance 100 ml 300 ml -400 ml Results Result Diagram: 11/28/16 0636 11/28/16 0636 Results 24 hrs Laboratory Tests Test 11/28/16 21:15 11/29/16 02:17 11/29/16 07:57 11/29/16 09:55 Bedside Glucose 321 H 193 133 Prothrombin Time 26.5 H Prothrombin Time Ratio 2.1 INR International Normalized Ratio 2.41 Test 11/29/16 12:18 11/29/16 17:52 Bedside Glucose 202 133 Medications Medications Current Medications Acetaminophen (Tylenol Tab) 650 mg Q4 PRN PO PAIN AND OR ELEVATED TEMP Last administered on 11/20/16 08:44; Admin Dose 650 MG; Start 11/14/16 at 13:30 Amlodipine Besylate (Norvasc) 5 mg DAILY PO Last administered on 11/29/16 09: 15; Admin Dose 5 MG; Start 11/14/16 at 14:30 Bisacodyl (Dulcolax Supp) 10 mg Q24H PRN [place] CONSTIPATION; Start 11/14/16 at 13: 30 Docusate Sodium (Colace) 200 mg Q24H PRN PO CONSTIPATION Last administered on 09:06; Admin Dose 200 MG; Start 11/14/16 at 13:30 Escitalopram Oxalate (Lexapro) 5 mg DAILY PO Last administered on 11/29/16 09: 15; Admin Dose 5 MG; Start 11/14/16 at 14:30 Gabapentin (Neurontin) 300 mg TID PO Last administered on 11/29/16 12:21; Admin Dose 300 MG; Start 11/14/16 at 14:30 Acetaminophen/ Hydrocodone Bitart ([place] (10325)) 1 tab Q6H PRN PO PAIN Last administered on 11/26/16 23:24; Admin Dose 1 TAB; Start 11/14/16 at 13:30 Multivitamins Therapeutic (Theragran) 1 tab DAILY PO Last administered on 09:15; Admin Dose 1 TAB; Start 11/15/16 at 09:00 Zinc Sulfate (Zinc Sulfate) 220 mg DAILY GTB Last administered on 11/29/16 09: 17; Admin Dose 220 MG; Start 11/15/16 at 09:00 Miscellaneous Information 1 ea NOTE XX ; Start 11/14/16 at 14:00 Dextrose (D50w Syringe) 25 ml Q15M PRN IV DECREASED GLUCOSE Last administered on 11/18/16 09:18; Admin Dose 25 ML; Start 11/14/16 at 14:00 Glucagon (Glucagen) 1 mg Q15M PRN IM DECREASED GLUCOSE; Start 11/14/16 at 14:00 Glucose (Glutose) 15 gm Q15M PRN BUCCAL DECREASED GLUCOSE Last administered on 11/17/16 07:55; Admin Dose 15 GM; Start 11/14/16 at 14:00 Diagnostic Test (Pha) (Accu-Chek) 1 ea 02 XX Last administered on 11/28/16 02: 00; Admin Dose 1 EA; Start 11/15/16 at 02:00 [facility] This patient woodard... PRN PRN XX WOUND CARE; Start 11/14/16 at 16:30 Diltiazem HCl (Cardizem Cd) 120 mg DAILY PO Last administered on 11/29/16 09: 15; Admin Dose 120 MG; Start 11/16/16 at 09:00 Ferrous Sulfate (Ferrous Sulfate (Ec)) 325 mg TID PO Last administered on 12:21; Admin Dose 325 MG; Start 11/17/16 at 21:00 Mupirocin (Bactroban) 1 applic BID TOP Last administered on 11/29/16 09:17; Admin Dose 1 APPLIC; Start 11/17/16 at 21:00 Epoetin Jean [id number] units 10,000 units MoWeFr@17 SC Last administered on 18:22; Admin Dose 10,000 UNITS; Start 11/20/16 at 17:00 Doxycycline Hyclate/Sodium Chloride (Vibramycin/NS) 250 ml @ 250 mls/hr Q12 IVPB Last administered on 11/29/16 09:17; Admin Dose 250 MLS/HR; Start at 21:00; Stop 11/30/16 at 20:59 Insulin Glargine (Lantus) 20 unit DAILY@08 SC Last administered on 11/29/16 09 :34; Admin Dose 20 UNIT; Start 11/24/16 at 08:00 Guaifenesin (Mucinex) 600 mg BID PO Last administered on 11/29/16 09:15; Admin Dose 600 MG; Start 11/25/16 at 15:00 Potassium Chloride 10 meq 10 meq DAILY PO Last administered on 11/29/16 09:17 ; Admin Dose 10 MEQ; Start 11/28/16 at 09:00 Caspofungin/ Sodium Chloride (Cancidas/NS) 250 ml @ 250 mls/hr Q24H IVPB Last administered on 11/28/16 17:16; Admin Dose 250 MLS/HR; Start 11/28/16 at 18:30 ; Stop 11/29/16 at 23:00 SAMANTHA CARPENTER NP Nov 29, 2016 18:56
[2016-11-30] VITALS (10 sets, daily range): BP systolic 120–145; BP diastolic 57–76; PULSE 69–95; RESP 18–20
[2016-11-30] MEDS: HYDROCODONE/APAP (10/325) TAB PO PRN (00:10)
[2016-11-30] MEDS: LEVALBUTEROL (NEB) 0.63 MG/3 ML AMP HHN SCH ×3 (01:00→16:40)
[2016-11-30] MEDS: ACCU-CHEK XX SCH (02:00)
[2016-11-30] MEDS: FUROSEMIDE 20 MG TAB PO SCH ×2 (05:34→17:46)
[2016-11-30 06:56] LABS: INR 2.35
[2016-11-30 07:04] LABS: ALBUMIN 3.2 g/dl (3.3-4.9)
[2016-11-30 07:05] LABS: POTASSIUM 3.6 mmol/L (3.5-5.1)
[2016-11-30 07:07] LABS: ALBUMIN/GLOBULIN RATIO 0.78; BILIRUBIN,INDIRECT 0.1 mg/dl (0-1.1); BILIRUBIN,TOTAL 0.1 mg/dl (0.2-1.3); CREATININE 1.6 mg/dl (0.44-1.00); TOTAL PROTEIN 7.3 g/dl (6.1-8.1)
[2016-11-30] MEDS: INSULIN ASPART [NOVOLOG] 3 ML PEN SC SCH ×3 (07:55→17:53)
[2016-11-30] MEDS: GUAIFENESIN LA 600 MG TABSR PO SCH (10:40)
[2016-11-30] MEDS: DILTIAZEM (CD) 120 MG CAP PO SCH (10:40)
[2016-11-30] MEDS: ESCITALOPRAM 10 MG TAB PO SCH (10:40)
[2016-11-30] MEDS: ZINC SULFATE 220 MG CAP GTB SCH (10:41)
[2016-11-30] MEDS: GABAPENTIN 300 MG CAP PO SCH ×2 (10:41→12:40)
[2016-11-30] MEDS: FERROUS SULFATE (EC) 325 MG TAB PO SCH ×2 (10:41→12:40)
[2016-11-30] MEDS: AMLODIPINE 5 MG TAB PO SCH (10:41)
[2016-11-30] MEDS: MUPIROCIN 2% 22 GM OINT TOP SCH (10:42)
[2016-11-30] MEDS: POTASSIUM CHLORIDE (SR) 10 MEQ TAB PO SCH (10:42)
[2016-11-30] MEDS: INSULIN GLARGINE [LANtus] 3 ML PEN SC SCH (10:50)
[2016-11-30] MEDS: MULTIVITAMINS THERAPEUTIC TAB PO SCH (10:54)
--- NOTE | 2016-11-30 11:23 | DS ---
Date/Time of Note Date/Time of Note DATE: 11/30/16 TIME: 11:00 Discharge Summary Admission/Discharge Info Admit Date/Time Nov 14, 2016 at 08:00 Discharge Date/Time 11/30/2016 Final Diagnosis 1. S/P Rt sided Pneumonia/ effusion/ RLD 2. S/P UTI 3. CHF/ A FIB/ HTN/ PAD--NEEDS ANTICOAG 4. ARF/ ANEMIA 5. DM 6. DEPRESSION/ DEMENTIA 7. DEBILITY--MORE BED BOUND 8. S/P SCABIES SKIN LESIONS Patient Condition: Guarded Consults CARDIOLOGY ID RENAL PULM Procedures CXR RENAL U/S BLOOD C&S URINE C&S SPUTUM C&S Hx of Present Illness PT WAS TRANSFERRED FROM SNF, WITH DYSPNEA & AMS, WHILE IN [facility] ER D/O PNEUMONIA & UTI, WAS ADMITTED TO [facility] BED FOR EXTENSIVE SPECIALISTS EXAMS & RXS INC IVF, IV ATBX, GENTLE DIURETIC, O2, & OTHER SUPPORTIVE CARES. PT REPONDED WELL BUT VERY SLOWLY; HER MENTATION WAS FULLY RECOVERED TO HER BASELINE BY 12DAYS STAY IN HOSP. SINCE THEN, SHE IS AWAKE, AVAIL TO EAT W/ ASSISTANCE, VS STABLE, REMAINS MORE BED BOUND FOR HER LE MUSC STRENGTH CANNOT HOLD WT TO EVEN STAND UP BY BEDSIDE. SHE WAS STIMULATED PER OT/PT BID FOR PAST 5 DAYS. DUE TO COMING TO HOSP WITH INFESTED SCABIES SKIN LESIONS, SHE WILL BE TRANSFERED TO ANOTHER SNF UPON D/C FROM HOSP. Hospital Course ID PROGRESS NOTE TOTAL ABX DAY => Doxycycline #8 +Oral Nystatin + Cancidas x 4 days s/p Levaquin x 14 days -> DC 11/27 s/p Elimite, s/p Ivermectin 11/28 s/p Ceftriaxone 24H INTERVAL SUMMARY * Resting comfortable, VSS, no fevers, awakens, doing well, smiles, no cough, chest congestion clearing PHYSICAL EXAMINATION: GENERAL: VSS, NAD,lethargic, awakens HEENT: Unremarkable NECK: Supple, trach-> midline CHEST: Crackles HEART: Pulse RRR ABDOMEN: Soft, benign EXTREMITIES: Warm, crusted scabies thickened skin plaque RLEXT SKIN: Warm, (+)Diffuse pruritic rash w/bumpy scab lesions over entire body, some areas excoriated ID ASSESSMENT: 89 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 Acute respiratory failure => much improved, stable on low flow O2 via NC 2. 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 Congestive heart failure exacerbation. 4. Gram-negative rods urinary tract infection. * URINE CULTURE Final Organism 1 ENTEROBACTER CLOACAE COLONY COUNT 20,000 - 30,000 CFU/ml Organism 2 ESCHERICHIA COLI COLONY COUNT 10,000 - 20,000 CFU/ml 5. Hypertension. 6. Acute renal failure == much improved 7. Diabetes. 8. Paroxysmal atrial fibrillation=Warfarin on hold 9. ARF 10. PRURITIC skin rash w/superimposed cellulitis, multiple skin excoriation scratches = Presumptive SCABIES * Crusted scabies lesions on RLEXT 11. 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 12. Hx of Right iliac and femoral thrombophlebitis. (+)MRSA NARES -> Bactroban INVASIVES: * PIV ABX ALLERGIES: KNDA CURRENT ABX: Doxycycline #8 + Oral Nystatin + Cancidas x 4 days s/p Levaquin x14 days s/p Elimite, s/p Ivermectin s/p Ceftriaxone ID RECOMMENDATIONS: 1. DC Cancidas after today's dose, DC Doxy after 5/1 am dose * DC Back to SNF when cleared by primary OFF ABX * Patient has received adequate treatment for concern ASP Pneumonia and the finding of SNF acquired crusted scabies infestation w/superimposed cellulitis. . . Home Meds Active Scripts Epoetin Jean (Procrit) 10,000 Unit/1 Ml Vial, 65035 UNIT IJ q monthly for 30 Days, #1 VIAL Prov:HARMONY OLEA MD 10/16/16 Amlodipine Besylate* (Norvasc*) 5 Mg Tablet, 5 MG PO DAILY for 30 Days, #60 TAB Prov:HARMONY OLEA MD 10/16/16 Insulin Glargine* (Lantus*) 100 Unit/Ml Soln, 35 UNIT SC HS for 30 Days, #1 BOTTLE Prov:HARMONY OLEA MD 10/16/16 Loperamide Hcl* (Loperamide Hcl*) 2 Mg Cap, 2 MG PO QID Y for DIARRHEA for 30 Days, CAP Prov:HARMONY OLEA MD 08/09/15 Reported Medications [vit B12] No Conflict Check, 1000 MCG IM Q wednesday11/14/16 Cyanocobalamin* (Vitamin B-12*) 1,000 Mcg Tablet.sa, 1000 MCG PO DAILY, TAB 11/14/16 Gabapentin* (Gabapentin*) 300 Mg Capsule, 300 MG PO TID, #60 CAP 11/14/16 Ferrous Sulfate* (Ferrous Sulfate*) 325 Mg Tabec, 325 MG PO DAILY, TAB 11/14/16 Escitalopram Oxalate* (Lexapro*) 5 Mg Tablet, 5 MG PO DAILY, #30 TAB 11/14/16 Zinc Sulfate (ZINC-220) 220 Mg Cap, 220 MG GTB DAILY, CAP 11/14/16 Linagliptin (TRADJENTA) 5 Mg Tablet, 5 MG PO DAILY, TAB 11/14/16 Magnesium Oxide* (Mag-Oxide*) 400 Mg Tablet, 400 MG PO BID, TAB 11/14/16 Diltiazem Hcl* (Diltiazem XT) 120 Mg Capsule.sa, 120 MG PO DAILY, #30 CAP 11/14/16 Ascorbic Acid* (Vitamin C*) 500 Mg Capsule.sa, 500 MG PO DAILY, CAP 09/24/15 Cran/Vitc/Mannose/Inulin/Brom (Uti-Stat Liquid) 3,875 Mg/30 Ml Liquid, 3875 MG PO BID 09/24/15 Acetaminophen* (Acetaminophen*) 650 Mg Tablet, 650 MG PO Q4 Y for PAIN AND OR ELEVATED TEMP, #30 TAB 09/24/15 Hydrocodone Bit-Acetaminophen* ([place]*) 10-325 Mg Tablet, 1 TAB PO Q6 Y for PAIN , TAB 09/24/15 Multivitamins* (Once Daily*) 1 Tab Tablet, 1 TAB PO DAILY, TAB 09/24/15 Na Phos,M-B/Na Phos,Di-Ba* (Fleet* Enema) 118 Ml Enema, 118 ML [place] Q48H Y for CONSTIPATION, ENEMA 09/24/15 Ferrous Sulfate (Iron) 325 Mg Capsr, 325 MG PO DAILY 09/24/15 Bisacodyl* (Dulcolax*) 10 Mg/Supp.rect Supp.rect, 10 MG KY Q24H Y for CONSTIPATION, SUPP.RECT 09/24/15 Cranberry Extract (Cranberry) 425 Mg Capsule, 425 MG PO TID, CAP 09/24/15 Docusate Sodium* (Colace*) 100 Mg Capsule, 200 MG PO Q24H Y for CONSTIPATION, # 30 CAP 09/24/15 Lisinopril* (Zestril*) 10 Mg Tablet, 10 MG PO BID, TAB 03/22/15 Escitalopram Oxalate* (Lexapro*) 5 Mg Tablet, 5 MG PO DAILY, TAB 02/18/15 Follow-up Plan TRANSF ACTIVITY-- KRANTHI. TRANSF DIET--ADA 1500CAL LOW NA/FAT/CHOL. TRANSF MEDS PER ORDERED. QWEEKLY PT INR FOR PT STILL NEEDS COUMADIN. CODE STATUS CHANGE TO INTERNATIONAL EDITORIAL PRODUCER, NO MORE RETURN TO HOSPITAL, LAB PRN ONLY. DR AJAY HAWKINS MD WILL FOLLOW STRATEGIC MARKETING SPECIALIST, T[facility]/ OFFICE Pending Labs Laboratory Tests Test 11/29/16 12:18 11/29/16 17:52 11/29/16 22:19 11/30/16 06:35 Bedside Glucose 202mg/dL (70-220) 133mg/dL (70-220) 165mg/dL (70-220) Prothrombin Time 26.0Sec (12.2-14.2) Prothrombin Time Ratio 2.0 INR International Normalized Ratio 2.35 Sodium Level 148mmol/L (135-144) Potassium Level 3.6mmol/L (3.5-5.1) Chloride Level 112mmol/L (97-110) Carbon Dioxide Level 24mmol/L (21-31) Anion Gap 16 (8-16) Blood Urea Nitrogen 31mg/dl (7-20) Creatinine 1.60mg/dl (0.44-1.00) Glucose Level 63mg/dl (70-220) Calcium Level 9.0mg/dl (8.4-10.2) Total Bilirubin 0.1mg/dl (0.2-1.3) Direct Bilirubin 0.00mg/dl (0.00-0.20) Indirect Bilirubin 0.1mg/dl (0-1.1) Aspartate Amino Transf (AST/SGOT) 22IU/L (15-46) Alanine Aminotransferase (ALT/SGPT) 28IU/L (13-69) Alkaline Phosphatase 72IU/L (42-121) B-Type Natriuretic Peptide 4370PG/ML (0-450) Total Protein 7.3g/dl (6.1-8.1) Albumin 3.2g/dl (3.3-4.9) Globulin 4.10g/dl (1.3-3.2) Albumin/Globulin Ratio 0.78 Test 11/30/16 08:01 Bedside Glucose 74mg/dL (70-220) Copies To: CC: AJAY HAWKINS MD, ELIZA S MD November 30, 2016 11:13
--- NOTE | 2016-11-30 15:46 | PN ---
DATE: 11/30/2016 SUBJECTIVE: Patient is sleeping. Looks comfortable. No fevers. No CBC this morning. BUN 31, cre atinine 1.60. INDWELLINGS: Ray catheter. PHYSICAL EXAMINATION: GENERAL: This is a fragile, elderly woman who is in no distress. HEENT: Head atraumatic, normocephalic. Sclerae anicteric. Buccal mucosa dry. NECK: Supple, trachea midline. CHEST: Rise symmetrical. Breath sounds diminished to bases. HEART: S1, S2. ABDOMEN: Soft, bowel tones present. EXTREMITIES: No cyanosis. ASSESSMENT: 1. Status post sepsis, urinary tract infection, pneumonia. 2. Status post congestive heart failure exacerbation. 3. Acute on chronic kidney disease. 4. Diabetes. 5. Dementia. PLAN: The patient remains stable. Completed antibiotics. Pending discharge planning. Dictated By: AMBER FLORES SILVER WRAPPER for JOSE ANTONIO CABRAL/NTS Conf#: [id number] DID#: [id number]
--- NOTE | 2016-11-30 16:08 | CONS ---
Date/Time of Note Date/Time of Note DATE: 11/30/16 TIME: 16:07 Assessment/Plan Assessment/Plan Additional Assessment/Plan Pneumonia Acute decompensated diastolic congestive heart failure, improved Paroxysmal atrial fibrillation Peripheral arterial disease Acute kidney injury, improved -Heart rate trend remained stable. Diuretics as per nephrology. Blood pressure well controlled. Consultation Date/Type/Reason Admit Date/Time Nov 14, 2016 at 08:00 Type of Consultation: cv 24 HR Interval Summary Free Text/Dictation Patient seen and examined Exam/Review of Systems Vital Signs Vitals Vital Signs Date Time Temp Pulse Resp B/P Pulse Ox O2 Delivery O2 Flow Rate FiO2 11/30/16 12:25 69 11/30/16 12:02 98.0 18 120/76 99 11/30/16 07:33 Nasal Cannula 2.0 Intake and Output 11/29/16 11/29/16 11/30/16 15:00 23:00 07:00 Intake Total 400 ml 100 ml Output Total 800 ml 520 ml Balance -400 ml -420 ml Exam Awake, no apparent distress Head: normocephalic Respiratory: other (Coarse breath sounds bilaterally, no wheezing) Cardiovascular: irregular rhythm, other (S1-S2 heard) Gastrointestinal: bowel sounds, non-tender, soft Extremities: edema (Trace) Results Result Diagram: 11/28/16 0636 11/30/16 0635 Results 24 hrs Laboratory Tests Test 11/29/16 17:52 11/29/16 22:19 11/30/16 06:35 11/30/16 08:01 Bedside Glucose 133 165 74 Prothrombin Time 26.0 H Prothrombin Time Ratio 2.0 INR International Normalized Ratio 2.35 Sodium Level 148 H Potassium Level 3.6 Chloride Level 112 H Carbon Dioxide Level 24 Anion Gap 16 Blood Urea Nitrogen 31 H Creatinine 1.60 H Glucose Level 63 #L Calcium Level 9.0 Total Bilirubin 0.1 L Direct Bilirubin 0.00 Indirect Bilirubin 0.1 Aspartate Amino Transf (AST/SGOT) 22 Alanine Aminotransferase (ALT/SGPT) 28 Alkaline Phosphatase 72 B-Type Natriuretic Peptide 4370 H Total Protein 7.3 Albumin 3.2 L Globulin 4.10 H Albumin/Globulin Ratio 0.78 Test 11/30/16 12:04 Bedside Glucose 105 Medications Medications Current Medications Acetaminophen (Tylenol Tab) 650 mg Q4 PRN PO PAIN AND OR ELEVATED TEMP Last administered on 11/20/16t 08:44; Admin Dose 650 MG; Start 11/14/16 at 13:30 Amlodipine Besylate (Norvasc) 5 mg DAILY PO Last administered on 11/30/16 10:41 ; Admin Dose 5 MG; Start 11/14/16 at 14:30 Bisacodyl (Dulcolax Supp) 10 mg Q24H PRN [place] CONSTIPATION; Start 11/14/16 at 13: 30 Docusate Sodium (Colace) 200 mg Q24H PRN PO CONSTIPATION Last administered on 09:06; Admin Dose 200 MG; Start 11/14/16 at 13:30 Escitalopram Oxalate (Lexapro) 5 mg DAILY PO Last administered on 11/30/16 10: 40; Admin Dose 5 MG; Start 11/14/16 at 14:30 Gabapentin (Neurontin) 300 mg TID PO Last administered on 11/30/16 12:40; Admin Dose 300 MG; Start 11/14/16 at 14:30 Acetaminophen/ Hydrocodone Bitart ([place] ()) 1 tab Q6H PRN PO PAIN Last administered on 11/30/16 00:10; Admin Dose 1 TAB; Start 11/14/16 at 13:30 Multivitamins Therapeutic (Theragran) 1 tab DAILY PO Last administered on 10:54; Admin Dose 1 TAB; Start 11/15/16 at 09:00 Zinc Sulfate (Zinc Sulfate) 220 mg DAILY GTB Last administered on 11/30/16 10: 41; Admin Dose 220 MG; Start 11/15/16 at 09:00 Miscellaneous Information 1 ea NOTE XX ; Start 11/14/16 at 14:00 Dextrose (D50w Syringe) 25 ml Q15M PRN IV DECREASED GLUCOSE Last administered on 11/18/16 09:18; Admin Dose 25 ML; Start 11/14/16 at 14:00 Glucagon (Glucagen) 1 mg Q15M PRN IM DECREASED GLUCOSE; Start 11/14/16 at 14:00 Glucose (Glutose) 15 gm Q15M PRN BUCCAL DECREASED GLUCOSE Last administered on 11/17/16 07:55; Admin Dose 15 GM; Start 11/14/16 at 14:00 Diagnostic Test (Pha) (Accu-Chek) 1 ea 02 XX Last administered on 11/28/16 02: 00; Admin Dose 1 EA; Start 11/15/16 at 02:00 Miscellaneous Information (Pending [facility] Order For Wound Care) This patient woodard... PRN PRN XX WOUND CARE; Start 11/14/16 at 16:30 Diltiazem HCl (Cardizem Cd) 120 mg DAILY PO Last administered on 11/30/16 10:40 ; Admin Dose 120 MG; Start 11/16/16 at 09:00 Ferrous Sulfate (Ferrous Sulfate (Ec)) 325 mg TID PO Last administered on 12:40; Admin Dose 325 MG; Start 11/17/16 at 21:00 Mupirocin (Bactroban) 1 applic BID TOP Last administered on 11/30/16 10:42; Admin Dose 1 APPLIC; Start 11/17/16 at 21:00 Epoetin Jean (Epogen (Esrd)) 10,000 units MoWeFr@17 SC Last administered on 18:22; Admin Dose 10,000 UNITS; Start 11/20/16 at 17:00 Insulin Glargine (Lantus) 20 unit DAILY@08 SC Last administered on 11/30/16 10: 50; Admin Dose 20 UNIT; Start 11/24/16 at 08:00 Guaifenesin (Mucinex) 600 mg BID PO Last administered on 11/30/16 10:40; Admin Dose 600 MG; Start 11/25/16 at 15:00 Potassium Chloride (Klor-Con 10) 10 meq DAILY PO Last administered on 11/30/16 10:42; Admin Dose 10 MEQ; Start 11/28/16 at 09:00 Hieu Wolf DO November 30, 2016 16:08
[2016-11-30] MEDS: EPOETIN 10000 UNITS/1 ML INJ (ESRD) SC SCH (17:00)
== END 2016-11-30 18:25 | DRG 193 ==
LOC: E/R 04:09 → TEL 08:00
PROVIDERS: ADMIT Internal Medicine; ATTEND Internal Medicine
DX: J18.9 Pneumonia, unspecified organism (principal); I50.33 Acute on chronic diastolic (congestive) heart failure; J96.01 Acute respiratory failure with hypoxia; N17.9 Acute kidney failure, unspecified; E11.22 Type 2 diabetes mellitus with diabetic chronic kidney disease; I48.0 Paroxysmal atrial fibrillation; E11.51 Type 2 diabetes mellitus with diabetic peripheral angiopathy without gangrene; F03.90 Unspecified dementia, unspecified severity, without behavioral disturbance, psychotic disturbance, mood disturbance, and anxiety; L03.115 Cellulitis of right lower limb; B86 Scabies; I13.0 Hypertensive heart and chronic kidney disease with heart failure and stage 1 through stage 4 chronic kidney disease, or unspecified chronic kidney disease; N39.0 Urinary tract infection, site not specified; R13.10 Dysphagia, unspecified; Y95 Nosocomial condition; N18.9 Chronic kidney disease, unspecified; Z79.4 Long term (current) use of insulin; D63.1 Anemia in chronic kidney disease; D50.9 Iron deficiency anemia, unspecified; E78.00 Pure hypercholesterolemia, unspecified; K21.9 Gastro-esophageal reflux disease without esophagitis; N32.81 Overactive bladder; L29.9 Pruritus, unspecified; F32.9 Major depressive disorder, single episode, unspecified; B96.89 Other specified bacterial agents as the cause of diseases classified elsewhere; I25.10 Atherosclerotic heart disease of native coronary artery without angina pectoris; Z22.322 Carrier or suspected carrier of Methicillin resistant Staphylococcus aureus; Z86.79 Personal history of other diseases of the circulatory system; R53.81 Other malaise; Z74.01 Bed confinement status; I69.992 Facial weakness following unspecified cerebrovascular disease
CPT/HCPCS: 36415; 36600; 71010; 76775; 80048; 80053; 81001; 81003; 82040; 82570; 82607; 82728; 82803; 82962; 83540; 83605; 83735; 83880; 84443; 84484; 85014; 85018; 85025; 85610; 85730; 87040; 87070; 87081; 87086; 87102; 92610; 93005; 93306; 94640; 94660; 94664; 96365; 96368; 96375; 97110; 97162; J1940; J0610; J0696; J0885; J0886; J1644; J1815; J1956; J2280; J2543; J2930; J3370; J3420; J7050; J7512